=== PATIENT | male | born 1950 | race Caucasian/White ===

== ENCOUNTER → 2017-02-19 | Outpatient (CLI) | payer MEDICARE, OTHER ==
--- NOTE | 2017-02-19 14:45 | CTL ---
EXAMINATION TYPE: CT Low Dose Lung cancer screening. DATE OF EXAM ORDERED: 02/19/2017 2:02 PM HISTORY: 66-year-old male personal history of tobacco use, lung cancer screening. CT DLP: [address] CTDI: 4.0 mGy Automated exposure control for dose reduction was used. SCREENING VISIT: Baseline COMPARISON: None TECHNIQUE: Low dose computed tomography scan was performed through the chest at 1 mm thick sections and reconstructed images in the coronal plane at 1 mm thick sections. Coronal and sagittal reconstructions performed. CT DIAGNOSTIC QUALITY: Satisfactory FINDINGS: Left anterior chest wall AICD generator with right ventricular lead. Median sternotomy wires are present with post-CABG changes. There is mild to moderate bilateral gynecomastia incidentally seen. Heart is normal size without pericardial effusion. The aorta is normal caliber with conventional arch vessel branching anatomy. There is normal variant azygous fissure. No thoracic lymphadenopathy by CT size criteria. Evaluation of the lungs shows mild diffuse bronchial wall thickening and mild centrilobular emphysema. 4 mm pulmonary nodule at the anterior right midlung, axial image 110. 4 mm inferior lingular pulmonary nodule axial image 206. No consolidation or pleural effusion. Visualized upper abdomen shows tiny hiatal hernia. Bones: Mild endplate spondylosis mid to lower thoracic spine.. IMPRESSION: 1. LungRADS 3 - probably benign; a couple 4 mm pulmonary nodules on baseline. 2. COPD with mild emphysema. RECOMMENDATION: 1. Six-month follow-up low-dose CT chest for assessment of the 4 mm pulmonary nodules. 2. Smoking cessation. CT LUNG RAD: Lung-Rad 3 Probably Benign MTDD
== END | disposition home or self-care (01) ==
LOC: RADCTMAIN 13:33
PROVIDERS: ATTEND Family Medicine
DX: Z12.2 Encounter for screening for malignant neoplasm of respiratory organs (principal); J43.9 Emphysema, unspecified; F17.200 Nicotine dependence, unspecified, uncomplicated

== ENCOUNTER 2017-03-07 08:27 | Day surgery (SDC) | payer MEDICARE, OTHER ==
[2017-03-04 17:56] VITALS: BMI 43.0
[~2017-03-07 08:27] MED LIST: LACTATED RINGERS 1,000 ML IV SCH
[2017-03-07 09:02] VITALS: RESP 16; TEMP 97.3
[2017-03-07] MEDS ORDERED: PROPOFOL 10 MG/ML 20 ML VIAL IV ONE (09:48)
--- NOTE | 2017-03-07 10:20 | P.GSHP ---
History of Present Illness H&P Date: 03/07/17 Chief Complaint: Screening colonoscopy Is a 66-year-old male who presents today for screening colonoscopy. Patient denies any significant GI complaints. His last colonoscopy was over 10 years ago. - Constitutional Constitutional: Reports as per HPI Past Medical History Past Medical History: Chest Pain / Angina, COPD, Hyperlipidemia, Hypertension, Myocardial Infarction ([place]), Sleep Apnea/CPAP/BIPAP Additional Past Medical History / Comment(s): "40% of heart working", hx cluster headaches, constipation, "burning sensation in feet", neuropathy, hx kidney stones Last Myocardial Infarction Date:: 1997 History of Any Multi-Drug Resistant Organisms: None Reported Past Surgical History: AICD, Coronary Bypass/CABG, Heart Catheterization With Stent, Joint Replacement Additional Past Surgical History / Comment(s): Total R hip arthroplasty. 1997 triple vessel CABG, Cardiac cath with stents, RECTAL FISTULA REPAIR, LITHROTRIPSY, single chamber AICD 07/10/2016 Past Anesthesia/Blood Transfusion Reactions: No Reported Reaction Additional Past Anesthesia/Blood Transfusion Reaction / Comment(s): . Date of Last Stent Placement:: 11/28/2015 Type of Cardiac Device: AICD Device Placement Date:: 07/10/2016 Past Psychological History: Anxiety, Panic Disorder Additional Psychological History / Comment(s): . Smoking Status: Current every day smoker Past Alcohol Use History: Occasional Additional Past Alcohol Use History / Comment(s): STARTED SMOKING AT AGE 19 , smokes 1 PPD Past Drug Use History: None Reported - Past Family History Father Family Medical History: Cancer Additional Family Medical History / Comment(s): skin Mother Family Medical History: COPD, Pneumonia Additional Family Medical History / Comment(s): Mother at age 92 yrs. Medications and Allergies Home Medications Medication Instructions Recorded Confirmed Type Losartan Potassium [Cozaar] 100 mg PO HS 09/26/15 03/07/17 History Nitroglycerin Sl Tabs [Nitrostat] 0.4 mg SUBLINGUAL Q5M PRN 11/27/15 03/07/17 History ALPRAZolam [Xanax] 0.25 mg PO Q4-6H PRN 07/06/16 03/07/17 History Atorvastatin [Lipitor] 10 mg PO HS 07/06/16 03/07/17 History Furosemide [Lasix] 40 mg PO DAILY PRN 07/06/16 03/07/17 History Gabapentin 600 mg PO TID 07/06/16 03/07/17 History Isosorbide Mononitrate [Isosorbide 30 mg PO TID 07/06/16 03/07/17 History Mononitrate ER] Potassium Chloride ER [K-Dur 20] 20 meq PO DAILY PRN 07/06/16 03/07/17 History Aspirin 325 mg PO DAILY 03/04/17 03/07/17 History Clopidogrel [Plavix] 75 mg PO HS 03/04/17 03/07/17 History Escitalopram [Lexapro] 10 mg PO HS 03/04/17 03/07/17 History Omeprazole [PriLOSEC] 20 mg PO AC-BRKFST 03/04/17 03/07/17 History Allergies Allergy/AdvReac Type Severity Reaction Status Date / Time No Known Allergies Allergy Verified 03/04/17 17:36 Surgical - Exam Vital Signs Temp Pulse Resp BP Pulse Ox 97.3 F L 83 16 144/75 94 L 03/07/17 09:01 03/07/17 09:01 03/07/17 09:01 03/07/17 09:01 03/07/17 09:01 - General well developed, no distress - Eyes PERRL - ENT normal pinna - Neck no masses - Respiratory normal expansion - Cardiovascular Rhythm: regular - Abdomen Abdomen: soft, non tender Assessment and Plan Plan: We'll perform screening colonoscopy.
--- NOTE | 2017-03-07 10:33 | P.OP ---
Date of Procedure: 03/07/17 Preoperative Diagnosis: Screening colonoscopy Postoperative Diagnosis: Diverticulosis Procedure(s) Performed: Colonoscopy Implants: Anesthesia: MAC Surgeon: Cruz Talavera Pathology: none sent Condition: stable Disposition: PACU Indications for Procedure: Operative Findings: Description of Procedure: The patient's placed on the endoscopy table in the lateral position. He received IV sedation. Digital rectal exam was performed which revealed no abnormalities. The flexible colonoscope was then placed patient anus passed throughout the entire colon. The ileocecal valve was visualized. The cecum, ascending and transverse colon appeared normal. In the descending; there is mild diverticular changes. The scope was then brought back the rectum and this appeared normal. Scope was withdrawn for patient.
[2017-03-07 10:37] VITALS: PULSE 75
[2017-03-07 11:00] VITALS: BP 131/65
== END 2017-03-07 11:29 | disposition home or self-care (01) ==
LOC: ORWHC2ENDO 08:27
PROVIDERS: ATTEND Surgery
DX: Z12.11 Encounter for screening for malignant neoplasm of colon (principal); K57.30 Diverticulosis of large intestine without perforation or abscess without bleeding; J44.9 Chronic obstructive pulmonary disease, unspecified; E78.5 Hyperlipidemia, unspecified; I10 Essential (primary) hypertension; I25.10 Atherosclerotic heart disease of native coronary artery without angina pectoris; G47.33 Obstructive sleep apnea (adult) (pediatric); F41.9 Anxiety disorder, unspecified; K21.9 Gastro-esophageal reflux disease without esophagitis; I25.2 Old myocardial infarction; F17.200 Nicotine dependence, unspecified, uncomplicated; Z79.82 Long term (current) use of aspirin; Z79.02 Long term (current) use of antithrombotics/antiplatelets; Z79.899 Other long term (current) drug therapy; Z99.89 Dependence on other enabling machines and devices; Z80.8 Family history of malignant neoplasm of other organs or systems; Z83.6 Family history of other diseases of the respiratory system; Z95.810 Presence of automatic (implantable) cardiac defibrillator; Z95.1 Presence of aortocoronary bypass graft; Z95.5 Presence of coronary angioplasty implant and graft; Z96.641 Presence of right artificial hip joint
CPT/HCPCS: G0121; J2704

== ENCOUNTER → 2017-06-27 | Outpatient (CLI) | payer MEDICARE, OTHER ==
--- NOTE | 2017-06-27 14:49 | PN ---
PROGRESS NOTE DATE OF SERVICE: 06/27/2017 66-year-old gentleman has been followed in the sleep center for treatment of obstructive sleep apnea-hypopnea syndrome. Patient is on treatment with BiPAP and he continued to use his equipment every night. Sometimes has leak from his fullface mask, tried to adjust it to make it more tight. His mask was not changed for more than 1 year. I checked the patient's BiPAP unit. BiPAP pressure is 16/12 cm of water as recommended. The patient is a using equipment 21 out of 30 nights, 17 out of 30 for more than 4 hours. Average usage is 5.1 hour. Apnea-hypopnea index is only 1.3. The leak from the mask is up to 29 L/minute. [place] Sleepiness Scale today is 9. MEDICATIONS: Isosorbide, omeprazole, carvedilol, gabapentin, Plavix, atorvastatin, Cozaar, aspirin, Chantix, ibuprofen, Nitrostat, vitamins. PHYSICAL EXAM: During physical exam, patient in no distress. BP 140/74, HR 70, RR 16, height 5 feet 9 inches, weight 280, BMI 41.3. The patient lost about 24 pounds since visit last year. Temperature 97.3, oxygen saturation room air 97%. HEENT PERRLA, EOMI. Evaluation of oropharynx showed extremely low position of soft palate. Neck Supple, no JVD. Thyroid is not palpable. LUNGS Clear to percussion and to auscultation. Good air exchange. No wheezing or rhonchi. HEART S1, S2 regular. No murmurs, gallops, or rubs. ABDOMEN Obese. Soft and nontender. Bowel sounds are present. No organomegaly appreciated. EXTREMITIES No clubbing or cyanosis. 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 Cranial nerves 2 to 7 intact. There is no fasciculation or atrophy. noted. No focal deficits observed. IMPRESSION: 1. Obstructive sleep apnea-hypopnea syndrome. The patient is on treatment with BiPAP, benefitting from treatment. 2. Obesity. 3. Hypertension. 4. History of periodic limb movements. 5. Coronary artery disease, status post CABG. 6. History of congestive heart failure. 7. History of kidney stones. 8. Acid reflux. PLAN: 1. To replace the patient's mask as soon as possible. The mask should be replaced every 4-6 months as it was recommended by Medicare. 2. Continue losing weight. 3. Sleep hygiene with regular time in bed for at least 8 hours. 4. No driving if feeling sleepiness. 5. Follow-up visit in 1 year or earlier if the patient has any problems. Thank you very much for allowing me to participate in management of your patient. Sincerely, Claus Cartagena MD, PhD, FAASM Diplomat of [employer] Division Director of [facility] [place] MMODL / IJN: [id number] /
== END | disposition home or self-care (01) ==
LOC: SLEEP 13:33
PROVIDERS: ATTEND Internal Medicine
DX: G47.33 Obstructive sleep apnea (adult) (pediatric) (principal); E66.9 Obesity, unspecified; I10 Essential (primary) hypertension; I25.10 Atherosclerotic heart disease of native coronary artery without angina pectoris; K21.9 Gastro-esophageal reflux disease without esophagitis; Z95.1 Presence of aortocoronary bypass graft; Z86.79 Personal history of other diseases of the circulatory system; Z87.442 Personal history of urinary calculi

== ENCOUNTER → 2018-03-25 | Outpatient (CLI) | payer MEDICARE, OTHER | END | disposition home or self-care (01) | LOC: CPPFTMAIN 08:04 | PROVIDERS: ATTEND Family Medicine | DX: J44.9 Chronic obstructive pulmonary disease, unspecified (principal) | CPT/HCPCS: 94060; 94726; 94729 ==

== ENCOUNTER → 2019-05-20 | Outpatient (CLI) | payer MEDICARE, OTHER ==
--- NOTE | 2019-05-20 15:27 | US ---
EXAMINATION TYPE: US kidneys/renal and bladder DATE OF EXAM: 05/20/2019 COMPARISON: NONE CLINICAL HISTORY: R94.4 Abnormal renal function. abn function EXAM MEASUREMENTS: Right Kidney: 12.4 x 6.5 x 6.9 cm Left Kidney: 11.2 x 5.5 x 6.7 cm Right Kidney: No hydronephrosis or masses seen Left Kidney: 2.4 x 3.0 x 1.7cm lateral cyst Bladder: wnl Bilateral Jets seen: right IMPRESSION: 1. Left renal cyst
== END | disposition home or self-care (01) ==
LOC: RADUSWWP 13:23
PROVIDERS: ATTEND Family Medicine
DX: N28.1 Cyst of kidney, acquired (principal); Z88.8 Allergy status to other drugs, medicaments and biological substances
CPT/HCPCS: 76770

== ENCOUNTER → 2020-01-29 | Outpatient (CLI) | payer MEDICARE, OTHER ==
--- NOTE | 2020-01-29 13:15 | XR ---
EXAMINATION TYPE: XR chest 2V DATE OF EXAM: 01/29/2020 COMPARISON: 07/11/2016 HISTORY: Shortness of breath. Possible COPD. TECHNIQUE: Frontal and lateral views of the chest are obtained. FINDINGS: There is an enlarged cardiac mediastinal silhouette with post CABG change and single lead left-sided cardiac device. Prominent epicardial fat pad is again seen along the right atrial border u nchanged from the prior 2015. Flattening of the diaphragms on the lateral view suggests underlying CO PD. Mild degenerative disc disease of the thoracic spine. IMPRESSION: No acute cardiopulmonary process. Findings suggesting underlying COPD.
== END | disposition home or self-care (01) ==
LOC: RADXRMAIN 12:57
PROVIDERS: ATTEND Nurse Practitioner Women's Health
DX: R06.02 Shortness of breath (principal); R09.02 Hypoxemia
CPT/HCPCS: 71046

== ENCOUNTER → 2020-04-06 | Outpatient (CLI) | payer MEDICARE, OTHER ==
--- NOTE | 2020-04-06 15:23 | XR ---
Cervical spine HISTORY: Neck pain 7 views of the cervical spine There is multilevel facet arthropathy. Pacemaker lead is present, patient is post median sternotomy. Cervical vertebral bodies show preserved height and alignment, bone mineralization. Foramina show jake e encroachment at C4-5, C5-6. IMPRESSION: Degenerative disc disease.
== END | disposition home or self-care (01) ==
LOC: RADXRMAIN 12:59
PROVIDERS: ATTEND Family Medicine
DX: M50.321 Other cervical disc degeneration at C4-C5 level (principal)
CPT/HCPCS: 72050

== ENCOUNTER → 2020-04-26 | Outpatient (CLI) | payer MEDICARE, OTHER ==
--- NOTE | 2020-04-26 10:47 | CT ---
EXAMINATION TYPE: CT lumbar spine wo con DATE OF EXAM: 04/26/2020 COMPARISON: Plain film 08/27/2016 HISTORY: Low back pain CT DLP: 2525.9 mGycm Automated exposure control for dose reduction was used. An unenhanced CT of the lumbar spine was performed. Bone and soft tissue window settings are submitt ed as well as coronal and sagittal reconstructions. FINDINGS: Lumbar vertebral bodies show preserved height, alignment, and bone mineralization. Vacuum phenomenon is present at intervertebral levels, there is loss of disc height, multilevel spondylosis noted. There are low dense lesions associated with the kidneys which are indeterminate, there is calcificati on associated with the upper pole left kidney, lesions do not meet criteria for simple cysts L1-L2: Broad-based disc bulge causes mild anterior mass effect on the thecal sac. No significant fora carley encroachment or spinal stenosis. L2-L3: Posterior broad-based disc bulge causes mild anterior mass effect on the thecal sac. No signif icant foraminal encroachment or spinal stenosis. L3-L4: Posterior broad-based disc bulge causes some mild anterior mass effect on the thecal sac, mild spinal stenosis. No significant foraminal encroachment on the left, circumferential extension of end plate disc complex encroaches somewhat on the right neural foramen. L4-L5: Broad-based posterior disc bulge causes mild anterior mass effect on the thecal sac. No signif icant spinal stenosis or foraminal encroachment. There is facet arthropathy change present. L5-S1: There is posterior broad-based disc bulge causing anterior mass effect on the thecal sac. No s ignificant spinal stenosis. Facet arthropathy changes present. No significant foraminal encroachment. IMPRESSION: Degenerative disc disease and facet arthropathy. Indeterminate renal lesions. Follow-up suggested.
== END ==
LOC: RADCTMAIN 09:45
PROVIDERS: ATTEND Psychiatry & Neurology Neurology
DX: M51.36 Other intervertebral disc degeneration, lumbar region (principal); M46.96 Unspecified inflammatory spondylopathy, lumbar region
CPT/HCPCS: 72131

== ENCOUNTER → 2020-05-26 | Outpatient (CLI) | payer MEDICARE, OTHER ==
[2020-05-26 15:45] LABS: HCT 47.1 % (39.0-53.0); HGB 15.3 gm/dL (13.0-17.5); MCH 34.2 pg (25.0-35.0); MCHC 32.4 g/dL (31.0-37.0); MCV 105.5 fL (80.0-100.0); Macrocytosis Moderate; Mean Platelet Volume 7.8; Platelet Count 271 k/uL (150-450); RBC 4.46 m/uL (4.30-5.90); WBC 14.2 k/uL (3.8-10.6)
[2020-05-27 02:10] LABS: Ferritin 37.6 ng/mL (22.0-322.0)
[2020-05-27 02:54] LABS: % Iron Saturation 15.32 (15.00-50.00); African American GFR (CKD) 54.7 (60.0-200.0); Albumin 4.1 g/dL (3.80-4.90); Albumin/Globulin Ratio 1.95 (1.60-3.17); Anion Gap 8.8 mmol/L (4.00-12.00); Calcium 9.4 mg/dL (8.7-10.3); Carbon Dioxide 32.2 mmol/L (21.6-31.8); Globulin 2.1 g/dL (1.6-3.3); Magnesium 1.5 mg/dL (1.5-2.4); Non-African American GFR(CKD) 47.2 (60.0-200.0); Phosphorus 2.5 mg/dL (2.4-5.1); Potassium 3.7 mmol/L (3.5-5.5); Total Bilirubin 0.5 mg/dL (0.2-1.2); Total Protein 6.2 g/dL (6.2-8.2); Uric Acid 13.4 mg/dL (3.7-8.7)
== END | disposition home or self-care (01) ==
LOC: LABWHC1 14:52
PROVIDERS: ATTEND Nurse Practitioner Family
DX: N18.2 Chronic kidney disease, stage 2 (mild) (principal); D63.1 Anemia in chronic kidney disease; N39.0 Urinary tract infection, site not specified; N25.81 Secondary hyperparathyroidism of renal origin; E55.9 Vitamin D deficiency, unspecified; M10.9 Gout, unspecified
CPT/HCPCS: 36415; 80053; 82728; 83540; 83550; 83735; 83970; 84100; 84550; 85027

== ENCOUNTER → 2020-06-27 | Outpatient (CLI) | payer MEDICARE, OTHER ==
--- NOTE | 2020-06-27 14:43 | US ---
EXAMINATION TYPE: US kidneys/renal and bladder DATE OF EXAM: 06/27/2020 COMPARISON: NONE CLINICAL HISTORY: N28.1 Renal Cyst on the Left. EXAM MEASUREMENTS: Right Kidney: 12.2 x 6.6 x 5.3 cm Left Kidney: 13.0 x 5.0 x 4.3 cm Right Kidney: No hydronephrosis or masses seen Left Kidney: Two cystic areas seen upper pole 2.3 x 1.5 x 1.7 cm lower pole 2.0 x 1.9 x 2.0 cm. Bladder: wnl Bilateral Jets seen: Yes IMPRESSION: 1. Cysts within the left kidney
== END | disposition home or self-care (01) ==
LOC: RADUSWWP 12:54
PROVIDERS: ATTEND Internal Medicine Nephrology
DX: N28.1 Cyst of kidney, acquired (principal)
CPT/HCPCS: 76770

== ENCOUNTER → 2020-09-02 | Outpatient (CLI) | payer MEDICARE, OTHER ==
[2020-09-02 16:06] LABS: HCT 47.6 % (39.0-53.0); MCH 34.4 pg (25.0-35.0); MCHC 33.6 g/dL (31.0-37.0); MCV 102.4 fL (80.0-100.0); Macrocytosis Slight; Mean Platelet Volume 7.4; Platelet Count 246 k/uL (150-450); RBC 4.65 m/uL (4.30-5.90); RDW 14.4 % (11.5-15.5); WBC 13.8 k/uL (3.8-10.6)
[2020-09-02 16:08] LABS: Appearance,Urine Clear (Clear); Bilirubin,Urine Negative (Negative); Blood,Urine Negative (Negative); Color,Urine Yellow; Glucose,Urine (UA) Negative (Negative); Ketones,Urine Negative (Negative); Leukocyte Esterase,Urine Negative (Negative); Nitrite,Urine Negative (Negative); PH, Urine 6.5 (5.0-8.0); Protein,Urine Negative (Negative); Urobilinogen,Urine <2.0 mg/dL (<2.0)
[2020-09-02 16:32] LABS: Creatinine,Urine Random 65.4 mg/dL; Protein/Creatinine Ratio,Urine 0.321
[2020-09-03 01:35] LABS: % Iron Saturation 22.22 (15.00-50.00); African American GFR (CKD) 54.7 (60.0-200.0); Albumin 4.2 g/dL (3.80-4.90); Albumin/Globulin Ratio 2.1 (1.60-3.17); Anion Gap 7.9 mmol/L (4.00-12.00); Calcium 9.7 mg/dL (8.7-10.3); Carbon Dioxide 32.1 mmol/L (21.6-31.8); Magnesium 1.5 mg/dL (1.5-2.4); Non-African American GFR(CKD) 47.2 (60.0-200.0); Phosphorus 2.6 mg/dL (2.4-5.1); Potassium 4.3 mmol/L (3.5-5.5); Total Bilirubin 0.7 mg/dL (0.2-1.2); Total Protein 6.2 g/dL (6.2-8.2); Uric Acid 9.2 mg/dL (3.7-8.7)
[2020-09-03 01:43] LABS: Ferritin 42.6 ng/mL (22.0-322.0)
[2020-09-03 02:51] LABS: Hemoglobin A1C 6.9 % (4.0-6.0)
[2020-09-03 04:37] LABS: Urine Creatinine 59.5 mg/dL
== END | disposition home or self-care (01) ==
LOC: LABWHC1 14:55
PROVIDERS: ATTEND Nurse Practitioner Family
DX: E55.9 Vitamin D deficiency, unspecified (principal); D63.1 Anemia in chronic kidney disease; E11.22 Type 2 diabetes mellitus with diabetic chronic kidney disease; R80.9 Proteinuria, unspecified; M10.9 Gout, unspecified; N18.2 Chronic kidney disease, stage 2 (mild); N39.0 Urinary tract infection, site not specified; N25.81 Secondary hyperparathyroidism of renal origin
CPT/HCPCS: 36415; 80053; 81003; 82043; 82306; 82570; 82728; 83036; 83540; 83550; 83735; 83970; 84100; 84156; 84550; 85027

== ENCOUNTER → 2020-12-13 | Outpatient (CLI) | payer MEDICARE, OTHER ==
[2020-12-13 15:09] LABS: Appearance,Urine Clear (Clear); Bilirubin,Urine Negative (Negative); Blood,Urine Negative (Negative); Color,Urine Yellow; Glucose,Urine (UA) Negative (Negative); Hyaline Casts,Urine 8 /lpf (0-2); Ketones,Urine Negative (Negative); Leukocyte Esterase,Urine Trace (Negative); Mucus,Urine Rare /hpf; Nitrite,Urine Negative (Negative); PH, Urine 5.5 (5.0-8.0); Protein,Urine 1+ (Negative); RBC,Urine 1 /hpf (0-5); Specific Gravity,Urine 1.021 (1.001-1.035); Squamous Epithelial Cell,Urine <1 /hpf (0-4); WBC,Urine 4 /hpf (0-5)
[2020-12-13 15:19] LABS: Creatinine,Urine Random 216.1 mg/dL; Protein/Creatinine Ratio,Urine 0.074
[2020-12-14 01:43] LABS: HCT 46.3 % (39.6-50.0); HGB 15.3 g/dL (13.0-17.0); MCH 34.2 pg (27.0-32.0); MCV 103.6 fL (80.0-97.0); Mean Platelet Volume 10.5 fL (9.5-12.2); Platelet Count 248 X 10*3/uL (140-440); RBC 4.47 X 10*6/uL (4.40-5.60); RDW 14.9 % (11.5-14.5); WBC 10.08 X 10*3/uL (4.50-10.00)
[2020-12-14 04:26] LABS: Hemoglobin A1C 6.6 % (4.0-6.0)
[2020-12-14 07:01] LABS: Ferritin 68.7 ng/mL (22.0-322.0)
[2020-12-14 07:13] LABS: % Iron Saturation 21.7 (15.00-50.00); Albumin 4.1 g/dL (3.80-4.90); Albumin/Globulin Ratio 2.16 (1.60-3.17); Anion Gap 5.9 mmol/L (4.00-12.00); BUN/Creat Ratio 18.57 Ratio (12.00-20.00); Carbon Dioxide 25.1 mmol/L (21.6-31.8); Chol/HDL Ratio 4.42; Globulin 1.9 g/dL (1.6-3.3); Non-African American GFR(CKD) 50.9 (60.0-200.0); Phosphorus 2.8 mg/dL (2.4-5.1); Potassium 4.1 mmol/L (3.5-5.5); Total Bilirubin 0.4 mg/dL (0.2-1.2)
== END | disposition home or self-care (01) ==
LOC: LABWHC1 12:18
PROVIDERS: ATTEND Internal Medicine Cardiovascular Disease
DX: E55.9 Vitamin D deficiency, unspecified (principal); E78.2 Mixed hyperlipidemia; D64.9 Anemia, unspecified; E11.22 Type 2 diabetes mellitus with diabetic chronic kidney disease; N18.30 Chronic kidney disease, stage 3 unspecified; N25.81 Secondary hyperparathyroidism of renal origin; M10.9 Gout, unspecified; N39.0 Urinary tract infection, site not specified; R80.9 Proteinuria, unspecified
CPT/HCPCS: 36415; 80053; 80061; 81001; 82043; 82306; 82570; 82728; 83036; 83540; 83550; 83970; 84100; 84156; 84550; 85027

== ENCOUNTER → 2021-04-24 | Outpatient (CLI) | payer MEDICARE, OTHER ==
[2021-04-24 13:09] LABS: Appearance,Urine Clear (Clear); Bilirubin,Urine Negative (Negative); Blood,Urine Negative (Negative); Color,Urine Light Yellow; Glucose,Urine (UA) Negative (Negative); Ketones,Urine Negative (Negative); Leukocyte Esterase,Urine Negative (Negative); Nitrite,Urine Negative (Negative); Protein,Urine Negative (Negative); Specific Gravity,Urine 1.008 (1.001-1.035); Urobilinogen,Urine <2.0 mg/dL (<2.0)
[2021-04-24 18:40] LABS: HCT 44.4 % (39.6-50.0); HGB 14.7 g/dL (13.0-17.0); MCH 34.6 pg (27.0-32.0); MCHC 33.1 g/dL (32.0-37.0); MCV 104.5 fL (80.0-97.0); Mean Platelet Volume 10.7 fL (9.5-12.2); Platelet Count 221 X 10*3/uL (140-440); RBC 4.25 X 10*6/uL (4.40-5.60); RDW 15.3 % (11.5-14.5); WBC 10.41 X 10*3/uL (4.50-10.00)
[2021-04-24 19:02] LABS: % Iron Saturation 13.13 (15.00-50.00); African American GFR (CKD) 50.2 (60.0-200.0); Albumin 4.1 g/dL (3.80-4.90); Albumin/Globulin Ratio 1.78 (1.60-3.17); Anion Gap 7.4 mmol/L (4.00-12.00); BUN/Creat Ratio 23.75 Ratio (12.00-20.00); Calcium 9.6 mg/dL (8.7-10.3); Carbon Dioxide 31.6 mmol/L (21.6-31.8); Globulin 2.3 g/dL (1.6-3.3); Magnesium 1.7 mg/dL (1.5-2.4); Non-African American GFR(CKD) 43.3 (60.0-200.0); Phosphorus 3.1 mg/dL (2.4-5.1); Potassium 3.9 mmol/L (3.5-5.5); Total Bilirubin 0.4 mg/dL (0.3-1.2); Total Protein 6.4 g/dL (6.2-8.2)
[2021-04-24 19:03] LABS: Uric Acid 8.8 mg/dL (3.7-8.7)
[2021-04-24 19:12] LABS: Ferritin 31.6 ng/mL (22.0-322.0)
[2021-04-24 23:31] LABS: Urine Creatinine 32.7 mg/dL
== END | disposition home or self-care (01) ==
LOC: LABWHC1 11:41
PROVIDERS: ATTEND Internal Medicine
DX: N18.31 Chronic kidney disease, stage 3a (principal); D64.9 Anemia, unspecified; N39.0 Urinary tract infection, site not specified; N25.81 Secondary hyperparathyroidism of renal origin; M10.9 Gout, unspecified; E55.9 Vitamin D deficiency, unspecified
CPT/HCPCS: 36415; 80053; 81003; 82043; 82306; 82570; 82728; 83540; 83550; 83735; 83970; 84100; 84550; 85027

== ENCOUNTER → 2021-08-08 | Outpatient (CLI) | payer MEDICARE, OTHER ==
[2021-08-08 11:17] LABS: HCT 48.9 % (39.6-50.0); MCH 34.6 pg (27.0-32.0); MCHC 32.7 g/dL (32.0-37.0); MCV 105.8 fL (80.0-97.0); Mean Platelet Volume 10.5 fL (9.5-12.2); Platelet Count 220 X 10*3/uL (140-440); RBC 4.62 X 10*6/uL (4.40-5.60); RDW 15.7 % (11.5-14.5); WBC 10.93 X 10*3/uL (4.50-10.00)
[2021-08-08 13:55] LABS: % Iron Saturation 28.95 (15.00-50.00); Albumin 4.1 g/dL (3.8-4.9); Albumin/Globulin Ratio 1.83 (1.60-3.17); Anion Gap 16.3 mmol/L (4.00-12.00); BUN/Creat Ratio 19.44 Ratio (12.00-20.00); Blood Urea Nitrogen 27.6 mg/dL (9.0-27.0); Calcium 9.8 mg/dL (8.7-10.3); Carbon Dioxide 26.3 mmol/L (21.6-31.8); Chol/HDL Ratio 3.66 Ratio; Ferritin 64.1 ng/mL (22.0-322.0); Globulin 2.2 g/dL (1.6-3.3); HDL Cholesterol 27.6 mg/dL (40.00-60.00); LDL Cholesterol,Calculated 39.2 mg/dL (0.0-131.0); Magnesium 1.7 mg/dL (1.5-2.4); Phosphorus 3.4 mg/dL (2.4-5.1); Potassium 4.2 mmol/L (3.5-5.5); Total Bilirubin 0.5 mg/dL (0.30-1.20); Total Protein 6.3 g/dL (6.2-8.2); VLDL Calculation 34.2 mg/dL (5.00-40.00)
[2021-08-08 14:57] LABS: Appearance,Urine Clear (Clear); Bilirubin,Urine Negative (Negative); Blood,Urine Negative (Negative); Color,Urine Yellow; Glucose,Urine (UA) Negative (Negative); Ketones,Urine Negative (Negative); Leukocyte Esterase,Urine Negative (Negative); Nitrite,Urine Negative (Negative); PH, Urine 6.5 (5.0-8.0); Protein,Urine Trace (Negative)
== END | disposition home or self-care (01) ==
LOC: LABWHC1 07:46
PROVIDERS: ATTEND Internal Medicine Gastroenterology
DX: E78.2 Mixed hyperlipidemia (principal); N18.31 Chronic kidney disease, stage 3a; D64.9 Anemia, unspecified; N39.0 Urinary tract infection, site not specified; N25.81 Secondary hyperparathyroidism of renal origin; E55.9 Vitamin D deficiency, unspecified; M10.9 Gout, unspecified
CPT/HCPCS: 36415; 80053; 80061; 81003; 82043; 82306; 82570; 82728; 83036; 83540; 83550; 83735; 83970; 84100; 84550; 85027

== ENCOUNTER 2021-09-09 18:09 | Emergency (ER) | payer MEDICARE, OTHER ==
[2021-09-09 18:38] VITALS: BP 124/73; PULSE 82; RESP 18; TEMP 97.8
[2021-09-09] MEDS ORDERED: BACITRACIN OINT 1 EACH PACKET TOPICAL ONE (19:44)
--- NOTE | 2021-09-09 20:22 | ED ---
Lower Extremity Injury HPI - General Chief Complaint: Extremity Injury, Lower Stated Complaint: SOB, Big toe laceration, on thinners Time Seen by Provider: 09/09/21 19:39 Source: patient, RN notes reviewed Mode of arrival: wheelchair - History of Present Illness Initial Comments: Patient is a 70-year-old male that presents to the emergency department complaining of left great toe abrasion. She was sleeping when he knocked his laptop off a side table and on his foot. He notes he is diabetic and has diabetic neuropathy. He notes it has minimal bleeding. He came emergently get evaluated. Patient denied any issues or complaints. He was well-appearing. He denied chest pain shortness of breath headache nausea vomiting diarrhea constipation fever fatigue chills. - Related Data Home Medications Medication Instructions Recorded Confirmed Losartan Potassium [Cozaar] 100 mg PO HS 09/26/15 03/07/17 Nitroglycerin Sl Tabs [Nitrostat] 0.4 mg SUBLINGUAL Q5M PRN 11/27/15 03/07/17 ALPRAZolam [Xanax] 0.25 mg PO Q4-6H PRN 07/06/16 03/07/17 Atorvastatin [Lipitor] 10 mg PO HS 07/06/16 03/07/17 Furosemide [Lasix] 40 mg PO DAILY PRN 07/06/16 03/07/17 Gabapentin 600 mg PO TID 07/06/16 03/07/17 Isosorbide Mononitrate [Isosorbide 30 mg PO TID 07/06/16 03/07/17 Mononitrate ER] Potassium Chloride ER [K-Dur 20] 20 meq PO DAILY PRN 07/06/16 03/07/17 Aspirin 325 mg PO DAILY 03/04/17 03/07/17 Clopidogrel [Plavix] 75 mg PO HS 03/04/17 03/07/17 Escitalopram [Lexapro] 10 mg PO HS 03/04/17 03/07/17 Omeprazole [PriLOSEC] 20 mg PO AC-BRKFST 03/04/17 03/07/17 Previous Rx's Medication Instructions Recorded Carvedilol [Coreg] 18.75 mg PO BID #45 tab 12/02/15 Allergies Allergy/AdvReac Type Severity Reaction Status Date / Time No Known Allergies Allergy Verified 03/04/17 17:36 Review of Systems ROS Statement: Those systems with pertinent positive or pertinent negative responses have been documented in the HPI. ROS Other: All systems not noted in ROS Statement are negative. Past Medical History Past Medical History: COPD, GERD/Reflux, Hyperlipidemia, Hypertension, Myocardial Infarction ([place]), Osteoarthritis (OA), Sleep Apnea/CPAP/BIPAP Additional Past Medical History / Comment(s): cardiomyopathy Last Myocardial Infarction Date:: 11/28/15 History of Any Multi-Drug Resistant Organisms: None Reported Past Surgical History: Coronary Bypass/CABG, Heart Catheterization With Stent, Joint Replacement Additional Past Surgical History / Comment(s): 10/04/15 Total R hip arthroplasty. 1997 triple vessel CABG, Cardiac cath with stents, RECTAL FISTULA REPAIR, KIDNEY STONE, LITHROTRIPSY, single chamber AICD 07/10/2016 Past Anesthesia/Blood Transfusion Reactions: No Reported Reaction Additional Past Anesthesia/Blood Transfusion Reaction / Comment(s): Pt does not believe he has ever received blood. Date of Last Stent Placement:: 11/28/2015 Past Psychological History: No Psychological Hx Reported Smoking Status: Current every day smoker Past Alcohol Use History: Rare Past Drug Use History: None Reported - Past Family History Father Family Medical History: Cancer Additional Family Medical History / Comment(s): skin Mother Family Medical History: COPD, Pneumonia Additional Family Medical History / Comment(s): Mother at age 92 yrs. General Exam General appearance: alert, in no apparent distress, obese Head exam: Present: atraumatic, normocephalic, normal inspection Eye exam: Present: normal appearance, PERRL, EOMI. Absent: scleral icterus, conjunctival injection, periorbital swelling ENT exam: Present: normal exam, mucous membranes moist Neck exam: Present: normal inspection. Absent: tenderness, meningismus, lymphadenopathy Respiratory exam: Present: normal lung sounds bilaterally. Absent: respiratory distress, wheezes, rales, rhonchi, stridor Cardiovascular Exam: Present: regular rate, normal rhythm, normal heart sounds. Absent: systolic murmur, diastolic murmur, rubs, gallop, clicks GI/Abdominal exam: Present: soft, normal bowel sounds. Absent: distended, tenderness, guarding, rebound, rigid Extremities exam: Present: normal inspection, full ROM, normal capillary refill. Absent: tenderness, pedal edema, joint swelling, calf tenderness Neurological exam: Present: alert, oriented X3 Psychiatric exam: Present: normal affect, normal mood Skin exam: Present: warm, dry, intact, normal color, abrasion (Just proximal the left great toe, nonbleeding.). Absent: rash Course Vital Signs 09/09/21 18:30 Temperature 97.8 F Pulse Rate 82 Respiratory 18 Rate Blood Pressure 124/73 O2 Sat by Pulse 95 Oximetry Medical Decision Making - Medical Decision Making 70-year-old male with left toe injury. Upon exam is a small abrasion to the proximal left great toe. Area was cleaned and bacitracin was applied and bandaged. Patient is agreeable to discharge home with follow-up to primary care. Case discussed with Dr. Ren, patient discharge home. Disposition Clinical Impression: Abrasion Disposition: HOME SELF-CARE Condition: Stable Instructions (If sedation given, give patient instructions): Abrasion (ED) Additional Instructions: Please return to the Emergency Department if symptoms worsen or any other concerns. Follow-up with primary care 1-2 days. 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 Is patient prescribed a controlled substance at d/c from ED?: No Referrals: Vaibhav Mejía MD [Primary Care Provider] - 1-2 days Time of Disposition: 20:22
== END 2021-09-09 20:42 | disposition home or self-care (01) ==
LOC: EC 18:09
DX: S90.412A Abrasion, left great toe, initial encounter (principal); J44.9 Chronic obstructive pulmonary disease, unspecified; E78.5 Hyperlipidemia, unspecified; I10 Essential (primary) hypertension; I25.2 Old myocardial infarction; M19.90 Unspecified osteoarthritis, unspecified site; E11.40 Type 2 diabetes mellitus with diabetic neuropathy, unspecified; F17.200 Nicotine dependence, unspecified, uncomplicated; K21.9 Gastro-esophageal reflux disease without esophagitis; Z72.89 Other problems related to lifestyle; Z79.82 Long term (current) use of aspirin; Z79.02 Long term (current) use of antithrombotics/antiplatelets; Z79.899 Other long term (current) drug therapy
CPT/HCPCS: 99283

== ENCOUNTER → 2021-11-27 | Outpatient (CLI) | payer MEDICARE, OTHER ==
[2021-11-27 23:29] LABS: Basophils # (A) 0.03 X 10*3/uL (0.00-0.10); Basophils % (A) 0.3 %; Eosinophils # (A) 0.09 X 10*3/uL (0.04-0.35); Eosinophils % (A) 0.9 %; HCT 49.3 % (39.6-50.0); HGB 16.2 g/dL (13.0-17.0); Immature Grans, Automated 0.5 %; Lymphocytes # (A) 2.01 X 10*3/uL (0.90-5.00); MCH 34.5 pg (27.0-32.0); MCHC 32.9 g/dL (32.0-37.0); MCV 104.9 fL (80.0-97.0); Mean Platelet Volume 10.9 fL (9.5-12.2); Monocytes # (A) 0.71 X 10*3/uL (0.20-1.00); Monocytes % (A) 6.7 %; NRBC Per 100 WBC 0 /100 WBCS (0.0-0.0); Neutrophils # (A) 7.69 X 10*3/uL (1.80-7.70); Neutrophils % (A) 72.6 %; Platelet Count 223 X 10*3/uL (140-440); WBC 10.58 X 10*3/uL (4.50-10.00)
[2021-11-28 01:50] LABS: Appearance,Urine Clear (Clear); Bilirubin,Urine Negative (Negative); Blood,Urine Negative (Negative); Color,Urine Yellow (Yellow); Ketones,Urine Trace mg/dL (Negative); Leukocyte Esterase,Urine Negative (Negative); Nitrite,Urine Negative (Negative); Protein,Urine Negative (Negative); Specific Gravity,Urine 1.018 (1.001-1.030)
[2021-11-28 04:46] LABS: % Iron Saturation 30.08 (15.00-50.00); ALT 13 U/L (10-49); AST 18 U/L (14-35); African American GFR (CKD) 44.7 (60.0-200.0); Albumin 4.1 g/dL (3.8-4.9); Albumin/Globulin Ratio 1.73 (1.60-3.17); Alkaline Phosphatase 85 U/L (41-126); BUN/Creat Ratio 19.43 Ratio (12.00-20.00); Calcium 10.1 mg/dL (8.7-10.3); Carbon Dioxide 26.5 mmol/L (20.0-27.5); Chloride 96 mmol/L (96-109); Globulin 2.4 g/dL (1.6-3.3); Glucose 116 mg/dL (70-110); Iron 112 ug/dL (65-175); Magnesium 1.7 mg/dL (1.5-2.4); Non-African American GFR(CKD) 38.6 (60.0-200.0); Phosphorus 2.8 mg/dL (2.4-5.1); Potassium 4.3 mmol/L (3.5-5.5); Sodium 143 mmol/L (135-145); Total Iron Binding Capacity 372 ug/dL (228-460); Total Protein 6.5 g/dL (6.2-8.2); Uric Acid 9.6 mg/dL (3.7-8.7)
[2021-11-28 05:02] LABS: Chol/HDL Ratio 3.95 Ratio; Ferritin 97.3 ng/mL (22.0-322.0); LDL Cholesterol,Calculated 33.9 mg/dL (0.0-131.0)
[2021-11-28 10:56] LABS: Microalbumin Creatinine Ratio <30 mg/g Creat (0-30)
== END | disposition home or self-care (01) ==
LOC: LABWHC1 15:22
PROVIDERS: ATTEND Internal Medicine
DX: L97.522 Non-pressure chronic ulcer of other part of left foot with fat layer exposed (principal); R60.0 Localized edema; R53.83 Other fatigue; R06.02 Shortness of breath; E03.9 Hypothyroidism, unspecified; N18.31 Chronic kidney disease, stage 3a; D64.9 Anemia, unspecified; N39.0 Urinary tract infection, site not specified; N25.81 Secondary hyperparathyroidism of renal origin; E55.9 Vitamin D deficiency, unspecified; M10.9 Gout, unspecified
CPT/HCPCS: 36415; 80053; 80061; 81003; 82043; 82306; 82570; 82728; 83540; 83550; 83735; 83880; 83970; 84100; 84443; 84550; 85025

== ENCOUNTER → 2021-11-29 | Outpatient (CLI) | payer MEDICARE, OTHER | END | disposition home or self-care (01) | LOC: LABWHC1 09:33 | PROVIDERS: ATTEND Internal Medicine | DX: N25.81 Secondary hyperparathyroidism of renal origin (principal); N18.31 Chronic kidney disease, stage 3a; D64.9 Anemia, unspecified; N39.0 Urinary tract infection, site not specified; E55.9 Vitamin D deficiency, unspecified; M10.9 Gout, unspecified | CPT/HCPCS: 36415; 83036 ==

== ENCOUNTER → 2021-12-21 | Outpatient (CLI) | payer MEDICARE, OTHER ==
[2021-12-21 23:35] LABS: African American GFR (CKD) 47.7 (60.0-200.0); Anion Gap 16.5 mmol/L (10.00-18.00); BUN/Creat Ratio 18.13 Ratio (12.00-20.00); Blood Urea Nitrogen 30.1 mg/dL (9.0-27.0); Magnesium 1.9 mg/dL (1.5-2.4); Non-African American GFR(CKD) 41.1 (60.0-200.0)
== END | disposition home or self-care (01) ==
LOC: LABWHC1 14:45
PROVIDERS: ATTEND Internal Medicine
DX: N18.31 Chronic kidney disease, stage 3a (principal)
CPT/HCPCS: 36415; 80048; 83735

== ENCOUNTER → 2021-12-27 | Outpatient (CLI) | payer MEDICARE, OTHER ==
[2021-12-27 20:34] LABS: African American GFR (CKD) 49.1 (60.0-200.0); BUN/Creat Ratio 19.01 Ratio (12.00-20.00); Blood Urea Nitrogen 30.8 mg/dL (9.0-27.0); Non-African American GFR(CKD) 42.4 (60.0-200.0); Potassium 3.6 mmol/L (3.5-5.5)
== END | disposition home or self-care (01) ==
LOC: LABWHC1 11:08
PROVIDERS: ATTEND Internal Medicine
DX: N18.31 Chronic kidney disease, stage 3a (principal)
CPT/HCPCS: 36415; 80048

== ENCOUNTER → 2022-02-06 | Outpatient (CLI) | payer MEDICARE, OTHER ==
[2022-02-06 18:47] LABS: Albumin 3.9 g/dL (3.8-4.9); Albumin/Globulin Ratio 1.37 (1.60-3.17); Anion Gap 10.7 mmol/L (10.00-18.00); BUN/Creat Ratio 17.66 Ratio (12.00-20.00); Blood Urea Nitrogen 30.2 mg/dL (9.0-27.0); Calcium 9.9 mg/dL (8.7-10.3); Carbon Dioxide 34.8 mmol/L (20.0-27.5); Globulin 2.9 g/dL (1.6-3.3); Non-African American GFR(CKD) 39.7 (60.0-200.0); Potassium 3.7 mmol/L (3.5-5.5); Total Bilirubin 0.5 mg/dL (0.30-1.20); Total Protein 6.8 g/dL (6.2-8.2)
== END | disposition home or self-care (01) ==
LOC: LABWHC1 13:52
PROVIDERS: ATTEND Nurse Practitioner Family
DX: N18.31 Chronic kidney disease, stage 3a (principal)
CPT/HCPCS: 36415; 80053

== ENCOUNTER → 2022-03-08 | Outpatient (CLI) | payer MEDICARE, OTHER ==
--- NOTE | 2022-03-16 08:31 | US ---
EXAMINATION TYPE: US arterial LE multi level DATE OF EXAM: 03/08/2022 1:18 PM CLINICAL HISTORY: L03.119 Cellulitis of unspecified part of limb. History of hyperlipidemia, hyperten saba, and diabetes along with coronary artery disease Doppler Waveforms: Right: Monophasic Left: Monophasic Ankle-Brachial Indices: Right: 0.94 Left: 0.94 Toe Brachial Indices: Right: 0.83 Left: 0.83 IMPRESSION: Normal SAM and TBI values bilaterally. Loss of phasicity bilaterally. This may be technic al. Cannot exclude underlying significant arterial disease. Follow-up advised.
== END | disposition home or self-care (01) ==
LOC: RADUSWWP 12:24
PROVIDERS: ATTEND Internal Medicine Nephrology
DX: L03.119 Cellulitis of unspecified part of limb (principal); R20.2 Paresthesia of skin; I10 Essential (primary) hypertension; E78.5 Hyperlipidemia, unspecified
CPT/HCPCS: 93923

== ENCOUNTER → 2022-04-19 | Outpatient (CLI) | payer MEDICARE, OTHER ==
[2022-04-19 23:23] LABS: % Iron Saturation 24.67 (15.00-50.00); African American GFR (CKD) 39.7 (60.0-200.0); Albumin 3.9 g/dL (3.8-4.9); Albumin/Globulin Ratio 1.68 (1.60-3.17); Anion Gap 14.2 mmol/L (10.00-18.00); BUN/Creat Ratio 20.41 Ratio (12.00-20.00); Blood Urea Nitrogen 39.4 mg/dL (9.0-27.0); Calcium 9.8 mg/dL (8.7-10.3); Carbon Dioxide 33.1 mmol/L (20.0-27.5); Globulin 2.3 g/dL (1.6-3.3); Magnesium 1.9 mg/dL (1.5-2.4); Non-African American GFR(CKD) 34.3 (60.0-200.0); Phosphorus 2.5 mg/dL (2.4-5.1); Potassium 3.5 mmol/L (3.5-5.5); Total Bilirubin 0.5 mg/dL (0.30-1.20); Total Protein 6.3 g/dL (6.2-8.2); Uric Acid 9.6 mg/dL (3.7-8.7)
[2022-04-19 23:45] LABS: Basophils # (A) 0.02 X 10*3/uL (0.00-0.10); Basophils % (A) 0.2 %; Eosinophils % (A) 0.8 %; HGB 16.4 g/dL (13.0-17.0); Immature Grans, Automated 0.7 %; Lymphocytes # (A) 1.67 X 10*3/uL (0.90-5.00); MCH 35.2 pg (27.0-32.0); MCHC 33.5 g/dL (32.0-37.0); MCV 105.2 fL (80.0-97.0); Mean Platelet Volume 10.7 fL (9.5-12.2); Monocytes # (A) 0.86 X 10*3/uL (0.20-1.00); Monocytes % (A) 7.2 %; NRBC Per 100 WBC 0 /100 WBCS (0.0-0.0); Neutrophils # (A) 9.24 X 10*3/uL (1.80-7.70); Neutrophils % (A) 77.1 %; Platelet Count 215 X 10*3/uL (140-440); RBC 4.66 X 10*6/uL (4.40-5.60); RDW 15.2 % (11.5-14.5); WBC 11.97 X 10*3/uL (4.50-10.00)
[2022-04-20 00:59] LABS: Urine Creatinine 91.1 mg/dL (39.0-259.0)
== END | disposition home or self-care (01) ==
LOC: LABWHC1 16:15
PROVIDERS: ATTEND Internal Medicine
DX: N18.31 Chronic kidney disease, stage 3a (principal); D64.9 Anemia, unspecified; E21.3 Hyperparathyroidism, unspecified; E55.9 Vitamin D deficiency, unspecified; M10.9 Gout, unspecified
CPT/HCPCS: 36415; 80053; 82043; 82306; 82533; 82570; 82728; 83540; 83550; 83735; 83970; 84100; 84550; 85025

== ENCOUNTER → 2022-05-03 | Outpatient (CLI) | payer MEDICARE, OTHER ==
[2022-05-03 23:29] LABS: Basophils # (A) 0.02 X 10*3/uL (0.00-0.10); Basophils % (A) 0.2 %; Eosinophils # (A) 0.06 X 10*3/uL (0.04-0.35); Eosinophils % (A) 0.6 %; HCT 48.6 % (39.6-50.0); HGB 16.1 g/dL (13.0-17.0); Immature Grans, Automated 0.5 %; Lymphocytes # (A) 1.15 X 10*3/uL (0.90-5.00); Lymphocytes % (A) 11.2 %; MCH 35.2 pg (27.0-32.0); MCHC 33.1 g/dL (32.0-37.0); MCV 106.3 fL (80.0-97.0); Mean Platelet Volume 10.6 fL (9.5-12.2); Monocytes # (A) 0.52 X 10*3/uL (0.20-1.00); Monocytes % (A) 5.1 %; NRBC Per 100 WBC 0 /100 WBCS (0.0-0.0); Neutrophils # (A) 8.47 X 10*3/uL (1.80-7.70); Neutrophils % (A) 82.4 %; Platelet Count 217 X 10*3/uL (140-440); RBC 4.57 X 10*6/uL (4.40-5.60); RDW 14.8 % (11.5-14.5); WBC 10.27 X 10*3/uL (4.50-10.00)
[2022-05-03 23:51] LABS: African American GFR (CKD) 52.6 (60.0-200.0); Albumin 3.7 g/dL (3.8-4.9); Albumin/Globulin Ratio 1.26 (1.60-3.17); BUN/Creat Ratio 16.93 Ratio (12.00-20.00); Blood Urea Nitrogen 25.9 mg/dL (9.0-27.0); Calcium 9.7 mg/dL (8.7-10.3); Carbon Dioxide 32.5 mmol/L (20.0-27.5); Globulin 2.9 g/dL (1.6-3.3); Non-African American GFR(CKD) 45.4 (60.0-200.0); Potassium 3.7 mmol/L (3.5-5.5); Total Bilirubin 0.6 mg/dL (0.30-1.20); Total Protein 6.6 g/dL (6.2-8.2)
[2022-05-04 00:09] LABS: INR 0.95 (0.90-1.11); Prothrombin Time 10.8 sec (9.9-11.9)
== END | disposition home or self-care (01) ==
LOC: LABWHC1 14:36
PROVIDERS: ATTEND Family Medicine
DX: R18.8 Other ascites (principal)
CPT/HCPCS: 36415; 80053; 85025; 85610

== ENCOUNTER → 2022-05-28 | Outpatient (CLI) | payer MEDICARE, OTHER ==
--- NOTE | 2022-05-28 08:39 | US ---
EXAMINATION TYPE: US abdomen complete DATE OF EXAM: 05/28/2022 COMPARISON: CT low dose chest 02/19/2017 CLINICAL HISTORY: R14.0, R18.8. abd distended, large habitus TECHNIQUE: Multiple sonographic images of the abdomen are obtained. 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
== END | disposition home or self-care (01) ==
LOC: RADUSWWP 06:37
PROVIDERS: ATTEND Family Medicine
DX: K76.9 Liver disease, unspecified (principal)
CPT/HCPCS: 76700

== ENCOUNTER → 2022-07-13 | Outpatient (CLI) | payer MEDICARE, OTHER ==
[2022-07-13 14:15] LABS: Basophils % (A) 0 %; Eosinophils # (A) 0.1 k/uL (0-0.7); Eosinophils % (A) 1 %; HCT 48.7 % (39.0-53.0); HGB 16.6 gm/dL (13.0-17.5); Lymphocytes # (A) 1.8 k/uL (1.0-4.8); Lymphocytes % (A) 17 %; MCH 35.8 pg (25.0-35.0); MCV 105.3 fL (80.0-100.0); Macrocytosis Moderate; Monocytes # (A) 0.6 k/uL (0-1.0); Monocytes % (A) 6 %; Neutrophils # (A) 7.7 k/uL (1.3-7.7); Neutrophils % (A) 74 %; Platelet Count 240 k/uL (150-450); RBC 4.63 m/uL (4.30-5.90); RDW 13.7 % (11.5-15.5); WBC 10.5 k/uL (3.8-10.6)
[2022-07-13 18:58] LABS: Chol/HDL Ratio 3.11 Ratio; LDL Cholesterol,Calculated 24.3 mg/dL (0.0-131.0)
[2022-07-13 19:17] LABS: Hepatitis C IgG Antibody Nonreactive (Nonreactive)
[2022-07-13 20:03] LABS: % Iron Saturation 27.63 (15.00-50.00); ALT 12 U/L (10-49); AST 16 U/L (14-35); African American GFR (CKD) 47.3 (60.0-200.0); Albumin 3.9 g/dL (3.8-4.9); Albumin/Globulin Ratio 1.67 (1.60-3.17); Alkaline Phosphatase 96 U/L (41-126); BUN/Creat Ratio 15.63 Ratio (12.00-20.00); Blood Urea Nitrogen 26.1 mg/dL (9.0-27.0); Calcium 9.5 mg/dL (8.7-10.3); Carbon Dioxide 31.7 mmol/L (20.0-27.5); Chloride 97 mmol/L (96-109); Globulin 2.3 g/dL (1.6-3.3); Glucose 118 mg/dL (70-110); Iron 97 ug/dL (65-175); Magnesium 1.8 mg/dL (1.5-2.4); Non-African American GFR(CKD) 40.8 (60.0-200.0); Phosphorus 3.1 mg/dL (2.4-5.1); Potassium 3.8 mmol/L (3.5-5.5); Sodium 141 mmol/L (135-145); Total Iron Binding Capacity 351 ug/dL (228-460); Total Protein 6.2 g/dL (6.2-8.2)
[2022-07-13 23:49] LABS: Microalbumin Creatinine Ratio <30 mg/g Creat (0-30)
== END | disposition home or self-care (01) ==
LOC: LABWHC1 12:24
PROVIDERS: ATTEND Nurse Practitioner Family
DX: Z00.01 Encounter for general adult medical examination with abnormal findings (principal); R80.9 Proteinuria, unspecified; E21.3 Hyperparathyroidism, unspecified; E55.9 Vitamin D deficiency, unspecified; M10.9 Gout, unspecified; N18.31 Chronic kidney disease, stage 3a; D63.1 Anemia in chronic kidney disease; F17.210 Nicotine dependence, cigarettes, uncomplicated; D72.829 Elevated white blood cell count, unspecified; R53.83 Other fatigue; E66.01 Morbid (severe) obesity due to excess calories; Z23 Encounter for immunization; D75.89 Other specified diseases of blood and blood-forming organs
CPT/HCPCS: 36415; 80053; 80061; 82043; 82306; 82570; 82607; 82728; 82746; 83036; 83540; 83550; 83721; 83735; 83970; 84100; 84153; 84443; 84550; 85025; 86803

== ENCOUNTER → 2022-10-11 | Outpatient (CLI) | payer MEDICARE, OTHER ==
[2022-10-11 15:31] LABS: HCT 48.3 % (39.6-50.0); HGB 15.7 g/dL (13.0-17.0); MCH 33.8 pg (27.0-32.0); MCHC 32.5 g/dL (32.0-37.0); MCV 104.1 fL (80.0-97.0); Mean Platelet Volume 10.1 fL (9.5-12.2); NRBC Per 100 WBC 0 /100 WBCS (0.0-0.0); Platelet Count 257 X 10*3/uL (140-440); RBC 4.64 X 10*6/uL (4.40-5.60); RDW 14.8 % (11.5-14.5); WBC 15.29 X 10*3/uL (4.50-10.00)
[2022-10-11 16:38] LABS: % Iron Saturation 17.75 (15.00-50.00); African American GFR (CKD) 51.4 (60.0-200.0); Albumin 3.6 g/dL (3.8-4.9); Albumin/Globulin Ratio 1.22 (1.60-3.17); Anion Gap 14.5 mmol/L (10.00-18.00); BUN/Creat Ratio 15.74 Ratio (12.00-20.00); Blood Urea Nitrogen 24.4 mg/dL (9.0-27.0); Calcium 9.9 mg/dL (8.7-10.3); Carbon Dioxide 30.3 mmol/L (20.0-27.5); Globulin 2.9 g/dL (1.6-3.3); Magnesium 1.8 mg/dL (1.5-2.4); Non-African American GFR(CKD) 44.4 (60.0-200.0); Phosphorus 3.2 mg/dL (2.4-5.1); Total Bilirubin 0.5 mg/dL (0.30-1.20); Total Protein 6.5 g/dL (6.2-8.2); Uric Acid 6.2 mg/dL (3.7-8.7)
== END | disposition home or self-care (01) ==
LOC: LABWHC1 10:56
PROVIDERS: ATTEND Nurse Practitioner Family
DX: N25.81 Secondary hyperparathyroidism of renal origin (principal); N18.31 Chronic kidney disease, stage 3a; D63.1 Anemia in chronic kidney disease; E55.9 Vitamin D deficiency, unspecified; M10.9 Gout, unspecified; R80.9 Proteinuria, unspecified
CPT/HCPCS: 36415; 80053; 82043; 82306; 82570; 82728; 83540; 83550; 83735; 83970; 84100; 84550; 85027

== ENCOUNTER → 2022-10-12 | Outpatient (CLI) | payer MEDICARE, OTHER ==
--- NOTE | 2022-10-12 14:14 | CTL ---
EXAMINATION TYPE: CT Low Dose Lung DATE OF EXAM ORDERED: 10/12/2022 HISTORY: . Lung cancer screening CT DLP: 91.[address] CTDI: 2.60 mGy Automated exposure control for dose reduction was used. COMPARISON: I 17/12/2016. TECHNIQUE: Low dose computed tomography scan was performed through the chest at 1 mm thick sections a nd reconstructed images in multiple planes at 1 mm and [address] DIAGNOSTIC QUALITY: Satisfactory FINDINGS: LUNG NODULES: None. LUNGS: COPD: Severity: There is no significant emphysema. Fibrosis: Severity: None Lymph nodes: Other findings: RIGHT PLEURAL SPACE: Effusion: None Calcification: None Thickening: None Pneumothorax: None LEFT PLEURAL SPACE: Effusion: None Calcification: None Thickening: None Pneumothorax: None HEART: Heart Size: The heart is mildly enlarged. There is a left-sided AICD generator with a lead in the rig ht ventricle. There are midline sternotomy wires and prior CABG. Coronary Calcification: There is severe diffuse coronary artery calcifications. Pericardial Effusion: None OTHER FINDINGS: Upper abdomen: None Bony thorax: None Supraclavicular region: None Other: None IMPRESSION: 1. Negative lung cancer screening examination for new or significant pulmonary nodules. 2. Severe coronary artery calcifications with history of prior CABG. 3. No acute findings otherwise identified. CT LUNG RAD AND CT CHEST RECOMMENDATION: Lung RADS category 2. Continue annual screening.
== END | disposition home or self-care (01) ==
LOC: RADCTMAIN 12:08
PROVIDERS: ATTEND Family Medicine
DX: Z12.2 Encounter for screening for malignant neoplasm of respiratory organs (principal); I25.10 Atherosclerotic heart disease of native coronary artery without angina pectoris; Z95.1 Presence of aortocoronary bypass graft; Z87.891 Personal history of nicotine dependence
CPT/HCPCS: 71271

== ENCOUNTER → 2022-10-23 | Outpatient (CLI) | payer MEDICARE, OTHER ==
--- NOTE | 2022-10-23 17:37 | US ---
EXAMINATION TYPE: US kidneys/renal and bladder DATE OF EXAM: 10/23/2022 COMPARISON: Abdominal ultrasound 05/28/2022, renal ultrasound 06/27/2020 CLINICAL HISTORY: N18.31 CHRONIC KIDNEY DISEASE, STAGE 3A. EXAM MEASUREMENTS: Right Kidney: 12.5 x 6.7 x 5.7 cm Left Kidney: 11.5 x 5.6 x 4.7 cm Patient of large body habitus, technically difficult study. Right Kidney: cyst measuring 1.1 x 0.6 x 1.0cm Left Kidney: cortical thinning, multiple cysts largest measuring 1.8 x 1.2 x 1.6cm and 1.5 x 1.1 x 1. 2cm Bladder: wnl There is no evidence for hydronephrosis at this point in time. No nephrolithiasis is seen. No solid masses are identified. Mild cortical thinning of the left kidney. Bilateral cortical cysts demonstra tarik. The urinary bladder is anechoic. IMPRESSION: 1. No hydronephrosis or nephrolithiasis. 2. Bilateral renal cysts. 3. Findings suggestive of left kidney medical renal disease.
== END | disposition home or self-care (01) ==
LOC: RADUSWWP 15:52
PROVIDERS: ATTEND Internal Medicine
DX: N28.1 Cyst of kidney, acquired (principal); N18.31 Chronic kidney disease, stage 3a
CPT/HCPCS: 76770

== ENCOUNTER → 2023-03-27 | Outpatient (CLI) | payer MEDICARE, OTHER ==
--- NOTE | 2023-03-27 14:09 | CT ---
EXAMINATION TYPE: CT brain wo con CT DLP: 1159.6 mGycm, Automated exposure control for dose reduction was used. DATE OF EXAM: 03/27/2023 2:02 PM COMPARISON: None CLINICAL INDICATION:Male, 72 years old with history of H53.2, G47.9, Vision changes and difficulty sl eeping. TECHNIQUE: Brain: Axial CT images of the brain were obtained with coronal and sagittal reformats created and rev iewed. Contrast used: None. Oral contrast used: None. FINDINGS: Brain: Extra-axial spaces: No abnormal extra-axial fluid collections. Ventricular system: Dilatation in proportion to cerebral atrophy. Cerebral parenchyma: Cerebral atrophy. No acute intraparenchymal hemorrhage or mass effect. The rowley -white junction is well differentiated. Scattered hypoattenuating areas are seen within the white mat ter. Cerebellum: Unremarkable. Mass effect: No evidence of midline shift. Intracranial vasculature: Atherosclerotic calcifications of the intracranial vessels. Soft tissues: Normal. Calvarium/osseous structures: No depressed skull fracture. Paranasal sinuses and mastoid air cells: Mild scattered paranasal sinus disease. Mucosal thickening o f the left maxillary sinus. Visualized orbits: Orbital contents are intact. IMPRESSION: 1. No acute intracranial process. 2. Nonspecific white matter changes, likely secondary to chronic small vessel ischemic disease.
== END | disposition home or self-care (01) ==
LOC: RADCTMAIN 13:14
PROVIDERS: ATTEND Family Medicine
DX: H53.2 Diplopia (principal); G47.9 Sleep disorder, unspecified; R90.82 White matter disease, unspecified
CPT/HCPCS: 70450

== ENCOUNTER → 2023-04-16 | Outpatient (CLI) | payer MEDICARE, OTHER ==
[2023-04-16 20:30] LABS: HCT 52.1 % (39.6-50.0); HGB 17.1 d/dL (12.0-15.0); MCHC 32.8 d/dL (32.0-37.0); MCV 106.8 FL (80.0-97.0); Mean Platelet Volume 10.5 FL (9.5-12.2); NRBC Per 100 WBC 0 X 10*3/uL (0.00-0.01); Platelet Count 215 X 10*3/uL (140-440); RBC 4.88 X 10*6/uL (4.40-5.60); RDW 14.4 % (11.5-14.5); WBC 8.89 X 10*3/uL (4.50-10.00)
[2023-04-16 20:53] LABS: % Iron Saturation 23.05 (15.00-50.00); ALT 15 U/L (10-49); AST 20 U/L (14-35); Albumin 3.8 d/dL (3.8-4.9); Albumin/Globulin Ratio 1.58 Ratio (1.60-3.17); Alkaline Phosphatase 103 U/L (41-126); BUN/Creat Ratio 10.67 Ratio (12.00-20.00); Calcium 9.3 mg/dL (8.7-10.3); Carbon Dioxide 28.4 mmol/L (21.6-31.8); Chloride 102 mmol/L (96-109); Chol/HDL Ratio 3.18 Ratio; Ferritin 92.4 ng/mL (22.0-322.0); Globulin 2.4 d/dL (1.6-3.3); Glucose 106 mg/dL (70-110); Iron 74 UG/DL (65-175); LDL Cholesterol,Calculated 47.1 mg/dL (0.0-131.0); Magnesium 1.9 mg/dL (1.5-2.4); Phosphorus 2.4 mg/dL (2.4-5.1); Potassium 3.8 mmol/L (3.5-5.5); Sodium 143 mmol/L (135-145); Total Bilirubin 0.7 mg/dL (0.3-1.2); Total Iron Binding Capacity 321 UG/DL (228-460); Total Protein 6.2 d/dL (6.2-8.2); Uric Acid 6.3 mg/dL (3.7-8.7)
[2023-04-16 21:15] LABS: Appearance,Urine Clear (Clear); Bilirubin,Urine Negative (Negative); Blood,Urine Negative (Negative); Color,Urine Yellow (Yellow); Ketones,Urine Negative (Negative); Nitrite,Urine Negative (Negative); PH, Urine 6.5; Specific Gravity,Urine 1.017 (1.001-1.030)
[2023-04-16 21:20] LABS: Bacteria,Urine None Seen (None Seen)
[2023-04-16 21:49] LABS: Basophils # (A) 0.03 X 10*3/uL (0.00-0.10); Basophils % (A) 0.3 %; Elliptocytes 2+; Eosinophils # (A) 0.13 X 10*3/uL (0.04-0.35); Eosinophils % (A) 1.5 %; Lymphocytes # (A) 1.43 X 10*3/uL (0.90-5.00); Lymphocytes % (A) 16.1 %; Macrocytosis (M) 2+; Monocytes # (A) 0.62 X 10*3/uL (0.20-1.00); Neutrophils # (A) 6.64 X 10*3/uL (1.80-7.70); Neutrophils % (A) 74.7 %
== END | disposition home or self-care (01) ==
LOC: LABWHC1 14:28
PROVIDERS: ATTEND Internal Medicine
DX: E55.9 Vitamin D deficiency, unspecified (principal); N18.31 Chronic kidney disease, stage 3a; E78.2 Mixed hyperlipidemia; N39.0 Urinary tract infection, site not specified; N25.81 Secondary hyperparathyroidism of renal origin; D63.1 Anemia in chronic kidney disease; M10.9 Gout, unspecified
CPT/HCPCS: 36415; 80053; 80061; 81001; 82043; 82306; 82570; 82728; 83540; 83550; 83735; 83970; 84100; 84550; 85025

== ENCOUNTER 2023-04-17 19:54 | Inpatient (IN) | payer MEDICARE, OTHER ==
[2023-04-17] MEDS ORDERED: DEXTROSE 5% IN WATER 250 ML with AMIODARONE 300 MG IV ONE (20:24)
[2023-04-17] MEDS ORDERED: SODIUM CHLORIDE 0.9% 500 ML 500 ML IV STA (20:24)
[2023-04-17] MEDS ORDERED: SODIUM CHLORIDE 0.9% 1,000 ML IV STA (20:24)
--- NOTE | 2023-04-17 20:24 | ED ---
Arrhythmia/Palpitations HPI - General Chief Complaint: Arrhythmia/Palpitations Stated Complaint: Cardiac Issue, Pace Maker Went Off Time Seen by Provider: 04/17/23 20:23 Source: patient, EMS, RN notes reviewed, old records reviewed Mode of arrival: EMS Limitations: no limitations - History of Present Illness Initial Comments: This is a 72-year-old male presents today for evaluation. Patient resents by EMS and presenting for evaluation of the defibrillator firing. Patient states his defibrillator went off a between 1 and 4 times. In this has never happened before. Patient has no current chest pain and had no significant symptoms prior to initial event but does have persistent anxiety here in the ER feeling shocks as it causes some severe chest pain EMS does have rhythm strip showing ventricular tachycardia MD Complaint: irregular heart beat -: hour(s) Context: AICD discharge Arrhythmia History: AICD, other (Ventricular tachycardia) Associated Symptoms: denies other symptoms Treatments Prior to Arrival: cardioversion - Related Data Home Medications Medication Instructions Recorded Confirmed Nitroglycerin Sl Tabs [Nitrostat] 0.4 mg SUBLINGUAL Q5M PRN 11/27/15 04/17/23 Atorvastatin [Lipitor] 10 mg PO HS 07/06/16 04/17/23 Furosemide [Lasix] 40 mg PO BID 07/06/16 04/17/23 Isosorbide Mononitrate [Isosorbide 30 mg PO DAILY 07/06/16 04/17/23 Mononitrate ER] Potassium Chloride ER [K-Dur 20] 20 meq PO BID 07/06/16 04/17/23 Clopidogrel [Plavix] 75 mg PO DAILY 03/04/17 04/17/23 Albuterol Nebulized [Ventolin 2.5 mg INHALATION RT-Q6H PRN 04/17/23 04/17/23 Nebulized] Aspirin EC [Ecotrin Low Dose] 81 mg PO DAILY 04/17/23 04/17/23 Carvedilol [Coreg] 12.5 mg PO BID 04/17/23 04/17/23 Cholecalciferol [Vitamin D3 (25 50 mcg PO DAILY 04/17/23 04/17/23 Mcg = 1000 Iu)] Ferrous Sulfate [Feosol] 325 mg PO DAILY 04/17/23 04/17/23 Nystatin 100,000Unit/gm Cream 1 applic TOPICAL BID PRN 04/17/23 04/17/23 [Mycostatin Cream] Pramipexole [Mirapex] 0.5 mg PO HS 04/17/23 04/17/23 Pregabalin [Lyrica] 200 mg PO BID 04/17/23 04/17/23 allopurinoL [Zyloprim] 300 mg PO HS 04/17/23 04/17/23 metFORMIN HCL [Glucophage] 1,000 mg PO BID 04/17/23 04/17/23 predniSONE 5 mg PO DAILY 04/17/23 04/17/23 Previous Rx's Medication Instructions Recorded Amiodarone [Cordarone] 400 mg PO BID #60 tablet 04/20/23 Allergies Allergy/AdvReac Type Severity Reaction Status Date / Time No Known Allergies Allergy Verified 04/17/23 22:28 Review of Systems ROS Statement: Those systems with pertinent positive or pertinent negative responses have been documented in the HPI. ROS Other: All systems not noted in ROS Statement are negative. Past Medical History Past Medical History: COPD, GERD/Reflux, Hyperlipidemia, Hypertension, Myocardial Infarction (OR), Osteoarthritis (OA), Sleep Apnea/CPAP/BIPAP Additional Past Medical History / Comment(s): cardiomyopathy Last Myocardial Infarction Date:: 11/28/15 History of Any Multi-Drug Resistant Organisms: MRSA Date of last positivie culture/infection: 03/21/23 MDRO Source:: Chest Past Surgical History: Coronary Bypass/CABG, Heart Catheterization With Stent, Joint Replacement Additional Past Surgical History / Comment(s): 10/04/15 Total R hip arthroplasty. 1998 triple vessel CABG, Cardiac cath with stents, RECTAL FISTULA REPAIR, KIDNEY STONE, LITHROTRIPSY, single chamber AICD 07/10/2016 Past Anesthesia/Blood Transfusion Reactions: No Reported Reaction Additional Past Anesthesia/Blood Transfusion Reaction / Comment(s): Pt does not believe he has ever received blood. Date of Last Stent Placement:: 11/28/2015 Past Psychological History: No Psychological Hx Reported Smoking Status: Current every day smoker Past Alcohol Use History: Rare Past Drug Use History: None Reported - Past Family History Father Family Medical History: Cancer Additional Family Medical History / Comment(s): skin Mother Family Medical History: COPD, Pneumonia Additional Family Medical History / Comment(s): Mother at age 92 yrs. General Exam Limitations: no limitations General appearance: alert, in no apparent distress Head exam: Present: atraumatic, normocephalic, normal inspection Eye exam: Present: normal appearance, PERRL, EOMI. Absent: scleral icterus, conjunctival injection, periorbital swelling ENT exam: Present: normal exam, mucous membranes moist Neck exam: Present: normal inspection. Absent: tenderness, meningismus, lymphadenopathy Respiratory exam: Present: normal lung sounds bilaterally. Absent: respiratory distress, wheezes, rales, rhonchi, stridor Cardiovascular Exam: Present: regular rate, normal rhythm, normal heart sounds. Absent: systolic murmur, diastolic murmur, rubs, gallop, clicks GI/Abdominal exam: Present: soft, normal bowel sounds. Absent: distended, tende rness, guarding, rebound, rigid Extremities exam: Present: normal inspection, full ROM, normal capillary refill. Absent: tenderness, pedal edema, joint swelling, calf tenderness Back exam: Present: normal inspection Neurological exam: Present: alert, oriented X3, CN II-XII intact Psychiatric exam: Present: normal affect, normal mood Skin exam: Present: warm, dry, intact, normal color. Absent: rash Course Vital Signs 04/17/23 04/17/23 04/17/23 20:10 20:11 20:30 Temperature 97.9 F Pulse Rate 90 97 Respiratory 20 44 H 20 Rate Blood Pressure 106/67 116/59 O2 Sat by Pulse 90 L 93 L Oximetry 04/17/23 04/17/23 04/17/23 21:00 21:30 22:00 Temperature Pulse Rate 88 92 84 Respiratory 20 20 20 Rate Blood Pressure 110/68 120/61 106/52 O2 Sat by Pulse 93 L 92 L 93 L Oximetry 04/17/23 04/18/23 04/18/23 23:00 01:00 03:00 Temperature Pulse Rate 85 74 71 Respiratory 20 20 20 Rate Blood Pressure 115/62 118/73 125/70 O2 Sat by Pulse 96 96 94 L Oximetry 04/18/23 04/18/23 04/18/23 06:00 07:21 10:39 Temperature 97.2 F L 97.8 F Pulse Rate 58 L 69 63 Respiratory 20 18 18 Rate Blood Pressure 121/73 104/70 103/72 O2 Sat by Pulse 94 L 96 96 Oximetry 04/18/23 04/18/23 04/18/23 11:14 11:29 11:32 Temperature Pulse Rate 56 L 54 L Respiratory 18 18 Rate Blood Pressure 101/63 O2 Sat by Pulse 95 98 Oximetry 04/18/23 11:38 Temperature Pulse Rate 47 L Respiratory 18 Rate Blood Pressure O2 Sat by Pulse Oximetry - Reevaluation(s) Reevaluation #1: 04/17/23 22:47 Medical record is reviewed Reevaluation #2: 04/17/23 22:47 Patient symptoms are unchanged here in the ER Reevaluation #3: 04/17/23 22:47 Patient informed results and questions answered Reevaluation #4: 04/17/23 22:47 Was pt. sent in by a medical professional or institution? @ -no Did you speak to anyone other than the patient for history? @ -no Did you review nursing and triage notes? @ -agree Were old charts reviewed? @ -yes Differential Diagnosis? @ -prior EKG interpreted by me (3pts min.)? @ -yes X-rays interpreted by me (1pt min.)? @ -yes CT interpreted by me (1pt min.)? @ -no U/S interpreted by me (1pt. min.)? @ -no What testing was considered but not performed? (CT, X-rays, U/S, labs)? Why? @ -no What meds were considered but not given? Why? @ -no Did you discuss the management of the patient with other professionals? @ -no Did you reconcile home meds? @ -no Was smoking cessation discussed for >3mins.? @ -no Was critical care preformed (if so, how long)? @ -no Were there social determinants of health that impacted care today? How? (Homele ssness, low income, unemployed, alcoholism, drug addiction, transportation, low edu. Level, literacy, decrease access to med. care, long-term, rehab)? @ -no Was there de-escalation of care discussed even if they declined? (Discuss DNR or withdrawal of care, Hospice)? @ -no What co-morbidities impacted this encounter? (DM, HTN, Smoking, COPD, CAD, Cancer, CVA, Hep., AIDS, mental health diagnosis, sleep apnea, morbid obesity)? @ -none Was patient admitted / discharged? @ -72 male to the emergency department for evaluation with multiple recurrent episodes of ventricular tachycardia or ventricular fibrillation, patient had AICD discharge 4 times prior to arrival. Patient does have elevated troponin here in the ER was without chest pain or shortness of breath. Patient is placed on amiodarone admitting for cardiology to the, patient does have electrolytes improved. Admitted Undiagnosed new problem with uncertain prognosis? @ -no Drug Therapy requiring intensive monitoring for toxicity (Heparin, Nitro, Insulin, Cardizem)? @ -no Were any procedures done? @ -no Diagnosis/symptom? @ -Arrhythmia, ventricular tachycardia, fibrillation Acute, or Chronic, or Acute on Chronic? @ -acute Uncomplicated (without systemic symptoms) or Complicated (systemic symptoms)? @ -complicated Side effects of treatment? @ -no Exacerbation, Progression, or Severe Exacerbation] @ -no Poses a threat to life or bodily function? @ -yes with significant arrhythmia - Consultations Consultation #1: Spoke with Dr. Mejía who agrees to admit this patient EKG Findings - EKG Comments: EKG Findings:: EKG is sinus tachycardia 100 KS 136 QRS 104 QTc 474 - EKG Results: EKG: interpreted by FRANCISCO J Medical Decision Making - Medical Decision Making 72 male to the emergency department for evaluation with multiple recurrent episodes of ventricular tachycardia or ventricular fibrillation, patient had AICD discharge 4 times prior to arrival. Patient does have elevated troponin here in the ER was without chest pain or shortness of breath. Patient is placed on amiodarone admitting for cardiology to the, patient does have electrolytes improved. - Lab Data Result diagrams: 04/19/23 06:29 04/19/23 06:29 Lab Results 04/17/23 04/17/23 04/17/23 Range/Units 20:11 20:11 20:11 WBC 9.3 (3.8-10.6) k/uL RBC 4.54 (4.30-5.90) m/uL Hgb 15.8 (13.0-17.5) gm/dL Hct 47.7 (39.0-53.0) % MCV 105.2 H (80.0-100.0) fL MCH 34.8 (25.0-35.0) pg MCHC 33.1 (31.0-37.0) g/dL RDW 14.0 (11.5-15.5) % Plt Count 201 (150-450) k/uL MPV 8.4 Neutrophils % (Manual) 74 % Lymphocytes % (Manual) 17 % Monocytes % (Manual) 8 % Eosinophils % (Manual) 1 % Neutrophils # (Manual) 6.88 (1.3-7.7) k/uL Lymphocytes # (Manual) 1.58 (1.0-4.8) k/uL Monocytes # (Manual) 0.74 (0-1.0) k/uL Eosinophils # (Manual) 0.09 (0-0.7) k/uL Nucleated RBCs 0 (0-0) /100 WBC Manual Slide Review Performed Macrocytosis Moderate PT 10.1 (9.0-12.0) sec INR 0.9 (<1.2) APTT 22.0 (22.0-30.0) sec Sodium 136 L (137-145) mmol/L Potassium 3.6 (3.5-5.1) mmol/L Chloride 102 (98-107) mmol/L Carbon Dioxide 27 (22-30) mmol/L Anion Gap 7 mmol/L BUN 19 (9-20) mg/dL Creatinine 1.51 H (0.66-1.25) mg/dL Est GFR (CKD-EPI)AfAm 53 (>60 ml/min/1.73 sqM) Est GFR (CKD-EPI)NonAf 46 (>60 ml/min/1.73 sqM) Glucose 198 H (74-99) mg/dL Calcium 8.8 (8.4-10.2) mg/dL Phosphorus 3.2 (2.5-4.5) mg/dL Magnesium 1.8 (1.6-2.3) mg/dL Total Bilirubin 0.6 (0.2-1.3) mg/dL AST 29 (17-59) U/L ALT 18 (4-49) U/L Alkaline Phosphatase 80 (38-126) U/L Troponin I (0.000-0.034) ng/mL NT-Pro-B Natriuret Pep pg/mL Total Protein 5.7 L (6.3-8.2) g/dL Albumin 3.1 L (3.5-5.0) g/dL 04/17/23 04/17/23 Range/Units 20:11 20:11 WBC (3.8-10.6) k/uL RBC (4.30-5.90) m/uL Hgb (13.0-17.5) gm/dL Hct (39.0-53.0) % MCV (80.0-100.0) fL MCH (25.0-35.0) pg MCHC (31.0-37.0) g/dL RDW (11.5-15.5) % Plt Count (150-450) k/uL MPV Neutrophils % (Manual) % Lymphocytes % (Manual) % Monocytes % (Manual) % Eosinophils % (Manual) % Neutrophils # (Manual) (1.3-7.7) k/uL Lymphocytes # (Manual) (1.0-4.8) k/uL Monocytes # (Manual) (0-1.0) k/uL Eosinophils # (Manual) (0-0.7) k/uL Nucleated RBCs (0-0) /100 WBC Manual Slide Review Macrocytosis PT (9.0-12.0) sec INR (<1.2) APTT (22.0-30.0) sec Sodium (137-145) mmol/L Potassium (3.5-5.1) mmol/L Chloride (98-107) mmol/L Carbon Dioxide (22-30) mmol/L Anion Gap mmol/L BUN (9-20) mg/dL Creatinine (0.66-1.25) mg/dL Est GFR (CKD-EPI)AfAm (>60 ml/min/1.73 sqM) Est GFR (CKD-EPI)NonAf (>60 ml/min/1.73 sqM) Glucose (74-99) mg/dL Calcium (8.4-10.2) mg/dL Phosphorus (2.5-4.5) mg/dL Magnesium (1.6-2.3) mg/dL Total Bilirubin (0.2-1.3) mg/dL AST (17-59) U/L ALT (4-49) U/L Alkaline Phosphatase (38-126) U/L Troponin I 0.097 H* (0.000-0.034) ng/mL NT-Pro-B Natriuret Pep 1330 pg/mL Total Protein (6.3-8.2) g/dL Albumin (3.5-5.0) g/dL - EKG Data -: EKG Interpreted by Me - Radiology Data Radiology results: report reviewed (Chest x-rays negative for acute disease), image reviewed Critical Care Time Critical Care Time: Yes Total Critical Care Time: 31 Disposition Clinical Impression: Tachycardia, Ventricular tachycardia, Palpitations, Defibrillator discharge Disposition: ADMITTED IP TO THIS [facility] Condition: Serious Is patient prescribed a controlled substance at d/c from ED?: No Time of Disposition: 22:50
[2023-04-17] MEDS ORDERED: DEXTROSE 5% IN WATER 100 ML with AMIODARONE 150 MG IV ONE (20:45)
[2023-04-17 21:00] LABS: INR 0.9 (<1.2); Prothrombin Time 10.1 sec (9.0-12.0)
[2023-04-17] MEDS ORDERED: AMIODARONE 360 MG in DEXTROSE 5% IN WATER 200 ML IV ONE ×2 (21:00)
[2023-04-17 21:07] LABS: HCT 47.7 % (39.0-53.0); HGB 15.8 gm/dL (13.0-17.5); MCH 34.8 pg (25.0-35.0); MCHC 33.1 g/dL (31.0-37.0); MCV 105.2 fL (80.0-100.0); Macrocytosis Moderate; Mean Platelet Volume 8.4; Platelet Count 201 k/uL (150-450); RBC 4.54 m/uL (4.30-5.90); WBC 9.3 k/uL (3.8-10.6)
[2023-04-17 21:18] LABS: ALT 18 U/L (4-49); AST 29 U/L (17-59); African American GFR (CKD) 53 (>60 ml/min/1.73 sqM); Albumin 3.1 g/dL (3.5-5.0); Alkaline Phosphatase 80 U/L (38-126); Anion Gap 7 mmol/L; Blood Urea Nitrogen 19 mg/dL (9-20); Calcium 8.8 mg/dL (8.4-10.2); Carbon Dioxide 27 mmol/L (22-30); Chloride 102 mmol/L (98-107); Glucose 198 mg/dL (74-99); Magnesium 1.8 mg/dL (1.6-2.3); Non-African American GFR(CKD) 46 (>60 ml/min/1.73 sqM); Phosphorus 3.2 mg/dL (2.5-4.5); Potassium 3.6 mmol/L (3.5-5.1); Sodium 136 mmol/L (137-145); Total Bilirubin 0.6 mg/dL (0.2-1.3); Total Protein 5.7 g/dL (6.3-8.2)
--- NOTE | 2023-04-17 21:39 | XR ---
EXAMINATION TYPE: XR chest 1V portable DATE OF EXAM: 04/17/2023 COMPARISON: None INDICATION: Chest pain TECHNIQUE: Single frontal view of the chest is obtained. FINDINGS: The heart size is normal. The pulmonary vasculature is normal. Subtle infiltrate may be at the right base. Correlate for atelectasis and pneumonia. Pacemaker overli es left chest. Sternotomy wires are in the midline IMPRESSION: 1. Clinical correlation recommended for right lower lobe atelectasis or pneumonia
[2023-04-17 22:08] LABS: Eosinophils # (M) 0.09 k/uL (0-0.7); Lymphocytes # (M) 1.58 k/uL (1.0-4.8); Monocytes # (M) 0.74 k/uL (0-1.0); Neutrophils # (M) 6.88 k/uL (1.3-7.7); Neutrophils % (M) 74 %; Nucleated Red Blood Cells 0 /100 WBC (0-0); Total Cells Counted 100
[2023-04-17] MEDS ORDERED: POTASSIUM BICARBONATE/CIT AC 20 MEQ TABLET.EFF PO ONE (22:40)
[2023-04-17] MEDS ORDERED: MAGNESIUM SULFATE-D5W PMX 1 GM in DEXTROSE/WATER 1 100ML.BAG IVPB ONE (22:40)
[2023-04-17] MEDS ORDERED: MAGNESIUM OXIDE 400 MG TAB PO STA (22:40)
[2023-04-17] MEDS ORDERED: MORPHINE SULFATE 4 MG/ML SYRINGE IV PRN (22:41)
[2023-04-17] MEDS ORDERED: NALOXONE 0.4 MG/ML 1 ML VIAL IV PRN (22:41)
[2023-04-17] MEDS ORDERED: ONDANSETRON 4 MG/2 ML VIAL IVP PRN (22:41)
[2023-04-17] MEDS: SODIUM CHLORIDE 0.9% 1,000 ML IV SCH (23:06)
[2023-04-18 02:34] LABS: HCT 49.1 % (39.0-53.0); HGB 15.9 gm/dL (13.0-17.5); MCH 34.8 pg (25.0-35.0); MCHC 32.4 g/dL (31.0-37.0); MCV 107.5 fL (80.0-100.0); Macrocytosis Moderate; Mean Platelet Volume 8.4; Platelet Count 191 k/uL (150-450); RBC 4.57 m/uL (4.30-5.90); RDW 13.9 % (11.5-15.5); WBC 10.3 k/uL (3.8-10.6)
[2023-04-18 02:53] LABS: Band Neutrophils % 1 %; Lymphocytes # (M) 1.24 k/uL (1.0-4.8); Monocytes # (M) 0.52 k/uL (0-1.0); Neutrophils % (M) 82 %; Nucleated Red Blood Cells 0 /100 WBC (0-0); Total Cells Counted 100
[2023-04-18] MEDS: AMIODARONE 450 MG in DEXTROSE 5% IN WATER 250 ML IV SCH ×4 (02:58→17:06)
[2023-04-18 03:11] LABS: ALT 20 U/L (4-49); AST 31 U/L (17-59); African American GFR (CKD) 54 (>60 ml/min/1.73 sqM); Albumin 3.1 g/dL (3.5-5.0); Alkaline Phosphatase 82 U/L (38-126); Anion Gap 7 mmol/L; Blood Urea Nitrogen 18 mg/dL (9-20); Calcium 8.5 mg/dL (8.4-10.2); Carbon Dioxide 28 mmol/L (22-30); Chloride 101 mmol/L (98-107); Glucose 189 mg/dL (74-99); Magnesium 2.1 mg/dL (1.6-2.3); Non-African American GFR(CKD) 47 (>60 ml/min/1.73 sqM); Phosphorus 3.5 mg/dL (2.5-4.5); Potassium 3.6 mmol/L (3.5-5.1); Sodium 136 mmol/L (137-145); Total Bilirubin 0.7 mg/dL (0.2-1.3); Total Protein 5.6 g/dL (6.3-8.2)
[2023-04-18] MEDS ORDERED: ASPIRIN 81 MG PO SCH (09:00)
[2023-04-18] MEDS ORDERED: IPRATROPIUM-ALBUTEROL 3 ML NEB INHALATION PRN (09:06)
[2023-04-18] MEDS: carvediloL 12.5 MG TAB PO SCH ×2 (09:46→17:06)
[2023-04-18] MEDS: ISOSORBIDE MONONITRATE ER 30 MG TAB.ER.24H PO SCH (09:47)
[2023-04-18] MEDS: POTASSIUM CHLORIDE ER 20 MEQ TAB.ER PO SCH ×2 (09:47→20:38)
[2023-04-18] MEDS: FUROSEMIDE 40 MG TAB PO SCH ×2 (09:47→20:38)
[2023-04-18] MEDS: CLOPIDOGREL 75 MG TAB PO SCH (09:47)
[2023-04-18] MEDS: predniSONE 10 MG TAB PO SCH (09:47)
[2023-04-18] MEDS: SODIUM CHLORIDE 0.9% 1,000 ML IV SCH (11:27)
[2023-04-18] MEDS: IPRATROPIUM-ALBUTEROL 3 ML NEB INHALATION SCH ×3 (11:29→21:21)
--- NOTE | 2023-04-18 13:40 | P.HPIM ---
History of Present Illness H&P Date: 04/18/23 Chief Complaint: AICD firing This is a 72-year-old gentleman with past medical history significant for CAD/PA/CABG, AICD placement hypertension, COPD, gastroesophageal reflux disease, OA and multiple other medical issues presented to the ER with complaints of his pacemaker firing multiple times, which is a new occurrence. Reported V. tach on EMS strip. Elevated troponins 0.097, 0.916, 1.600. Sodium 136, potassium 3.6(supplemented), bicarbonate 28, BUN 18, creatinine 1.48, magnesium 2.1 (post supplementation), albumin 3.1. Afebrile, normal WBC, hemoglobin 15.9, plat elets 191. Denies chest pain, palpitations or shortness of breath. Maintaining O2 sats in the high 90s on room air. Amiodarone drip initiated. Evaluated by cardiology, pacemaker interrogation ordered. Chest x-ray reporting subtle infiltrate may be at the right base, pro-calcitonin pending. Denies cough, congestion, fever or chills. Review of Systems ROS Statement: Those systems with pertinent positive or pertinent negative responses have been documented in the HPI. ROS Other: All systems not noted in ROS Statement are negative. Past Medical History Past Medical History: COPD, GERD/Reflux, Hyperlipidemia, Hypertension, Myocardial Infarction (PA), Osteoarthritis (OA), Sleep Apnea/CPAP/BIPAP Additional Past Medical History / Comment(s): cardiomyopathy Last Myocardial Infarction Date:: 11/28/15 History of Any Multi-Drug Resistant Organisms: MRSA Date of last positivie culture/infection: 03/21/23 MDRO Source:: Chest Past Surgical History: Coronary Bypass/CABG, Heart Catheterization With Stent, Joint Replacement Additional Past Surgical History / Comment(s): 10/04/15 Total R hip arthroplasty. 1998 triple vessel CABG, Cardiac cath with stents, RECTAL FISTULA REPAIR, KIDNEY STONE, LITHROTRIPSY, single chamber AICD 07/10/2016 Past Anesthesia/Blood Transfusion Reactions: No Reported Reaction Additional Past Anesthesia/Blood Transfusion Reaction / Comment(s): Pt does not believe he has ever received blood. Date of Last Stent Placement:: 11/28/2015 Past Psychological History: No Psychological Hx Reported Smoking Status: Current every day smoker Past Alcohol Use History: Rare Past Drug Use History: None Reported - Past Family History Father Family Medical History: Cancer Additional Family Medical History / Comment(s): skin Mother Family Medical History: COPD, Pneumonia Additional Family Medical History / Comment(s): Mother at age 92 yrs. Medications and Allergies Home Medications Medication Instructions Recorded Confirmed Type Nitroglycerin Sl Tabs [Nitrostat] 0.4 mg SUBLINGUAL Q5M PRN 11/27/15 04/17/23 History Atorvastatin [Lipitor] 10 mg PO HS 07/06/16 04/17/23 History Furosemide [Lasix] 40 mg PO BID 07/06/16 04/17/23 History Isosorbide Mononitrate [Isosorbide 30 mg PO DAILY 07/06/16 04/17/23 History Mononitrate ER] Potassium Chloride ER [K-Dur 20] 20 meq PO BID 07/06/16 04/17/23 History Clopidogrel [Plavix] 75 mg PO DAILY 03/04/17 04/17/23 History Albuterol Nebulized [Ventolin 2.5 mg INHALATION RT-Q6H PRN 04/17/23 04/17/23 History Nebulized] Aspirin EC [Ecotrin Low Dose] 81 mg PO DAILY 04/17/23 04/17/23 History Carvedilol [Coreg] 12.5 mg PO BID 04/17/23 04/17/23 History Cholecalciferol [Vitamin D3 (25 50 mcg PO DAILY 04/17/23 04/17/23 History Mcg = 1000 Iu)] Ferrous Sulfate [Feosol] 325 mg PO DAILY 04/17/23 04/17/23 History Nystatin 100,000Unit/gm Cream 1 applic TOPICAL BID PRN 04/17/23 04/17/23 History [Mycostatin Cream] Pramipexole [Mirapex] 0.5 mg PO HS 04/17/23 04/17/23 History Pregabalin [Lyrica] 200 mg PO BID 04/17/23 04/17/23 History allopurinoL [Zyloprim] 300 mg PO HS 04/17/23 04/17/23 History metFORMIN HCL [Glucophage] 1,000 mg PO BID 04/17/23 04/17/23 History predniSONE 5 mg PO DAILY 04/17/23 04/17/23 History Allergies Allergy/AdvReac Type Severity Reaction Status Date / Time No Known Allergies Allergy Verified 04/17/23 22:28 Physical Exam Vitals: Vital Signs Temp Pulse Resp BP Pulse Ox 04/18/23 11:38 47 L 18 04/18/23 11:32 98 04/18/23 11:29 54 L 18 04/18/23 11:14 56 L 18 101/63 95 04/18/23 10:39 97.8 F 63 18 103/72 96 04/18/23 07:21 97.2 F L 69 18 104/70 96 04/18/23 06:00 58 L 20 121/73 94 L 04/18/23 03:00 71 20 125/70 94 L 04/18/23 01:00 74 20 118/73 96 04/17/23 23:00 85 20 115/62 96 04/17/23 22:00 84 20 106/52 93 L 04/17/23 21:30 92 20 120/61 92 L 04/17/23 21:00 88 20 110/68 93 L 04/17/23 20:30 97 20 116/59 93 L 04/17/23 20:11 44 H 04/17/23 20:10 97.9 F 90 20 106/67 90 L Intake and Output 04/17/23 04/18/23 04/18/23 22:59 06:59 14:59 Other: Weight 107.955 kg GENERAL: Obese, sitting up in chair,NAD HEAD: Atraumatic, normocephalic. EYES: Pupils equal, round, and reactive to light, extraocular movements intact, sclera anicteric, conjunctiva are normal. ENT: MMM. NECK:Supple, no JVD. No lymphadenopathy. LUNGS: Unlabored, equal air entry, bilateral bases diminished. HEART: S1, S2. Regular rate and rhythm. No murmurs, rubs or gallops. ABDOMEN: Soft, obese, nontender, nondistended,+BS, No guarding. No masses or organomegaly appreciated. EXTREMITIES: 2+ peripheral pulses. No edema, clubbing or cyanosis. No calf tenderness. NEUROLOGICAL: Cranial nerves II through XII grossly intact. Strength and sensation grossly intact. PSYCH: Alert and oriented 3, mood and affect norm.al. SKIN: Warm, dry, no rashes noted. Results CBC & Chem 7: 04/18/23 02:02 04/18/23 02:02 Labs: Abnormal Lab Results - Last 24 Hours (Table) 04/17/23 04/17/23 04/17/23 Range/Units 20:11 20:11 20:11 MCV 105.2 H (80.0-100.0) fL Neutrophils # (Manual) (1.3-7.7) k/uL Sodium 136 L (137-145) mmol/L Creatinine 1.51 H (0.66-1.25) mg/dL Glucose 198 H (74-99) mg/dL Troponin I 0.097 H* (0.000-0.034) ng/mL Total Protein 5.7 L (6.3-8.2) g/dL Albumin 3.1 L (3.5-5.0) g/dL 04/17/23 04/18/23 04/18/23 Range/Units 22:53 02:02 02:02 MCV 107.5 H (80.0-100.0) fL Neutrophils # (Manual) 8.50 H (1.3-7.7) k/uL Sodium (137-145) mmol/L Creatinine (0.66-1.25) mg/dL Glucose (74-99) mg/dL Troponin I 0.916 H* 1.600 H* (0.000-0.034) ng/mL Total Protein (6.3-8.2) g/dL Albumin (3.5-5.0) g/dL 04/18/23 Range/Units 02:02 MCV (80.0-100.0) fL Neutrophils # (Manual) (1.3-7.7) k/uL Sodium 136 L (137-145) mmol/L Creatinine 1.48 H (0.66-1.25) mg/dL Glucose 189 H (74-99) mg/dL Troponin I (0.000-0.034) ng/mL Total Protein 5.6 L (6.3-8.2) g/dL Albumin 3.1 L (3.5-5.0) g/dL Assessment and Plan Assessment: Ventricular tachycardia reported per EMS strip, AICD discharge CAD, history of PA, CABG, PPM COPD Gastroesophageal reflux disease Hypertension Severe arthritis Obstructive sleep apnea unable to tolerate BiPAP machine Morbid obesity, BMI 36 Nicotine dependence History of irritable bowel syndrome Gait dysfunction, uses a cane Plan: Continue on current medication regime ,monitoring and symptomatic treatment. Amiodarone discontinued, antiarrhythmics as per cardiology. Interrogation of pacemaker completed, results pending. Pro-calcitonin pending. The impression and plan of care has been dictated as directed. : I performed a history and examination of this patient, discussed the same with the dictator. I agree with the dictator's note ,documented as a scribe. Any additional findings or plans will be noted.
--- NOTE | 2023-04-18 13:43 | P.CNPUL ---
History of Present Illness Consult date: 04/18/23 Requesting physician: Vaibhav Mejía Reason for consult: dyspnea, COPD Chief complaint: AICD firing History of present illness: This is a pleasant 72-year-old male patient who has a history of diabetes mellitus, hypertension, hyperlipidemia, obstructive sleep apnea, coronary disease with previous coronary artery bypass grafting and previous stent placements, ischemic cardiomyopathy status post AICD placement. He also has a history of chronic obstructive pulmonary disease and follows with Dr. Burns in our office for the same. FEV1 value 1.7 L or 52% of predicted. He presented here to the emergency room last evening after receiving several shocks from his defibrillator. He was noted to be having episodes of ventricular tachycardia per EMS. EKG reveals a right bundle dulce maria block with occasional PVCs currently. X-ray shows right lower lobe atelectasis versus pneumonia. White count 10.3. Hemoglobin 15.9. Platelets 191. Sodium 136. Potassium 3.6. Bicarb 28. BUN 18. Creatinine 1.48. Glucose 189. ProBNP 1330. Troponins 0.097, 0.916, 1.60. He's been initiated on amiodarone drip. He is seen today in consultation in the emergency department. He's currently sitting up in a chair. Awake and alert in no acute distress. He does have some dyspnea on exertion. Some end expiratory wheeze. No significant cough or congestion. No fever or chills. He is maintaining O2 saturations in the 90s on room air. Afebrile. Currently hemodynamically stable. Review of Systems REVIEW OF SYSTEMS: CONSTITUTIONAL: Denies any recent significant weight loss or weight gain. EYES: Denies change in vision. EARS, NOSE, MOUTH, THROAT: Denies headaches, denies sore throat. CARDIOVASCULAR: Positive for AICD firings. Denies chest pain, palpitations or syncopal episodes. RESPIRATORY: Positive for shortness of breath, no cough, congestion or hemoptysis. GASTROINTESTINAL: Denies change in appetite, denies abdominal pain GENITOURINARY: Denies hematuria, denies infections. MUSKULOSKELETAL: Denies pain, denies swelling. INTEGUMENTARY: Denies rash, denies eczema. NEUROLOGICAL: Denies recent memory loss, no recent seizure activity. PSYCHIATRIC: Denies anxiety, denies depression. HEMATOLOGIC/LYMPHATIC: Denies anemia, denies enlarged lymph nodes. Past Medical History Past Medical History: COPD, GERD/Reflux, Hyperlipidemia, Hypertension, Myocardial Infarction (MD), Osteoarthritis (OA), Sleep Apnea/CPAP/BIPAP Additional Past Medical History / Comment(s): cardiomyopathy Last Myocardial Infarction Date:: 11/28/15 History of Any Multi-Drug Resistant Organisms: MRSA Date of last positivie culture/infection: 03/21/23 MDRO Source:: Chest Past Surgical History: Coronary Bypass/CABG, Heart Catheterization With Stent, Joint Replacement Additional Past Surgical History / Comment(s): 10/04/15 Total R hip arthroplasty. 1997 triple vessel CABG, Cardiac cath with stents, RECTAL FISTULA REPAIR, KIDNEY STONE, LITHROTRIPSY, single chamber AICD 07/10/2016 Past Anesthesia/Blood Transfusion Reactions: No Reported Reaction Additional Past Anesthesia/Blood Transfusion Reaction / Comment(s): Pt does not believe he has ever received blood. Date of Last Stent Placement:: 11/28/2015 Past Psychological History: No Psychological Hx Reported Smoking Status: Current every day smoker Past Alcohol Use History: Rare Past Drug Use History: None Reported - Past Family History Father Family Medical History: Cancer Additional Family Medical History / Comment(s): skin Mother Family Medical History: COPD, Pneumonia Additional Family Medical History / Comment(s): Mother at age 92 yrs. Medications and Allergies Home Medications Medication Instructions Recorded Confirmed Type Nitroglycerin Sl Tabs [Nitrostat] 0.4 mg SUBLINGUAL Q5M PRN 11/27/15 04/17/23 History Atorvastatin [Lipitor] 10 mg PO HS 07/06/16 04/17/23 History Furosemide [Lasix] 40 mg PO BID 07/06/16 04/17/23 History Isosorbide Mononitrate [Isosorbide 30 mg PO DAILY 07/06/16 04/17/23 History Mononitrate ER] Potassium Chloride ER [K-Dur 20] 20 meq PO BID 07/06/16 04/17/23 History Clopidogrel [Plavix] 75 mg PO DAILY 03/04/17 04/17/23 History Albuterol Nebulized [Ventolin 2.5 mg INHALATION RT-Q6H PRN 04/17/23 04/17/23 History Nebulized] Aspirin EC [Ecotrin Low Dose] 81 mg PO DAILY 04/17/23 04/17/23 History Carvedilol [Coreg] 12.5 mg PO BID 04/17/23 04/17/23 History Cholecalciferol [Vitamin D3 (25 50 mcg PO DAILY 04/17/23 04/17/23 History Mcg = 1000 Iu)] Ferrous Sulfate [Feosol] 325 mg PO DAILY 04/17/23 04/17/23 History Nystatin 100,000Unit/gm Cream 1 applic TOPICAL BID PRN 04/17/23 04/17/23 History [Mycostatin Cream] Pramipexole [Mirapex] 0.5 mg PO HS 04/17/23 04/17/23 History Pregabalin [Lyrica] 200 mg PO BID 04/17/23 04/17/23 History allopurinoL [Zyloprim] 300 mg PO HS 04/17/23 04/17/23 History metFORMIN HCL [Glucophage] 1,000 mg PO BID 04/17/23 04/17/23 History predniSONE 5 mg PO DAILY 04/17/23 04/17/23 History Allergies Allergy/AdvReac Type Severity Reaction Status Date / Time No Known Allergies Allergy Verified 04/17/23 22:28 Physical Exam Vitals: Vital Signs Temp Pulse Resp BP Pulse Ox 04/18/23 11:38 47 L 18 04/18/23 11:32 98 04/18/23 11:29 54 L 18 04/18/23 11:14 56 L 18 101/63 95 04/18/23 10:39 97.8 F 63 18 103/72 96 04/18/23 07:21 97.2 F L 69 18 104/70 96 04/18/23 06:00 58 L 20 121/73 94 L 04/18/23 03:00 71 20 125/70 94 L 04/18/23 01:00 74 20 118/73 96 04/17/23 23:00 85 20 115/62 96 04/17/23 22:00 84 20 106/52 93 L 04/17/23 21:30 92 20 120/61 92 L 04/17/23 21:00 88 20 110/68 93 L 04/17/23 20:30 97 20 116/59 93 L 04/17/23 20:11 44 H 04/17/23 20:10 97.9 F 90 20 106/67 90 L Intake and Output 04/17/23 04/18/23 04/18/23 22:59 06:59 14:59 Other: Weight 107.955 kg GENERAL EXAM: Alert, pleasant 72-year-old male, on room air, fairly comfortable in no apparent distress. HEAD: Normocephalic. EYES: Normal reaction of pupils, equal size. NOSE: Clear with pink turbinates. THROAT: No erythema or exudates. NECK: No masses, no JVD. CHEST: No chest wall deformity. LUNGS: Equal air entry with coarse crackles in the right lung base. CVS: S1 and S2 normal with no audible murmur, regular rhythm. ABDOMEN: No hepatosplenomegaly, normal bowel sounds, no guarding or rigidity. SPINE: No scoliosis or deformity SKIN: No rashes CENTRAL NERVOUS SYSTEM: No focal deficits, tone is normal in all 4 extremities. EXTREMITIES: There is no peripheral edema. No clubbing, no cyanosis. Peripheral pulses are intact. Results - Laboratory Findings CBC and BMP: 04/18/23 02:02 04/18/23 02:02 PT/INR, D-dimer PT 10.1 sec (9.0-12.0) 04/17/23 20:11 INR 0.9 (<1.2) 04/17/23 20:11 Abnormal lab findings: Abnormal Labs 04/17/23 04/17/23 04/17/23 20:11 20:11 20:11 MCV 105.2 H Neutrophils # (Manual) Sodium 136 L Creatinine 1.51 H Glucose 198 H Troponin I 0.097 H* Total Protein 5.7 L Albumin 3.1 L 04/17/23 04/18/23 04/18/23 22:53 02:02 02:02 MCV 107.5 H Neutrophils # (Manual) 8.50 H Sodium Creatinine Glucose Troponin I 0.916 H* 1.600 H* Total Protein Albumin 04/18/23 02:02 MCV Neutrophils # (Manual) Sodium 136 L Creatinine 1.48 H Glucose 189 H Troponin I Total Protein 5.6 L Albumin 3.1 L - Diagnostic Findings Chest x-ray: image reviewed Assessment and Plan Assessment: Ventricular tachycardia requiring defibrillation from his AICD Troponin leak suspect secondary to above Ischemic cardiomyopathy status post AICD placement in 2016 Acute exacerbation of chronic obstructive pulmonary disease with some right lower lung atelectasis versus infiltrate Acute kidney injury Coronary artery disease with previous coronary artery bypass grafting, stent placement Obstructive sleep apnea Obesity Hypertension Hyperlipidemia Diabetes mellitus Chronic tobacco dependence History of nephrolithiasis status post lithotripsy Plan: The patient was seen and evaluated Chest x-ray, labs and medications reviewed Add Symbicort inhalations, DuoNeb inhalations, prednisone taper Educated regarding the importance of complete smoking cessation We will continue to follow and make further recommendations based on his clinical status I have personally seen and examined the patient, performed the documentation and the assessment and plan as written. Number of minutes spent on the visit: 20.
[2023-04-18] MEDS ORDERED: DEXTROSE 50% SYRINGE 50 ML IVP PRN ×2 (13:44)
[2023-04-18] MEDS ORDERED: ALBUTEROL NEBULIZED 2.5 MG/3 ML INHALATION PRN (13:45)
[2023-04-18] MEDS ORDERED: INSULIN DETEMIR (LEVEMIR) 100 UNIT/ML SYR SQ SCH (13:46)
[2023-04-18] MEDS ORDERED: HEPARIN SODIUM 1,000 UN/ML (10ML VL) IV ONE (14:26)
[2023-04-18] MEDS ORDERED: HEPARIN SODIUM 1,000 UN/ML (10ML VL) IV PRN (14:26)
--- NOTE | 2023-04-18 14:26 | P.CRDCN ---
History of Present Illness Consult date: 04/18/23 Reason for Consult (text): [place] History of present illness: History of present illness: This is a 72 year old female patient of Dr. Hamilton with past medical history of coronary artery disease status post CABG, ischemic cardiomyopathy status post AICD, chronic systolic heart failure, hypertension, hyperlipidemia. Patient gives history that yesterday he was sitting in a recliner is getting ready to have dinner and all of a sudden his device fired 3 times in about 1-1/2-2 minutes. He called 911 and before ambulance arrived, his defibrillator fired 12-15 times. He once he was in the ambulance chief security and safety officer showed him his rhythm which was abnormal and fast and he has not had any further episodes of the device going off. He is seen today in the emergency center waiting for a bed on the cardiac stepdown unit. He has been started on amiodarone drip. EKG sinus rhythm with PVCs Chest x-ray: correlate for right lower lobe atelectasis or pneumonia WBC 10.3, hemoglobin 15.9, platelet count 191. Sodium 136, potassium 3.6, BUN 18 creatinine 1.48 which is patient's baseline. Troponin 0.097, 0.916, 1.6. Liver function tests are normal. Home cardiac medications: Aspirin 81 mg daily, Lipitor 10 mg daily, Coreg 12.5 mg twice daily, Plavix 75 mg daily, Lasix 40 mg twice daily, Imdur 30 mg daily, Nitrostat as needed, K-Dur 20 milliequivalents twice daily Echocardiogram 02/2022 obtained in the office revealed EF 40%, mild left ventricular hypertrophy. Mild mitral regurgitation, mild tricuspid regurgitation. Lexiscan Cardiolite 2019 revealed inconclusive due to baseline EKG abnormalities. Abnormal nuclear scan showing evidence of prior inferior wall MA with ischemic cardiomyopathy and severe LV dysfunction without any ischemia. Review Of Systems: At the time of my evaluation: Constitutional: No fever, no chills. No weakness, fatigue or lethargy. EENT: No headache. No dizziness. Lungs: No shortness of breath, cough, no sputum production. No wheezing. Cardiovascular: No chest pain, no lower extremity edema. No palpitations. No paroxysmal nocturnal dyspnea. No orthopnea. No lightheadedness or dizziness. No syncopal episodes. Abdominal: No abdominal pain. No nausea, vomiting. No diarrhea. No constipation. No bloody or tarry stools. Musculoskeletal: No myalgias. No muscle weakness, no frequent falls. No back pain. No neck pain. Integumentary: No wounds. No rash. No unusual bruising. Neurologic: No aphasia. No facial droop. No change in mentation. No head injury. No headache. Physical examination: Gen: This is a 72-year-old male sitting in chair in the emergency center appears to be comfortable. No acute distress. VS: reviewed HEENT: Head is atraumatic, normocephalic. Pupils equal, round. Sclerae is anicteric. NECK: Supple. No JVD. . LUNGS: Clear to auscultation. No wheezes or rhonchi. No intercostal retractions. HEART: Regular rate and rhythm. No murmur. ABDOMEN: Soft No tenderness. EXTREMITIES: No pedal edema. NEUROLOGICAL: Patient is awake, alert and oriented x3. Assessment: Ventricular tachycardia causing AICD firing Elevated troponin, possibly due to shock or maybe NSTEMI History of coronary artery disease status post CABG Ischemic cardiomyopathy and chronic systolic heart failure status post AICD Hypertension Hyperlipidemia Plan: Device interrogation report reviewed revealed VT and appropriate shocks Resume patient's home cardiac medications Patient is on Amio gtt Obtain 2-D echocardiogram and Doppler study to assess cardiac structure and function Recommend cardiac catheterization to evalate coronary arteries, schedule for tomorrow and start patient on heparin gtt Further recommendations to follow based upon clinical course Thank you kindly for this consultation. Nurse practitioner note has been reviewed, I agree with documented findings and plan of care. Patient was seen and examined. Past Medical History Past Medical History: COPD, GERD/Reflux, Hyperlipidemia, Hypertension, Myocardial Infarction (MA), Osteoarthritis (OA), Sleep Apnea/CPAP/BIPAP Additional Past Medical History / Comment(s): cardiomyopathy Last Myocardial Infarction Date:: 11/28/15 History of Any Multi-Drug Resistant Organisms: MRSA Date of last positivie culture/infection: 03/21/23 MDRO Source:: Chest Past Surgical History: Coronary Bypass/CABG, Heart Catheterization With Stent, Joint Replacement Additional Past Surgical History / Comment(s): 10/04/15 Total R hip arthroplasty. 1997 triple vessel CABG, Cardiac cath with stents, RECTAL FISTULA REPAIR, KIDNEY STONE, LITHROTRIPSY, single chamber AICD 07/10/2016 Past Anesthesia/Blood Transfusion Reactions: No Reported Reaction Additional Past Anesthesia/Blood Transfusion Reaction / Comment(s): Pt does not believe he has ever received blood. Date of Last Stent Placement:: 11/28/2015 Past Psychological History: No Psychological Hx Reported Smoking Status: Current every day smoker Past Alcohol Use History: Rare Past Drug Use History: None Reported - Past Family History Father Family Medical History: Cancer Additional Family Medical History / Comment(s): skin Mother Family Medical History: COPD, Pneumonia Additional Family Medical History / Comment(s): Mother at age 92 yrs. Medications and Allergies Home Medications Medication Instructions Recorded Confirmed Type Nitroglycerin Sl Tabs [Nitrostat] 0.4 mg SUBLINGUAL Q5M PRN 11/27/15 04/17/23 History Atorvastatin [Lipitor] 10 mg PO HS 07/06/16 04/17/23 History Furosemide [Lasix] 40 mg PO BID 07/06/16 04/17/23 History Isosorbide Mononitrate [Isosorbide 30 mg PO DAILY 07/06/16 04/17/23 History Mononitrate ER] Potassium Chloride ER [K-Dur 20] 20 meq PO BID 07/06/16 04/17/23 History Clopidogrel [Plavix] 75 mg PO DAILY 03/04/17 04/17/23 History Albuterol Nebulized [Ventolin 2.5 mg INHALATION RT-Q6H PRN 04/17/23 04/17/23 History Nebulized] Aspirin EC [Ecotrin Low Dose] 81 mg PO DAILY 04/17/23 04/17/23 History Carvedilol [Coreg] 12.5 mg PO BID 04/17/23 04/17/23 History Cholecalciferol [Vitamin D3 (25 50 mcg PO DAILY 04/17/23 04/17/23 History Mcg = 1000 Iu)] Ferrous Sulfate [Feosol] 325 mg PO DAILY 04/17/23 04/17/23 History Nystatin 100,000Unit/gm Cream 1 applic TOPICAL BID PRN 04/17/23 04/17/23 History [Mycostatin Cream] Pramipexole [Mirapex] 0.5 mg PO HS 04/17/23 04/17/23 History Pregabalin [Lyrica] 200 mg PO BID 04/17/23 04/17/23 History allopurinoL [Zyloprim] 300 mg PO HS 04/17/23 04/17/23 History metFORMIN HCL [Glucophage] 1,000 mg PO BID 04/17/23 04/17/23 History predniSONE 5 mg PO DAILY 04/17/23 04/17/23 History Allergies Allergy/AdvReac Type Severity Reaction Status Date / Time No Known Allergies Allergy Verified 04/17/23 22:28 Physical Exam Vitals: Vital Signs Temp Pulse Resp BP Pulse Ox 04/18/23 11:32 98 04/18/23 11:29 54 L 18 04/18/23 11:14 56 L 18 101/63 95 04/18/23 10:39 97.8 F 63 18 103/72 96 04/18/23 07:21 97.2 F L 69 18 104/70 96 04/18/23 06:00 58 L 20 121/73 94 L 04/18/23 03:00 71 20 125/70 94 L 04/18/23 01:00 74 20 118/73 96 04/17/23 23:00 85 20 115/62 96 04/17/23 22:00 84 20 106/52 93 L 04/17/23 21:30 92 20 120/61 92 L 04/17/23 21:00 88 20 110/68 93 L 04/17/23 20:30 97 20 116/59 93 L 04/17/23 20:11 44 H 04/17/23 20:10 97.9 F 90 20 106/67 90 L Intake and Output 04/17/23 04/18/23 04/18/23 22:59 06:59 14:59 Other: Weight 107.955 kg Results 04/18/23 02:02 04/18/23 02:02 Cardiac Enzymes 04/17/23 04/17/23 04/17/23 Range/Units 20:11 20:11 22:53 AST 29 (17-59) U/L Troponin I 0.097 H* 0.916 H* (0.000-0.034) ng/mL 04/18/23 04/18/23 Range/Units 02:02 02:02 AST 31 (17-59) U/L Troponin I 1.600 H* (0.000-0.034) ng/mL Coagulation 04/17/23 Range/Units 20:11 PT 10.1 (9.0-12.0) sec APTT 22.0 (22.0-30.0) sec CBC 04/17/23 04/18/23 Range/Units 20:11 02:02 WBC 9.3 10.3 (3.8-10.6) k/uL RBC 4.54 4.57 (4.30-5.90) m/uL Hgb 15.8 15.9 (13.0-17.5) gm/dL Hct 47.7 49.1 (39.0-53.0) % Plt Count 201 191 (150-450) k/uL Comprehensive Metabolic Panel 04/17/23 04/18/23 Range/Units 20:11 02:02 Sodium 136 L 136 L (137-145) mmol/L Potassium 3.6 3.6 (3.5-5.1) mmol/L Chloride 102 101 (98-107) mmol/L Carbon Dioxide 27 28 (22-30) mmol/L BUN 19 18 (9-20) mg/dL Creatinine 1.51 H 1.48 H (0.66-1.25) mg/dL Glucose 198 H 189 H (74-99) mg/dL Calcium 8.8 8.5 (8.4-10.2) mg/dL AST 29 31 (17-59) U/L ALT 18 20 (4-49) U/L Alkaline Phosphatase 80 82 (38-126) U/L Total Protein 5.7 L 5.6 L (6.3-8.2) g/dL Albumin 3.1 L 3.1 L (3.5-5.0) g/dL Current Medications Generic Name Dose Route Start Last Admin Trade Name Freq PRN Reason Stop Dose Admin Albuterol/Ipratropium 3 ml 04/18/23 12:00 04/18/23 11:29 Ipratropium-Albuterol 3 Ml Neb INHALATION 3 ml RT-QID MILLICENT Administration Albuterol/Ipratropium 3 ml 04/18/23 09:06 Ipratropium-Albuterol 3 Ml Neb INHALATION RT-Q2H PRN Shortness Of Breath Or Wheezing Aspirin 81 mg 04/18/23 09:00 04/18/23 09:46 Aspirin 81 Mg PO 81 mg DAILY MILLICENT Administration Atorvastatin Calcium 10 mg 04/18/23 21:00 Atorvastatin 10 Mg Tab PO HS MILLICENT Budesonide/Formoterol Fumarate 2 puff 04/18/23 20:00 Symbicort 160-4.5 Mcg Inhaler INHALATION RT-BID MILLICENT Carvedilol 12.5 mg 04/18/23 09:00 04/18/23 09:46 Carvedilol 12.5 Mg Tab PO 12.5 mg BID-W/MEALS MILLICENT Administration Clopidogrel Bisulfate 75 mg 04/18/23 09:00 04/18/23 09:47 Clopidogrel 75 Mg Tab PO 75 mg DAILY MILLICENT Administration Furosemide 40 mg 04/18/23 09:00 04/18/23 09:47 Furosemide 40 Mg Tab PO 40 mg BID MILLICENT Administration Amiodarone HCl 450 mg/ 250 mls @ 16.667 mls/hr 04/18/23 03:00 04/18/23 02:58 Dextrose/Water IV 04/18/23 20:59 0.5 mg/min .Q15H MILLICENT 16.667 mls/hr Administration Protocol 0.5 MG/MIN Sodium Chloride 1,000 mls @ 75 mls/hr 04/17/23 22:45 04/18/23 11:27 Saline 0.9% IV 75 mls/hr .[id number] MILLICENT Administration Isosorbide Mononitrate 30 mg 04/18/23 09:00 04/18/23 09:47 Isosorbide Mononitrate Er 30 Mg Tab.Er.24h PO 30 mg DAILY MILLICENT Administration Morphine Sulfate 4 mg 04/17/23 22:41 Morphine Sulfate 4 Mg/Ml Syringe IV Q4HR PRN Severe Pain (Scale 7 to 10) Naloxone HCl 0.2 mg 04/17/23 22:41 Naloxone 0.4 Mg/Ml 1 Ml Vial IV Q2M PRN Opioid Reversal Ondansetron HCl 4 mg 04/17/23 22:41 Ondansetron 4 Mg/2 Ml Vial IVP Q8HR PRN Nausea And Vomiting Potassium Chloride 20 meq 04/18/23 09:00 04/18/23 09:47 Potassium Chloride Er 20 Meq Tab.Er PO 20 meq BID MILLICENT Administration Prednisone 30 mg 04/18/23 09:15 04/18/23 09:47 Prednisone 10 Mg Tab PO 30 mg DAILY MILLICENT Administration Intake and Output 04/17/23 04/18/23 04/18/23 22:59 06:59 14:59 Other: Weight 107.955 kg 04/18/23 02:02 04/18/23 02:02
[2023-04-18] MEDS ORDERED: NITROGLYCERIN SL TABS 0.4 MG TAB SUBLINGUAL PRN (14:27)
[2023-04-18] MEDS ORDERED: ALPRAZolam 0.5 MG TAB PO PRN (14:27)
[2023-04-18] MEDS ORDERED: ASPIRIN 325 MG TAB PO STA (14:27)
[2023-04-18] MEDS ORDERED: ATORVASTATIN 80 MG TAB PO STA (14:27)
[2023-04-18] MEDS ORDERED: ALPRAZolam 0.25 MG TAB PO PRN (14:27)
[2023-04-18] MEDS: HEPARIN SOD,PORK IN 0.45% NACL 25,000 UNIT in 0.45% NACL 1 250ML.BAG IV SCH (14:39)
[2023-04-18] MEDS: INSULIN DETEMIR (LEVEMIR) 100 UNIT/ML SYR SQ SCH (14:48)
[2023-04-18 16:13] LABS: Basophils % (A) 0 %; Eosinophils # (A) 0.1 k/uL (0-0.7); Eosinophils % (A) 1 %; HCT 49.2 % (39.0-53.0); Lymphocytes # (A) 0.6 k/uL (1.0-4.8); Lymphocytes % (A) 6 %; MCH 35.7 pg (25.0-35.0); MCHC 32.6 g/dL (31.0-37.0); MCV 109.5 fL (80.0-100.0); Macrocytosis Marked; Mean Platelet Volume 8.4; Monocytes # (A) 0.3 k/uL (0-1.0); Monocytes % (A) 4 %; Neutrophils # (A) 8.4 k/uL (1.3-7.7); Neutrophils % (A) 89 %; Platelet Count 161 k/uL (150-450); RBC 4.49 m/uL (4.30-5.90); RDW 13.6 % (11.5-15.5); WBC 9.4 k/uL (3.8-10.6)
[2023-04-18 16:29] LABS: Partial Thromboplastin Time 24.4 sec (22.0-30.0); Prothrombin Time 10.4 sec (9.0-12.0)
[2023-04-18 16:48] LABS: Glucose,Whole Blood 194 mg/dL (70-110)
[2023-04-18] MEDS: INSULIN ASPART (NovoLOG) 100 UNIT/ML VIAL SQ SCH ×2 (17:06→20:57)
[2023-04-18] MEDS: ATORVASTATIN 10 MG TAB PO SCH (20:38)
[2023-04-18] MEDS: PREGABALIN 100 MG CAP PO SCH (20:38)
[2023-04-18] MEDS: PRAMIPEXOLE 0.5 MG TAB PO SCH (20:38)
[2023-04-18 20:57] LABS: Glucose,Whole Blood 205 mg/dL (70-110)
[2023-04-18] MEDS: SYMBICORT 160-4.5 MCG INHALER INHALATION SCH (21:20)
[2023-04-19] MEDS: SODIUM CHLORIDE 0.9% 1,000 ML IV SCH ×2 (04:42→16:27)
[2023-04-19 06:03] LABS: Glucose,Whole Blood 125 mg/dL (70-110)
[2023-04-19] MEDS: INSULIN DETEMIR (LEVEMIR) 100 UNIT/ML SYR SQ SCH (06:05)
[2023-04-19] MEDS: INSULIN ASPART (NovoLOG) 100 UNIT/ML VIAL SQ SCH ×4 (06:06→21:00)
[2023-04-19] MEDS: carvediloL 12.5 MG TAB PO SCH ×2 (06:42→16:27)
[2023-04-19 06:59] LABS: Prothrombin Time 10.7 sec (9.0-12.0)
[2023-04-19] MEDS ORDERED: HEPARIN SODIUM,PORCINE 10,000 UNIT in SODIUM CHLORIDE 0.9% 1,000 ML IRRIGATION PRN (07:00)
[2023-04-19] MEDS ORDERED: HEPARIN SODIUM,PORCINE 2,500 UNIT in SODIUM CHLORIDE 0.9% 250 ML IRRIGATION PRN (07:00)
[2023-04-19 07:14] LABS: Basophils % (A) 0 %; Eosinophils # (A) 0.2 k/uL (0-0.7); Eosinophils % (A) 1 %; HGB 16.1 gm/dL (13.0-17.5); Lymphocytes # (A) 1.6 k/uL (1.0-4.8); Lymphocytes % (A) 14 %; MCH 36.8 pg (25.0-35.0); MCHC 34.2 g/dL (31.0-37.0); MCV 107.6 fL (80.0-100.0); Macrocytosis Moderate; Mean Platelet Volume 8.9; Monocytes # (A) 0.9 k/uL (0-1.0); Monocytes % (A) 8 %; Neutrophils # (A) 8.8 k/uL (1.3-7.7); Neutrophils % (A) 76 %; Platelet Count 148 k/uL (150-450); RBC 4.37 m/uL (4.30-5.90); RDW 13.8 % (11.5-15.5); WBC 11.5 k/uL (3.8-10.6)
[2023-04-19] MEDS ORDERED: ASPIRIN 325 MG TAB PO STA (07:24)
[2023-04-19] MEDS ORDERED: ATORVASTATIN 80 MG TAB PO STA (07:25)
[2023-04-19] MEDS: ISOSORBIDE MONONITRATE ER 30 MG TAB.ER.24H PO SCH (07:54)
[2023-04-19] MEDS: predniSONE 10 MG TAB PO SCH (07:54)
[2023-04-19] MEDS: PREGABALIN 100 MG CAP PO SCH ×2 (07:54→21:00)
[2023-04-19] MEDS: CLOPIDOGREL 75 MG TAB PO SCH (07:54)
[2023-04-19] MEDS: IPRATROPIUM-ALBUTEROL 3 ML NEB INHALATION SCH ×4 (08:56→21:24)
[2023-04-19] MEDS: SYMBICORT 160-4.5 MCG INHALER INHALATION SCH ×2 (08:56→21:24)
[2023-04-19] MEDS ORDERED: predniSONE 5 MG TAB PO SCH (09:00)
[2023-04-19 11:45] LABS: Glucose,Whole Blood 148 mg/dL (70-110)
--- NOTE | 2023-04-19 11:49 | P.PN ---
Subjective Progress Note Date: 04/19/23 This is a pleasant 72-year-old male patient who has a history of diabetes mellitus, hypertension, hyperlipidemia, obstructive sleep apnea, coronary disease with previous coronary artery bypass grafting and previous stent placements, ischemic cardiomyopathy status post AICD placement. He also has a history of chronic obstructive pulmonary disease and follows with Dr. Burns in our office for the same. FEV1 value 1.7 L or 52% of predicted. He presented here to the emergency room last evening after receiving several shocks from his defibrillator. He was noted to be having episodes of ventricular tachycardia per EMS. EKG reveals a right bundle dulce maria block with occasional PVCs currently. X-ray shows right lower lobe atelectasis versus pneumonia. White count 10.3. Hemoglobin 15.9. Platelets 191. Sodium 136. Potassium 3.6. Bicarb 28. BUN 18. Creatinine 1.48. Glucose 189. ProBNP 1330. Troponins 0.097, 0.916, 1.60. He's been initiated on amiodarone drip. He is seen today in consultation in the emergency department. He's currently sitting up in a chair. Awake and alert in no acute distress. He does have some dyspnea on exertion. Some end expiratory wheeze. No significant cough or congestion. No fever or chills. He is maintaining O2 saturations in the 90s on room air. A febrile. Currently hemodynamically stable. The patient is seen today 04/19/2023 in follow-up on the selective care unit. He is currently sitting up at the bedside. Awake and alert in no acute dist ress. He is breathing easier today compared to yesterday. Continues to maintain good O2 saturations in the 90s on room air. His AICD had been interrogated in the shocks were appropriate. Plan is for cardiac catheterization today. White count 11.5. Hemoglobin 16.1. Platelets 148. Glucose 125. He is continued on DuoNeb inhalations, Symbicort, prednisone taper. Remains on oral diuretics. Off Amiodarone. Remains on a heparin drip. Objective - Vital Signs Vital signs: Vital Signs Temp 97.5 F L 04/19/23 08:00 Pulse 60 04/19/23 09:11 Resp 18 04/19/23 08:00 BP 107/65 04/19/23 08:00 Pulse Ox 96 04/19/23 08:56 FiO2 Intake & Output 04/18/23 04/19/23 04/19/23 18:59 06:59 18:59 Intake Total 1322.56 201.135 Balance 1322.56 201.135 Weight 112.9 kg Intake: Intake, IV Titration 502.56 201.135 Amount Amiodarone 450 mg In 267.56 Dextrose 5% in Water 250 ml @ 0.5 MG/MIN 16.667 mls/hr IV .Q15H [facility] Rx#: [id number] Heparin Sod,Pork in 0.45% 10 201.135 NaCl 25,000 unit In 0.45 % NaCl 1 250ml.bag @ 9.3 UNITS/KG/HR 10.04 mls/hr IV .Q24H [facility] Rx#: [id number] Sodium Chloride 0.9% 1, 225 000 ml @ 75 mls/hr IV . [id number] [facility] Rx#:[id number] Oral 820 - Exam GENERAL EXAM: Alert, very pleasant 72-year-old male, on room air, comfortable in no apparent distress. HEAD: Normocephalic. EYES: Normal reaction of pupils, equal size. NOSE: Clear with pink turbinates. THROAT: No erythema or exudates. NECK: No masses, no JVD. CHEST: No chest wall deformity. LUNGS: Equal air entry with coarse crackles in the right lung base. CVS: S1 and S2 normal with no audible murmur, regular rhythm. ABDOMEN: No hepatosplenomegaly, normal bowel sounds, no guarding or rigidity. SPINE: No scoliosis or deformity SKIN: No rashes CENTRAL NERVOUS SYSTEM: No focal deficits, tone is normal in all 4 extremities. EXTREMITIES: There is no peripheral edema. No clubbing, no cyanosis. Peripheral pulses are intact. - Labs CBC & Chem 7: 04/19/23 06:29 04/18/23 02:02 Labs: Abnormal Lab Results - Last 24 Hours (Table) 04/18/23 04/18/23 04/18/23 Range/Units 14:51 14:51 16:43 WBC (3.8-10.6) k/uL MCV 109.5 H (80.0-100.0) fL MCH 35.7 H (25.0-35.0) pg Plt Count (150-450) k/uL Neutrophils # 8.4 H (1.3-7.7) k/uL Lymphocytes # 0.6 L (1.0-4.8) k/uL Macrocytosis Marked A APTT (22.0-30.0) sec POC Glucose (mg/dL) 194 H (70-110) mg/dL Hemoglobin A1c (<=6.0) % Troponin I 0.539 H* (0.000-0.034) ng/mL 04/18/23 04/18/23 04/19/23 Range/Units 20:54 21:09 06:01 WBC (3.8-10.6) k/uL MCV (80.0-100.0) fL MCH (25.0-35.0) pg Plt Count (150-450) k/uL Neutrophils # (1.3-7.7) k/uL Lymphocytes # (1.0-4.8) k/uL Macrocytosis APTT 47.5 H (22.0-30.0) sec POC Glucose (mg/dL) 205 H 125 H (70-110) mg/dL Hemoglobin A1c (<=6.0) % Troponin I (0.000-0.034) ng/mL 04/19/23 04/19/23 Range/Units 06:29 06:29 WBC 11.5 H (3.8-10.6) k/uL MCV 107.6 H (80.0-100.0) fL MCH 36.8 H (25.0-35.0) pg Plt Count 148 L (150-450) k/uL Neutrophils # 8.8 H (1.3-7.7) k/uL Lymphocytes # (1.0-4.8) k/uL Macrocytosis APTT (22.0-30.0) sec POC Glucose (mg/dL) (70-110) mg/dL Hemoglobin A1c 6.2 H (<=6.0) % Troponin I (0.000-0.034) ng/mL Assessment and Plan Assessment: Ventricular tachycardia requiring defibrillation from his AICD Troponin leak suspect secondary to above, remains on heparin drip, plan is for cardiac catheterization today Ischemic cardiomyopathy status post AICD placement in 2016 Acute exacerbation of chronic obstructive pulmonary disease with some right lower lung atelectasis versus infiltrate Acute kidney injury Coronary artery disease with previous coronary artery bypass grafting, stent placement Obstructive sleep apnea Obesity Hypertension Hyperlipidemia Diabetes mellitus Chronic tobacco dependence History of nephrolithiasis status post lithotripsy Plan: The patient was seen and evaluated Labs and medications reviewed Remains on a heparin drip Plan is for cardiac catheterization today Continue Symbicort inhalations, DuoNeb inhalations, prednisone taper We will continue to follow I have personally seen and examined the patient, performed the documentation and the assessment and plan as written. Number of minutes spent on the visit: 10.
--- NOTE | 2023-04-19 12:14 | P.PN ---
Subjective Progress Note Date: 04/19/23 H&P Date: 04/18/23 Chief Complaint: AICD firing This is a 72-year-old gentleman with past medical history significant for CAD/[place]/CABG, AICD placement hypertension, COPD, gastroesophageal reflux disease, OA and multiple other medical issues presented to the ER with complaints of his pacemaker firing multiple times, which is a new occurrence. Reported V. tach on EMS strip. Elevated troponins 0.097, 0.916, 1.600. Sodium 136, potassium 3.6(supplemented), bicarbonate 28, BUN 18, creatinine 1.48, magnesium 2.1 (post supplementation), albumin 3.1. Afebrile, normal WBC, hemoglobin 15.9, platelets 191. Denies chest pain, palpitations or shortness of breath. Maintaining O2 sats in the high 90s on room air. Amiodarone drip initiated. Evaluated by cardiology, pacemaker interrogation ordered. Chest x-ray reporting subtle infiltrate may be at the right base, pro-calcitonin pending. Denies cough, congestion, fever or chills. 04/19/2023 Device interrogated, reviewed by cardiology, reporting ventricular tachycardia with appropriate shocks. Troponin is elevated, possibly due to NSTEMI versus shock and patient is scheduled for cardiac catheterization today. Telemetry sinus rhythm. NPO, amiodarone off, anticoagulated on heparin drip. Denies any further shocks. Denies chest pain, palpitations or shortness of breath.Maintaining O2 sats in the mid 90s on room air. Afebrile, WBC 11.5, hemoglobin 16.1 platelets 148. BMP pending. Objective - Vital Signs Vital signs: Vital Signs Temp 97.5 F L 04/19/23 08:00 Pulse 60 04/19/23 09:11 Resp 18 04/19/23 08:00 BP 107/65 04/19/23 08:00 Pulse Ox 96 04/19/23 08:56 FiO2 Intake & Output 04/18/23 04/19/23 04/19/23 18:59 06:59 18:59 Intake Total 1322.56 Balance 1322.56 Weight 112.9 kg Intake: Intake, IV Titration 502.56 Amount Amiodarone 450 mg In 267.56 Dextrose 5% in Water 250 ml @ 0.5 MG/MIN 16.667 mls/hr IV .Q15H [facility] Rx#: [id number] Heparin Sod,Pork in 0.45% 10 NaCl 25,000 unit In 0.45 % NaCl 1 250ml.bag @ 9.3 UNITS/KG/HR 10.04 mls/hr IV .Q24H [facility] Rx#: [id number] Sodium Chloride 0.9% 1, 225 000 ml @ 75 mls/hr IV . [id number] [facility] Rx#:[id number] Oral 820 - Exam GENERAL: Alert and oriented 3, sitting up in bed,NAD HEAD: Atraumatic, normocephalic. EYES: Pupils equal, round, and reactive to light, extraocular movements intact, sclera anicteric, conjunctiva are normal. ENT: MMM. NECK:Supple, no JVD. LUNGS: Unlabored, equal air entry, faint expiratory wheeze on the right, bilateral bases diminished. HEART: S1, S2. Regular rate and rhythm. No murmurs, rubs or gallops. ABDOMEN: Soft, obese, nontender, nondistended,+BS, No guarding. EXTREMITIES: 2+ peripheral pulses. No edema, clubbing or cyanosis. No calf tenderness. NEUROLOGICAL: Cranial nerves II through XII grossly intact. Strength and sensation grossly intact. SKIN: Warm, dry, no rashes noted. - Labs CBC & Chem 7: 04/19/23 06:29 04/18/23 02:02 Labs: Abnormal Lab Results - Last 24 Hours (Table) 04/18/23 04/18/23 04/18/23 Range/Units 14:51 14:51 16:43 WBC (3.8-10.6) k/uL MCV 109.5 H (80.0-100.0) fL MCH 35.7 H (25.0-35.0) pg Plt Count (150-450) k/uL Neutrophils # 8.4 H (1.3-7.7) k/uL Lymphocytes # 0.6 L (1.0-4.8) k/uL Macrocytosis Marked A APTT (22.0-30.0) sec POC Glucose (mg/dL) 194 H (70-110) mg/dL Troponin I 0.539 H* (0.000-0.034) ng/mL 04/18/23 04/18/23 04/19/23 Range/Units 20:54 21:09 06:01 WBC (3.8-10.6) k/uL MCV (80.0-100.0) fL MCH (25.0-35.0) pg Plt Count (150-450) k/uL Neutrophils # (1.3-7.7) k/uL Lymphocytes # (1.0-4.8) k/uL Macrocytosis APTT 47.5 H (22.0-30.0) sec POC Glucose (mg/dL) 205 H 125 H (70-110) mg/dL Troponin I (0.000-0.034) ng/mL 04/19/23 Range/Units 06:29 WBC 11.5 H (3.8-10.6) k/uL MCV 107.6 H (80.0-100.0) fL MCH 36.8 H (25.0-35.0) pg Plt Count 148 L (150-450) k/uL Neutrophils # 8.8 H (1.3-7.7) k/uL Lymphocytes # (1.0-4.8) k/uL Macrocytosis APTT (22.0-30.0) sec POC Glucose (mg/dL) (70-110) mg/dL Troponin I (0.000-0.034) ng/mL Assessment and Plan Assessment: Ventricular tachycardia causing AICD discharge with elevated troponins,possible NSTEMI, cardiac catheterization pending. CAD, history of [place], CABG, AICD History of Cardiomyopathy, ischemic status post AICD Chronic systolic CHF COPD, acute exacerbation Atelectasis Gastroesophageal reflux disease Hypertension Severe arthritis Obstructive sleep apnea unable to tolerate BiPAP machine Morbid obesity, BMI 36 Nicotine dependence History of irritable bowel syndrome Gait dysfunction, uses a cane Plan: Continue on current medication regime ,monitoring and symptomatic treatment. Echo pending .Anticoagulated on heparin drip. NPO. BMP pending. IV fluid hydration with Close monitoring of renal function. Scheduled for cardiac catheterization today. The impression and plan of care has been dictated as directed. : I performed a history and examination of this patient, discussed the same with the dictator. I agree with the dictator's note ,documented as a scribe. Any additional findings or plans will be noted.
[2023-04-19 12:20] LABS: African American GFR (CKD) 48 (>60 ml/min/1.73 sqM); Anion Gap 3 mmol/L; Blood Urea Nitrogen 25 mg/dL (9-20); Calcium 8.5 mg/dL (8.4-10.2); Carbon Dioxide 31 mmol/L (22-30); Chloride 101 mmol/L (98-107); Glucose 115 mg/dL (74-99); Non-African American GFR(CKD) 41 (>60 ml/min/1.73 sqM); Sodium 135 mmol/L (137-145)
[2023-04-19 12:31] VITALS: BMI 37.8
[2023-04-19] MEDS: HEPARIN SOD,PORK IN 0.45% NACL 25,000 UNIT in 0.45% NACL 1 250ML.BAG IV SCH (12:41)
[2023-04-19] MEDS: POTASSIUM CHLORIDE ER 20 MEQ TAB.ER PO SCH ×2 (12:42→21:00)
[2023-04-19] MEDS: FUROSEMIDE 40 MG TAB PO SCH ×2 (12:42→21:00)
[2023-04-19] MEDS ORDERED: fentaNYL (PF) 50 MCG/ML 2 ML AMP ONE (12:44)
[2023-04-19] MEDS ORDERED: HEPARIN SODIUM 1,000 UN/ML (10ML VL) ONE (12:44)
[2023-04-19] MEDS ORDERED: VERAPAMIL 2.5 MG/ML 2 ML AMP ONE (12:44)
--- NOTE | 2023-04-19 12:53 | CA ---
Transthoracic Echo Report Name: Gagan Ba Age: 72 Gender: M : 1950 Exam Date: 04/19/2023 07:24 Exam Location: [facility] Ht (in): 68 Wt (lb): 238 Ordering Physician: Blanca Castellanos Attending/Referring Phys: Samuel Burns DO [employer] Drug Research Scientist Sheba Yan [facility] Procedure CPT: Indications: LVF Cardiac Hx: Technical Quality: Technically difficult study Contrast 1: Lumason Total Dose (mL): 5 Contrast 2: Total Dose (mL): MEASUREMENTS (Male / Female) Normal Values 2D ECHO LV Diastolic Diameter PLAX 7.0 cm 4.2 - 5.9 / 3.9 - 5.3 cm LV Systolic Diameter PLAX 6.4 cm IVS Diastolic Thickness 0.9 cm 0.6 - 1.0 / 0.6 - 0.9 cm LVPW Diastolic Thickness 1.2 cm 0.6 - 1.0 / 0.6 - 0.9 cm LV Relative Wall Thickness 0.3 LVOT Diameter 2.0 cm Ascending Aorta Diameter 3.3 cm M-MODE Aortic Root Diameter MM 3.4 cm LA Systolic Diameter MM 5.0 cm LA Ao Ratio MM 1.5 AV Cusp Separation MM 2.3 cm DOPPLER AV Peak Velocity 104.3 cm/s AV Peak Gradient 4.3 mmHg AV Mean Velocity 79.4 cm/s AV Mean Gradient 2.7 mmHg AV Velocity Time Integral 26.7 cm LVOT Peak Velocity 95.2 cm/s LVOT Peak Gradient 3.6 mmHg LVOT Velocity Time Integral 21.0 cm LVOT Stroke Volume 63.8 cm??? LVOT Stroke Volume Index 29.0 ml/m??? LVOT Cardiac Index 1541.7 cm???/min???m??? AV Area Cont Eq vti 2.4 cm??? AV Area Cont Eq pk 2.8 cm??? MV Peak Velocity 95.9 cm/s MV Peak Gradient 3.7 mmHg MV Mean Velocity 56.2 cm/s MV Mean Gradient 1.5 mmHg MV Velocity Time Integral 30.8 cm MR Peak Velocity 457.2 cm/s MR Peak Gradient 83.6 mmHg Mitral E Point Velocity 72.0 cm/s Mitral A Point Velocity 57.9 cm/s Mitral E to A Ratio 1.2 MV Deceleration Time 161.1 ms LV E' Lateral Velocity 6.2 cm/s Mitral E to LV E' Lateral Ratio 11.6 LV E' Septal Velocity 5.9 cm/s Mitral E to LV E' Septal Ratio 12.2 TR Peak Velocity 200.4 cm/s TR Peak Gradient 16.1 mmHg Right Atrial Pressure 15.0 mmHg Pulmonary Artery Systolic Pressu 31.1 mmHg Right Ventricular Systolic Press 31.1 mmHg FINDINGS Left Ventricle Severely increased left ventricular diastolic diameter. Severely reduced global left ventricular systolic function. Left ventricular ejection fraction is estimated at 20-25%. Grade II diastolic dysfunction Right Ventricle Right ventricle not well visualized. Catheter/pacemaker wire in the right ventricular cavity. Right Atrium Moderate right atrial dilatation. Elevated right ventricular pressures Left Atrium Severe left atrial dilatation. Elevated left atrial pressures Mitral Valve Structurally normal mitral valve. Mitral valve mildly thickened. Moderate mitral regurgitation. Aortic Valve Trileaflet aortic valve. Diffuse thickening (sclerosis) of the aortic valve cusps without reduced excursion. No aortic regurgitation. Tricuspid Valve Structurally normal tricuspid valve. Mild tricuspid regurgitation. Pulmonic Valve Structurally normal pulmonic valve. Trace to mild pulmonic regurgitation. Pericardium No pericardial effusion. Aorta Normal size aortic root and proximal ascending aorta. CONCLUSIONS Similar LV cavity dilatation. Severely reduced global LV systolic function. LVEF estimated at 20-25% Grade II diastolic dysfunction Moderate functional mitral regurgitation Severe left atrial dilatation. Moderate right ventricular dilatation PPM wire noted and right ventricular No prior echo to compare with in [employer] database Previewed by: Dr Salinas Rendon (Electronically Signed) Final Date: 19 April 2023 12:52
[2023-04-19] MEDS ORDERED: SODIUM CHLORIDE 0.9% 1,000 ML IV ONE (13:11)
[2023-04-19] MEDS ORDERED: fentaNYL (PF) 50 MCG/ML 2 ML AMP IVP ONE (13:35)
[2023-04-19] MEDS ORDERED: MIDAZOLAM 2 MG/2 ML VIAL IVP ONE (13:35)
[2023-04-19] MEDS ORDERED: LIDOCAINE 1% INJ 10MG/ML (5 ML VIAL-PF) SQ ONE (13:36)
[2023-04-19] MEDS ORDERED: VERAPAMIL SYRINGE (5 MG/10 ML) INTRAARTER ONE (13:37)
[2023-04-19] MEDS ORDERED: IOPAMIDOL-370 100ML BTL INJ ONE (13:49)
[2023-04-19 16:23] LABS: Glucose,Whole Blood 251 mg/dL (70-110)
--- NOTE | 2023-04-19 17:12 | P.CARDCATH ---
Description of Procedure: PROCEDURES PERFORMED: Left coronary angiography, DYER to LAD angiography SVG to circumflex angiography, ultrasound guided arterial access INDICATION: NSTEMI, VT CONSENT:I have discussed the risks, benefits and alternative therapies for the above-mentioned procedure and for both sedation/analgesia as well as necessary blood product administration, if indicated, as they pertain to this patient. The patient has indicated understanding and acceptance of the risks and procedures discussed. PROCEDURE: After the risks, benefits and alternatives of the above mentioned procedure explained in detail with the patient, informed consent was obtained. Patient was taken to the catheterization lab and prepped and draped in usual fashion. Ultrasound guidance was used to assess for arterial access. 1% lidocaine was used to anesthetize the left radial artery. A 6-Prydeinig sheath was placed in the left radial artery using modified Seldinger technique and ultrasound guidance. Left coronary angiography was performed with a 5-Prydeinig JL 4.0 catheter. RCA was not imaged secondary to known to be occluded. SVG to cicrumflex subselective image showed it to be occluded. DYER to LAD angiography was performed with a 5Fr FR5. The left radial sheath was removed and a TR band was placed with hemostasis achieved. The patient tolerated the procedure well. Patient was transported back to the post catheterization holding area in stable condition. Conscious Sedation: Patient was monitored under the direct supervision of myself for conscious sedation using Versed and fentanyl for a total duration of 10 minutes HEMODYNAMICS: Ao: 131/71 SELECTIVE CORONARY ARTERIOGRAPHY: LEFT MAIN: The left main is a large caliber vessel which trifurcates into the LAD, ramus and circumflex. There is distal left main 40-50% stenosis. LEFT ANTERIOR DESCENDING CORONARY ARTERY: LAD is a large caliber vessel which wraps around to the apex. There is 100% proximal LAD stenosis. RAMUS INTERMEDIUS: The ramus is moderate caliber and has an ostial 60-70% stenosis and otherwise mild luminal irregularities. LEFT CIRCUMFLEX CORONARY ARTERY: Left circumflex is a moderate caliber vessel with proximal 50% stenosis and otherwise mild luminal irregularities. There are left to right collaterals. RIGHT CORONARY ARTERY: Not imaged however known to be occluded. DYER to LAD: patent SVG to circumflex: occluded FINAL IMPRESSION: 1. CAD as described above including 100% proximal LAD, 40-50% distal left main, ostial ramus 60-70%, proximal circumflex 50% and known 100% RCA stenosis 2. DYER to LAD patent with all other grafts occluded PLAN: 1. Aggressive risk factor modification per most recent ACC/AHA guidelines. 2. [place] anatomy appears unchanged and not indiciative of acute [place]. SVG to circumflex only change from prior angiograms and likely was more remote with no thrombus noted. Main presentation of VT and therefore treat medically. If has significant angina may further assess functional status of ramus branch however stenting would be complex, calcified extending back into left main.
[2023-04-19 20:30] LABS: Glucose,Whole Blood 160 mg/dL (70-110)
[2023-04-19] MEDS: ATORVASTATIN 10 MG TAB PO SCH (21:00)
[2023-04-19] MEDS: AMIODARONE 200 MG TAB PO SCH (21:00)
[2023-04-19] MEDS: PRAMIPEXOLE 0.5 MG TAB PO SCH (21:00)
[2023-04-20] MEDS: SODIUM CHLORIDE 0.9% 1,000 ML IV SCH (05:33)
[2023-04-20 06:08] LABS: Glucose,Whole Blood 180 mg/dL (70-110)
[2023-04-20] MEDS: carvediloL 12.5 MG TAB PO SCH (06:33)
[2023-04-20] MEDS: INSULIN ASPART (NovoLOG) 100 UNIT/ML VIAL SQ SCH ×2 (06:33→13:08)
[2023-04-20] MEDS: INSULIN DETEMIR (LEVEMIR) 100 UNIT/ML SYR SQ SCH (06:34)
[2023-04-20] MEDS: IPRATROPIUM-ALBUTEROL 3 ML NEB INHALATION SCH ×2 (08:00→11:40)
[2023-04-20] MEDS: SYMBICORT 160-4.5 MCG INHALER INHALATION SCH (08:00)
[2023-04-20] MEDS: ISOSORBIDE MONONITRATE ER 30 MG TAB.ER.24H PO SCH (08:02)
[2023-04-20] MEDS: predniSONE 10 MG TAB PO SCH (08:02)
[2023-04-20] MEDS: CLOPIDOGREL 75 MG TAB PO SCH (08:02)
[2023-04-20] MEDS: AMIODARONE 200 MG TAB PO SCH (08:02)
[2023-04-20] MEDS: FUROSEMIDE 40 MG TAB PO SCH (08:02)
[2023-04-20] MEDS: POTASSIUM CHLORIDE ER 20 MEQ TAB.ER PO SCH (08:02)
[2023-04-20] MEDS: PREGABALIN 100 MG CAP PO SCH (08:02)
[2023-04-20] MEDS ORDERED: ASPIRIN 81 MG PO SCH (09:00)
[2023-04-20 11:29] LABS: Glucose,Whole Blood 159 mg/dL (70-110)
--- NOTE | 2023-04-20 11:38 | P.PN ---
Subjective Progress Note Date: 04/20/23 Principal diagnosis: episode of ventricular tachycardia, Patient presented to the hospital because his internal defibrillator fired 3 times in about 1-2 minutes. He called 911 before the ambulance arrived his defibrillator fired 12-15 times. Once he was in the ambulance the medic showed his rhythm which was abnormally fast and not had any further episodes of his device firing patient was admitted in ventricular tachycardia and started on an amiodarone drip, subsequently yesterday Dr. Robertson cardiology took patient to the cathode ray tube salvage processor performed a cardiac catheterization, demonstrating urinary artery disease 100% LAD, 40-50% distal left main, 60-70% ostial ramus, proximal circumflex 50% and known 100% RCA stenosis, has DYER to LAD graft was patent. Dr. Robertson recommended aggressive risk factor modification, recommending optimizing medical treatment Objective - Vital Signs Vital signs: Vital Signs Temp 97.8 F 04/20/23 08:06 Pulse 75 04/20/23 08:16 Resp 17 04/20/23 08:06 BP 110/69 04/20/23 08:06 Pulse Ox 99 04/20/23 08:06 FiO2 Intake & Output 04/19/23 04/20/23 04/20/23 18:59 06:59 18:59 Intake Total 445.691 40 358 Balance 445.691 40 358 Weight 112.9 kg Intake: IV 100 40 Invasive Line 1 20 Invasive Line 2 20 Intake, IV Titration 227.691 Amount Heparin Sod,Pork in 0.45% 227.691 NaCl 25,000 unit In 0.45 % NaCl 1 250ml.bag @ 9.3 UNITS/KG/HR 10.04 mls/hr IV .Q24H [facility] Rx#: [id number] Oral 118 358 Other: # Voids 2 1 - Exam General: [Patient awake, alert and oriented times 3. Patient in no acute distress. Morbidly obese HEENT: [PERRL. EOMI. No pharyngeal erythema or exudate.] Neck: [No adenopathy.] Cardiac: [Heart regular in rate and rhythm. No S3. No S4. No clicks, rubs. No murmur.] Lungs: [Clear to auscultation bilaterally.] Abdomen: [No mass. No organomegaly. Bowel sounds presnt and normoactive in all 4 quadrants.] Extremes: [No edema no cyanosis no claudication normal pulses] : Normal male genitalia Musculoskeletal: [No joint erythema, edema or tenderness.] Skin: [No rash.] Neurologic: [No lateralizing deficits. CN II - XII grossly intact.] Lymphatic: [No adenopathy.] - Labs CBC & Chem 7: 04/19/23 06:29 04/19/23 06:29 Labs: Abnormal Lab Results - Last 24 Hours (Table) 04/19/23 04/19/23 04/19/23 Range/Units 06:29 11:43 16:21 Sodium 135 L (137-145) mmol/L Carbon Dioxide 31 H (22-30) mmol/L BUN 25 H (9-20) mg/dL Creatinine 1.65 H (0.66-1.25) mg/dL Glucose 115 H (74-99) mg/dL POC Glucose (mg/dL) 148 H 251 H (70-110) mg/dL 04/19/23 04/20/23 Range/Units 20:28 06:06 Sodium (137-145) mmol/L Carbon Dioxide (22-30) mmol/L BUN (9-20) mg/dL Creatinine (0.66-1.25) mg/dL Glucose (74-99) mg/dL POC Glucose (mg/dL) 160 H 180 H (70-110) mg/dL Assessment and Plan (1) Defibrillator discharge Current Visit: Yes Status: Acute Code(s): Z45.02 - ENCNTR FOR ADJUST AND MGMT OF AUTOMATIC IMPLNTBL CARD DEFIB SNOMED Code(s): 664566029 (2) Palpitations Current Visit: Yes Status: Acute Code(s): R00.2 - PALPITATIONS SNOMED Code(s): 66868651 (3) Tachycardia Current Visit: Yes Status: Acute Code(s): R00.0 - TACHYCARDIA, UNSPECIFIED SNOMED Code(s): 2538083 (4) Ventricular tachycardia Current Visit: Yes Status: Acute Code(s): I47.20 - VENTRICULAR TACHYCARDIA, UNSPECIFIED SNOMED Code(s): 43431518 (5) Acute HI Current Visit: No Status: Acute Code(s): I21.3 - ST ELEVATION (STEMI) MYOCARDIAL INFARCTION OF [facility] [[email or web address] SITE SNOMED Code(s): 08038486 Plan: Postcardiac cath noted Aggressive risk factor modification Medical management Anticipate patient going home later today Time with Patient: Greater than 30
--- NOTE | 2023-04-20 11:41 | P.DS ---
Providers Date of admission: 04/17/23 22:41 Expected date of discharge: 04/20/23 Attending physician: Vaibhav Mejía Consults: 04/17/23 22:41 Consult Physician Routine Consulting Provider: Anuradha De La Rosa Consult Reason/Comments: VT Do you want consulting provider notified?: Yes Primary care physician: Vaibhav Mejía - Discharge Diagnosis(es) (1) Defibrillator discharge Current Visit: Yes Status: Acute (2) Palpitations Current Visit: Yes Status: Acute (3) Tachycardia Current Visit: Yes Status: Acute (4) Ventricular tachycardia Current Visit: Yes Status: Acute (5) Acute IN Current Visit: No Status: Acute Hospital Course: Patient was admitted with ventricular tachycardia and defibrillator discharge Procedures during this admission cardiac catheterization Plan: Optimizing medical management Discharge patient home later today Patient Condition at Discharge: Serious Plan - Discharge Summary Discharge Rx Participant: Yes New Discharge Prescriptions: No Action Nitroglycerin Sl Tabs [Nitrostat] 0.4 mg SUBLINGUAL Q5M PRN PRN Reason: Chest Pain Atorvastatin [Lipitor] 10 mg PO HS Potassium Chloride ER [K-Dur 20] 20 meq PO BID Isosorbide Mononitrate [Isosorbide Mononitrate ER] 30 mg PO DAILY Furosemide [Lasix] 40 mg PO BID Clopidogrel [Plavix] 75 mg PO DAILY Albuterol Nebulized [Ventolin Nebulized] 2.5 mg INHALATION RT-Q6H PRN PRN Reason: Shortness Of Breath Nystatin 100,000Unit/gm Cream [Mycostatin Cream] 1 applic TOPICAL BID PRN PRN Reason: Skin Irritation Ferrous Sulfate [Feosol] 325 mg PO DAILY predniSONE 5 mg PO DAILY Pregabalin [Lyrica] 200 mg PO BID Cholecalciferol [Vitamin D3 (25 Mcg = 1000 Iu)] 50 mcg PO DAILY Aspirin EC [Ecotrin Low Dose] 81 mg PO DAILY Pramipexole [Mirapex] 0.5 mg PO HS Carvedilol [Coreg] 12.5 mg PO BID metFORMIN HCL [Glucophage] 1,000 mg PO BID allopurinoL [Zyloprim] 300 mg PO HS Discharge Medication List Nitroglycerin Sl Tabs [Nitrostat] 0.4 mg SUBLINGUAL Q5M PRN 11/27/15 [History] Atorvastatin [Lipitor] 10 mg PO HS 07/06/16 [History] Furosemide [Lasix] 40 mg PO BID 07/06/16 [History] Isosorbide Mononitrate [Isosorbide Mononitrate ER] 30 mg PO DAILY 07/06/16 [History] Potassium Chloride ER [K-Dur 20] 20 meq PO BID 07/06/16 [History] Clopidogrel [Plavix] 75 mg PO DAILY 03/04/17 [History] Albuterol Nebulized [Ventolin Nebulized] 2.5 mg INHALATION RT-Q6H PRN 04/17/23 [History] Aspirin EC [Ecotrin Low Dose] 81 mg PO DAILY 04/17/23 [History] Carvedilol [Coreg] 12.5 mg PO BID 04/17/23 [History] Cholecalciferol [Vitamin D3 (25 Mcg = 1000 Iu)] 50 mcg PO DAILY 04/17/23 [History] Ferrous Sulfate [Feosol] 325 mg PO DAILY 04/17/23 [History] Nystatin 100,000Unit/gm Cream [Mycostatin Cream] 1 applic TOPICAL BID PRN 04/17/23 [History] Pramipexole [Mirapex] 0.5 mg PO HS 04/17/23 [History] Pregabalin [Lyrica] 200 mg PO BID 04/17/23 [History] allopurinoL [Zyloprim] 300 mg PO HS 04/17/23 [History] metFORMIN HCL [Glucophage] 1,000 mg PO BID 04/17/23 [History] predniSONE 5 mg PO DAILY 04/17/23 [History] Follow up Appointment(s)/Referral(s): Vaibhav Mejía MD [Primary Care Provider] - 1-2 days Plan of Treatment: Optimize medical management Discharge home later today if approved by cardiology
--- NOTE | 2023-04-20 11:44 | P.PN ---
Subjective Progress Note Date: 04/20/23 This is a pleasant 72-year-old male patient who has a history of diabetes mellitus, hypertension, hyperlipidemia, obstructive sleep apnea, coronary disease with previous coronary artery bypass grafting and previous stent placements, ischemic cardiomyopathy status post AICD placement. He also has a history of chronic obstructive pulmonary disease and follows with Dr. Burns in our office for the same. FEV1 value 1.7 L or 52% of predicted. He presented here to the emergency room last evening after receiving several shocks from his defibrillator. He was noted to be having episodes of ventricular tachycardia per EMS. EKG reveals a right bundle dulce maria block with occasional PVCs currently. X-ray shows right lower lobe atelectasis versus pneumonia. White count 10.3. Hemoglobin 15.9. Platelets 191. Sodium 136. Potassium 3.6. Bicarb 28. BUN 18. Creatinine 1.48. Glucose 189. ProBNP 1330. Troponins 0.097, 0.916, 1.60. He's been initiated on amiodarone drip. He is seen today in consultation in the emergency department. He's currently sitting up in a chair. Awake and alert in no acute distress. He does have some dyspnea on exertion. Some end expiratory wheeze. No significant cough or congestion. No fever or chills. He is maintaining O2 saturations in the 90s on room air. A febrile. Currently hemodynamically stable. The patient is seen today 04/19/2023 in follow-up on the selective care unit. He is currently sitting up at the bedside. Awake and alert in no acute dist ress. He is breathing easier today compared to yesterday. Continues to maintain good O2 saturations in the 90s on room air. His AICD had been interrogated in the shocks were appropriate. Plan is for cardiac catheterization today. White count 11.5. Hemoglobin 16.1. Platelets 148. Glucose 125. He is continued on DuoNeb inhalations, Symbicort, prednisone taper. Remains on oral diuretics. Off Amiodarone. Remains on a heparin drip. The patient is seen today 04/20/2023 in follow-up on the selective care unit. He is currently sitting up in the bedside. Awake and alert in no acute distre ss. He denies any shortness of breath, cough or congestion. Denies any chest pain or palpitations. Continued on DuoNeb inhalations, Symbicort, prednisone taper. Remains on oral diuretics. Cardiac catheterization revealed that his [place] anatomy appeared unchanged and not indicative of acute myocardial infarction. SVG to circumflex only change from prior angiograms likely remote with no thrombus noted. Recommended main presentation of ventricular tachycardia to be treated medically. He's been initiated on Cordarone. Objective - Vital Signs Vital signs: Vital Signs Temp 97.8 F 04/20/23 08:06 Pulse 75 04/20/23 08:16 Resp 17 04/20/23 08:06 BP 110/69 04/20/23 08:06 Pulse Ox 99 04/20/23 08:06 FiO2 Intake & Output 04/19/23 04/20/23 04/20/23 18:59 06:59 18:59 Intake Total 445.691 40 358 Balance 445.691 40 358 Weight 112.9 kg Intake: IV 100 40 Invasive Line 1 20 Invasive Line 2 20 Intake, IV Titration 227.691 Amount Heparin Sod,Pork in 0.45% 227.691 NaCl 25,000 unit In 0.45 % NaCl 1 250ml.bag @ 9.3 UNITS/KG/HR 10.04 mls/hr IV .Q24H [facility] Rx#: [id number] Oral 118 358 Other: # Voids 2 1 - Exam GENERAL EXAM: Alert, pleasant 72-year-old male, sitting up at the bedside, on room air, comfortable in no apparent distress. HEAD: Normocephalic. EYES: Normal reaction of pupils, equal size. NOSE: Clear with pink turbinates. THROAT: No erythema or exudates. NECK: No masses, no JVD. CHEST: No chest wall deformity. LUNGS: Equal air entry with coarse crackles in the right lung base. CVS: S1 and S2 normal with no audible murmur, regular rhythm. ABDOMEN: No hepatosplenomegaly, normal bowel sounds, no guarding or rigidity. SPINE: No scoliosis or deformity SKIN: No rashes CENTRAL NERVOUS SYSTEM: No focal deficits, tone is normal in all 4 extremities. EXTREMITIES: There is no peripheral edema. No clubbing, no cyanosis. Peripheral pulses are intact. - Labs CBC & Chem 7: 04/19/23 06:29 04/19/23 06:29 Labs: Abnormal Lab Results - Last 24 Hours (Table) 07/04/19/23 04/19/23 Range/Units 06:29 11:43 16:21 Sodium 135 L (137-145) mmol/L Carbon Dioxide 31 H (22-30) mmol/L BUN 25 H (9-20) mg/dL Creatinine 1.65 H (0.66-1.25) mg/dL Glucose 115 H (74-99) mg/dL POC Glucose (mg/dL) 148 H 251 H (70-110) mg/dL 04/19/23 04/20/23 04/20/23 Range/Units 20:28 06:06 11:25 Sodium (137-145) mmol/L Carbon Dioxide (22-30) mmol/L BUN (9-20) mg/dL Creatinine (0.66-1.25) mg/dL Glucose (74-99) mg/dL POC Glucose (mg/dL) 160 H 180 H 159 H (70-110) mg/dL Assessment and Plan Assessment: Ventricular tachycardia requiring defibrillation from his AICD and initiated on amiodarone Troponin leak suspect secondary to above, remains on heparin drip, cardiac catheterization performed 04/19/2023 noted Ischemic cardiomyopathy status post AICD placement in 2016 Acute exacerbation of chronic obstructive pulmonary disease with some right lowe r lung atelectasis versus infiltrate Acute kidney injury Coronary artery disease with previous coronary artery bypass grafting, stent placement Obstructive sleep apnea Obesity Hypertension Hyperlipidemia Diabetes mellitus Chronic tobacco dependence History of nephrolithiasis status post lithotripsy Plan: The patient was seen and evaluated Labs and medications reviewed Cardiac catheterization report noted Continue Symbicort inhalations, DuoNeb inhalations, prednisone taper Cleared for discharge once cleared by cardiology Keep his appointment with Dr. Burns next month as scheduled I have personally seen and examined the patient, performed the documentation and the assessment and plan as written. Number of minutes spent on the visit: 10.
[2023-04-20 13:59] VITALS: BP 115/65; PULSE 65; RESP 16; TEMP 97.6
--- NOTE | 2023-04-20 15:02 | P.PN ---
Subjective Progress Note Date: 04/20/23 History of present illness: This is a 72 year old female patient of Dr. Hamilton with past medical history of coronary artery disease status post CABG, ischemic cardiomyopathy status post AICD, chronic systolic heart failure, hypertension, hyperlipidemia. Patient gives history that yesterday he was sitting in a recliner is getting ready to have dinner and all of a sudden his device fired 3 times in about 1-1/2-2 minutes. He called 911 and before ambulance arrived, his defibrillator fired 12-15 times. He once he was in the ambulance supervisor sewing room showed him his rhythm which was abnormal and fast and he has not had any further episodes of the device going off. He is seen today in the emergency center waiting for a bed on the cardiac stepdown unit. He has been started on amiodarone drip. EKG sinus rhythm with PVCs Chest x-ray: correlate for right lower lobe atelectasis or pneumonia WBC 10.3, hemoglobin 15.9, platelet count 191. Sodium 136, potassium 3.6, BUN 18 creatinine 1.48 which is patient's baseline. Troponin 0.097, 0.916, 1.6. Liver function tests are normal. Home cardiac medications: Aspirin 81 mg daily, Lipitor 10 mg daily, Coreg 12.5 mg twice daily, Plavix 75 mg daily, Lasix 40 mg twice daily, Imdur 30 mg daily, Nitrostat as needed, K-Dur 20 milliequivalents twice daily Echocardiogram 02/2022 obtained in the office revealed EF 40%, mild left ventricular hypertrophy. Mild mitral regurgitation, mild tricuspid regurgitation. Lexiscan Cardiolite 2018 revealed inconclusive due to baseline EKG abnormalities. Abnormal nuclear scan showing evidence of prior inferior wall WA with ischemic cardiomyopathy and severe LV dysfunction without any ischemia. 04/20 Yesterday, patient underwent cardiac cath with Dr. Robertson which revealed CAD 100% proximal LAD, 40-50% distal left main, ostial ramus 60-70%, proximal circumflex 50% and known 100% RCA stenosis. DYER to LAD patent with all other grafts occluded. Plan is for aggressive risk factor modification. Acute WA has been ruled out. Patient is seen today in follow up. He is prepared to go home and has been seen by Dr. Palma this morning. Physical examination: Gen: This is a 72-year-old male sitting in chair in the emergency center appears to be comfortable. No acute distress. VS: reviewed HEENT: Head is atraumatic, normocephalic. Pupils equal, round. Sclerae is anicteric. NECK: Supple. No JVD. . LUNGS: Clear to auscultation. No wheezes or rhonchi. No intercostal retractions. HEART: Regular rate and rhythm. No murmur. ABDOMEN: Soft No tenderness. EXTREMITIES: No pedal edema. NEUROLOGICAL: Patient is awake, alert and oriented x3. Assessment: Ventricular tachycardia causing AICD firing Elevated troponin, possibly due to shocks, NSTEMI has been ruled out History of coronary artery disease status post CABG Ischemic cardiomyopathy and chronic systolic heart failure status post AICD Hypertension Hyperlipidemia Plan: Device interrogation report reviewed revealed VT and appropriate shocks Continue patient's home cardiac medications Patient is cleared for discharge from cardiology may follow-up in the office and one week. Nurse practitioner note has been reviewed, I agree with documented findings and plan of care. Patient was seen and examined. Objective - Vital Signs Vital signs: Vital Signs Temp 97.6 F 04/20/23 12:00 Pulse 65 04/20/23 12:00 Resp 16 04/20/23 12:00 BP 115/65 04/20/23 12:00 Pulse Ox 97 04/20/23 12:00 FiO2 Intake & Output 04/19/23 04/20/23 04/20/23 18:59 06:59 18:59 Intake Total 445.691 40 476 Balance 445.691 40 476 Weight 112.9 kg Intake: IV 100 40 Invasive Line 1 20 Invasive Line 2 20 Intake, IV Titration 227.691 Amount Heparin Sod,Pork in 0.45% 227.691 NaCl 25,000 unit In 0.45 % NaCl 1 250ml.bag @ 9.3 UNITS/KG/HR 10.04 mls/hr IV .Q24H [facility] Rx#: [id number] Oral 118 476 Other: # Voids 2 1 - Labs CBC & Chem 7: 04/19/23 06:29 04/19/23 06:29 Labs: Abnormal Lab Results - Last 24 Hours (Table) 04/19/23 04/19/23 04/20/23 Range/Units 16:21 20:28 06:06 POC Glucose (mg/dL) 251 H 160 H 180 H (70-110) mg/dL 04/20/23 Range/Units 11:25 POC Glucose (mg/dL) 159 H (70-110) mg/dL
== END 2023-04-20 14:40 | disposition home or self-care (01) | DRG 287 ==
LOC: EC 19:54 → 3SCARD 22:41
PROVIDERS: ADMIT Family Medicine; ATTEND Family Medicine
PROC: 4B02XTZ Measurement of Cardiac Defibrillator, External Approach (ICD-10-PCS; 2023-04-18)
PROC: B2101ZZ Fluoroscopy of Single Coronary Artery using Low Osmolar Contrast (ICD-10-PCS; principal; 2023-04-19 07:30)
DX: I47.20 Ventricular tachycardia, unspecified (principal); I13.0 Hypertensive heart and chronic kidney disease with heart failure and stage 1 through stage 4 chronic kidney disease, or unspecified chronic kidney disease; I50.22 Chronic systolic (congestive) heart failure; J44.1 Chronic obstructive pulmonary disease with (acute) exacerbation; N17.9 Acute kidney failure, unspecified; I25.709 Atherosclerosis of coronary artery bypass graft(s), unspecified, with unspecified angina pectoris; E11.22 Type 2 diabetes mellitus with diabetic chronic kidney disease; N18.30 Chronic kidney disease, stage 3 unspecified; E66.01 Morbid (severe) obesity due to excess calories; I25.119 Atherosclerotic heart disease of native coronary artery with unspecified angina pectoris; I48.91 Unspecified atrial fibrillation; Z68.36 Body mass index [BMI] 36.0-36.9, adult; I08.1 Rheumatic disorders of both mitral and tricuspid valves; E78.5 Hyperlipidemia, unspecified; F17.210 Nicotine dependence, cigarettes, uncomplicated; K21.9 Gastro-esophageal reflux disease without esophagitis; M19.90 Unspecified osteoarthritis, unspecified site; G47.33 Obstructive sleep apnea (adult) (pediatric); K58.9 Irritable bowel syndrome, unspecified; R26.9 Unspecified abnormalities of gait and mobility; I25.5 Ischemic cardiomyopathy; I49.3 Ventricular premature depolarization; Z96.641 Presence of right artificial hip joint; Z95.810 Presence of automatic (implantable) cardiac defibrillator; Z95.1 Presence of aortocoronary bypass graft; Z79.899 Other long term (current) drug therapy; Z79.02 Long term (current) use of antithrombotics/antiplatelets; Z79.82 Long term (current) use of aspirin; Z79.84 Long term (current) use of oral hypoglycemic drugs; I25.2 Old myocardial infarction; Z86.14 Personal history of Methicillin resistant Staphylococcus aureus infection; Z95.5 Presence of coronary angioplasty implant and graft
CPT/HCPCS: 36415; 71045; 76937; 80048; 80053; 83036; 83735; 83880; 84100; 84145; 84484; 85025; 85610; 85730; 93005; 93306; 93455; 94640; 94760; 96361; 96365; 96366; 96367; 96368; 99291

== ENCOUNTER → 2023-05-23 | Outpatient (CLI) | payer MEDICARE, OTHER | END | disposition home or self-care (01) | LOC: LABWHC1 13:47 | PROVIDERS: ATTEND Internal Medicine Cardiovascular Disease | DX: Z00.00 Encounter for general adult medical examination without abnormal findings (principal); I47.20 Ventricular tachycardia, unspecified | CPT/HCPCS: 36415; 84443; 84450; 84460 ==

== ENCOUNTER → 2023-07-24 | Outpatient (CLI) | payer MEDICARE, OTHER | END | disposition home or self-care (01) | LOC: LABWHC1 16:11 | PROVIDERS: ATTEND Family Medicine | DX: Z00.00 Encounter for general adult medical examination without abnormal findings (principal); Z13.29 Encounter for screening for other suspected endocrine disorder; I12.9 Hypertensive chronic kidney disease with stage 1 through stage 4 chronic kidney disease, or unspecified chronic kidney disease; I25.10 Atherosclerotic heart disease of native coronary artery without angina pectoris; E11.59 Type 2 diabetes mellitus with other circulatory complications; E11.69 Type 2 diabetes mellitus with other specified complication; E78.2 Mixed hyperlipidemia; E11.22 Type 2 diabetes mellitus with diabetic chronic kidney disease; E11.21 Type 2 diabetes mellitus with diabetic nephropathy; J44.9 Chronic obstructive pulmonary disease, unspecified; N18.31 Chronic kidney disease, stage 3a ==

== ENCOUNTER → 2023-08-20 | Outpatient (CLI) | payer MEDICARE, OTHER ==
[2023-08-20 18:16] LABS: Basophils # (A) 0.01 X 10*3/uL (0.00-0.10); Basophils % (A) 0.1 %; Eosinophils # (A) 0.09 X 10*3/uL (0.04-0.35); Eosinophils % (A) 1.2 %; HCT 46.5 % (39.6-50.0); HGB 14.7 g/dL (13.0-17.0); Lymphocytes # (A) 1.17 X 10*3/uL (0.90-5.00); Lymphocytes % (A) 15.4 %; MCH 33.4 pg (27.0-32.0); MCHC 31.6 g/dL (32.0-37.0); MCV 105.7 FL (80.0-97.0); Mean Platelet Volume 10.1 FL (9.5-12.2); Monocytes # (A) 0.58 X 10*3/uL (0.20-1.00); Monocytes % (A) 7.7 %; NRBC Per 100 WBC 0 X 10*3/uL (0.00-0.01); Neutrophils % (A) 75.2 %; Platelet Count 216 X 10*3/uL (140-440); RDW 15.6 % (11.5-14.5); WBC 7.58 X 10*3/uL (4.50-10.00)
[2023-08-20 20:37] LABS: ALT 11 U/L (10-49); AST 14 U/L (14-35); Albumin 3.5 g/dL (3.8-4.9); Albumin/Globulin Ratio 1.52 Ratio (1.60-3.17); Alkaline Phosphatase 95 U/L (41-126); BUN/Creat Ratio 12.75 Ratio (12.00-20.00); Blood Urea Nitrogen 20.4 mg/dL (9.0-27.0); Calcium 9.5 mg/dL (8.7-10.3); Carbon Dioxide 29.3 mmol/L (21.6-31.8); Chloride 103 mmol/L (96-109); Chol/HDL Ratio 2.66 Ratio; Globulin 2.3 g/dL (1.6-3.3); Glucose 117 mg/dL (70-110); LDL Cholesterol,Calculated 39.3 mg/dL (0.0-131.0); Potassium 4.7 mmol/L (3.5-5.5); Prostate Specific Antigen 1.23 ng/mL (0.000-6.500); Sodium 140 mmol/L (135-145); Total Bilirubin 0.6 mg/dL (0.3-1.2); Total Protein 5.8 g/dL (6.2-8.2); VLDL Calculation 18.76 mg/dL (5.00-40.00)
== END | disposition home or self-care (01) ==
LOC: LABWHC1 13:14
PROVIDERS: ATTEND Family Medicine
DX: Z00.00 Encounter for general adult medical examination without abnormal findings (principal); Z13.29 Encounter for screening for other suspected endocrine disorder; Z12.5 Encounter for screening for malignant neoplasm of prostate; I12.9 Hypertensive chronic kidney disease with stage 1 through stage 4 chronic kidney disease, or unspecified chronic kidney disease; I25.10 Atherosclerotic heart disease of native coronary artery without angina pectoris; J44.9 Chronic obstructive pulmonary disease, unspecified; E11.59 Type 2 diabetes mellitus with other circulatory complications; E11.69 Type 2 diabetes mellitus with other specified complication; E78.2 Mixed hyperlipidemia; E11.21 Type 2 diabetes mellitus with diabetic nephropathy; E11.22 Type 2 diabetes mellitus with diabetic chronic kidney disease; N18.31 Chronic kidney disease, stage 3a
CPT/HCPCS: 36415; 80053; 80061; 84153; 84443; 85025

== ENCOUNTER 2023-11-29 11:09 | Inpatient (IN) | payer MEDICARE, OTHER ==
--- NOTE | 2023-11-29 11:37 | ED ---
General Adult HPI - General Chief complaint: Shortness of Breath Stated complaint: SOB Time Seen by Provider: 11/29/23 11:16 Source: patient, RN notes reviewed Mode of arrival: EMS Limitations: no limitations - History of Present Illness Initial comments: Patient is a pleasant 73-year-old male present to the emergency department with difficulty breathing. Patient does have history of COPD with similar symptoms previously. Patient does have mild cough. No fever. Patient has some chronic leg swelling, unchanged. EMS reports oxygen 85. Patient feels much better with oxygen and nebulizer treatment. - Related Data Home Medications Medication Instructions Recorded Confirmed Nitroglycerin Sl Tabs [Nitrostat] 0.4 mg SUBLINGUAL Q5M PRN 11/27/15 04/17/23 Atorvastatin [Lipitor] 10 mg PO HS 07/06/16 04/17/23 Furosemide [Lasix] 40 mg PO BID 07/06/16 04/17/23 Isosorbide Mononitrate [Isosorbide 30 mg PO DAILY 07/06/16 04/17/23 Mononitrate ER] Potassium Chloride ER [K-Dur 20] 20 meq PO BID 07/06/16 04/17/23 Clopidogrel [Plavix] 75 mg PO DAILY 03/04/17 04/17/23 Albuterol Nebulized [Ventolin 2.5 mg INHALATION RT-Q6H PRN 04/17/23 04/17/23 Nebulized] Aspirin EC [Ecotrin Low Dose] 81 mg PO DAILY 04/17/23 04/17/23 Carvedilol [Coreg] 12.5 mg PO BID 04/17/23 04/17/23 Cholecalciferol [Vitamin D3 (25 50 mcg PO DAILY 04/17/23 04/17/23 Mcg = 1000 Iu)] Ferrous Sulfate [Feosol] 325 mg PO DAILY 04/17/23 04/17/23 Nystatin 100,000Unit/gm Cream 1 applic TOPICAL BID PRN 04/17/23 04/17/23 [Mycostatin Cream] Pramipexole [Mirapex] 0.5 mg PO HS 04/17/23 04/17/23 Pregabalin [Lyrica] 200 mg PO BID 04/17/23 04/17/23 allopurinoL [Zyloprim] 300 mg PO HS 04/17/23 04/17/23 metFORMIN HCL [Glucophage] 1,000 mg PO BID 04/17/23 04/17/23 predniSONE 5 mg PO DAILY 04/17/23 04/17/23 Previous Rx's Medication Instructions Recorded Amiodarone [Cordarone] 400 mg PO BID #60 tablet 04/20/23 Allergies Allergy/AdvReac Type Severity Reaction Status Date / Time No Known Allergies Allergy Verified 04/17/23 22:28 Review of Systems ROS Statement: Those systems with pertinent positive or pertinent negative responses have been documented in the HPI. ROS Other: All systems not noted in ROS Statement are negative. Constitutional: Denies: fever Eyes: Denies: eye pain ENT: Denies: ear pain Respiratory: Reports: as per HPI, cough, dyspnea Cardiovascular: Reports: edema. Denies: chest pain Endocrine: Reports: fatigue Past Medical History Past Medical History: COPD, GERD/Reflux, Hyperlipidemia, Hypertension, Myocardial Infarction ([place]), Osteoarthritis (OA), Sleep Apnea/CPAP/BIPAP Additional Past Medical History / Comment(s): cardiomyopathy Last Myocardial Infarction Date:: 11/28/15 History of Any Multi-Drug Resistant Organisms: MRSA Date of last positivie culture/infection: 03/21/23 MDRO Source:: Chest Past Surgical History: Coronary Bypass/CABG, Heart Catheterization With Stent, Joint Replacement Additional Past Surgical History / Comment(s): 10/04/15 Total R hip arthroplasty. 1997 triple vessel CABG, Cardiac cath with stents, RECTAL FISTULA REPAIR, KIDNEY STONE, LITHROTRIPSY, single chamber AICD 07/10/2016 Past Anesthesia/Blood Transfusion Reactions: No Reported Reaction Additional Past Anesthesia/Blood Transfusion Reaction / Comment(s): Pt does not believe he has ever received blood. Date of Last Stent Placement:: 11/28/2015 Past Psychological History: No Psychological Hx Reported Smoking Status: Current every day smoker Past Alcohol Use History: Rare Past Drug Use History: None Reported - Past Family History Father Family Medical History: Cancer Additional Family Medical History / Comment(s): skin Mother Family Medical History: COPD, Pneumonia Additional Family Medical History / Comment(s): Mother at age 92 yrs. General Exam Limitations: no limitations General appearance: alert, in no apparent distress Head exam: Present: normocephalic Eye exam: Present: normal appearance Neck exam: Present: normal inspection Respiratory exam: Present: wheezes, decreased breath sounds Cardiovascular Exam: Present: normal rhythm, bradycardia GI/Abdominal exam: Present: soft. Absent: tenderness Extremities exam: Present: pedal edema. Absent: calf tenderness Neurological exam: Present: alert Psychiatric exam: Present: normal affect, normal mood Skin exam: Present: normal color Course Vital Signs 11/29/23 11/29/23 11/29/23 11:16 11:22 12:00 Temperature 98.4 F Pulse Rate 97 53 L 60 Respiratory 20 20 Rate Blood Pressure 132/68 132/68 O2 Sat by Pulse 95 96 Oximetry 11/29/23 11/29/23 12:10 13:20 Temperature Pulse Rate 64 63 Respiratory 20 Rate Blood Pressure 127/80 O2 Sat by Pulse 93 L Oximetry EKG Findings - EKG Results: EKG: interpreted by ERMD (Right axis. Right bundle branch block. T wave flattening.), sinus rhythm EKG shows: bradycardia Medical Decision Making - Medical Decision Making Patient reevaluated and resting comfortably in bed. Pulse ox stable on oxygen. Patient is slightly drowsy in the room still. Patient and family are updated on results and plan. Case was discussed in detail with Dr. Mejía who is familiar with this patient I did see him in the office. He will admit. Was pt. sent in by a medical professional or institution (, PA, CLINICAL DIETICIAN, urgent care, hospital, or penitentiary...) When possible be specific @ -Patient was sent in by Dr. Mejía's office Did you speak to anyone other than the patient for history (EMS, parent, family, police, friend...)? What history was obtained from this source @ -No Did you review nursing and triage notes (agree or disagree)? Why? @ -I reviewed and agree with nursing and triage notes Were old charts reviewed (outside hosp., previous admission, EMS record, old EKG, old radiological studies, urgent care reports/EKG's, penitentiary records)? Report findings @ -No old charts were reviewed Differential Diagnosis (chest pain, altered mental status, abdominal pain women, abdominal pain men, vaginal bleeding, weakness, fever, dyspnea, syncope, headache, dizziness, GI bleed, back pain, seizure, CVA, palpatations, mental health, musculoskeletal)? @ -Differential Dyspnea: Coronary syndrome, arrhythmia, tamponade, asthma, COPD, pulmonary embolism, pneumonia, pneumothorax, pulmonary effusion, anaphylaxis, diabetic ketoacidosis, flailed chest, pulmonary contusion, diaphragmatic rupture, anemia, n euromuscular, this is not meant to be an all-inclusive list. EKG interpreted by me (3pts min.). @ -As above X-rays interpreted by me (1pt min.). @ -Chest x-ray shows CHF CT interpreted by me (1pt min.). @ -None done U/S interpreted by me (1pt. min.). @ -None done What testing was considered but not performed or refused? (CT, X-rays, U/S, labs)? Why? @ -None What meds were considered but not given or refused? Why? @ -None Did you discuss the management of the patient with other professionals (professionals i.e. , PA, CLINICAL DIETICIAN, lab, RT, psych nurse, director of social work, crane assembler, teacher, operations officer, comp field case manager)? Give summary @ -Case was discussed with Dr. Mejía who will admit his patient Was smoking cessation discussed for >3mins.? @ -No Was critical care preformed (if so, how long)? @ -No Were there social determinants of health that impacted care today? How? (Homelessness, low income, unemployed, alcoholism, drug addiction, transportation, low edu. Level, literacy, decrease access to med. care, alf, rehab)? @ -No Was there de-escalation of care discussed even if they declined (Discuss DNR or withdrawal of care, Hospice)? DNR status @ -No What co-morbidities impacted this encounter? (DM, HTN, Smoking, COPD, CAD, Cancer, CVA, ARF, Chemo, Hep., AIDS, mental health diagnosis, sleep apnea, morbid obesity)? @ -None Was patient admitted / discharged? Hospital course, mention meds given and route, prescriptions, significant lab abnormalities, going to OR and other pert inent info. @ -Patient reevaluated and resting comfortably in bed, slightly drowsy. Patient will be admitted with cardiac and pulmonary consults. Admission orders written. Undiagnosed new problem with uncertain prognosis? @ -No Drug Therapy requiring intensive monitoring for toxicity (Heparin, Nitro, Insulin, Cardizem)? @ -No Were any procedures done? @ -No Diagnosis/symptom? @ -CHF, COPD Acute, or Chronic, or Acute on Chronic? @ -Acute, acute Uncomplicated (without systemic symptoms) or Complicated (systemic symptoms)? @ -Default Side effects of treatment? @ -No Exacerbation, Progression, or Severe Exacerbation? @ -Exacerbation Poses a threat to life or bodily function? How? (Chest pain, [place], [place], pneumonia, PE, COPD, DKA, ARF, appy, cholecystitis, CVA, Diverticulitis, Homicidal, Suicidal, threat to staff... and all critical care pts) @ -No - Lab Data Result diagrams: 11/29/23 11:40 11/29/23 11:40 Lab Results 11/29/23 11/29/23 11/29/23 Range/Units 11:40 11:40 11:40 WBC 7.3 (3.8-10.6) k/uL RBC 4.09 L (4.30-5.90) m/uL Hgb 13.7 (13.0-17.5) gm/dL Hct 44.1 (39.0-53.0) % MCV 108.0 H (80.0-100.0) fL MCH 33.6 (25.0-35.0) pg MCHC 31.1 (31.0-37.0) g/dL RDW 14.7 (11.5-15.5) % Plt Count 171 (150-450) k/uL MPV 8.0 Neutrophils % 83 % Lymphocytes % 8 % Monocytes % 6 % Eosinophils % 2 % Basophils % 0 % Neutrophils # 6.1 (1.3-7.7) k/uL Lymphocytes # 0.6 L (1.0-4.8) k/uL Monocytes # 0.4 (0-1.0) k/uL Eosinophils # 0.1 (0-0.7) k/uL Basophils # 0.0 (0-0.2) k/uL Manual Slide Review Performed Hypochromasia Slight Macrocytosis Marked A Stomatocytes Present PT 11.3 (10.0-12.5) sec INR 1.0 (<1.2) APTT 24.4 (22.0-30.0) sec Sodium 140 (137-145) mmol/L Potassium 4.8 (3.5-5.1) mmol/L Chloride 104 (98-107) mmol/L Carbon Dioxide 32 H (22-30) mmol/L Anion Gap 4 mmol/L BUN 36 H (9-20) mg/dL Creatinine 1.72 H (0.66-1.25) mg/dL Est GFR (CKD-EPI)AfAm 45 (>60 ml/min/1.73 sqM) Est GFR (CKD-EPI)NonAf 39 (>60 ml/min/1.73 sqM) Glucose 119 H (74-99) mg/dL Plasma Lactic Acid Carl (0.7-2.0) mmol/L Calcium 8.7 (8.4-10.2) mg/dL Total Bilirubin 1.0 (0.2-1.3) mg/dL AST 31 (17-59) U/L ALT 28 (4-49) U/L Alkaline Phosphatase 81 (38-126) U/L Troponin I (0.000-0.034) ng/mL NT-Pro-B Natriuret Pep 2430 pg/mL Total Protein 5.7 L (6.3-8.2) g/dL Albumin 3.4 L (3.5-5.0) g/dL 11/29/23 11/29/23 Range/Units 11:40 11:40 WBC (3.8-10.6) k/uL RBC (4.30-5.90) m/uL Hgb (13.0-17.5) gm/dL Hct (39.0-53.0) % MCV (80.0-100.0) fL MCH (25.0-35.0) pg MCHC (31.0-37.0) g/dL RDW (11.5-15.5) % Plt Count (150-450) k/uL MPV Neutrophils % % Lymphocytes % % Monocytes % % Eosinophils % % Basophils % % Neutrophils # (1.3-7.7) k/uL Lymphocytes # (1.0-4.8) k/uL Monocytes # (0-1.0) k/uL Eosinophils # (0-0.7) k/uL Basophils # (0-0.2) k/uL Manual Slide Review Hypochromasia Macrocytosis Stomatocytes PT (10.0-12.5) sec INR (<1.2) APTT (22.0-30.0) sec Sodium (137-145) mmol/L Potassium (3.5-5.1) mmol/L Chloride (98-107) mmol/L Carbon Dioxide (22-30) mmol/L Anion Gap mmol/L BUN (9-20) mg/dL Creatinine (0.66-1.25) mg/dL Est GFR (CKD-EPI)AfAm (>60 ml/min/1.73 sqM) Est GFR (CKD-EPI)NonAf (>60 ml/min/1.73 sqM) Glucose (74-99) mg/dL Plasma Lactic Acid Carl 1.3 (0.7-2.0) mmol/L Calcium (8.4-10.2) mg/dL Total Bilirubin (0.2-1.3) mg/dL AST (17-59) U/L ALT (4-49) U/L Alkaline Phosphatase (38-126) U/L Troponin I 0.018 (0.000-0.034) ng/mL NT-Pro-B Natriuret Pep pg/mL Total Protein (6.3-8.2) g/dL Albumin (3.5-5.0) g/dL Disposition Clinical Impression: Acute exacerbation of chronic obstructive pulmonary disease, Congestive heart failure Disposition: ADMITTED IP TO THIS HOSP Is patient prescribed a controlled substance at d/c from ED?: No Referrals: Vaibhav Mejía MD [Primary Care Provider] - 1-2 days Time of Disposition: 15:08
[2023-11-29] MEDS: methylPREDNISolone SOD SUCCI 125 MG/2 ML VIAL IV STA (11:48)
[2023-11-29] MEDS: IPRATROPIUM-ALBUTEROL 3 ML NEB INHALATION STA (11:58)
[2023-11-29 12:05] LABS: Basophils % (A) 0 %; Eosinophils # (A) 0.1 k/uL (0-0.7); Eosinophils % (A) 2 %; HCT 44.1 % (39.0-53.0); HGB 13.7 gm/dL (13.0-17.5); Hypochromasia Slight; Lymphocytes # (A) 0.6 k/uL (1.0-4.8); Lymphocytes % (A) 8 %; MCH 33.6 pg (25.0-35.0); MCHC 31.1 g/dL (31.0-37.0); Macrocytosis Marked; Monocytes # (A) 0.4 k/uL (0-1.0); Monocytes % (A) 6 %; Neutrophils # (A) 6.1 k/uL (1.3-7.7); Neutrophils % (A) 83 %; Platelet Count 171 k/uL (150-450); RBC 4.09 m/uL (4.30-5.90); RDW 14.7 % (11.5-15.5); WBC 7.3 k/uL (3.8-10.6)
[2023-11-29 12:13] LABS: ALT 28 U/L (4-49); African American GFR (CKD) 45 (>60 ml/min/1.73 sqM); Albumin 3.4 g/dL (3.5-5.0); Anion Gap 4 mmol/L; Blood Urea Nitrogen 36 mg/dL (9-20); Calcium 8.7 mg/dL (8.4-10.2); Carbon Dioxide 32 mmol/L (22-30); Chloride 104 mmol/L (98-107); Glucose 119 mg/dL (74-99); Non-African American GFR(CKD) 39 (>60 ml/min/1.73 sqM); Sodium 140 mmol/L (137-145); Total Protein 5.7 g/dL (6.3-8.2)
[2023-11-29 12:16] LABS: Partial Thromboplastin Time 24.4 sec (22.0-30.0); Prothrombin Time 11.3 sec (10.0-12.5)
[2023-11-29 12:22] LABS: AST 31 U/L (17-59); Alkaline Phosphatase 81 U/L (38-126); NT-Pro-B-Type Natriuretic Pept 2430 pg/mL; Potassium 4.8 mmol/L (3.5-5.1)
[2023-11-29 12:48] LABS: Stomatocytes Present
--- NOTE | 2023-11-29 12:50 | XR ---
EXAMINATION TYPE: XR chest 2V DATE OF EXAM: 11/29/2023 COMPARISON: 04/17/2023 INDICATION: Difficulty breathing short of breath TECHNIQUE: Frontal and lateral views of the chest are obtained. FINDINGS: The heart size is enlarged. The pulmonary vasculature is prominent. Diffuse increased central lung markings are present. Increased lung markings at the lung bases. Diffe rential diagnosis would include atelectasis and pneumonia. Atypical pneumonia from congestive heart f ailure should be considered. Pacemaker overlies the left chest.. IMPRESSION: 1. Clinical correlation recommended for congestive heart failure. Bibasilar infiltrates are present, correlate for atelectasis, pneumonia, or atypical pulmonary edema.
[2023-11-29] MEDS ORDERED: IPRATROPIUM-ALBUTEROL 3 ML NEB INHALATION PRN (15:08)
[2023-11-29] MEDS ORDERED: NALOXONE 0.4 MG/ML 1 ML VIAL IVP PRN (15:08)
[2023-11-29] MEDS: ASPIRIN 325 MG TAB PO STA (15:53)
[2023-11-29] MEDS: FUROSEMIDE 10 MG/ML 4 ML VIAL IV SCH (15:54)
[2023-11-29] MEDS: IPRATROPIUM-ALBUTEROL 3 ML NEB INHALATION SCH (15:59)
[2023-11-29] MEDS ORDERED: NITROGLYCERIN SL TABS 0.4 MG TAB SUBLINGUAL PRN (17:37)
[2023-11-29] MEDS: CLOPIDOGREL 75 MG TAB PO SCH (18:00)
[2023-11-29] MEDS: methylPREDNISolone SOD SUCCI 125 MG/2 ML VIAL IV SCH (18:00)
[2023-11-29] MEDS: NITROGLYCERIN OINT 1 INCH/GM PACKET TOPICAL SCH (18:01)
[2023-11-29] MEDS: ASPIRIN 81 MG PO SCH (18:22)
--- NOTE | 2023-11-29 18:55 | P.CNPUL ---
History of Present Illness Consult date: 11/29/23 Reason for consult: dyspnea History of present illness: This is a 73-year-old male patient came into the emergency department because of difficulty breathing. The patient was having exertional dyspnea, and orthopnea. He was unable to lay down flat and I saw him in the emergency department sitting up. He also had increasing lower extremity edema. His pulse ox was in the mid 80s at the time of his arrival. The patient's pulse ox currently improved. Is known to have a long cardiac history in addition to COPD. He is a chronic smoker and he is still smoking few cigarettes on a daily basis. He has cut down his smoking approximately a month ago. He also has history of Severe COPD and the patient's FEV1 is in the order of 52% of predicted. Does not utilize any form of maintenance respiratory medications and is mainly using Trelegy Ellipta samples as given to him by his primary care physician and his ophthalmic assistant. He also uses albuterol nebulized treatments [id number]. Not oxygen dependent at this point in time. The patient has other comorbidities including coronary artery disease, previous bypass surgery, previous coronary stenting, ischemic cardiomyopathy and the patient has an AICD in place. Based on the most recent echocardiogram that was done on this patient on 04/19/2023, the patient has severe systolic heart failure with an ejection fraction of 20 to 25% and the patient also has grade 2 diastolic heart failure, moderate functional mitral regurgitation, severe and a dilatation, moderate RV dilatation. He also has mild pulmonary hypertension. The patient was in the hospital back in March 2023 after having some issues with ventricular tachycardia requiring discharge from his AICD and the patient was treated with amiodarone. He has been given an ICD back in 2016. Other COVID conditions include hyp ertension, hyperlipidemia and diabetes mellitus and the patient also has chronic stage III kidney disease. He has baseline GFR has been in the mid 40s. The patient is currently is having shortness of breath. He was started on IV Lasix. His chest x-ray is consistent with CHF with pulmonary edema. There is also some bibasilar atelectatic changes noted. The patient was started on IV Lasix in the emergency department. The white cell count at 7.3 with a hemoglobin 15.7 and a platelet count of 171. Normal coagulation profile. BUN is 36 with a creatinine of 1.7 and sodium levels of 140. His proBNP level is 2430. His EKG showing sinus bradycardia with a bundle branch block pattern. Is likely a right bundle branch block. His last cardiac catheterization was done on March 2023 and the patient was found to have CAD with 100% proximal LAD, 40 to 50% distal left main, 60 to 70% ostial ramus, 50% proximal circumflex and 100% RCA. He has patent DYER to LAD and the rest of the grafts are all occluded. Review of Systems CONSTITUTIONAL: Denies any recent significant weight loss or weight gain. EYES: Denies change in vision. EARS, NOSE, MOUTH, THROAT: Denies headaches, denies sore throat. CARDIOVASCULAR: Positive for AICD firings. Denies chest pain, palpitations or syncopal episodes. RESPIRATORY: Positive for shortness of breath, no cough, congestion or hem optysis. GASTROINTESTINAL: Denies change in appetite, denies abdominal pain GENITOURINARY: Denies hematuria, denies infections. MUSKULOSKELETAL: Denies pain, denies swelling. INTEGUMENTARY: Denies rash, denies eczema. NEUROLOGICAL: Denies recent memory loss, no recent seizure activity. PSYCHIATRIC: Denies anxiety, denies depression. HEMATOLOGIC/LYMPHATIC: Denies anemia, denies enlarged lymph nodes. Past Medical History Past Medical History: Coronary Artery Disease (CAD), Heart Failure, COPD, GERD/Reflux, Hyperlipidemia, Hypertension, Myocardial Infarction ([place]), Osteoarthritis (OA), Renal Disease, Sleep Apnea/CPAP/BIPAP Additional Past Medical History / Comment(s): cardiomyopathy Last Myocardial Infarction Date:: 11/28/15 History of Any Multi-Drug Resistant Organisms: MRSA Date of last positivie culture/infection: 03/21/23 MDRO Source:: Chest Past Surgical History: Coronary Bypass/CABG, Heart Catheterization With Stent, Joint Replacement Additional Past Surgical History / Comment(s): 10/04/15 Total R hip arthroplasty. 1998 triple vessel CABG, Cardiac cath with stents, RECTAL FISTULA REPAIR, KIDNEY STONE, LITHROTRIPSY, single chamber AICD 07/10/2016 Past Anesthesia/Blood Transfusion Reactions: No Reported Reaction Additional Past Anesthesia/Blood Transfusion Reaction / Comment(s): Pt does not believe he has ever received blood. Date of Last Stent Placement:: 11/28/2015 Past Psychological History: No Psychological Hx Reported Smoking Status: Current every day smoker Past Alcohol Use History: Rare Past Drug Use History: None Reported - Past Family History Father Family Medical History: Cancer Additional Family Medical History / Comment(s): skin Mother Family Medical History: COPD, Pneumonia Additional Family Medical History / Comment(s): Mother at age 92 yrs. Medications and Allergies Home Medications Medication Instructions Recorded Confirmed Type Nitroglycerin Sl Tabs [Nitrostat] 0.4 mg SUBLINGUAL Q5M PRN 11/27/15 11/29/23 History Atorvastatin [Lipitor] 10 mg PO HS 07/06/16 11/29/23 History Furosemide [Lasix] 40 mg PO BID 07/06/16 11/29/23 History Isosorbide Mononitrate [Isosorbide 30 mg PO DAILY 07/06/16 11/29/23 History Mononitrate ER] Potassium Chloride ER [K-Dur 20] 20 meq PO BID 07/06/16 11/29/23 History Clopidogrel [Plavix] 75 mg PO DAILY 03/04/17 11/29/23 History Albuterol Nebulized [Ventolin 2.5 mg INHALATION RT-Q6H PRN 04/17/23 11/29/23 History Nebulized] Aspirin EC [Ecotrin Low Dose] 81 mg PO DAILY 04/17/23 11/29/23 History Pramipexole [Mirapex] 0.5 mg PO HS 04/17/23 11/29/23 History Pregabalin [Lyrica] 200 mg PO BID 04/17/23 11/29/23 History allopurinoL [Zyloprim] 100 mg PO TID 04/17/23 11/29/23 History metFORMIN HCL [Glucophage] 1,000 mg PO BID 04/17/23 11/29/23 History predniSONE 5 mg PO DAILY 04/17/23 11/29/23 History Amiodarone [Cordarone] 400 mg PO BID #60 tablet 04/20/23 11/29/23 Rx carvediloL [Coreg] 12.5 mg PO BID 11/29/23 11/29/23 History Allergies Allergy/AdvReac Type Severity Reaction Status Date / Time No Known Allergies Allergy Verified 11/29/23 15:18 Physical Exam Vitals: Vital Signs Temp Pulse Resp BP Pulse Ox 11/29/23 16:39 97.9 F 65 20 142/69 96 11/29/23 16:12 67 11/29/23 15:59 66 11/29/23 13:20 63 20 127/80 93 L 11/29/23 12:10 64 11/29/23 12:00 60 11/29/23 11:22 53 L 20 132/68 96 11/29/23 11:16 98.4 F 97 20 132/68 95 Intake and Output 11/29/23 11/29/23 11/29/23 06:59 14:59 22:59 Other: Weight 121.109 kg GENERAL EXAM: Alert, pleasant 72-year-old male, on room air, fairly comfortable and is not currently mild degree of respiratory distress, currently on room air oxygen HEAD: Normocephalic. EYES: Normal reaction of pupils, equal size. NOSE: Clear with pink turbinates. THROAT: No erythema or exudates. NECK: No masses, no JVD. CHEST: No chest wall deformity. LUNGS: Equal air entry with coarse crackles in the lung bases bilaterally CVS: S1 and S2 normal with no audible murmur, regular rhythm. ABDOMEN: No hepatosplenomegaly, normal bowel sounds, no guarding or rigidity. SPINE: No scoliosis or deformity SKIN: No rashes CENTRAL NERVOUS SYSTEM: No focal deficits, tone is normal in all 4 extremities. EXTREMITIES: There is no peripheral edema. No clubbing, no cyanosis. Peripheral pulses are intact. Results - Laboratory Findings CBC and BMP: 11/29/23 11:40 11/29/23 11:40 ABG WBC 7.3 k/uL (3.8-10.6) 11/29/23 11:40 RBC 4.09 m/uL (4.30-5.90) L 11/29/23 11:40 Hgb 13.7 gm/dL (13.0-17.5) 11/29/23 11:40 Hct 44.1 % (39.0-53.0) 11/29/23 11:40 MCV 108.0 fL (80.0-100.0) H 11/29/23 11:40 MCH 33.6 pg (25.0-35.0) 11/29/23 11:40 MCHC 31.1 g/dL (31.0-37.0) 11/29/23 11:40 RDW 14.7 % (11.5-15.5) 11/29/23 11:40 Plt Count 171 k/uL (150-450) 11/29/23 11:40 MPV 8.0 11/29/23 11:40 Neutrophils % 83 % 11/29/23 11:40 Lymphocytes % 8 % 11/29/23 11:40 Monocytes % 6 % 11/29/23 11:40 Eosinophils % 2 % 11/29/23 11:40 Basophils % 0 % 11/29/23 11:40 Neutrophils # 6.1 k/uL (1.3-7.7) 11/29/23 11:40 Lymphocytes # 0.6 k/uL (1.0-4.8) L 11/29/23 11:40 Monocytes # 0.4 k/uL (0-1.0) 11/29/23 11:40 Eosinophils # 0.1 k/uL (0-0.7) 11/29/23 11:40 Basophils # 0.0 k/uL (0-0.2) 11/29/23 11:40 Manual Slide Review Performed 11/29/23 11:40 Hypochromasia Slight 11/29/23 11:40 Macrocytosis Marked A 11/29/23 11:40 Stomatocytes Present 11/29/23 11:40 PT 11.3 sec (10.0-12.5) 11/29/23 11:40 INR 1.0 (<1.2) 11/29/23 11:40 APTT 24.4 sec (22.0-30.0) 11/29/23 11:40 D-Dimer 0.41 mg/L FEU (<0.60) 11/29/23 11:40 Sodium 140 mmol/L (137-145) 11/29/23 11:40 Potassium 4.8 mmol/L (3.5-5.1) 11/29/23 11:40 Chloride 104 mmol/L (98-107) 11/29/23 11:40 Carbon Dioxide 32 mmol/L (22-30) H 11/29/23 11:40 Anion Gap 4 mmol/L 11/29/23 11:40 BUN 36 mg/dL (9-20) H 11/29/23 11:40 Creatinine 1.72 mg/dL (0.66-1.25) H 11/29/23 11:40 Est GFR (CKD-EPI)AfAm 45 (>60 ml/min/1.73 sqM) 11/29/23 11:40 Est GFR (CKD-EPI)NonAf 39 (>60 ml/min/1.73 sqM) 11/29/23 11:40 Glucose 119 mg/dL (74-99) H 11/29/23 11:40 Plasma Lactic Acid Carl 1.3 mmol/L (0.7-2.0) 11/29/23 11:40 Calcium 8.7 mg/dL (8.4-10.2) 11/29/23 11:40 Total Bilirubin 1.0 mg/dL (0.2-1.3) 11/29/23 11:40 AST 31 U/L (17-59) 11/29/23 11:40 ALT 28 U/L (4-49) 11/29/23 11:40 Alkaline Phosphatase 81 U/L (38-126) 11/29/23 11:40 Troponin I 0.018 ng/mL (0.000-0.034) 11/29/23 11:40 NT-Pro-B Natriuret Pep 2430 pg/mL 11/29/23 11:40 Total Protein 5.7 g/dL (6.3-8.2) L 11/29/23 11:40 Albumin 3.4 g/dL (3.5-5.0) L 11/29/23 11:40 PT/INR, D-dimer PT 11.3 sec (10.0-12.5) 11/29/23 11:40 INR 1.0 (<1.2) 11/29/23 11:40 D-Dimer 0.41 mg/L FEU (<0.60) 11/29/23 11:40 Abnormal lab findings: Abnormal Labs 11/29/23 11/29/23 11:40 11:40 RBC 4.09 L MCV 108.0 H Lymphocytes # 0.6 L Macrocytosis Marked A Carbon Dioxide 32 H BUN 36 H Creatinine 1.72 H Glucose 119 H Total Protein 5.7 L Albumin 3.4 L - Diagnostic Findings Chest x-ray: image reviewed Assessment and Plan Plan: Acute on chronic shortness of breath attributed to decompensated CHF with evidence of pulmonary edema. proBNP level is mildly elevated. The patient has exertional dyspnea and orthopnea. Cardiac rhythm is sinus. The patient's troponins are negative. proBNP level is mildly elevated. Currently on room air oxygen. Coronary artery disease with previous bypass surgery and the most recent cardiac catheterization from March 2023 showed a patent DYER to LAD and the rest of the grafts are all occluded. Systolic heart failure with an ejection fraction of 20 to 25%, consistent with ischemic cardiomyopathy History of ventricular tachycardia and the patient has an AICD placement and amiodarone COPD with a baseline FEV1 of 52% of predicted Chronic kidney disease stage III Obstructive sleep apnea Obesity with a BMI of 39.4 Hypertension Hyperlipidemia Diabetes mellitus type 2 Chronic smoker History of nephrolithiasis with previous lithotripsy Long-term steroid use and the patient has been maintained on prednisone 5 mg p.o. daily Plan Monitor oxygenation and the patient is currently on room air oxygen. Will start the patient on a combination of bronchodilators with DuoNeb updrafts and IV Solu-Medrol. No clear indication for an underlying COPD exacerbation although this may be of benefit. I would suggest diuresing this patient with Lasix 40 mg IV every 8 hours Resume home medication including aspirin and Plavix and amiodarone 4 mg p.o. twice daily and the patient is on Coreg 12.5 mg p.o. twice daily Continue Imdur 30 mg p.o. daily Monitor renal function Continue prednisone maintenance at 5 mg p.o. daily Cardiology consultation Will continue to follow and make further recommendations based on his progress.
[2023-11-29] MEDS: AMIODARONE 200 MG TAB PO SCH (21:03)
[2023-11-29] MEDS: ATORVASTATIN 10 MG TAB PO SCH (21:05)
[2023-11-29] MEDS: ISOSORBIDE MONONITRATE ER 30 MG TAB.ER.24H PO SCH (21:06)
[2023-11-29] MEDS: PRAMIPEXOLE 0.5 MG TAB PO SCH (21:06)
[2023-11-29] MEDS: PREGABALIN 100 MG CAP PO SCH (21:06)
[2023-11-29 21:56] LABS: Glucose,Whole Blood 286 mg/dL (70-110)
[2023-11-29] MEDS: carvediloL 12.5 MG TAB PO SCH (21:59)
[2023-11-30 06:03] LABS: Glucose,Whole Blood 228 mg/dL (70-110)
[2023-11-30] MEDS ORDERED: DEXTROSE 50% SYRINGE 50 ML IVP PRN ×2 (06:12)
[2023-11-30] MEDS: INSULIN ASPART (NovoLOG) 100 UNIT/ML VIAL SQ SCH (06:22)
[2023-11-30] MEDS: predniSONE 5 MG TAB PO SCH (08:46)
[2023-11-30] MEDS ORDERED: ASPIRIN 325 MG TAB PO SCH (09:00)
[2023-11-30] MEDS: LOSARTAN 25 MG TAB PO SCH (11:06)
[2023-11-30] MEDS: SPIRONOLACTONE 25 MG TAB PO SCH (11:06)
[2023-11-30 11:40] LABS: Glucose,Whole Blood 280 mg/dL (70-110)
--- NOTE | 2023-11-30 12:05 | P.PN ---
Subjective Progress Note Date: 11/30/23 This is a 73-year-old male patient came into the emergency department because of difficulty breathing. The patient was having exertional dyspnea, and orthopnea. He was unable to lay down flat and I saw him in the emergency department sitting up. He also had increasing lower extremity edema. His pulse ox was in the mid 80s at the time of his arrival. The patient's pulse ox currently improved. Is known to have a long cardiac history in addition to COPD. He is a chronic smoker and he is still smoking few cigarettes on a daily basis. He has cut down his smoking approximately a month ago. He also has history of Severe COPD and the patient's FEV1 is in the order of 52% of predicted. Does not utilize any form of maintenance respiratory medications and is mainly using Trelegy Ellipta samples as given to him by his primary care physician and his cutter plastics rolls. He also uses albuterol nebulized treatments [id number]. Not oxygen dependent at this point in time. The patient has other comorbidities including coronary artery disease, previous bypass surgery, previous coronary stenting, ischemic cardiomyopathy and the patient has an AICD in place. Based on the most recent echocardiogram that was done on this patient on 04/19/2023, the patient has severe systolic heart failure with an ejection fraction of 20 to 25% and the patient also has grade 2 diastolic heart failure, moderate functional mitral regurgitation, severe and a dilatation, moderate RV dilatation. He also has mild pulmonary hypertension. The patient was in the hospital back in March 2023 after having some issues with ventricular tachycardia requiring discharge from his AICD and the patient was treated with amiodarone. He has been given an ICD back in 2016. Other COVID conditions include hypertension, hyperlipidemia and diabetes mellitus and the patient also has chronic stage III kidney disease. He has baseline GFR has been in the mid 40s. The patient is currently is having shortness of breath. He was started on IV Lasix. His chest x-ray is consistent with CHF with pulmonary edema. There is also some bibasilar atelectatic changes noted. The patient was started on IV Lasix in the emergency department. The white cell count at 7.3 with a hemoglobin 15.7 and a platelet count of 171. Normal coagulation profile. BUN is 36 with a creatinine of 1.7 and sodium levels of 140. His proBNP level is 2430. His EKG showing sinus bradycardia with a bundle branch block pattern. Is likely a right bundle branch block. His last cardiac catheterization was done on March 2023 and the patient was found to have CAD with 100% proximal LAD, 40 to 50% distal left main, 60 to 70% ostial ramus, 50% proximal circumflex and 100% RCA. He has patent DYER to LAD and the rest of the grafts are all occluded. On today's evaluation of 11/30/2023, the patient is comfortable on 2 L of oxygen nasal cannula with a pulse ox of 93%. Afebrile. Remains on IV Lasix and the fluid balance has been negative over the past 24 hours. No chest pain. No cardiac arrhythmias. No other new complaints otherwise for now. He is receiving Lasix 40 mg IV every 8 hours. Outpatient medications have been resumed. He is also DuoNeb updrafts and IV Solu-Medrol which will be tapered off as the patient's not having any significant bronchospasm wheezing. Objective - Vital Signs Vital signs: Vital Signs Temp 97.2 F L 11/30/23 08:40 Pulse 64 11/30/23 08:40 Resp 16 11/30/23 08:40 BP 105/56 11/30/23 08:40 Pulse Ox 93 L 11/30/23 08:40 FiO2 Intake & Output 11/29/23 11/30/23 11/30/23 18:59 06:59 18:59 Intake Total 360 Output Total 590 200 Balance -590 160 Weight 121.109 kg 118.5 kg Intake: Oral 360 Output: Urine 590 200 Other: Voiding Method External Catheter External Catheter - Exam GENERAL EXAM: Alert, pleasant 72-year-old male, on room air, fairly comfortable and is not currently mild degree of respiratory distress, currently on 2 L O2 nasal cannula HEAD: Normocephalic. EYES: Normal reaction of pupils, equal size. NOSE: Clear with pink turbinates. THROAT: No erythema or exudates. NECK: No masses, no JVD. CHEST: No chest wall deformity. LUNGS: Equal air entry with coarse crackles in the lung bases bilaterally CVS: S1 and S2 normal with no audible murmur, regular rhythm. ABDOMEN: No hepatosplenomegaly, normal bowel sounds, no guarding or rigidity. SPINE: No scoliosis or deformity SKIN: No rashes CENTRAL NERVOUS SYSTEM: No focal deficits, tone is normal in all 4 extremities. EXTREMITIES: There is no peripheral edema. No clubbing, no cyanosis. Peripheral pulses are intact. - Labs CBC & Chem 7: 11/29/23 11:40 11/29/23 11:40 Labs: Abnormal Lab Results - Last 24 Hours (Table) 11/29/23 11/29/23 11/29/23 Range/Units 11:40 11:40 21:55 RBC 4.09 L (4.30-5.90) m/uL MCV 108.0 H (80.0-100.0) fL Lymphocytes # 0.6 L (1.0-4.8) k/uL Macrocytosis Marked A Carbon Dioxide 32 H (22-30) mmol/L BUN 36 H (9-20) mg/dL Creatinine 1.72 H (0.66-1.25) mg/dL Glucose 119 H (74-99) mg/dL POC Glucose (mg/dL) 286 H (70-110) mg/dL Total Protein 5.7 L (6.3-8.2) g/dL Albumin 3.4 L (3.5-5.0) g/dL 11/30/23 Range/Units 06:02 RBC (4.30-5.90) m/uL MCV (80.0-100.0) fL Lymphocytes # (1.0-4.8) k/uL Macrocytosis Carbon Dioxide (22-30) mmol/L BUN (9-20) mg/dL Creatinine (0.66-1.25) mg/dL Glucose (74-99) mg/dL POC Glucose (mg/dL) 228 H (70-110) mg/dL Total Protein (6.3-8.2) g/dL Albumin (3.5-5.0) g/dL Assessment and Plan Plan: Acute on chronic shortness of breath attributed to decompensated CHF with evidence of pulmonary edema. proBNP level is mildly elevated. The patient has exertional dyspnea and orthopnea. Cardiac rhythm is sinus. The patient's tro ponins are negative. proBNP level is mildly elevated. Currently on room air oxygen. Coronary artery disease with previous bypass surgery and the most recent cardiac catheterization from March 2023 showed a patent DYER to LAD and the rest of the grafts are all occluded. Systolic heart failure with an ejection fraction of 20 to 25%, consistent with ischemic cardiomyopathy History of ventricular tachycardia and the patient has an AICD placement and amiodarone COPD with a baseline FEV1 of 52% of predicted Chronic kidney disease stage III Obstructive sleep apnea Obesity with a BMI of 39.4 Hypertension Hyperlipidemia Diabetes mellitus type 2 Chronic smoker History of nephrolithiasis with previous lithotripsy Long-term steroid use and the patient has been maintained on prednisone 5 mg p.o. daily Plan Slightly improved compared to yesterday patient is being dosed IV Lasix Monitor oxygenation and the patient is currently on 2 L O2 nasal cannula Continue bronchodilators with DuoNeb updrafts and IV Solu-Medrol to be tapered to 40 mg every 12 hours. No clear indication for an underlying COPD exacerbation although this may be of benefit. I would suggest diuresing this patient with Lasix 40 mg IV every 8 hours Resume home medication including aspirin and Plavix and amiodarone 4 mg p.o. twice daily and the patient is on Coreg 12.5 mg p.o. twice daily Continue Imdur 30 mg p.o. daily Monitor renal function Continue prednisone maintenance at 5 mg p.o. daily Cardiology consultation Will continue to follow and make further recommendations based on his progress.
[2023-11-30 12:25] VITALS: BMI 38.5
[2023-11-30] MEDS ORDERED: ALBUTEROL NEBULIZED 2.5 MG/3 ML INHALATION PRN (12:37)
--- NOTE | 2023-11-30 12:38 | P.HPIM ---
History of Present Illness H&P Date: 11/29/23 Chief Complaint: Dyspnea Braeden is 73-year-old white male with known COPD and CHF. He presented the office today with increased shortness of breath and diaphoretic. His pulse oximetry was 82% on room air. EMS was called he was transported to the emergency room. He is now on 3 L O2. He is slightly improved. He is currently being seen in emergency room now bed 24. He indicates his symptoms been worsening the past week and a half. He had waited to get in the office and not called sooner as he thought he would improve on his own. He is a known smoker and been trying to quit. Review of Systems All systems: negative Past Medical History Past Medical History: Coronary Artery Disease (CAD), Heart Failure, COPD, GERD/Reflux, Hyperlipidemia, Hypertension, Myocardial Infarction (ND), Osteo arthritis (OA), Renal Disease, Sleep Apnea/CPAP/BIPAP Additional Past Medical History / Comment(s): cardiomyopathy Last Myocardial Infarction Date:: 11/28/15 History of Any Multi-Drug Resistant Organisms: MRSA Date of last positivie culture/infection: 03/21/23 MDRO Source:: Chest Past Surgical History: Coronary Bypass/CABG, Heart Catheterization With Stent, Joint Replacement Additional Past Surgical History / Comment(s): 10/04/15 Total R hip arthroplasty. 1997 triple vessel CABG, Cardiac cath with stents, RECTAL FISTULA REPAIR, KIDNEY STONE, LITHROTRIPSY, single chamber AICD 07/10/2016 Past Anesthesia/Blood Transfusion Reactions: No Reported Reaction Additional Past Anesthesia/Blood Transfusion Reaction / Comment(s): Pt does not believe he has ever received blood. Date of Last Stent Placement:: 11/28/2015 Past Psychological History: No Psychological Hx Reported Additional Psychological History / Comment(s): Pt lives alone. He uses a cane or walker to ambulate. He is independent. He drives. Smoking Status: Current every day smoker Past Alcohol Use History: Rare Additional Past Alcohol Use History / Comment(s): STARTED SMOKING AT AGE 19 (1977) SMOKED 1 AND 1/2 PPD, HAS QUIT SMOKING IN PAST COUPLE MONTHS Past Drug Use History: None Reported - Past Family History Father Family Medical History: Cancer Additional Family Medical History / Comment(s): skin Mother Family Medical History: COPD, Pneumonia Additional Family Medical History / Comment(s): Mother at age 92 yrs. Medications and Allergies Home Medications Medication Instructions Recorded Confirmed Type Nitroglycerin Sl Tabs [Nitrostat] 0.4 mg SUBLINGUAL Q5M PRN 11/27/15 11/29/23 History Atorvastatin [Lipitor] 10 mg PO HS 07/06/16 11/29/23 History Furosemide [Lasix] 40 mg PO BID 07/06/16 11/29/23 History Isosorbide Mononitrate [Isosorbide 30 mg PO DAILY 07/06/16 11/29/23 History Mononitrate ER] Potassium Chloride ER [K-Dur 20] 20 meq PO BID 07/06/16 11/29/23 History Clopidogrel [Plavix] 75 mg PO DAILY 03/04/17 11/29/23 History Albuterol Nebulized [Ventolin 2.5 mg INHALATION RT-Q6H PRN 04/17/23 11/29/23 Hi story Nebulized] Aspirin EC [Ecotrin Low Dose] 81 mg PO DAILY 04/17/23 11/29/23 History Pramipexole [Mirapex] 0.5 mg PO HS 04/17/23 11/29/23 History Pregabalin [Lyrica] 200 mg PO BID 04/17/23 11/29/23 History allopurinoL [Zyloprim] 100 mg PO TID 04/17/23 11/29/23 History metFORMIN HCL [Glucophage] 1,000 mg PO BID 04/17/23 11/29/23 History predniSONE 5 mg PO DAILY 04/17/23 11/29/23 History Amiodarone [Cordarone] 400 mg PO BID #60 tablet 04/20/23 11/29/23 Rx carvediloL [Coreg] 12.5 mg PO BID 11/29/23 11/29/23 History Allergies Allergy/AdvReac Type Severity Reaction Status Date / Time No Known Allergies Allergy Verified 11/29/23 15:18 Physical Exam Vitals: Vital Signs Temp Pulse Pulse Resp BP BP Pulse Ox 11/30/23 08:40 97.2 F L 64 16 105/56 93 L 11/30/23 08:19 62 16 11/30/23 08:10 63 16 93 L 11/30/23 08:00 1 L 11/30/23 03:15 98.2 F 60 20 133/66 91 L 11/29/23 23:43 97.9 F 73 24 154/76 95 11/29/23 21:45 97.6 F 69 24 159/72 92 L 11/29/23 21:10 76 18 151/81 95 11/29/23 20:34 72 11/29/23 20:18 72 11/29/23 17:41 77 18 105/64 95 11/29/23 16:39 97.9 F 65 20 142/69 96 11/29/23 16:12 67 11/29/23 15:59 66 11/29/23 13:20 63 20 127/80 93 L Intake and Output 11/29/23 11/30/23 11/30/23 22:59 06:59 14:59 Intake Total 360 Output Total 240 350 200 Balance -240 -350 160 Intake: Oral 360 Output: Urine 240 350 200 Other: Voiding Method External Catheter External Catheter External Catheter Weight 121.109 kg 118.5 kg 118.5 kg GENERAL: Obese male in minimal respiratory distress, much improved with oxygen HEAD: Atraumatic, normocephalic. EYES: Pupils equal round and reactive to light, extraocular movements intact, sclera anicteric, conjunctiva are normal. ENT:nares patent, oropharynx clear without exudates. Moist mucous membranes. NECK: Normal range of motion, supple without lymphadenopathy or JVD, no thyromegaly LUNGS: Breath sounds diminished throughout, there is no active wheezes rales or crackles at this time HEART: Regular rate and rhythm without murmurs, rubs or gallops.S1S2 Normal ABDOMEN: Soft, nontender, normoactive bowel sounds. No guarding, no rebound. No masses appreciated. EXTREMITIES: Normal range of motion, +1 pedal edema bilaterally NEUROLOGICAL: Cranial nerves II through XII grossly intact. Normal speech, normal gait. PSYCH: Normal mood, normal affect. SKIN: Warm, Dry, normal turgor, no rashes or lesions noted. Results CBC & Chem 7: 11/29/23 11:40 11/29/23 11:40 Labs: Abnormal Lab Results - Last 24 Hours (Table) 11/29/23 11/29/23 11/30/23 Range/Units 11:40 21:55 06:02 Lymphocytes # 0.6 L (1.0-4.8) k/uL POC Glucose (mg/dL) 286 H 228 H (70-110) mg/dL 11/30/23 Range/Units 11:38 Lymphocytes # (1.0-4.8) k/uL POC Glucose (mg/dL) 280 H (70-110) mg/dL Chest x-ray: report reviewed Thrombosis Risk Factor Assmnt - DVT/VTE Prophylaxis DVT/VTE Prophylaxis: Pharmacologic Prophylaxis ordered - Choose All That Apply Any of the Below Risk Factors Present?: Yes Each Factor Represents 1 point: Abnormal pulmonary function (COPD), Medical pt on bed rest, Obesity (BMI >25), Serious lung disease incl. pneumonia (< 1month), Swollen legs (current) Each Risk Factor Represents 2 Points: Age 61-74 years Other congenital or acquired thrombophilia - If yes, enter type in comment: No Thrombosis Risk Factor Assessment Total Risk Factor Score: 7 Thrombosis Risk Factor Assessment Level: High Risk Assessment and Plan (1) Acute systolic (congestive) heart failure Current Visit: Yes Status: Acute Code(s): I50.21 - ACUTE SYSTOLIC (CONGESTIVE) HEART FAILURE SNOMED Code(s): 516907626 (2) H/O myocardial infarction, greater than 8 weeks Current Visit: Yes Status: Acute Code(s): I25.2 - OLD MYOCARDIAL INFARCTION SNOMED Code(s): 3989578 (3) Cardiomyopathy Current Visit: Yes Status: Acute Code(s): I42.9 - CARDIOMYOPATHY, UNSPECIFIED SNOMED Code(s): 01988067 (4) CKD (chronic kidney disease) stage 3, GFR 30-59 ml/min Current Visit: Yes Status: Acute Code(s): N18.30 - CHRONIC KIDNEY DISEASE, STAGE 3 UNSPECIFIED SNOMED Code(s): 873315618 (5) Morbid obesity Current Visit: Yes Status: Acute Code(s): E66.01 - MORBID (SEVERE) OBESITY DUE TO EXCESS CALORIES SNOMED Code(s): 043369599 (6) Type 2 diabetes mellitus with other circulatory complications Current Visit: Yes Status: Acute Code(s): E11.59 - TYPE 2 DIABETES MELLITUS WITH OTH CIRCULATORY COMPLICATIONS SNOMED Code(s): 06939799 (7) Essential (primary) hypertension Current Visit: Yes Status: Acute Code(s): I10 - ESSENTIAL (PRIMARY) HYPERTENSION SNOMED Code(s): 56641785 (8) Hyperlipidemia, unspecified Current Visit: Yes Status: Acute Code(s): E78.5 - HYPERLIPIDEMIA, UNSPECIFIED SNOMED Code(s): 60958866 (9) Smoker Current Visit: Yes Status: Acute Code(s): F17.200 - NICOTINE DEPENDENCE, UNSPECIFIED, UNCOMPLICATED SNOMED Code(s): 32037984 (10) H/O four vessel coronary artery bypass graft Current Visit: Yes Status: Acute Code(s): Z95.1 - PRESENCE OF AORTOCORONARY BYPASS GRAFT SNOMED Code(s): 458538146 (11) Acute exacerbation of chronic obstructive pulmonary disease Current Visit: Yes Status: Acute Code(s): J44.1 - CHRONIC OBSTRUCTIVE PULMONARY DISEASE W (ACUTE) EXACERBATION SNOMED Code(s): 519133853 Plan: Patient will be admitted. Will restart his home medications. He will be diuresed with furosemide, will consult cardiology for his CHF exacerbation and pulmonology due to his significant COPD history as well. Repeat labs in a.m., he will be reevaluated next 24 hours
--- NOTE | 2023-11-30 12:45 | P.PN ---
Subjective Progress Note Date: 11/30/23 Braeden is 73-year-old white male with known COPD and CHF. He presented the office today with increased shortness of breath and diaphoretic. His pulse oximetry was 82% on room air. EMS was called he was transported to the emergency room. He is now on 3 L O2. He is slightly improved. He is currently being seen in emergency room now bed 24. He indicates his symptoms been worsening the past week and a half. He had waited to get in the office and not called sooner as he thought he would improve on his own. He is a known smoker and been trying to quit. November 30, 2023: Patient is resting much more comfortably. He is now 1 to the stepdown unit. Home medications have been reordered. Neurology has seen him, cardiology visit is pending. He feels overall improved. Less shortness of breath. He is urinating using a urinal. He denies any current chest pains pressures or shortness of breath at rest. Oxygen is at 3 L/min. He indicates last night he hallucinated but that quickly resolved. Objective - Vital Signs Vital signs: Vital Signs Temp 97.2 F L 11/30/23 08:40 Pulse 64 11/30/23 08:40 Resp 16 11/30/23 08:40 BP 105/56 11/30/23 08:40 Pulse Ox 93 L 11/30/23 08:40 FiO2 Intake & Output 11/29/23 11/30/23 11/30/23 18:59 06:59 18:59 Intake Total 360 Output Total 590 200 Balance -590 160 Weight 121.109 kg 118.5 kg 118.5 kg Intake: Oral 360 Output: Urine 590 200 Other: Voiding Method External Catheter External Catheter - Exam GENERAL: Obese male in no acute distress, on oxygen at 3 L/min NECK: Normal range of motion, supple without lymphadenopathy or JVD, no thyromegaly LUNGS: Breath sounds diminished throughout, there is no active wheezes rales or crackles at this time, aeration is improved compared to 1 day ago HEART: Regular rate and rhythm without murmurs, rubs or gallops.S1S2 Normal ABDOMEN: Soft, nontender, normoactive bowel sounds. No guarding, no rebound. No masses appreciated. EXTREMITIES: Normal range of motion, +1 pedal edema bilaterally NEUROLOGICAL: Cranial nerves II through XII grossly intact. Normal speech, normal gait. PSYCH: Normal mood, normal affect. SKIN: Warm, Dry, normal turgor, no rashes or lesions noted. - Labs CBC & Chem 7: 11/29/23 11:40 11/29/23 11:40 Labs: Abnormal Lab Results - Last 24 Hours (Table) 11/29/23 11/29/23 11/30/23 Range/Units 11:40 21:55 06:02 Lymphocytes # 0.6 L (1.0-4.8) k/uL POC Glucose (mg/dL) 286 H 228 H (70-110) mg/dL 11/30/23 Range/Units 11:38 Lymphocytes # (1.0-4.8) k/uL POC Glucose (mg/dL) 280 H (70-110) mg/dL Assessment and Plan (1) Acute systolic (congestive) heart failure Current Visit: Yes Status: Acute Code(s): I50.21 - ACUTE SYSTOLIC (CONGESTIVE) HEART FAILURE SNOMED Code(s): 083244101 (2) H/O myocardial infarction, greater than 8 weeks Current Visit: Yes Status: Acute Code(s): I25.2 - OLD MYOCARDIAL INFARCTION SNOMED Code(s): 8789931 (3) Cardiomyopathy Current Visit: Yes Status: Acute Code(s): I42.9 - CARDIOMYOPATHY, UNSPECIFIED SNOMED Code(s): 19642109 (4) CKD (chronic kidney disease) stage 3, GFR 30-59 ml/min Current Visit: Yes Status: Acute Code(s): N18.30 - CHRONIC KIDNEY DISEASE, STAGE 3 UNSPECIFIED SNOMED Code(s): 142774392 (5) Morbid obesity Current Visit: Yes Status: Acute Code(s): E66.01 - MORBID (SEVERE) OBESITY DUE TO EXCESS CALORIES SNOMED Code(s): 674168230 (6) Type 2 diabetes mellitus with other circulatory complications Current Visit: Yes Status: Acute Code(s): E11.59 - TYPE 2 DIABETES MELLITUS WITH OTH CIRCULATORY COMPLICATIONS SNOMED Code(s): 02458593 (7) Essential (primary) hypertension Current Visit: Yes Status: Acute Code(s): I10 - ESSENTIAL (PRIMARY) HYPERTENSION SNOMED Code(s): 31343683 (8) Hyperlipidemia, unspecified Current Visit: Yes Status: Acute Code(s): E78.5 - HYPERLIPIDEMIA, UNSPECIFIED SNOMED Code(s): 85327096 (9) Smoker Current Visit: Yes Status: Acute Code(s): F17.200 - NICOTINE DEPENDENCE, UNSPECIFIED, UNCOMPLICATED SNOMED Code(s): 68652564 (10) H/O four vessel coronary artery bypass graft Current Visit: Yes Status: Acute Code(s): Z95.1 - PRESENCE OF AORTOCORONARY BYPASS GRAFT SNOMED Code(s): 754945838 (11) Acute exacerbation of chronic obstructive pulmonary disease Current Visit: Yes Status: Acute Code(s): J44.1 - CHRONIC OBSTRUCTIVE PULMONARY DISEASE W (ACUTE) EXACERBATION SNOMED Code(s): 012564446 Plan: Wait on further recommendations from pulmonology and upcoming consult with cardiology, add LUIS braga, will continue anticoagulation with heparin, continue on NovoLog scale, will hold his metformin, he continues being diuresed with IV Lasix he has DuoNeb updrafts ordered, his home medications have been reordered as well. He will be reevaluated the next 24 hours
[2023-11-30] MEDS: HEPARIN SODIUM,PORCINE 5,000 UNIT/ML 1 ML VIAL SQ SCH (13:14)
[2023-11-30] MEDS: allopurinoL 100 MG TAB PO SCH (13:14)
[2023-11-30 16:22] LABS: Glucose,Whole Blood 134 mg/dL (70-110)
[2023-11-30 20:01] LABS: Glucose,Whole Blood 190 mg/dL (70-110)
[2023-11-30] MEDS: ACETAMINOPHEN TAB 325 MG TAB PO PRN (20:16)
[2023-11-30] MEDS: methylPREDNISolone SOD SUCCI 40 MG/ML 1 ML VIAL IV SCH (20:16)
[2023-11-30] MEDS: guaiFENesin 600 MG TABLET.ER PO SCH (20:16)
[2023-12-01 06:00] LABS: Glucose,Whole Blood 174 mg/dL (70-110)
[2023-12-01 11:37] LABS: Glucose,Whole Blood 187 mg/dL (70-110)
[2023-12-01 12:43] LABS: Basophils % (A) 0 %; Eosinophils % (A) 0 %; HCT 42.8 % (39.0-53.0); HGB 13.6 gm/dL (13.0-17.5); Hypochromasia Moderate; Lymphocytes # (A) 0.4 k/uL (1.0-4.8); Lymphocytes % (A) 4 %; MCH 34.9 pg (25.0-35.0); MCHC 31.8 g/dL (31.0-37.0); MCV 109.8 fL (80.0-100.0); Macrocytosis Marked; Mean Platelet Volume 9.2; Monocytes # (A) 0.7 k/uL (0-1.0); Monocytes % (A) 6 %; Neutrophils # (A) 10.5 k/uL (1.3-7.7); Neutrophils % (A) 90 %; Platelet Count 161 k/uL (150-450); RDW 15.1 % (11.5-15.5); WBC 11.7 k/uL (3.8-10.6)
[2023-12-01] MEDS: OXYMETAZOLINE 0.05% NASL SPRAY 1 SPRAY BOTTLE NASAL SCH (12:45)
[2023-12-01 12:47] LABS: African American GFR (CKD) 33 (>60 ml/min/1.73 sqM); Anion Gap 8 mmol/L; Blood Urea Nitrogen 52 mg/dL (9-20); Calcium 8.4 mg/dL (8.4-10.2); Carbon Dioxide 31 mmol/L (22-30); Chloride 97 mmol/L (98-107); Glucose 206 mg/dL (74-99); Magnesium 2.3 mg/dL (1.6-2.3); Non-African American GFR(CKD) 29 (>60 ml/min/1.73 sqM); Potassium 4.4 mmol/L (3.5-5.1); Sodium 136 mmol/L (137-145)
--- NOTE | 2023-12-01 13:31 | P.PN ---
Christina Deras is 73-year-old white male with known COPD and CHF. He presented the office today with increased shortness of breath and diaphoretic. His pulse oximetry was 82% on room air. EMS was called he was transported to the emergency room. He is now on 3 L O2. He is slightly improved. He is currently being seen in emergency room now bed 24. He indicates his symptoms been worsening the past week and a half. He had waited to get in the office and not called sooner as he thought he would improve on his own. He is a known smoker and been trying to quit. November 30, 2023: Patient is resting much more comfortably. He is now 1 to the stepdown unit. Home medications have been reordered. Pulmonology has seen him, cardiology visit is pending. He feels overall improved. Less shortness of breath. He is urinating using a urinal. He denies any current chest pains pressures or shortness of breath at rest. Oxygen is at 3 L/min. He indicates last night he hallucinated but that quickly resolved. December 01, 2023: Patient seen evaluated for acute exacerbation of his congestive heart failure. He remains in the stepdown unit. He continues on his current medications. He does report hallucinations while awake and at night. He does report that he does not sleep great in the hospital. He does have obstructive sleep apnea and uses a CPAP. But he has not received this. He remains on IV steroids along with IV Lasix. Clinically is overall improved. Oxygen requirement is now down to 2 L via nasal cannula. Labs show a slight leukocytos is with some macrocytosis noted. He has a history of EtOH. BUN 52 creatinine 2.21 GFR is 29 Objective - Vital Signs Vital signs: Vital Signs Temp 97.5 F L 12/01/23 12:00 Pulse 56 L 12/01/23 12:00 Resp 19 12/01/23 12:00 BP 116/56 12/01/23 12:00 Pulse Ox 94 L 12/01/23 12:00 FiO2 Intake & Output 11/30/23 12/01/23 12/01/23 18:59 06:59 18:59 Intake Total 981 480 Output Total 500 1050 Balance 481 -1050 480 Weight 118.5 kg 120 kg Intake: Oral 981 480 Output: Urine 500 1050 Other: Voiding Method External Catheter External Catheter External Catheter - Exam GENERAL: Obese male in no acute distress, on oxygen at 2 L/min NECK: Normal range of motion, supple without lymphadenopathy or JVD, no thyromegaly LUNGS: Breath sounds diminished throughout, there is no active wheezes rales or crackles at this time, aeration is improved compared to 1 day ago HEART: Regular rate and rhythm without murmurs, rubs or gallops.S1S2 Normal ABDOMEN: Soft, nontender, normoactive bowel sounds. No guarding, no rebound. No masses appreciated. EXTREMITIES: Normal range of motion, +1 pedal edema bilaterally NEUROLOGICAL: Cranial nerves II through XII grossly intact. Normal speech, normal gait. PSYCH: Normal mood, normal affect. SKIN: Warm, Dry, normal turgor, no rashes or lesions noted. - Labs CBC & Chem 7: 12/01/23 10:31 12/01/23 10:31 Labs: Abnormal Lab Results - Last 24 Hours (Table) 11/29/23 11/30/23 11/30/23 Range/Units 11:40 16:20 19:50 WBC (3.8-10.6) k/uL RBC (4.30-5.90) m/uL MCV (80.0-100.0) fL Macrocytosis Sodium (137-145) mmol/L Chloride (98-107) mmol/L Carbon Dioxide (22-30) mmol/L BUN (9-20) mg/dL Creatinine (0.66-1.25) mg/dL Glucose (74-99) mg/dL POC Glucose (mg/dL) 134 H 190 H (70-110) mg/dL Hemoglobin A1c 6.5 H (<=6.0) % 12/01/23 12/01/23 12/01/23 Range/Units 05:58 10:31 10:31 WBC 11.7 H (3.8-10.6) k/uL RBC 3.90 L (4.30-5.90) m/uL MCV 109.8 H (80.0-100.0) fL Macrocytosis Marked A Sodium 136 L (137-145) mmol/L Chloride 97 L (98-107) mmol/L Carbon Dioxide 31 H (22-30) mmol/L BUN 52 H (9-20) mg/dL Creatinine 2.21 H (0.66-1.25) mg/dL Glucose 206 H (74-99) mg/dL POC Glucose (mg/dL) 174 H (70-110) mg/dL Hemoglobin A1c (<=6.0) % 12/01/23 Range/Units 11:36 WBC (3.8-10.6) k/uL RBC (4.30-5.90) m/uL MCV (80.0-100.0) fL Macrocytosis Sodium (137-145) mmol/L Chloride (98-107) mmol/L Carbon Dioxide (22-30) mmol/L BUN (9-20) mg/dL Creatinine (0.66-1.25) mg/dL Glucose (74-99) mg/dL POC Glucose (mg/dL) 187 H (70-110) mg/dL Hemoglobin A1c (<=6.0) % Assessment and Plan (1) Acute systolic (congestive) heart failure Current Visit: Yes Status: Acute Code(s): I50.21 - ACUTE SYSTOLIC (CONGESTIVE) HEART FAILURE SNOMED Code(s): 812134143 (2) H/O myocardial infarction, greater than 8 weeks Current Visit: Yes Status: Acute Code(s): I25.2 - OLD MYOCARDIAL INFARCTION SNOMED Code(s): 3601168 (3) Cardiomyopathy Current Visit: Yes Status: Acute Code(s): I42.9 - CARDIOMYOPATHY, UNSPECIFIED SNOMED Code(s): 01406694 (4) CKD (chronic kidney disease) stage 3, GFR 30-59 ml/min Current Visit: Yes Status: Acute Code(s): N18.30 - CHRONIC KIDNEY DISEASE, STAGE 3 UNSPECIFIED SNOMED Code(s): 199327690 (5) Morbid obesity Current Visit: Yes Status: Acute Code(s): E66.01 - MORBID (SEVERE) OBESITY DUE TO EXCESS CALORIES SNOMED Code(s): 682637301 (6) Type 2 diabetes mellitus with other circulatory complications Current Visit: Yes Status: Acute Code(s): E11.59 - TYPE 2 DIABETES MELLITUS WITH OTH CIRCULATORY COMPLICATIONS SNOMED Code(s): 66669919 (7) Essential (primary) hypertension Current Visit: Yes Status: Acute Code(s): I10 - ESSENTIAL (PRIMARY) HYPERTENSION SNOMED Code(s): 03529510 (8) Hyperlipidemia, unspecified Current Visit: Yes Status: Acute Code(s): E78.5 - HYPERLIPIDEMIA, UNSPECIFIED SNOMED Code(s): 32160783 (9) Smoker Current Visit: Yes Status: Acute Code(s): F17.200 - NICOTINE DEPENDENCE, UNSPECIFIED, UNCOMPLICATED SNOMED Code(s): 50653916 (10) H/O four vessel coronary artery bypass graft Current Visit: Yes Status: Acute Code(s): Z95.1 - PRESENCE OF AORTOCORONARY BYPASS GRAFT SNOMED Code(s): 608371742 (11) Acute exacerbation of chronic obstructive pulmonary disease Current Visit: Yes Status: Acute Code(s): J44.1 - CHRONIC OBSTRUCTIVE PULMONARY DISEASE W (ACUTE) EXACERBATION SNOMED Code(s): 727718808 Plan: Wait on further recommendations from pulmonology and upcoming consult with cardiology, continue current medications and treatments, 2D echo in a.m., continue diuresis, continue monitoring his renal functions as a slightly elevated, PT to evaluate for treatment, obtain his CPAP for him, Seroquel at bedtime to help with the hallucinations he is experiencing, will be reevaluated in the next 24 hours by family medicine, expect he will need ECF placement
[2023-12-01] MEDS: FOLIC ACID-VIT B COMPLEX-VIT C 1 CAP PO SCH (16:25)
[2023-12-01 16:37] LABS: Glucose,Whole Blood 186 mg/dL (70-110)
--- NOTE | 2023-12-01 17:09 | P.PN ---
Subjective Progress Note Date: 12/01/23 This is a 73-year-old male patient came into the emergency department because of difficulty breathing. The patient was having exertional dyspnea, and orthopnea. He was unable to lay down flat and I saw him in the emergency department sitting up. He also had increasing lower extremity edema. His pulse ox was in the mid 80s at the time of his arrival. The patient's pulse ox currently improved. Is known to have a long cardiac history in addition to COPD. He is a chronic smoker and he is still smoking few cigarettes on a daily basis. He has cut down his smoking approximately a month ago. He also has history of Severe COPD and the patient's FEV1 is in the order of 52% of predicted. Does not utilize any form of maintenance respiratory medications and is mainly using Trelegy Ellipta samples as given to him by his primary care physician and his payroll representative. He also uses albuterol nebulized treatments [id number]. Not oxygen dependent at this point in time. The patient has other comorbidities including coronary artery disease, previous bypass surgery, previous coronary stenting, ischemic cardiomyopathy and the patient has an AICD in place. Based on the most recent echocardiogram that was done on this patient on 04/19/2023, the patient has severe systolic heart failure with an ejection fraction of 20 to 25% and the patient also has grade 2 diastolic heart failure, moderate functional mitral regurgitation, severe and a dilatation, moderate RV dilatation. He also has mild pulmonary hypertension. The patient was in the hospital back in March 2023 after having some issues with ventricular tachycardia requiring discharge from his AICD and the patient was treated with amiodarone. He has been given an ICD back in 2016. Other COVID conditions include hypertension, hyperlipidemia and diabetes mellitus and the patient also has chronic stage III kidney disease. He has baseline GFR has been in the mid 40s. The patient is currently is having shortness of breath. He was started on IV Lasix. His chest x-ray is consistent with CHF with pulmonary edema. There is also some bibasilar atelectatic changes noted. The patient was started on IV Lasix in the emergency department. The white cell count at 7.3 with a hemoglobin 15.7 and a platelet count of 171. Normal coagulation profile. BUN is 36 with a creatinine of 1.7 and sodium levels of 140. His proBNP level is 2430. His EKG showing sinus bradycardia with a bundle branch block pattern. Is likely a right bundle branch block. His last cardiac catheterization was done on March 2023 and the patient was found to have CAD with 100% proximal LAD, 40 to 50% distal left main, 60 to 70% ostial ramus, 50% proximal circumflex and 100% RCA. He has patent DYER to LAD and the rest of the grafts are all occluded. On today's evaluation of 11/30/2023, the patient is comfortable on 2 L of oxygen nasal cannula with a pulse ox of 93%. Afebrile. Remains on IV Lasix and the fluid balance has been negative over the past 24 hours. No chest pain. No cardiac arrhythmias. No other new complaints otherwise for now. He is receiving Lasix 40 mg IV every 8 hours. Outpatient medications have been resumed. He is also DuoNeb updrafts and IV Solu-Medrol which will be tapered off as the patient's not having any significant bronchospasm wheezing. On today's evaluation of 11/30/2023, the patient is feeling better compared to yesterday. Is less short of breath. He was admitted to the hospital because of worsening shortness of breath and exacerbation of his chronic CHF it is known to have coronary artery disease. Severe cardiomyopathy with EF around 20 to 25%. The patient remains on IV Lasix at a dose of 40 mg every 12 hours. Fluid balance over the past 24 hours has been -569 cc and the patient's creatinine is at 2.2 with a BUN of 52. Sodium levels at 136. Based on the rise in the creatinine, the patient's diuretic dose has been reduced. WBC count 11.7 with a hemoglobin 13.6 and a platelet count of 161. He remains on 2 L of oxygen by nasal cannula with a pulse ox of 93%. He has no other specific complaints. He remains on DuoNeb updrafts. He is also on the maintenance prednisone of 5 mg p.o. daily. IV Solu-Medrol will be discontinued. Objective - Vital Signs Vital signs: Vital Signs Temp 97.5 F L 12/01/23 08:34 Pulse 52 L 12/01/23 11:35 Resp 19 12/01/23 08:34 BP 106/52 12/01/23 08:34 Pulse Ox 93 L 12/01/23 08:34 FiO2 Intake & Output 11/30/23 12/01/23 12/01/23 18:59 06:59 18:59 Intake Total 981 240 Output Total 500 1050 Balance 481 -1050 240 Weight 118.5 kg 120 kg Intake: Oral 981 240 Output: Urine 500 1050 Other: Voiding Method External Catheter External Catheter External Catheter - Exam GENERAL EXAM: Alert, pleasant 72-year-old male, on room air, fairly comfortable and is not currently mild degree of respiratory distress, currently on 2 L O2 nasal cannula HEAD: Normocephalic. EYES: Normal reaction of pupils, equal size. NOSE: Clear with pink turbinates. THROAT: No erythema or exudates. NECK: No masses, no JVD. CHEST: No chest wall deformity. LUNGS: Equal air entry with coarse crackles in the lung bases bilaterally CVS: S1 and S2 normal with no audible murmur, regular rhythm. ABDOMEN: No hepatosplenomegaly, normal bowel sounds, no guarding or rigidity. SPINE: No scoliosis or deformity SKIN: No rashes CENTRAL NERVOUS SYSTEM: No focal deficits, tone is normal in all 4 extremities. EXTREMITIES: There is no peripheral edema. No clubbing, no cyanosis. Peripheral pulses are intact. - Labs CBC & Chem 7: 12/01/23 10:31 12/01/23 10:31 Labs: Abnormal Lab Results - Last 24 Hours (Table) 11/29/23 11/30/23 11/30/23 Range/Units 11:40 16:20 19:50 POC Glucose (mg/dL) 134 H 190 H (70-110) mg/dL Hemoglobin A1c 6.5 H (<=6.0) % 12/01/23 12/01/23 Range/Units 05:58 11:36 POC Glucose (mg/dL) 174 H 187 H (70-110) mg/dL Hemoglobin A1c (<=6.0) % Assessment and Plan Plan: Acute on chronic shortness of breath attributed to decompensated CHF with evidence of pulmonary edema. proBNP level is mildly elevated. The patient has exertional dyspnea and orthopnea. Cardiac rhythm is sinus. The patient's troponins are negative. proBNP level is mildly elevated. Currently on 2 L of O2 nasal cannula, responding to diuresis Coronary artery disease with previous bypass surgery and the most recent cardiac catheterization from March 2023 showed a patent DYER to LAD and the rest of the grafts are all occluded. Systolic heart failure with an ejection fraction of 20 to 25%, consistent with ischemic cardiomyopathy History of ventricular tachycardia and the patient has an AICD placement and amiodarone COPD with a baseline FEV1 of 52% of predicted Chronic kidney disease stage III with a component of acute kidney injury (diuresis Obstructive sleep apnea Obesity with a BMI of 39.4 Hypertension Hyperlipidemia Diabetes mellitus type 2 Chronic smoker History of nephrolithiasis with previous lithotripsy Long-term steroid use and the patient has been maintained on prednisone 5 mg p.o. daily Plan Slightly improved compared to yesterday patient is being dosed IV Lasix, Lasix dose has been reduced to 40 mg every 12 hours and there is improvement in the lower extremity edema Monitor oxygenation and the patient is currently on 2 L O2 nasal cannula Continue bronchodilators with DuoNeb updrafts Discontinue IV Solu-Medrol Resume home medication including aspirin and Plavix and amiodarone 4 mg p.o. twice daily and the patient is on Coreg 12.5 mg p.o. twice daily Continue Imdur 30 mg p.o. daily Monitor renal function Continue prednisone maintenance at 5 mg p.o. daily Cardiology consultation Will continue to follow and make further recommendations based on his progress.
--- NOTE | 2023-12-01 19:15 | P.CRDCN ---
History of Present Illness Consult date: 11/30/23 Chief complaint: Congestive heart failure History of present illness: This is a 73-year-old gentleman who is known to our service from before with a past medical history significant for coronary artery disease status post CABG with the most recent heart catheterization in 2022 showing patent DYER to LAD and the occlusion of all vein grafts as well as cardiomyopathy with the also the most recent echo from 2022 showing impaired LV function with EF around 20% with moderate mitral regurgitation secondary to cardiomyopathy and also history of v entricular tachycardia with status post AICD as well as the patient currently on amiodarone and also chronic renal failure and hypertension and dyslipidemia and diabetes and smoking and chronic obstructive pulmonary disease. The patient presented to the hospital with symptoms and signs consistent with heart failure. He presented with progressive exertional dyspnea associated with orthopnea and lower extremities edema and weight gain. No pain in the chest and no dizziness or lightheadedness and no feeling of heart racing or fluttering and no presyncope or syncope. Unfortunately he continues to smoke. He stated that he has been compliant with his medications at home including diuretic where he was receiving Lasix at 40 mg twice daily and also has been compliant with his cardiomyopathy medications. He is not quite compliant with low-sodium diet. Further investigation performed including cardiac enzymes came in to be unremarkable and NT proBNP came in to be elevated and chest x-ray showed finding consistent with heart failure. The patient was subsequently placed on IV diuretics and he was admitted to the hospital for further evaluation. The physical examination is remarkable for diminished breathing sounds bilaterally and bilateral rhonchi and regular rate and rhythm with a systolic murmur at the apical area and bilateral lower extremities edema please note that the patient was hypoxic when he presented to the emergency department Assessment Acute hypoxic respiratory failure secondary to heart failure with reduced ejection fraction with evidence of right and left failure Severe cardiomyopathy with an ejection fraction of 20% Mitral regurgitation secondary to cardiomyopathy Coronary artery disease and status post CABG as described above with patent DYER to LAD and the occlusion of all vein grafts History of sustained ventricular tachycardia status post AICD and the patient currently is on amiodarone Obstructive sleep apnea Chronic kidney disease Multiple comorbid conditions including diabetes and hypertension and dyslipidemia Smoking Plan Continue the current medical regimen including the current dose of Lasix IV Monitor the kidney function and electrolytes Low-sodium diet and weight to daily Continue to maximize medical treatment for cardiomyopathy Consider adding Aldactone to the current medical regimen Consider replacing losartan with ARNI Consider adding SGLT2 inhibitors Follow-up with the patient Past Medical History Past Medical History: Coronary Artery Disease (CAD), Heart Failure, COPD, GERD/Reflux, Hyperlipidemia, Hypertension, Myocardial Infarction (CA), Osteoarthritis (OA), Renal Disease, Sleep Apnea/CPAP/BIPAP Additional Past Medical History / Comment(s): cardiomyopathy Last Myocardial Infarction Date:: 11/28/15 History of Any Multi-Drug Resistant Organisms: MRSA Date of last positivie culture/infection: 03/21/23 MDRO Source:: Chest Past Surgical History: Coronary Bypass/CABG, Heart Catheterization With Stent, Joint Replacement Additional Past Surgical History / Comment(s): 10/04/15 Total R hip arthroplasty. 1997 triple vessel CABG, Cardiac cath with stents, RECTAL FISTULA REPAIR, KIDNEY STONE, LITHROTRIPSY, single chamber AICD 07/10/2016 Past Anesthesia/Blood Transfusion Reactions: No Reported Reaction Additional Past Anesthesia/Blood Transfusion Reaction / Comment(s): Pt does not believe he has ever received blood. Date of Last Stent Placement:: 11/28/2015 Past Psychological History: No Psychological Hx Reported Additional Psychological History / Comment(s): Pt lives alone. He uses a cane or walker to ambulate. He is independent. He drives. Smoking Status: Current every day smoker Past Alcohol Use History: Rare Additional Past Alcohol Use History / Comment(s): STARTED SMOKING AT AGE 19 (1977) SMOKED 1 AND 1/2 PPD, HAS QUIT SMOKING IN PAST COUPLE MONTHS Past Drug Use History: None Reported - Past Family History Father Family Medical History: Cancer Additional Family Medical History / Comment(s): skin Mother Family Medical History: COPD, Pneumonia Additional Family Medical History / Comment(s): Mother at age 92 yrs. Medications and Allergies Home Medications Medication Instructions Recorded Confirmed Type Nitroglycerin Sl Tabs [Nitrostat] 0.4 mg SUBLINGUAL Q5M PRN 11/27/15 11/29/23 History Atorvastatin [Lipitor] 10 mg PO HS 07/06/16 11/29/23 History Furosemide [Lasix] 40 mg PO BID 07/06/16 11/29/23 History Isosorbide Mononitrate [Isosorbide 30 mg PO DAILY 07/06/16 11/29/23 History Mononitrate ER] Potassium Chloride ER [K-Dur 20] 20 meq PO BID 07/06/16 11/29/23 History Clopidogrel [Plavix] 75 mg PO DAILY 03/04/17 11/29/23 History Albuterol Nebulized [Ventolin 2.5 mg INHALATION RT-Q6H PRN 04/17/23 11/29/23 History Nebulized] Aspirin EC [Ecotrin Low Dose] 81 mg PO DAILY 04/17/23 11/29/23 History Pramipexole [Mirapex] 0.5 mg PO HS 04/17/23 11/29/23 History Pregabalin [Lyrica] 200 mg PO BID 04/17/23 11/29/23 History allopurinoL [Zyloprim] 100 mg PO TID 04/17/23 11/29/23 History metFORMIN HCL [Glucophage] 1,000 mg PO BID 04/17/23 11/29/23 History predniSONE 5 mg PO DAILY 04/17/23 11/29/23 History Amiodarone [Cordarone] 400 mg PO BID #60 tablet 04/20/23 11/29/23 Rx carvediloL [Coreg] 12.5 mg PO BID 11/29/23 11/29/23 History Allergies Allergy/AdvReac Type Severity Reaction Status Date / Time No Known Allergies Allergy Verified 11/29/23 15:18 Physical Exam Vitals: Vital Signs Temp Pulse Pulse Resp BP Pulse Ox 12/01/23 18:37 57 L 12/01/23 18:28 55 L 12/01/23 16:33 97.4 F L 57 L 17 103/59 93 L 12/01/23 15:30 57 L 12/01/23 15:22 58 L 12/01/23 12:00 97.5 F L 56 L 19 116/56 94 L 12/01/23 11:35 52 L 12/01/23 11:23 50 L 12/01/23 08:34 97.5 F L 60 19 106/52 93 L 12/01/23 07:53 71 12/01/23 07:46 95 12/01/23 07:44 67 12/01/23 03:23 98.2 F 59 L 20 122/76 95 11/30/23 23:41 98.7 F 53 L 22 125/71 98 11/30/23 19:55 72 11/30/23 19:45 97.8 F 57 L 20 118/81 97 03/02/24 19:43 68 Intake and Output 12/01/23 12/01/23 12/01/23 06:59 14:59 22:59 Intake Total 480 240 Output Total 1050 950 Balance -1050 480 -710 Intake: Oral 480 240 Output: Urine 1050 950 Other: Voiding Method External Catheter Weight 120 kg Results 12/01/23 10:31 12/01/23 10:31 CBC 12/01/23 Range/Units 10:31 WBC 11.7 H (3.8-10.6) k/uL RBC 3.90 L (4.30-5.90) m/uL Hgb 13.6 (13.0-17.5) gm/dL Hct 42.8 (39.0-53.0) % Plt Count 161 (150-450) k/uL Comprehensive Metabolic Panel 12/01/23 Range/Units 10:31 Sodium 136 L (137-145) mmol/L Potassium 4.4 (3.5-5.1) mmol/L Chloride 97 L (98-107) mmol/L Carbon Dioxide 31 H (22-30) mmol/L BUN 52 H (9-20) mg/dL Creatinine 2.21 H (0.66-1.25) mg/dL Glucose 206 H (74-99) mg/dL Calcium 8.4 (8.4-10.2) mg/dL Current Medications Generic Name Dose Route Start Last Admin Trade Name Freq PRN Reason Stop Dose Admin Acetaminophen 650 mg 11/29/23 15:08 11/30/23 20:16 Acetaminophen Tab 325 Mg Tab PO 650 mg Q4HR PRN Administration Mild Pain or Fever > 100.5 Albuterol/Ipratropium 3 ml 11/29/23 16:00 12/01/23 18:28 Ipratropium-Albuterol 3 Ml Neb INHALATION 3 ml RT-QID MILLICENT Administration Albuterol/Ipratropium 3 ml 11/29/23 15:08 Ipratropium-Albuterol 3 Ml Neb INHALATION RT-Q2H PRN Shortness Of Breath Or Wheezing Allopurinol 100 mg 11/30/23 12:45 12/01/23 16:25 Allopurinol 100 Mg Tab PO 100 mg TID MILLICENT Administration Amiodarone HCl 400 mg 11/29/23 21:00 12/01/23 08:35 Amiodarone 200 Mg Tab PO 400 mg BID MILLICENT Administration Aspirin 81 mg 11/29/23 17:45 12/01/23 08:34 Aspirin 81 Mg PO 81 mg DAILY MILLICENT Administration Atorvastatin Calcium 10 mg 11/29/23 21:00 11/30/23 20:16 Atorvastatin 10 Mg Tab PO 10 mg HS MILLICENT Administration Carvedilol 12.5 mg 11/29/23 21:00 12/01/23 16:25 Carvedilol 12.5 Mg Tab PO 12.5 mg AC-BID MILLICENT Administration Clopidogrel Bisulfate 75 mg 11/29/23 17:45 12/01/23 08:35 Clopidogrel 75 Mg Tab PO 75 mg DAILY MILLICENT Administration Dextrose/Water 25 ml 11/30/23 06:12 Dextrose 50% Syringe 50 Ml IVP PER PROTOCOL PRN Hypoglycemia Protocol Dextrose/Water 50 ml 11/30/23 06:12 Dextrose 50% Syringe 50 Ml IVP PER PROTOCOL PRN Hypoglycemia Protocol Furosemide 40 mg 12/01/23 21:00 Furosemide 10 Mg/Ml 4 Ml Vial IV Q12HR MILLICENT Guaifenesin 600 mg 11/30/23 21:00 12/01/23 08:35 Guaifenesin 600 Mg Tablet.Er PO 600 mg Q12HR MILLICENT Administration Heparin Sodium (Porcine) 5,000 unit 11/30/23 12:45 12/01/23 08:35 Heparin Sodium,Porcine 5,000 Unit/Ml 1 Ml Vial SQ 5,000 unit Q12HR MILLICENT Administration Insulin Aspart 0 unit 11/30/23 07:30 12/01/23 16:48 Insulin Aspart (Novolog) 100 Unit/Ml Vial SQ 2 unit ACHS MILLICENT Administration Protocol Isosorbide Mononitrate 30 mg 11/29/23 17:45 12/01/23 08:35 Isosorbide Mononitrate Er 30 Mg Tab.Er.24h PO 30 mg DAILY MILLICENT Administration Losartan Potassium 25 mg 11/30/23 10:00 12/01/23 08:35 Losartan 25 Mg Tab PO 25 mg DAILY MILLICENT Administration Multivit/Ca Carb/B Cmplx/FA/Prenat 1 each 12/01/23 13:45 12/01/23 16:25 Folic Acid-Vit B Complex-Vit C 1 Cap PO 1 each DAILY MILLICENT Administration Naloxone HCl 0.2 mg 11/29/23 15:08 Naloxone 0.4 Mg/Ml 1 Ml Vial IVP Q2M PRN Opioid Reversal Nitroglycerin 0.4 mg 11/29/23 17:37 Nitroglycerin Sl Tabs 0.4 Mg Tab SUBLINGUAL Q5M PRN Chest Pain Oxymetazoline HCl 2 spray 12/01/23 12:15 12/01/23 12:45 Oxymetazoline 0.05% Nasl [place] 1 [place] Bottle NASAL 2 spray BID MILLICENT Administration Pramipexole Dihydrochloride 0.5 mg 11/29/23 21:00 11/30/23 20:15 Pramipexole 0.5 Mg Tab PO 0.5 mg HS MILLICENT Administration Prednisone 5 mg 11/30/23 09:00 12/01/23 08:36 Prednisone 5 Mg Tab PO Not Given DAILY MILLICENT Pregabalin 200 mg 11/29/23 21:00 12/01/23 08:34 Pregabalin 100 Mg Cap PO 200 mg BID MILLICENT Administration Quetiapine Fumarate 50 mg 12/01/23 21:00 Quetiapine 50 Mg Tab PO HS MILLICENT Spironolactone 25 mg 11/30/23 10:00 12/01/23 08:35 Spironolactone 25 Mg Tab PO 25 mg DAILY MILLICENT Administration Intake and Output 12/01/23 12/01/23 12/01/23 06:59 14:59 22:59 Intake Total 480 240 Output Total 1050 950 Balance -1050 480 -710 Intake: Oral 480 240 Output: Urine 1050 950 Other: Voiding Method External Catheter Weight 120 kg 12/01/23 10:31 12/01/23 10:31
--- NOTE | 2023-12-01 19:18 | P.PN ---
Subjective Progress Note Date: 12/01/23 Principal diagnosis: Heart failure This is a 73-year-old gentleman who is known to our service from before with a past medical history significant for coronary artery disease status post CABG with the most recent heart catheterization in 2022 showing patent DYER to LAD and the occlusion of all vein grafts as well as cardiomyopathy with the also the most recent echo from 2022 showing impaired LV function with EF around 20% with moderate mitral regurgitation secondary to cardiomyopathy and also history of ventricular tachycardia with status post AICD as well as the patient currently on amiodarone and also chronic renal failure and hypertension and dyslipidemia and diabetes and smoking and chronic obstructive pulmonary disease. The patient presented to the hospital with symptoms and signs consistent with heart failure. He presented with progressive exertional dyspnea associated with orthopnea and lower extremities edema and weight gain. No pain in the chest and no dizziness or lightheadedness and no feeling of heart racing or fluttering and no presyncope or syncope. Unfortunately he continues to smoke. He stated that he has been compliant with his medications at home including diuretic where he was receiving Lasix at 40 mg twice daily and also has been compliant with his cardiomyopathy medications. He is not quite compliant with low-sodium diet. Further investigation performed including cardiac enzymes came in to be unremarkable and NT proBNP came in to be elevated and chest x-ray showed finding consistent with heart failure. The patient was subsequently placed on IV diuretics and he was admitted to the hospital for further evaluation. The physi rodney examination is remarkable for diminished breathing sounds bilaterally and bilateral rhonchi and regular rate and rhythm with a systolic murmur at the apical area and bilateral lower extremities edema please note that the patient was hypoxic when he presented to the emergency department December 01, 2023 The patient was seen and evaluated this afternoon. He is feeling better. The shortness of breath has improved. The lower extremities edema has improved. He is able to walk up and around with no shortness of breath interfering with his daily activities with his kidney function is slightly worse. Blood pressure has been marginally low. I am going to decrease the dose of losartan to 12.5 mg p.o. daily from 25 mg p.o. daily. The examination is remarkable for bilateral rhonchi and bilateral lower extremities edema. Assessment Acute hypoxic respiratory failure secondary to heart failure with reduced ejection fraction with evidence of right and left failure Severe cardiomyopathy with an ejection fraction of 20% Mitral regurgitation secondary to cardiomyopathy Coronary artery disease and status post CABG as described above with patent DYER to LAD and the occlusion of all vein grafts History of sustained ventricular tachycardia status post AICD and the patient currently is on amiodarone Obstructive sleep apnea Chronic kidney disease Multiple comorbid conditions including diabetes and hypertension and dyslipidemia Smoking Plan Agree to decrease the dose of Lasix to 40 mg twice daily Monitor the kidney function and electrolytes Decrease the dose of losartan in the light of marginally low blood pressure Low-sodium diet and weight to daily Continue to maximize medical treatment for cardiomyopathy Consider adding Aldactone to the current medical regimen Consider replacing losartan with ARNI Consider adding SGLT2 inhibitors Follow-up with the patient Objective - Vital Signs Vital signs: Vital Signs Temp 97.4 F L 12/01/23 16:33 Pulse 57 L 12/01/23 18:37 Resp 17 12/01/23 16:33 BP 103/59 12/01/23 16:33 Pulse Ox 93 L 12/01/23 16:33 FiO2 Intake & Output 12/01/23 12/01/23 12/02/23 06:59 18:59 06:59 Intake Total 720 Output Total 1050 950 Balance -1050 -230 Weight 120 kg Intake: Oral 720 Output: Urine 1050 950 Other: Voiding Method External Catheter External Catheter - Labs CBC & Chem 7: 12/01/23 10:31 12/01/23 10:31 Labs: Abnormal Lab Results - Last 24 Hours (Table) 11/29/23 11/30/23 12/01/23 Range/Units 11:40 19:50 05:58 WBC (3.8-10.6) k/uL RBC (4.30-5.90) m/uL MCV (80.0-100.0) fL Neutrophils # (1.3-7.7) k/uL Lymphocytes # (1.0-4.8) k/uL Macrocytosis Sodium (137-145) mmol/L Chloride (98-107) mmol/L Carbon Dioxide (22-30) mmol/L BUN (9-20) mg/dL Creatinine (0.66-1.25) mg/dL Glucose (74-99) mg/dL POC Glucose (mg/dL) 190 H 174 H (70-110) mg/dL Hemoglobin A1c 6.5 H (<=6.0) % 12/01/23 12/01/23 12/01/23 Range/Units 10:31 10:31 11:36 WBC 11.7 H (3.8-10.6) k/uL RBC 3.90 L (4.30-5.90) m/uL MCV 109.8 H (80.0-100.0) fL Neutrophils # 10.5 H (1.3-7.7) k/uL Lymphocytes # 0.4 L (1.0-4.8) k/uL Macrocytosis Marked A Sodium 136 L (137-145) mmol/L Chloride 97 L (98-107) mmol/L Carbon Dioxide 31 H (22-30) mmol/L BUN 52 H (9-20) mg/dL Creatinine 2.21 H (0.66-1.25) mg/dL Glucose 206 H (74-99) mg/dL POC Glucose (mg/dL) 187 H (70-110) mg/dL Hemoglobin A1c (<=6.0) % 12/01/23 Range/Units 16:31 WBC (3.8-10.6) k/uL RBC (4.30-5.90) m/uL MCV (80.0-100.0) fL Neutrophils # (1.3-7.7) k/uL Lymphocytes # (1.0-4.8) k/uL Macrocytosis Sodium (137-145) mmol/L Chloride (98-107) mmol/L Carbon Dioxide (22-30) mmol/L BUN (9-20) mg/dL Creatinine (0.66-1.25) mg/dL Glucose (74-99) mg/dL POC Glucose (mg/dL) 186 H (70-110) mg/dL Hemoglobin A1c (<=6.0) %
--- NOTE | 2023-12-01 19:53 | CA ---
Transthoracic Echo Report Name: Gagan Ba Age: 73 Gender: M : 1950 Exam Date: 11/30/2023 15:22 Exam Location: [facility] Ht (in): 69 Wt (lb): 261 Ordering Physician: Chano Armstrong MD ([id number]) Attending/Referring Phys: Ground Support Equipment Mechanic Caitlin Garcia RDCS Procedure CPT: Indications: hx heart failure Cardiac Hx: Technical Quality: Contrast 1: Definity Total Dose (mL): 2 Contrast 2: Total Dose (mL): MEASUREMENTS (Male / Female) Normal Values 2D ECHO LV Diastolic Diameter PLAX 7.0 cm 4.2 - 5.9 / 3.9 - 5.3 cm LV Systolic Diameter PLAX 6.0 cm IVS Diastolic Thickness 1.0 cm 0.6 - 1.0 / 0.6 - 0.9 cm LVPW Diastolic Thickness 0.9 cm 0.6 - 1.0 / 0.6 - 0.9 cm LV Relative Wall Thickness 0.3 LVOT Diameter 2.5 cm Aortic Root Diameter 4.5 cm LA Systolic Diameter LX 5.5 cm 3.0 - 4.0 / 2.7 - 3.8 cm DOPPLER AV Peak Velocity 108.5 cm/s AV Peak Gradient 4.7 mmHg AV Mean Velocity 81.4 cm/s AV Mean Gradient 2.9 mmHg AV Velocity Time Integral 24.8 cm LVOT Peak Velocity 111.0 cm/s LVOT Peak Gradient 4.9 mmHg LVOT Velocity Time Integral 25.4 cm LVOT Stroke Volume 124.8 cm??? LVOT Stroke Volume Index 53.9 ml/m??? LVOT Cardiac Index 2493.7 cm???/min???m??? AV Area Cont Eq vti 5.0 cm??? AV Area Cont Eq pk 5.0 cm??? MR Peak Velocity 192.2 cm/s MR Peak Gradient 14.8 mmHg Mitral E Point Velocity 93.0 cm/s Mitral A Point Velocity 64.4 cm/s Mitral E to A Ratio 1.4 MV Deceleration Time 180.1 ms TR Peak Velocity 193.4 cm/s TR Peak Gradient 15.0 mmHg PV Peak Velocity 55.0 cm/s PV Peak Gradient 1.2 mmHg FINDINGS Left Ventricle Severely increased left ventricular diastolic diameter. Left ventricular ejection fraction is estimated at 30-35% Right Ventricle Right ventricle not well visualized. Right Atrium Right atrium not well visualized. Left Atrium Severely increased left atrial diameter. Mitral Valve [id number] mitral regurgitation. Aortic Valve Aortic valve not well visualized. Tricuspid Valve Mild tricuspid regurgitation. Pulmonic Valve Pulmonic valve not well visualized. Pericardium No pericardial effusion. Aorta Corrected AO measurement 3.7cm. Normal size aortic root. CONCLUSIONS Previous echo recorded on 04/19/2023. Dilated LV with severely impaired LV function and EF at 30-35% [id number] MR Previewed by: Dr. Chano Armstrong MD (Electronically Signed) Final Date: 01 December 2023 19:53
[2023-12-01 20:00] LABS: Glucose,Whole Blood 223 mg/dL (70-110)
[2023-12-01] MEDS ORDERED: FUROSEMIDE 10 MG/ML 2 ML VIAL IV SCH (21:00)
[2023-12-01] MEDS: FUROSEMIDE 10 MG/ML 4 ML VIAL IV SCH (21:31)
[2023-12-01] MEDS: QUEtiapine 50 MG TAB PO SCH (21:32)
[2023-12-01 23:45] LABS: Glucose,Whole Blood 121 mg/dL (70-110)
[2023-12-02 00:04] LABS: ABG Base Excess 8.1 mmol/L; ABG HCO3 35 mmol/L (21-25); ABG PH 7.29 (7.35-7.45); ABG PO2 80 mmHg (83-108); ABG TCO2 37 mmol/L (19-24); Allen Test Performed? Yes
[2023-12-02 00:24] LABS: ABG Oxygen Saturation 94.3 % (94-97); ABG PCO2 73 mmHg (35-45)
--- NOTE | 2023-12-02 05:47 | CT ---
EXAMINATION TYPE: CT brain wo con DATE OF EXAM: 12/02/2023 HISTORY: AMS on bipap for [address] DLP: 1212.4 mGycm. Automated Exposure Control for Dose Reduction was Utilized. TECHNIQUE: CT scan of the head is performed without contrast. COMPARISON: CT brain March 27, 2023. FINDINGS: There is no acute intracranial hemorrhage or midline shift identified. There is mild diff use ventricular and sulcal prominence redemonstrated. There is mild low-attenuation in the periventr icular white matter redemonstrated. The globes are intact and the visualized sinuses are clear. So ft tissue density consistent with cerumen is redemonstrated in the deep right external auditory canal . IMPRESSION: No acute intracranial hemorrhage or midline shift. There is mild diffuse age-related ce rebral atrophy and chronic small vessel ischemic change redemonstrated. No significant change from p rior.
[2023-12-02 06:16] LABS: Glucose,Whole Blood 112 mg/dL (70-110)
[2023-12-02 09:47] LABS: Basophils % (A) 0 %; Eosinophils % (A) 0 %; HCT 42.5 % (39.0-53.0); HGB 13.3 gm/dL (13.0-17.5); Hypochromasia Moderate; Lymphocytes # (A) 0.8 k/uL (1.0-4.8); Lymphocytes % (A) 8 %; MCH 34.3 pg (25.0-35.0); MCHC 31.3 g/dL (31.0-37.0); MCV 109.6 fL (80.0-100.0); Macrocytosis Marked; Mean Platelet Volume 8.7; Monocytes # (A) 0.6 k/uL (0-1.0); Monocytes % (A) 7 %; Neutrophils # (A) 8.1 k/uL (1.3-7.7); Neutrophils % (A) 84 %; Platelet Count 134 k/uL (150-450); RBC 3.88 m/uL (4.30-5.90); RDW 14.9 % (11.5-15.5); WBC 9.6 k/uL (3.8-10.6)
[2023-12-02 10:18] LABS: African American GFR (CKD) 31 (>60 ml/min/1.73 sqM); Anion Gap 5 mmol/L; Blood Urea Nitrogen 68 mg/dL (9-20); Calcium 8.5 mg/dL (8.4-10.2); Carbon Dioxide 35 mmol/L (22-30); Chloride 99 mmol/L (98-107); Glucose 106 mg/dL (74-99); Magnesium 2.6 mg/dL (1.6-2.3); Non-African American GFR(CKD) 27 (>60 ml/min/1.73 sqM); Potassium 4.5 mmol/L (3.5-5.1); Sodium 139 mmol/L (137-145)
[2023-12-02 11:25] LABS: ABG Base Excess 7.5 mmol/L; ABG HCO3 34 mmol/L (21-25); ABG PCO2 66 mmHg (35-45); ABG PH 7.32 (7.35-7.45); ABG PO2 70 mmHg (83-108); ABG TCO2 36 mmol/L (19-24); Allen Test Performed? Yes
[2023-12-02 11:28] LABS: ABG Oxygen Saturation 93.2 % (94-97)
[2023-12-02 11:47] LABS: Glucose,Whole Blood 88 mg/dL (70-110)
--- NOTE | 2023-12-02 14:57 | P.PN ---
Subjective HISTORY OF PRESENT ILLNESS: This is a 73-year-old gentleman who is known to our service from before with a past medical history significant for coronary artery disease status post CABG with the most recent heart catheterization in 2022 showing patent DYER to LAD and the occlusion of all vein grafts as well as cardiomyopathy with the also the most recent echo from 2022 showing impaired LV function with EF around 20% with moderate mitral regurgitation secondary to cardiomyopathy and also history of ventricular tachycardia with status post AICD as well as the patient currently on amiodarone and also chronic renal failure and hypertension and dyslipidemia and diabetes and smoking and chronic obstructive pulmonary disease. The patient presented to the hospital with symptoms and signs consistent with heart failure. He presented with progressive exertional dyspnea associated with orthopnea and lower extremities edema and weight gain. No pain in the chest and no dizziness or lightheadedness and no feeling of heart racing or fluttering and no presyncope or syncope. Unfortunately he continues to smoke. He stated that he has been compliant with his medications at home including diuretic where he was receiving Lasix at 40 mg twice daily and also has been compliant with his cardiomyopathy medications. He is not quite compliant with low-sodium diet. Further investigation performed including cardiac enzymes came in to be unremarkable and NT proBNP came in to be elevated and chest x-ray showed finding consistent with heart failure. The patient was subsequently placed on IV diuretics and he was admitted to the hospital for further evaluation. The physical examination is remarkable for diminished breathing sounds bilaterally and bilateral rhonchi and regular rate and rhythm with a systolic murmur at the apical area and bilateral lower extremities edema please note that the patient was hypoxic when he presented to the emergency department December 01, 2023 The patient was seen and evaluated this afternoon. He is feeling better. The shortness of breath has improved. The lower extremities edema has improved. He is able to walk up and around with no shortness of breath interfering with his daily activities with his kidney function is slightly worse. Blood pressure has been marginally low. I am going to decrease the dose of losartan to 12.5 mg p.o. daily from 25 mg p.o. daily. The examination is remarkable for bilateral rhonchi and bilateral lower extremities edema. 12/02/2023 Patient examined this morning at the bedside. Patient denies chest pain or pressure. He is currently laying flat in bed and does not appear to be in any acute distress. He is currently on BiPAP. He remains on IV Lasix 40 mg twice a day. Creatinine slightly worsened today at 2.36. PHYSICAL EXAM: VITAL SIGNS: Reviewed. GENERAL: Well-developed in no acute distress. NECK: Supple. No JVD or thyromegaly LUNGS: Respirations even and unlabored. Lungs diminished bilaterally HEART: Regular rate and rhythm. S1 and S2 heard. EXTREMITIES: Normal range of motion. No clubbing or cyanosis. Peripheral pulses intact. 1-2+ lower extremity edema ASSESSMENT: Acute hypoxic respiratory failure secondary to heart failure with reduced e jection fraction with evidence of right and left failure Severe cardiomyopathy with an ejection fraction of 20% Mitral regurgitation secondary to cardiomyopathy Coronary artery disease and status post CABG as described above with patent DYER to LAD and the occlusion of all vein grafts History of sustained ventricular tachycardia status post AICD and the patient currently is on amiodarone Obstructive sleep apnea Chronic kidney disease Multiple comorbid conditions including diabetes and hypertension and dyslipidemia Nicotine dependence PLAN: Continue current cardiac medications Decrease IV Lasix to 40 mg daily Daily weights, accurate intake and output, and monitoring of kidney function Hold Aldactone and losartan secondary to worsening kidney function Further recommendations pending patient course Nurse practitioner note has been reviewed by physician. Signing provider agrees with the documented findings, assessment, and plan of care documented by VALVE INSPECTOR as a scribe. Objective - Vital Signs Vital signs: Vital Signs Temp 97.7 F 12/02/23 03:59 Pulse 60 12/02/23 12:57 Resp 20 12/02/23 08:00 BP 104/51 12/02/23 08:00 Pulse Ox 92 L 12/02/23 09:46 FiO2 30 12/02/23 12:47 Intake & Output 12/01/23 12/02/23 12/02/23 18:59 06:59 18:59 Intake Total 720 0 Output Total 950 750 Balance -230 -750 0 Weight 120.5 kg Intake: Oral 720 0 Output: Urine 950 750 Other: Voiding Method External Catheter Diaper Diaper - Labs CBC & Chem 7: 12/02/23 09:12 12/02/23 09:12 Labs: Abnormal Lab Results - Last 24 Hours (Table) 12/01/23 12/01/23 12/01/23 Range/Units 16:31 19:56 23:43 RBC (4.30-5.90) m/uL MCV (80.0-100.0) fL Plt Count (150-450) k/uL Neutrophils # (1.3-7.7) k/uL Lymphocytes # (1.0-4.8) k/uL Macrocytosis ABG pH (7.35-7.45) ABG pCO2 (35-45) mmHg ABG pO2 (83-108) mmHg ABG HCO3 (21-25) mmol/L ABG Total CO2 (19-24) mmol/L ABG O2 Saturation (94-97) % Carbon Dioxide (22-30) mmol/L BUN (9-20) mg/dL Creatinine (0.66-1.25) mg/dL Glucose (74-99) mg/dL POC Glucose (mg/dL) 186 H 223 H 121 H (70-110) mg/dL Magnesium (1.6-2.3) mg/dL 12/01/23 12/02/23 12/02/23 Range/Units 23:59 06:07 09:12 RBC 3.88 L (4.30-5.90) m/uL MCV 109.6 H (80.0-100.0) fL Plt Count 134 L (150-450) k/uL Neutrophils # 8.1 H (1.3-7.7) k/uL Lymphocytes # 0.8 L (1.0-4.8) k/uL Macrocytosis Marked A ABG pH 7.29 L (7.35-7.45) ABG pCO2 73 H* (35-45) mmHg ABG pO2 80 L (83-108) mmHg ABG HCO3 35 H (21-25) mmol/L ABG Total CO2 37 H (19-24) mmol/L ABG O2 Saturation (94-97) % Carbon Dioxide (22-30) mmol/L BUN (9-20) mg/dL Creatinine (0.66-1.25) mg/dL Glucose (74-99) mg/dL POC Glucose (mg/dL) 112 H (70-110) mg/dL Magnesium (1.6-2.3) mg/dL 12/02/23 12/02/23 Range/Units 09:12 11:19 RBC (4.30-5.90) m/uL MCV (80.0-100.0) fL Plt Count (150-450) k/uL Neutrophils # (1.3-7.7) k/uL Lymphocytes # (1.0-4.8) k/uL Macrocytosis ABG pH 7.32 L (7.35-7.45) ABG pCO2 66 H (35-45) mmHg ABG pO2 70 L (83-108) mmHg ABG HCO3 34 H (21-25) mmol/L ABG Total CO2 36 H (19-24) mmol/L ABG O2 Saturation 93.2 L (94-97) % Carbon Dioxide 35 H (22-30) mmol/L BUN 68 H (9-20) mg/dL Creatinine 2.36 H (0.66-1.25) mg/dL Glucose 106 H (74-99) mg/dL POC Glucose (mg/dL) (70-110) mg/dL Magnesium 2.6 H (1.6-2.3) mg/dL
--- NOTE | 2023-12-02 15:29 | P.PN ---
Subjective Progress Note Date: 12/02/23 This is a 73-year-old male patient came into the emergency department because of difficulty breathing. The patient was having exertional dyspnea, and orthopnea. He was unable to lay down flat and I saw him in the emergency department sitting up. He also had increasing lower extremity edema. His pulse ox was in the mid 80s at the time of his arrival. The patient's pulse ox currently improved. Is known to have a long cardiac history in addition to COPD. He is a chronic smoker and he is still smoking few cigarettes on a daily basis. He has cut down his smoking approximately a month ago. He also has history of Severe COPD and the patient's FEV1 is in the order of 52% of predicted. Does not u tilize any form of maintenance respiratory medications and is mainly using Trelegy Ellipta samples as given to him by his primary care physician and his filter tender. He also uses albuterol nebulized treatments [id number]. Not oxygen dependent at this point in time. The patient has other comorbidities including coronary artery disease, previous bypass surgery, previous coronary stenting, ischemic cardiomyopathy and the patient has an AICD in place. Based on the most recent echocardiogram that was done on this patient on 04/19/2023, the patient has severe systolic heart failure with an ejection fraction of 20 to 25% and the patient also has grade 2 diastolic heart failure, moderate functional mitral regurgitation, severe and a dilatation, moderate RV dilatation. He also has mild pulmonary hypertension. The patient was in the hospital back in March 2023 after having some issues with ventricular tachycardia requiring discharge from his AICD and the patient was treated with amiodarone. He has been given an ICD back in 2016. Other COVID conditions include hypertension, hyperlipidemia and diabetes mellitus and the patient also has chronic stage III kidney disease. He has baseline GFR has been in the mid 40s. The patient is currently is having shortness of breath. He was started on IV Lasix. His chest x-ray is consistent with CHF with pulmonary edema. There is also some bibasilar atelectatic changes noted. The patient was started on IV Lasix in the emergency department. The white cell count at 7.3 with a hemoglobin 15.7 and a platelet count of 171. Normal coagulation profile. BUN is 36 with a creatinine of 1.7 and sodium levels of 140. His proBNP level is 2 430. His EKG showing sinus bradycardia with a bundle branch block pattern. Is likely a right bundle branch block. His last cardiac catheterization was done on March 2023 and the patient was found to have CAD with 100% proximal LAD, 40 to 50% distal left main, 60 to 70% ostial ramus, 50% proximal circumflex and 100% RCA. He has patent DYER to LAD and the rest of the grafts are all occluded. On today's evaluation of 11/30/2023, the patient is comfortable on 2 L of oxygen nasal cannula with a pulse ox of 93%. Afebrile. Remains on IV Lasix and the fluid balance has been negative over the past 24 hours. No chest pain. No cardiac arrhythmias. No other new complaints otherwise for now. He is receiving Lasix 40 mg IV every 8 hours. Outpatient medications have been resumed. He is also DuoNeb updrafts and IV Solu-Medrol which will be tapered off as the patient's not having any significant bronchospasm wheezing. On today's evaluation of 11/30/2023, the patient is feeling better compared to yesterday. Is less short of breath. He was admitted to the hospital because of worsening shortness of breath and exacerbation of his chronic CHF it is known to have coronary artery disease. Severe cardiomyopathy with EF around 20 to 25%. The patient remains on IV Lasix at a dose of 40 mg every 12 hours. Fluid balance over the past 24 hours has been -569 cc and the patient's creatinine is at 2.2 with a BUN of 52. Sodium levels at 136. Based on the rise in the creatinine, the patient's diuretic dose has been reduced. WBC count 11.7 with a hemoglobin 13.6 and a platelet count of 161. He remains on 2 L of oxygen by nasal cannula with a pulse ox of 93%. He has no other specific complaints. He remains on DuoNeb updrafts. He is also on the maintenance prednisone of 5 mg p.o. daily. IV Solu-Medrol will be discontinued. The patient is seen today December 02, 2023 in follow-up on the regular medical floor. He is currently laying in bed. Awake and alert. He is on BiPAP 10/5 and 30% FiO2. Still with significant abdominal and lower extremity edema. CT scan of the brain revealed no acute intracranial hemorrhage or midline shift. Arterial blood gases revealed a pO2 of 70, pCO2 66 and a pH of 7.32. White count 9.6. Hemoglobin 13.3. Platelets 134. Sodium 139. Potassium 4.5. Bicarb 35. BUN 68. Creatinine 2.36. Glucose 106. No accurate intake and output. He is receiving Lasix 40 mg IV every 12 hours. Continued on bronchodilators. Heparin for DVT prophylaxis. Objective - Vital Signs Vital signs: Vital Signs Temp 97.7 F 12/02/23 03:59 Pulse 60 12/02/23 12:57 Resp 20 12/02/23 08:00 BP 104/51 12/02/23 08:00 Pulse Ox 92 L 12/02/23 09:46 FiO2 30 12/02/23 12:47 Intake & Output 12/01/23 12/02/23 12/02/23 18:59 06:59 18:59 Intake Total 720 0 Output Total 950 750 Balance -230 -750 0 Weight 120.5 kg Intake: Oral 720 0 Output: Urine 950 750 Other: Voiding Method External Catheter Diaper Diaper - Exam GENERAL EXAM: Arousable, obese 72-year-old male, on BiPAP 10/5 and 30% FiO2. HEAD: Normocephalic. EYES: Normal reaction of pupils, equal size. NOSE: Clear with pink turbinates. THROAT: No erythema or exudates. NECK: No masses, no JVD. CHEST: No chest wall deformity. LUNGS: Equal air entry with coarse crackles in the lung bases bilaterally CVS: S1 and S2 normal with no audible murmur, regular rhythm. ABDOMEN: No hepatosplenomegaly, normal bowel sounds, no guarding or rigidity. SPINE: No scoliosis or deformity SKIN: No rashes CENTRAL NERVOUS SYSTEM: No focal deficits, tone is normal in all 4 extremities. EXTREMITIES: There is no peripheral edema. No clubbing, no cyanosis. Perip heral pulses are intact. - Labs CBC & Chem 7: 12/02/23 09:12 12/02/23 09:12 Labs: Abnormal Lab Results - Last 24 Hours (Table) 12/01/23 12/01/23 12/01/23 Range/Units 16:31 19:56 23:43 RBC (4.30-5.90) m/uL MCV (80.0-100.0) fL Plt Count (150-450) k/uL Neutrophils # (1.3-7.7) k/uL Lymphocytes # (1.0-4.8) k/uL Macrocytosis ABG pH (7.35-7.45) ABG pCO2 (35-45) mmHg ABG pO2 (83-108) mmHg ABG HCO3 (21-25) mmol/L ABG Total CO2 (19-24) mmol/L ABG O2 Saturation (94-97) % Carbon Dioxide (22-30) mmol/L BUN (9-20) mg/dL Creatinine (0.66-1.25) mg/dL Glucose (74-99) mg/dL POC Glucose (mg/dL) 186 H 223 H 121 H (70-110) mg/dL Magnesium (1.6-2.3) mg/dL 12/01/23 12/02/23 12/02/23 Range/Units 23:59 06:07 09:12 RBC 3.88 L (4.30-5.90) m/uL MCV 109.6 H (80.0-100.0) fL Plt Count 134 L (150-450) k/uL Neutrophils # 8.1 H (1.3-7.7) k/uL Lymphocytes # 0.8 L (1.0-4.8) k/uL Macrocytosis Marked A ABG pH 7.29 L (7.35-7.45) ABG pCO2 73 H* (35-45) mmHg ABG pO2 80 L (83-108) mmHg ABG HCO3 35 H (21-25) mmol/L ABG Total CO2 37 H (19-24) mmol/L ABG O2 Saturation (94-97) % Carbon Dioxide (22-30) mmol/L BUN (9-20) mg/dL Creatinine (0.66-1.25) mg/dL Glucose (74-99) mg/dL POC Glucose (mg/dL) 112 H (70-110) mg/dL Magnesium (1.6-2.3) mg/dL 12/02/23 12/02/23 Range/Units 09:12 11:19 RBC (4.30-5.90) m/uL MCV (80.0-100.0) fL Plt Count (150-450) k/uL Neutrophils # (1.3-7.7) k/uL Lymphocytes # (1.0-4.8) k/uL Macrocytosis ABG pH 7.32 L (7.35-7.45) ABG pCO2 66 H (35-45) mmHg ABG pO2 70 L (83-108) mmHg ABG HCO3 34 H (21-25) mmol/L ABG Total CO2 36 H (19-24) mmol/L ABG O2 Saturation 93.2 L (94-97) % Carbon Dioxide 35 H (22-30) mmol/L BUN 68 H (9-20) mg/dL Creatinine 2.36 H (0.66-1.25) mg/dL Glucose 106 H (74-99) mg/dL POC Glucose (mg/dL) (70-110) mg/dL Magnesium 2.6 H (1.6-2.3) mg/dL Assessment and Plan Assessment: Acute on chronic shortness of breath attributed to decompensated CHF with evidence of pulmonary edema. proBNP level is mildly elevated. proBNP level is mildly elevated. Currently on BiPAP 10/5 and 30% FiO2, responding to diuresis Coronary artery disease with previous bypass surgery and the most recent cardiac catheterization from March 2023 showed a patent DYER to LAD and the rest of the grafts are all occluded. Systolic heart failure with an ejection fraction of 20 to 25%, consistent with ischemic cardiomyopathy History of ventricular tachycardia and the patient has an AICD placement and a miodarone COPD with a baseline FEV1 of 52% of predicted Chronic kidney disease stage III with a component of acute kidney injury due to diuresis Obstructive sleep apnea Obesity with a BMI of 39.2 Hypertension Hyperlipidemia Diabetes mellitus type 2 Chronic smoker History of nephrolithiasis with previous lithotripsy Long-term steroid use and the patient has been maintained on prednisone 5 mg p.o. daily Plan: The patient was seen and evaluated Labs, ABGs and medications reviewed Increase the IPAP to 14/5 and 30% FiO2 Titrate the FiO2 as tolerated Continue bronchodilators, prednisone Overall prognosis is poor CODE STATUS to be addressed We will continue to follow I have personally seen and examined the patient, performed the documentation and the assessment and plan as written. Number of minutes spent on the visit: 10.
[2023-12-02 16:24] LABS: Glucose,Whole Blood 77 mg/dL (70-110)
[2023-12-02] MEDS: LOSARTAN 25 MG TAB PO SCH (17:53)
[2023-12-02 19:57] LABS: Glucose,Whole Blood 230 mg/dL (70-110)
[2023-12-03 06:08] LABS: Glucose,Whole Blood 137 mg/dL (70-110)
[2023-12-03] MEDS: FUROSEMIDE 10 MG/ML 4 ML VIAL IV SCH (09:07)
[2023-12-03 09:29] LABS: Basophils % (A) 0 %; Eosinophils % (A) 0 %; HCT 42.2 % (39.0-53.0); HGB 12.8 gm/dL (13.0-17.5); Hypochromasia Marked; Lymphocytes # (A) 0.7 k/uL (1.0-4.8); Lymphocytes % (A) 10 %; MCH 33.9 pg (25.0-35.0); MCHC 30.5 g/dL (31.0-37.0); MCV 111.2 fL (80.0-100.0); Mean Platelet Volume 8.7; Monocytes # (A) 0.6 k/uL (0-1.0); Monocytes % (A) 8 %; Neutrophils # (A) 5.8 k/uL (1.3-7.7); Neutrophils % (A) 81 %; Platelet Count 132 k/uL (150-450); RBC 3.79 m/uL (4.30-5.90); RDW 14.8 % (11.5-15.5); WBC 7.2 k/uL (3.8-10.6)
[2023-12-03 09:52] LABS: African American GFR (CKD) 27 (>60 ml/min/1.73 sqM); Anion Gap 2 mmol/L; Blood Urea Nitrogen 59 mg/dL (9-20); Calcium 8.1 mg/dL (8.4-10.2); Carbon Dioxide 39 mmol/L (22-30); Chloride 101 mmol/L (98-107); Glucose 117 mg/dL (74-99); Non-African American GFR(CKD) 23 (>60 ml/min/1.73 sqM); Potassium 4.1 mmol/L (3.5-5.1); Sodium 142 mmol/L (137-145)
[2023-12-03 09:56] LABS: Macrocytosis Marked
[2023-12-03 12:00] LABS: Glucose,Whole Blood 117 mg/dL (70-110)
--- NOTE | 2023-12-03 12:39 | P.NPCON ---
History of Present Illness - Reason for Consult acute renal failure - History of Present Illness Patient is a 73-year-old male with history of coronary artery disease hypertension, chronic kidney disease stage IIIB secondary to nephrosclerosis with baseline creatinine around 1.5-1.6 mg/dL. Patient is admitted to the hospital with increasing shortness of breath. Patient is being diuresed for CHF exacerbation and pulmonary edema. He also has underlying COPD. Blood pressure has been borderline with systolic around 100-104 mmHg It appears that patient had some urinary retention with 500 mL of urine obtained on straight catheterization. A Christy catheter is now in place. Serum creatinine was 1.7 on initial admission and has increased to 2.6 today. Oxygen requirements have decreased with currently at 2 L via nasal cannula. Lasix dose has been decreased as well. Review of Systems As per HPI Past Medical History Past Medical History: Coronary Artery Disease (CAD), Heart Failure, COPD, GERD/Reflux, Hyperlipidemia, Hypertension, Myocardial Infarction ([place]), Osteoarthritis (OA), Renal Disease, Sleep Apnea/CPAP/BIPAP Additional Past Medical History / Comment(s): cardiomyopathy Last Myocardial Infarction Date:: 11/28/15 History of Any Multi-Drug Resistant Organisms: MRSA Date of last positivie culture/infection: 03/21/23 MDRO Source:: Chest Past Surgical History: Coronary Bypass/CABG, Heart Catheterization With Stent, Joint Replacement Additional Past Surgical History / Comment(s): 10/04/15 Total R hip arthroplasty. 1997 triple vessel CABG, Cardiac cath with stents, RECTAL FISTULA REPAIR, KIDNEY STONE, LITHROTRIPSY, single chamber AICD 07/10/2016 Past Anesthesia/Blood Transfusion Reactions: No Reported Reaction Additional Past Anesthesia/Blood Transfusion Reaction / Comment(s): Pt does not believe he has ever received blood. Date of Last Stent Placement:: 11/28/2015 Smoking Status: Current every day smoker - Past Family History Father Family Medical History: Cancer Additional Family Medical History / Comment(s): skin Mother Family Medical History: COPD, Pneumonia Additional Family Medical History / Comment(s): Mother at age 92 yrs. Medications and Allergies Home Medications Medication Instructions Recorded Confirmed Type Nitroglycerin Sl Tabs [Nitrostat] 0.4 mg SUBLINGUAL Q5M PRN 11/27/15 11/29/23 History Atorvastatin [Lipitor] 10 mg PO HS 07/06/16 11/29/23 History Furosemide [Lasix] 40 mg PO BID 07/06/16 11/29/23 History Isosorbide Mononitrate [Isosorbide 30 mg PO DAILY 07/06/16 11/29/23 History Mononitrate ER] Potassium Chloride ER [K-Dur 20] 20 meq PO BID 07/06/16 11/29/23 History Clopidogrel [Plavix] 75 mg PO DAILY 03/04/17 11/29/23 History Albuterol Nebulized [Ventolin 2.5 mg INHALATION RT-Q6H PRN 04/17/23 11/29/23 History Nebulized] Aspirin EC [Ecotrin Low Dose] 81 mg PO DAILY 04/17/23 11/29/23 History Pramipexole [Mirapex] 0.5 mg PO HS 04/17/23 11/29/23 History Pregabalin [Lyrica] 200 mg PO BID 04/17/23 11/29/23 History allopurinoL [Zyloprim] 100 mg PO TID 04/17/23 11/29/23 History metFORMIN HCL [Glucophage] 1,000 mg PO BID 04/17/23 11/29/23 History predniSONE 5 mg PO DAILY 04/17/23 11/29/23 History Amiodarone [Cordarone] 400 mg PO BID #60 tablet 04/20/23 11/29/23 Rx carvediloL [Coreg] 12.5 mg PO BID 11/29/23 11/29/23 History Allergies Allergy/AdvReac Type Severity Reaction Status Date / Time No Known Allergies Allergy Verified 11/29/23 15:18 Physical Exam Vitals: Vital Signs Temp Pulse Pulse Resp BP Pulse Ox FiO2 12/03/23 12:06 76 12/03/23 11:55 76 12/03/23 11:50 94 L 12/03/23 08:04 80 12/03/23 08:00 98.0 F 62 20 122/60 93 L 12/03/23 07:44 84 30 12/03/23 04:00 97.8 F 87 19 141/65 97 30 12/03/23 00:00 97.9 F 57 L 21 118/56 95 30 12/02/23 23:35 30 12/02/23 20:47 70 12/02/23 20:39 68 12/02/23 20:00 98.7 F 79 19 116/56 92 L 12/02/23 16:45 68 12/02/23 16:28 64 30 12/02/23 16:00 60 123/58 91 L 12/02/23 14:00 62 20 12/02/23 12:57 60 12/02/23 12:47 64 30 Intake and Output 12/02/23 12/03/23 12/03/23 22:59 06:59 14:59 Intake Total 1020 180 Output Total 1000 700 Balance 20 -700 180 Intake: Oral 1020 180 Output: Urine 1000 700 Straight 500 Other: Voiding Method Diaper Diaper Indwelling Catheter Weight 120 kg Patient is awake, comfortable, no acute distress Examination of the heart S1 and S2 Examination of the lungs bilateral breath sounds are heard Abdomen is soft nontender, obese Examination of lower extremities shows chronic skin changes with edema 1+ 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 Acute kidney injury, cardiorenal and secondary to urine retention. Currently with indwelling Christy catheter. Patient has been diuresed and Lasix dose has been decreased. Check UA. Check ultrasound of the kidneys. Blood pressure is currently not low 2. Urine retention currently with indwelling Christy catheter 3. Acute exacerbation of CHF with reduced ejection fraction at 30-35%. 4. Volume overload 5. History of COPD 6. Coronary artery disease with ischemic cardiomyopathy and previous coronary stents. Plan: Continue current dose of IV Lasix Continue with Christy catheter Check UA Check ultrasound of the kidneys Repeat labs in a.m. Follow-up in the office for CK D management post discharge. Next Thank you for the consultation. We will continue to follow the patient with you during his hospitalization
--- NOTE | 2023-12-03 13:05 | P.PN ---
Subjective HISTORY OF PRESENT ILLNESS: This is a 73-year-old gentleman who is known to our service from before with a past medical history significant for coronary artery disease status post CABG with the most recent heart catheterization in 2022 showing patent DYER to LAD and the occlusion of all vein grafts as well as cardiomyopathy with the also the most recent echo from 2022 showing impaired LV function with EF around 20% with moderate mitral regurgitation secondary to cardiomyopathy and also history of ventricular tachycardia with status post AICD as well as the patient currently on amiodarone and also chronic renal failure and hypertension and dyslipidemia and diabetes and smoking and chronic obstructive pulmonary disease. The patient presented to the hospital with symptoms and signs consistent with heart failure. He presented with progressive exertional dyspnea associated with orthopnea and lower extremities edema and weight gain. No pain in the chest and no dizziness or lightheadedness and no feeling of heart racing or fluttering and no presyncope or syncope. Unfortunately he continues to smoke. He stated that he has been compliant with his medications at home including diuretic where he was receiving Lasix at 40 mg twice daily and also has been compliant with his cardiomyopathy medications. He is not quite compliant with low-sodium diet. Further investigation performed including cardiac enzymes came in to be unremarkable and NT proBNP came in to be elevated and chest x-ray showed finding consistent with heart failure. The patient was subsequently placed on IV diuretics and he was admitted to the hospital for further evaluation. The physical examination is remarkable for diminished breathing sounds bilaterally and bilateral rhonchi and regular rate and rhythm with a systolic murmur at the apical area and bilateral lower extremities edema please note that the patient was hypoxic when he presented to the emergency department December 01, 2023 The patient was seen and evaluated this afternoon. He is feeling better. The shortness of breath has improved. The lower extremities edema has improved. He is able to walk up and around with no shortness of breath interfering with his daily activities with his kidney function is slightly worse. Blood pressure has been marginally low. I am going to decrease the dose of losartan to 12.5 mg p.o. daily from 25 mg p.o. daily. The examination is remarkable for bilateral rhonchi and bilateral lower extremities edema. 12/02/2023 Patient examined this morning at the bedside. Patient denies chest pain or pressure. He is currently laying flat in bed and does not appear to be in any acute distress. He is currently on BiPAP. He remains on IV Lasix 40 mg twice a day. Creatinine slightly worsened today at 2.36. 12/03/2023 Patient examined this morning. Patient is sitting on the side of the bed. He denies chest pain or pressure. He reports improvement in his shortness of breath. He remains on IV Lasix 40 mg daily. Creatinine is worsened today at 2.63. Blood pressure stable with a recent reading of 122/60. PHYSICAL EXAM: VITAL SIGNS: Reviewed. GENERAL: Well-developed in no acute distress. NECK: Supple. No JVD or thyromegaly LUNGS: Respirations even and unlabored. Lungs diminished bilaterally HEART: Regular rate and rhythm. S1 and S2 heard. EXTREMITIES: Normal range of motion. No clubbing or cyanosis. Peripheral pulses intact. 1-2+ lower extremity edema ASSESSMENT: Acute hypoxic respiratory failure secondary to heart failure with reduced ejection fraction with evidence of right and left failure Severe cardiomyopathy with an ejection fraction of 20% Mitral regurgitation secondary to cardiomyopathy Coronary artery disease and status post CABG as described above with patent DYER to LAD and the occlusion of all vein grafts History of sustained ventricular tachycardia status post AICD; on amiodarone Obstructive sleep apnea Chronic kidney disease Multiple comorbid conditions including diabetes and hypertension and dyslipidemia Nicotine dependence PLAN: Continue current cardiac medications Decrease amiodarone to 100 mg daily Continue IV Lasix to 40 mg daily Daily weights, accurate intake and output, and monitoring of kidney function Aldactone and losartan placed on hold yesterday secondary to worsening kidney function Consult nephrology for evaluation Obtain repeat EKG Further recommendations pending patient course Nurse practitioner note has been reviewed by physician. Signing provider agrees with the documented findings, assessment, and plan of care documented by [employer] UT[employer] WORKER as a scribe. Objective - Vital Signs Vital signs: Vital Signs Temp 98.0 F 12/03/23 08:00 Pulse 76 12/03/23 12:06 Resp 20 12/03/23 08:00 BP 122/60 12/03/23 08:00 Pulse Ox 94 L 12/03/23 11:50 FiO2 30 12/03/23 07:44 Intake & Output 12/02/23 12/03/23 12/03/23 18:59 06:59 18:59 Intake Total 120 900 180 Output Total 1700 Balance 120 -800 180 Weight 120 kg Intake: Oral 120 900 180 Output: Urine 1700 Straight 500 Other: Voiding Method Diaper Diaper Indwelling Catheter - Labs CBC & Chem 7: 12/03/23 08:16 12/03/23 08:16 Labs: Abnormal Lab Results - Last 24 Hours (Table) 12/02/23 12/03/23 12/03/23 Range/Units 19:56 06:07 08:16 RBC 3.79 L (4.30-5.90) m/uL Hgb 12.8 L (13.0-17.5) gm/dL MCV 111.2 H (80.0-100.0) fL MCHC 30.5 L (31.0-37.0) g/dL Plt Count 132 L (150-450) k/uL Lymphocytes # 0.7 L (1.0-4.8) k/uL Macrocytosis Marked A Carbon Dioxide (22-30) mmol/L BUN (9-20) mg/dL Creatinine (0.66-1.25) mg/dL Glucose (74-99) mg/dL POC Glucose (mg/dL) 230 H 137 H (70-110) mg/dL Calcium (8.4-10.2) mg/dL 12/03/23 12/03/23 Range/Units 08:16 11:59 RBC (4.30-5.90) m/uL Hgb (13.0-17.5) gm/dL MCV (80.0-100.0) fL MCHC (31.0-37.0) g/dL Plt Count (150-450) k/uL Lymphocytes # (1.0-4.8) k/uL Macrocytosis Carbon Dioxide 39 H (22-30) mmol/L BUN 59 H (9-20) mg/dL Creatinine 2.63 H (0.66-1.25) mg/dL Glucose 117 H (74-99) mg/dL POC Glucose (mg/dL) 117 H (70-110) mg/dL Calcium 8.1 L (8.4-10.2) mg/dL
--- NOTE | 2023-12-03 14:10 | P.PN ---
Subjective Progress Note Date: 12/02/23 11/29/2023 Braeden is 73-year-old white male with known COPD and CHF. He presented the office today with increased shortness of breath and diaphoretic. His pulse oximetry was 82% on room air. EMS was called he was transported to the emergency room. He is now on 3 L O2. He is slightly improved. He is currently being seen in emergency room now bed 24. He indicates his symptoms been worsening the past week and a half. He had waited to get in the office and not called sooner as he thought he would improve on his own. He is a known smoker and been trying to quit. November 30, 2023: Patient is resting much more comfortably. He is now 1 to the stepdown unit. Home medications have been reordered. Pulmonology has seen him, cardiology visit is pending. He feels overall improved. Less shortness of b reath. He is urinating using a urinal. He denies any current chest pains pressures or shortness of breath at rest. Oxygen is at 3 L/min. He indicates last night he hallucinated but that quickly resolved. December 01, 2023: Patient seen evaluated for acute exacerbation of his congestive heart failure. He remains in the stepdown unit. He continues on his current medications. He does report hallucinations while awake and at night. He does report that he does not sleep great in the hospital. He does have obstructive sleep apnea and uses a CPAP. But he has not received this. He remains on IV steroids along with IV Lasix. Clinically is overall improved. Oxygen requirement is now down to 2 L via nasal cannula. Labs show a slight leukocytosis with some macrocytosis noted. He has a history of EtOH. 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 ABGs noted. brain CT reported no acute intracranial hemorrhage or midline shift.Maintained on BiPAP, Lasix IV push-inaccurate I&O. Afebrile, normal WBC, hemoglobin 13.3, platelets 134, sodium 139, potassium 4.5, bicarb 35. Worsening renal function, BUN 68, creatinine 2.36. Magnesium 2.6, glucose 106. Objective - Vital Signs Vital signs: Vital Signs Temp 97.7 F 12/02/23 03:59 Pulse 60 12/02/23 12:57 Resp 20 12/02/23 08:00 BP 104/51 12/02/23 08:00 Pulse Ox 92 L 12/02/23 09:46 FiO2 30 12/02/23 12:47 Intake & Output 12/01/23 12/02/23 12/02/23 18:59 06:59 18:59 Intake Total 720 0 Output Total 950 750 Balance -230 -750 0 Weight 120.5 kg Intake: Oral 720 0 Output: Urine 950 750 Other: Voiding Method External Catheter Diaper Diaper - Exam GENERAL: lying in bed, wearing BiPAP NECK: Supple, no JVD LUNGS: Equal air entry, scattered coarse crackles in bilateral bases. HEART: Regular rate and rhythm without murmurs, rubs or gallops.S1S2 Normal ABDOMEN: Soft, nontender, normoactive bowel sounds. No guarding, no rebound. No masses appreciated. EXTREMITIES: Positive lower extremity edema. NEUROLOGICAL: No focal deficits. SKIN: Warm, Dry, normal turgor, no rashes or lesions noted. - Labs CBC & Chem 7: 12/03/23 08:16 12/03/23 08:16 Labs: Abnormal Lab Results - Last 24 Hours (Table) 12/01/23 12/01/23 12/01/23 Range/Units 16:31 19:56 23:43 RBC (4.30-5.90) m/uL MCV (80.0-100.0) fL Plt Count (150-450) k/uL Neutrophils # (1.3-7.7) k/uL Lymphocytes # (1.0-4.8) k/uL Macrocytosis ABG pH (7.35-7.45) ABG pCO2 (35-45) mmHg ABG pO2 (83-108) mmHg ABG HCO3 (21-25) mmol/L ABG Total CO2 (19-24) mmol/L ABG O2 Saturation (94-97) % Carbon Dioxide (22-30) mmol/L BUN (9-20) mg/dL Creatinine (0.66-1.25) mg/dL Glucose (74-99) mg/dL POC Glucose (mg/dL) 186 H 223 H 121 H (70-110) mg/dL Magnesium (1.6-2.3) mg/dL 12/01/23 12/02/23 12/02/23 Range/Units 23:59 06:07 09:12 RBC 3.88 L (4.30-5.90) m/uL MCV 109.6 H (80.0-100.0) fL Plt Count 134 L (150-450) k/uL Neutrophils # 8.1 H (1.3-7.7) k/uL Lymphocytes # 0.8 L (1.0-4.8) k/uL Macrocytosis Marked A ABG pH 7.29 L (7.35-7.45) ABG pCO2 73 H* (35-45) mmHg ABG pO2 80 L (83-108) mmHg ABG HCO3 35 H (21-25) mmol/L ABG Total CO2 37 H (19-24) mmol/L ABG O2 Saturation (94-97) % Carbon Dioxide (22-30) mmol/L BUN (9-20) mg/dL Creatinine (0.66-1.25) mg/dL Glucose (74-99) mg/dL POC Glucose (mg/dL) 112 H (70-110) mg/dL Magnesium (1.6-2.3) mg/dL 12/02/23 12/02/23 Range/Units 09:12 11:19 RBC (4.30-5.90) m/uL MCV (80.0-100.0) fL Plt Count (150-450) k/uL Neutrophils # (1.3-7.7) k/uL Lymphocytes # (1.0-4.8) k/uL Macrocytosis ABG pH 7.32 L (7.35-7.45) ABG pCO2 66 H (35-45) mmHg ABG pO2 70 L (83-108) mmHg ABG HCO3 34 H (21-25) mmol/L ABG Total CO2 36 H (19-24) mmol/L ABG O2 Saturation 93.2 L (94-97) % Carbon Dioxide 35 H (22-30) mmol/L BUN 68 H (9-20) mg/dL Creatinine 2.36 H (0.66-1.25) mg/dL Glucose 106 H (74-99) mg/dL POC Glucose (mg/dL) (70-110) mg/dL Magnesium 2.6 H (1.6-2.3) mg/dL Assessment and Plan Assessment: (1)Anoxic encephalopathy (2) Acute systolic (congestive) heart failure, EF 20 to 25% Current Visit: Yes Status: Acute Code(s): I50.21 - ACUTE SYSTOLIC (CONGESTIVE) HEART FAILURE SNOMED Code(s): 814242778 (3) acute on chronic hypoxic and hypercapnic respiratory failure secondary to decompensated CHF, systolic dysfunction (4) H/O myocardial infarction, greater than 8 weeks Current Visit: Yes Status: Acute Code(s): I25.2 - OLD MYOCARDIAL INFARCTION SNOMED Code(s): 2478088 ( 5) History of V. tach with AICD placement (6) Cardiomyopathy, ischemic Current Visit: Yes Status: Acute Code(s): I42.9 - CARDIOMYOPATHY, UNSPECIFIED SNOMED Code(s): 74148002 (7) CKD (chronic kidney disease) stage 3, GFR 30-59 ml/min Current Visit: Yes Status: Acute Code(s): N18.30 - CHRONIC KIDNEY DISEASE, STAGE 3 UNSPECIFIED SNOMED Code(s): 979797134 (8) Morbid obesity, BMI 39 Current Visit: Yes Status: Acute Code(s): E66.01 - MORBID (SEVERE) OBESITY DUE TO EXCESS CALORIES SNOMED Code(s): 943381454 (9) Type 2 diabetes mellitus with other circulatory complications Current Visit: Yes Status: Acute Code(s): E11.59 - TYPE 2 DIABETES MELLITUS WITH OTH CIRCULATORY COMPLICATIONS SNOMED Code(s): 16682341 (10) Essential (primary) hypertension Current Visit: Yes Status: Acute Code(s): I10 - ESSENTIAL (PRIMARY) HYPERTENSION SNOMED Code(s): 44175319 11) Hyperlipidemia, unspecified Current Visit: Yes Status: Acute Code(s): E78.5 - HYPERLIPIDEMIA, UNSPECIFIED SNOMED Code(s): 49498765 (12) Smoker Current Visit: Yes Status: Acute Code(s): F17.200 - NICOTINE DEPENDENCE, UNSPECIFIED, UNCOMPLICATED SNOMED Code(s): 65995688 (13) H/O four vessel coronary artery bypass graft Current Visit: Yes Status: Acute Code(s): Z95.1 - PRESENCE OF AORTOCORONARY BYPASS GRAFT SNOMED Code(s): 863846447 (14) Acute exacerbation of chronic obstructive pulmonary disease Current Visit: Yes Status: Acute Code(s): J44.1 - CHRONIC OBSTRUCTIVE PULMONARY DISEASE W (ACUTE) EXACERBATION SNOMED Code(s): 782990513 Plan: Continue on current medication regimen ,monitoring and symptomatic treatment. Strict I&O's/CHF pathway. Aldactone, losartan placed on hold with diuretics decreased given worsening renal function. Close monitoring of renal function with repeat labs ordered for a.m. maintain nebulized bronchodilators, steroids. BiPAP management as per pulmonary. prognosis guarded given multiple complex medical issues. The impression and plan of care has been dictated as directed. : I performed a history and examination of this patient, discussed the same with the dictator. I agree with the dictator's note ,documented as a scribe. Any additional findings or plans will be noted.
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
--- NOTE | 2023-12-03 14:52 | P.PN ---
Subjective Progress Note Date: 12/03/23 This is a 73-year-old male patient came into the emergency department because of difficulty breathing. The patient was having exertional dyspnea, and orthopnea. He was unable to lay down flat and I saw him in the emergency department sitting up. He also had increasing lower extremity edema. His pulse ox was in the mid 80s at the time of his arrival. The patient's pulse ox currently improved. Is known to have a long cardiac history in addition to COPD. He is a chronic smoker and he is still smoking few cigarettes on a daily basis. He has cut down his smoking approximately a month ago. He also has history of Severe COPD and the patient's FEV1 is in the order of 52% of predicted. Does not u tilize any form of maintenance respiratory medications and is mainly using Trelegy Ellipta samples as given to him by his primary care physician and his oleomargarine maker. He also uses albuterol nebulized treatments [id number]. Not oxygen dependent at this point in time. The patient has other comorbidities including coronary artery disease, previous bypass surgery, previous coronary stenting, ischemic cardiomyopathy and the patient has an AICD in place. Based on the most recent echocardiogram that was done on this patient on 04/19/2023, the patient has severe systolic heart failure with an ejection fraction of 20 to 25% and the patient also has grade 2 diastolic heart failure, moderate functional mitral regurgitation, severe and a dilatation, moderate RV dilatation. He also has mild pulmonary hypertension. The patient was in the hospital back in March 2023 after having some issues with ventricular tachycardia requiring discharge from his AICD and the patient was treated with amiodarone. He has been given an ICD back in 2016. Other COVID conditions include hypertension, hyperlipidemia and diabetes mellitus and the patient also has chronic stage III kidney disease. He has baseline GFR has been in the mid 40s. The patient is currently is having shortness of breath. He was started on IV Lasix. His chest x-ray is consistent with CHF with pulmonary edema. There is also some bibasilar atelectatic changes noted. The patient was started on IV Lasix in the emergency department. The white cell count at 7.3 with a hemoglobin 15.7 and a platelet count of 171. Normal coagulation profile. BUN is 36 with a creatinine of 1.7 and sodium levels of 140. His proBNP level is 2 430. His EKG showing sinus bradycardia with a bundle branch block pattern. Is likely a right bundle branch block. His last cardiac catheterization was done on March 2023 and the patient was found to have CAD with 100% proximal LAD, 40 to 50% distal left main, 60 to 70% ostial ramus, 50% proximal circumflex and 100% RCA. He has patent DYER to LAD and the rest of the grafts are all occluded. On today's evaluation of 11/30/2023, the patient is comfortable on 2 L of oxygen nasal cannula with a pulse ox of 93%. Afebrile. Remains on IV Lasix and the fluid balance has been negative over the past 24 hours. No chest pain. No cardiac arrhythmias. No other new complaints otherwise for now. He is receiving Lasix 40 mg IV every 8 hours. Outpatient medications have been resumed. He is also DuoNeb updrafts and IV Solu-Medrol which will be tapered off as the patient's not having any significant bronchospasm wheezing. On today's evaluation of 11/30/2023, the patient is feeling better compared to yesterday. Is less short of breath. He was admitted to the hospital because of worsening shortness of breath and exacerbation of his chronic CHF it is known to have coronary artery disease. Severe cardiomyopathy with EF around 20 to 25%. The patient remains on IV Lasix at a dose of 40 mg every 12 hours. Fluid balance over the past 24 hours has been -569 cc and the patient's creatinine is at 2.2 with a BUN of 52. Sodium levels at 136. Based on the rise in the creatinine, the patient's diuretic dose has been reduced. WBC count 11.7 with a hemoglobin 13.6 and a platelet count of 161. He remains on 2 L of oxygen by nasal cannula with a pulse ox of 93%. He has no other specific complaints. He remains on DuoNeb updrafts. He is also on the maintenance prednisone of 5 mg p.o. daily. IV Solu-Medrol will be discontinued. The patient is seen today December 02, 2023 in follow-up on the regular medical floor. He is currently laying in bed. Awake and alert. He is on BiPAP 10/5 and 30% FiO2. Still with significant abdominal and lower extremity edema. CT scan of the brain revealed no acute intracranial hemorrhage or midline shift. Arterial blood gases revealed a pO2 of 70, pCO2 66 and a pH of 7.32. White count 9.6. Hemoglobin 13.3. Platelets 134. Sodium 139. Potassium 4.5. Bicarb 35. BUN 68. Creatinine 2.36. Glucose 106. No accurate intake and output. He is receiving Lasix 40 mg IV every 12 hours. Continued on bronchodilators. Heparin for DVT prophylaxis. The patient is seen today December 03, 2023 in follow-up on the selective care unit. He is currently resting comfortably in bed. Awake and alert in no acute distress. He is maintaining O2 saturations in the 90s on 2 L/min per nasal cannula. White count 7.2. Hemoglobin 12.88. Platelets 132. Sodium 142. Potassium 4.1. Bicarb 39. BUN 59. Creatinine 2.63. Glucose 117. He remains on bronchodilators. Continued on IV diuretics. Heparin for DVT prophylaxis. Objective - Vital Signs Vital signs: Vital Signs Temp 98.0 F 12/03/23 08:00 Pulse 76 12/03/23 12:06 Resp 20 12/03/23 08:00 BP 122/60 12/03/23 08:00 Pulse Ox 94 L 12/03/23 11:50 FiO2 30 12/03/23 07:44 Intake & Output 12/02/23 12/03/23 12/03/23 18:59 06:59 18:59 Intake Total 120 900 360 Output Total 1700 650 Balance 120 -800 -290 Weight 120 kg Intake: Oral 120 900 360 Output: Urine 1700 650 Straight 500 Other: Voiding Method Diaper Diaper Indwelling Catheter - Exam GENERAL EXAM: Awake, alert 72-year-old male, on 2 L/min per nasal cannula. HEAD: Normocephalic. EYES: Normal reaction of pupils, equal size. NOSE: Clear with pink turbinates. THROAT: No erythema or exudates. NECK: No masses, no JVD. CHEST: No chest wall deformity. LUNGS: Equal air entry with coarse crackles in the lung bases bilaterally CVS: S1 and S2 normal with no audible murmur, regular rhythm. ABDOMEN: No hepatosplenomegaly, normal bowel sounds, no guarding or rigidity. SPINE: No scoliosis or deformity SKIN: No rashes CENTRAL NERVOUS SYSTEM: No focal deficits, tone is normal in all 4 extremities. EXTREMITIES: There is no peripheral edema. No clubbing, no cyanosis. Periph eral pulses are intact. - Labs CBC & Chem 7: 12/03/23 08:16 12/03/23 08:16 Labs: Abnormal Lab Results - Last 24 Hours (Table) 12/02/23 12/03/23 12/03/23 Range/Units 19:56 06:07 08:16 RBC 3.79 L (4.30-5.90) m/uL Hgb 12.8 L (13.0-17.5) gm/dL MCV 111.2 H (80.0-100.0) fL MCHC 30.5 L (31.0-37.0) g/dL Plt Count 132 L (150-450) k/uL Lymphocytes # 0.7 L (1.0-4.8) k/uL Macrocytosis Marked A Carbon Dioxide (22-30) mmol/L BUN (9-20) mg/dL Creatinine (0.66-1.25) mg/dL Glucose (74-99) mg/dL POC Glucose (mg/dL) 230 H 137 H (70-110) mg/dL Calcium (8.4-10.2) mg/dL 12/03/23 12/03/23 Range/Units 08:16 11:59 RBC (4.30-5.90) m/uL Hgb (13.0-17.5) gm/dL MCV (80.0-100.0) fL MCHC (31.0-37.0) g/dL Plt Count (150-450) k/uL Lymphocytes # (1.0-4.8) k/uL Macrocytosis Carbon Dioxide 39 H (22-30) mmol/L BUN 59 H (9-20) mg/dL Creatinine 2.63 H (0.66-1.25) mg/dL Glucose 117 H (74-99) mg/dL POC Glucose (mg/dL) 117 H (70-110) mg/dL Calcium 8.1 L (8.4-10.2) mg/dL Assessment and Plan Assessment: Acute on chronic shortness of breath attributed to decompensated CHF with evidence of pulmonary edema. proBNP level is mildly elevated. Currently on 2 L nasal cannula, responding to diuresis Coronary artery disease with previous bypass surgery and the most recent cardiac catheterization from March 2023 showed a patent DEYR to LAD and the rest of the grafts are all occluded Systolic heart failure with an ejection fraction of 20 to 25%, consistent with ischemic cardiomyopathy History of ventricular tachycardia and the patient has an AICD placement and amiodarone COPD with a baseline FEV1 of 52% of predicted Chronic kidney disease stage III with a component of acute kidney injury due to diuresis Obstructive sleep apnea Obesity with a BMI of 39.2 Hypertension Hyperlipidemia Diabetes mellitus type 2 Chronic smoker History of nephrolithiasis with previous lithotripsy Long-term steroid use and the patient has been maintained on prednisone 5 mg p.o. daily Plan: The patient was seen and evaluated Labs and medications reviewed Improved and on 2 L nasal cannula Titrate the FiO2 as tolerated Continue the current treatment plan We will continue to follow I have personally seen and examined the patient, performed the documentation and the assessment and plan as written. Number of minutes spent on the visit: 10.
[2023-12-03 16:28] LABS: Glucose,Whole Blood 163 mg/dL (70-110)
[2023-12-03] MEDS: TAMSULOSIN 0.4 MG CAP.ER.24H PO SCH (18:16)
[2023-12-03] MEDS: FLUTICASONE 50MCG/SPRAY NASAL 16GM EA NOSTRIL SCH (18:17)
[2023-12-03 20:03] LABS: Glucose,Whole Blood 151 mg/dL (70-110)
[2023-12-04 06:23] LABS: Glucose,Whole Blood 117 mg/dL (70-110)
[2023-12-04] MEDS: AMIODARONE 200 MG TAB PO SCH (09:47)
[2023-12-04 11:31] LABS: Glucose,Whole Blood 344 mg/dL (70-110)
[2023-12-04 11:43] LABS: African American GFR (CKD) 28 (>60 ml/min/1.73 sqM); Anion Gap 2 mmol/L; Blood Urea Nitrogen 58 mg/dL (9-20); Carbon Dioxide 36 mmol/L (22-30); Chloride 99 mmol/L (98-107); Glucose 262 mg/dL (74-99); Non-African American GFR(CKD) 24 (>60 ml/min/1.73 sqM); Potassium 3.9 mmol/L (3.5-5.1); Sodium 137 mmol/L (137-145)
--- NOTE | 2023-12-04 13:28 | P.PN ---
Subjective HISTORY OF PRESENT ILLNESS: This is a 73-year-old gentleman who is known to our service from before with a past medical history significant for coronary artery disease status post CABG with the most recent heart catheterization in 2022 showing patent DYER to LAD and the occlusion of all vein grafts as well as cardiomyopathy with the also the most recent echo from 2022 showing impaired LV function with EF around 20% with moderate mitral regurgitation secondary to cardiomyopathy and also history of ventricular tachycardia with status post AICD as well as the patient currently on amiodarone and also chronic renal failure and hypertension and dyslipidemia and diabetes and smoking and chronic obstructive pulmonary disease. The patient presented to the hospital with symptoms and signs consistent with heart failure. He presented with progressive exertional dyspnea associated with orthopnea and lower extremities edema and weight gain. No pain in the chest and no dizziness or lightheadedness and no feeling of heart racing or fluttering and no presyncope or syncope. Unfortunately he continues to smoke. He stated that he has been compliant with his medications at home including diuretic where he was receiving Lasix at 40 mg twice daily and also has been compliant with his cardiomyopathy medications. He is not quite compliant with low-sodium diet. Further investigation performed including cardiac enzymes came in to be unremarkable and NT proBNP came in to be elevated and chest x-ray showed finding consistent with heart failure. The patient was subsequently placed on IV diuretics and he was admitted to the hospital for further evaluation. The physical examination is remarkable for diminished breathing sounds bilaterally and bilateral rhonchi and regular rate and rhythm with a systolic murmur at the apical area and bilateral lower extremities edema please note that the patient was hypoxic when he presented to the emergency department December 01, 2023 The patient was seen and evaluated this afternoon. He is feeling better. The shortness of breath has improved. The lower extremities edema has improved. He is able to walk up and around with no shortness of breath interfering with his daily activities with his kidney function is slightly worse. Blood pressure has been marginally low. I am going to decrease the dose of losartan to 12.5 mg p.o. daily from 25 mg p.o. daily. The examination is remarkable for bilateral rhonchi and bilateral lower extremities edema. 12/02/2023 Patient examined this morning at the bedside. Patient denies chest pain or pressure. He is currently laying flat in bed and does not appear to be in any acute distress. He is currently on BiPAP. He remains on IV Lasix 40 mg twice a day. Creatinine slightly worsened today at 2.36. 12/03/2023 Patient examined this morning. Patient is sitting on the side of the bed. He denies chest pain or pressure. He reports improvement in his shortness of breath. He remains on IV Lasix 40 mg daily. Creatinine is worsened today at 2.63. Blood pressure stable with a recent reading of 122/60. 12/04/2023 Patient examined this morning. Patient is sitting up in the chair. Patient denies chest pain or pressure. He reports mild shortness of breath. Vital signs are stable. Creatinine today remains stable at 2.54. PHYSICAL EXAM: VITAL SIGNS: Reviewed. GENERAL: Well-developed in no acute distress. NECK: Supple. No JVD or thyromegaly LUNGS: Respirations even and unlabored. Lungs diminished bilaterally HEART: Regular rate and rhythm. S1 and S2 heard. EXTREMITIES: Normal range of motion. No clubbing or cyanosis. Peripheral pulse s intact. 1-2+ lower extremity edema ASSESSMENT: Acute hypoxic respiratory failure secondary to heart failure with reduced ejection fraction with evidence of right and left failure Severe cardiomyopathy with an ejection fraction of 20% Mitral regurgitation secondary to cardiomyopathy Coronary artery disease and status post CABG as described above with patent DYER to LAD and the occlusion of all vein grafts History of sustained ventricular tachycardia status post AICD; on amiodarone Obstructive sleep apnea Chronic kidney disease Multiple comorbid conditions including diabetes and hypertension and dyslipidemia Nicotine dependence PLAN: Continue current cardiac medications Continue IV Lasix to 40 mg daily Daily weights, accurate intake and output, and monitoring of kidney function Aldactone and losartan placed on hold secondary to worsening kidney function Further recommendations pending patient course Nurse practitioner note has been reviewed by physician. Signing provider agrees with the documented findings, assessment, and plan of care documented by HEEL EMERY BUFFER as a scribe. Objective - Vital Signs Vital signs: Vital Signs Temp 97.8 F 12/04/23 12:00 Pulse 60 12/04/23 12:00 Resp 18 12/04/23 12:00 BP 120/58 12/04/23 12:00 Pulse Ox 97 12/04/23 12:00 FiO2 30 12/04/23 03:01 Intake & Output 12/03/23 12/04/23 12/04/23 18:59 06:59 18:59 Intake Total 540 360 Output Total 650 2200 Balance -110 -2200 360 Weight 118 kg Intake: Oral 540 360 Output: Urine 650 2200 Other: Voiding Method Indwelling Catheter Indwelling Catheter # Voids 1 # Bowel Movements 2 - Labs CBC & Chem 7: 12/03/23 08:16 12/04/23 11:02 Labs: Abnormal Lab Results - Last 24 Hours (Table) 12/03/23 12/03/23 12/04/23 Range/Units 16:27 19:58 06:21 Carbon Dioxide (22-30) mmol/L BUN (9-20) mg/dL Creatinine (0.66-1.25) mg/dL Glucose (74-99) mg/dL POC Glucose (mg/dL) 163 H 151 H 117 H (70-110) mg/dL Calcium (8.4-10.2) mg/dL 12/04/23 12/04/23 Range/Units 11:02 11:29 Carbon Dioxide 36 H (22-30) mmol/L BUN 58 H (9-20) mg/dL Creatinine 2.54 H (0.66-1.25) mg/dL Glucose 262 H (74-99) mg/dL POC Glucose (mg/dL) 344 H (70-110) mg/dL Calcium 8.0 L (8.4-10.2) mg/dL
--- NOTE | 2023-12-04 15:01 | P.PN ---
Subjective Progress Note Date: 12/04/23 This is a 73-year-old male patient came into the emergency department because of difficulty breathing. The patient was having exertional dyspnea, and orthopnea. He was unable to lay down flat and I saw him in the emergency department sitting up. He also had increasing lower extremity edema. His pulse ox was in the mid 80s at the time of his arrival. The patient's pulse ox currently improved. Is known to have a long cardiac history in addition to COPD. He is a chronic smoker and he is still smoking few cigarettes on a daily basis. He has cut down his smoking approximately a month ago. He also has history of Severe COPD and the patient's FEV1 is in the order of 52% of predicted. 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 He also uses albuterol nebulized treatments [id number]. Not oxygen dependent at this point in time. The patient has other comorbidities including coronary artery disease, previous bypass surgery, previous coronary stenting, ischemic cardiomyopathy and the patient has an AICD in place. Based on the most recent echocardiogram that was done on this patient on 04/19/2023, the patient has severe systolic heart failure with an ejection fraction of 20 to 25% and the patient also has grade 2 diastolic heart failure, moderate functional mitral regurgitation, severe and a dilatation, moderate RV dilatation. He also has mild pulmonary hypertension. The patient was in the hospital back in March 2023 after having some issues with ventricular tachycardia requiring discharge from his AICD and the patient was treated with amiodarone. He has been given an ICD back in 2016. Other COVID conditions include hypertension, hyperlipidemia and diabetes mellitus and the patient also has chronic stage III kidney disease. He has baseline GFR has been in the mid 40s. The patient is currently is having shortness of breath. He was started on IV Lasix. His chest x-ray is consistent with CHF with pulmonary edema. There is also some bibasilar atelectatic changes noted. The patient was started on IV Lasix in the emergency department. The white cell count at 7.3 with a hemoglobin 15.7 and a platelet count of 171. Normal coagulation profile. BUN is 36 with a creatinine of 1.7 and sodium levels of 140. His proBNP level is 2 430. His EKG showing sinus bradycardia with a bundle branch block pattern. Is likely a right bundle branch block. His last cardiac catheterization was done on March 2023 and the patient was found to have CAD with 100% proximal LAD, 40 to 50% distal left main, 60 to 70% ostial ramus, 50% proximal circumflex and 100% RCA. He has patent DYER to LAD and the rest of the grafts are all occluded. On today's evaluation of 11/30/2023, the patient is comfortable on 2 L of oxygen nasal cannula with a pulse ox of 93%. Afebrile. Remains on IV Lasix and the fluid balance has been negative over the past 24 hours. No chest pain. No cardiac arrhythmias. No other new complaints otherwise for now. He is receiving Lasix 40 mg IV every 8 hours. Outpatient medications have been resumed. He is also DuoNeb updrafts and IV Solu-Medrol which will be tapered off as the patient's not having any significant bronchospasm wheezing. On today's evaluation of 11/30/2023, the patient is feeling better compared to yesterday. Is less short of breath. He was admitted to the hospital because of worsening shortness of breath and exacerbation of his chronic CHF it is known to have coronary artery disease. Severe cardiomyopathy with EF around 20 to 25%. The patient remains on IV Lasix at a dose of 40 mg every 12 hours. Fluid balance over the past 24 hours has been -569 cc and the patient's creatinine is at 2.2 with a BUN of 52. Sodium levels at 136. Based on the rise in the creatinine, the patient's diuretic dose has been reduced. WBC count 11.7 with a hemoglobin 13.6 and a platelet count of 161. He remains on 2 L of oxygen by nasal cannula with a pulse ox of 93%. He has no other specific complaints. He remains on DuoNeb updrafts. He is also on the maintenance prednisone of 5 mg p.o. daily. IV Solu-Medrol will be discontinued. The patient is seen today December 02, 2023 in follow-up on the regular medical floor. He is currently laying in bed. Awake and alert. He is on BiPAP 10/5 and 30% FiO2. Still with significant abdominal and lower extremity edema. CT scan of the brain revealed no acute intracranial hemorrhage or midline shift. Arterial blood gases revealed a pO2 of 70, pCO2 66 and a pH of 7.32. White count 9.6. Hemoglobin 13.3. Platelets 134. Sodium 139. Potassium 4.5. Bicarb 35. BUN 68. Creatinine 2.36. Glucose 106. No accurate intake and output. He is receiving Lasix 40 mg IV every 12 hours. Continued on bronchodilators. Heparin for DVT prophylaxis. The patient is seen today December 03, 2023 in follow-up on the selective care unit. He is currently resting comfortably in bed. Awake and alert in no acute distress. He is maintaining O2 saturations in the 90s on 2 L/min per nasal cannula. White count 7.2. Hemoglobin 12.88. Platelets 132. Sodium 142. Potassium 4.1. Bicarb 39. BUN 59. Creatinine 2.63. Glucose 117. He remains on bronchodilators. Continued on IV diuretics. Heparin for DVT prophylaxis. The patient is seen today December 04, 2023 in follow-up on the selective care unit. He is currently sitting up in bed. Awake and alert in no acute distress. He is maintaining good O2 saturations in the upper 90s on 2 L/min per nasal can nula. He is afebrile. Hemodynamically stable. Sodium 137. Potassium 3.9. Bicarb 36. BUN 58. Creatinine 2.54. Glucose 262. He is continued on IV diuretics. Continued on bronchodilators. Heparin for DVT prophylaxis. Currently in a -2.3 L balance. Objective - Vital Signs Vital signs: Vital Signs Temp 97.8 F 12/04/23 12:00 Pulse 60 12/04/23 12:00 Resp 18 12/04/23 12:00 BP 120/58 12/04/23 12:00 Pulse Ox 97 12/04/23 12:00 FiO2 30 12/04/23 03:01 Intake & Output 12/03/23 12/04/23 12/04/23 18:59 06:59 18:59 Intake Total 540 360 Output Total 650 2200 Balance -110 -2200 360 Weight 118 kg Intake: Oral 540 360 Output: Urine 650 2200 Other: Voiding Method Indwelling Catheter Indwelling Catheter # Voids 1 # Bowel Movements 2 - Exam GENERAL EXAM: Awake, alert 72-year-old male, resting comfortably in bed, on 2 L/min per nasal cannula. HEAD: Normocephalic. EYES: Normal reaction of pupils, equal size. NOSE: Clear with pink turbinates. THROAT: No erythema or exudates. NECK: No masses, no JVD. CHEST: No chest wall deformity. LUNGS: Equal air entry with coarse crackles in the lung bases bilaterally CVS: S1 and S2 normal with no audible murmur, regular rhythm. ABDOMEN: No hepatosplenomegaly, normal bowel sounds, no guarding or rigidity. SPINE: No scoliosis or deformity SKIN: No rashes CENTRAL NERVOUS SYSTEM: No focal deficits, tone is normal in all 4 extremities. EXTREMITIES: There is no peripheral edema. No clubbing, no cyanosis. Peripheral pulses are intact. - Labs CBC & Chem 7: 12/03/23 08:16 12/04/23 11:02 Labs: Abnormal Lab Results - Last 24 Hours (Table) 12/03/23 12/03/23 12/04/23 Range/Units 16:27 19:58 06:21 Carbon Dioxide (22-30) mmol/L BUN (9-20) mg/dL Creatinine (0.66-1.25) mg/dL Glucose (74-99) mg/dL POC Glucose (mg/dL) 163 H 151 H 117 H (70-110) mg/dL Calcium (8.4-10.2) mg/dL 12/04/23 12/04/23 Range/Units 11:02 11:29 Carbon Dioxide 36 H (22-30) mmol/L BUN 58 H (9-20) mg/dL Creatinine 2.54 H (0.66-1.25) mg/dL Glucose 262 H (74-99) mg/dL POC Glucose (mg/dL) 344 H (70-110) mg/dL Calcium 8.0 L (8.4-10.2) mg/dL Assessment and Plan Assessment: Acute on chronic shortness of breath attributed to decompensated CHF with evidence of pulmonary edema. proBNP level is mildly elevated. Currently on 2 L nasal cannula, responding to diuresis Coronary artery disease with previous bypass surgery and the most recent cardiac catheterization from March 2023 showed a patent DYER to LAD and the rest of the grafts are all occluded Systolic heart failure with an ejection fraction of 20 to 25%, consistent with ischemic cardiomyopathy History of ventricular tachycardia and the patient has an AICD placement and amiodarone COPD with a baseline FEV1 of 52% of predicted Chronic kidney disease stage III with a component of acute kidney injury due to diuresis Obstructive sleep apnea Obesity with a BMI of 39.2 Hypertension Hyperlipidemia Diabetes mellitus type 2 Chronic smoker History of nephrolithiasis with previous lithotripsy Long-term steroid use and the patient has been maintained on prednisone 5 mg p.o. daily Plan: The patient was seen and evaluated Labs and medications reviewed Improved and on 2 L nasal cannula Titrate the FiO2 as tolerated Remains on IV diuretics Remains in a negative balance We will continue to follow I have personally seen and examined the patient, performed the documentation and the assessment and plan as written. Number of minutes spent on the visit: 10.
[2023-12-04] MEDS ORDERED: DEXTROSE 50% SYRINGE 50 ML IVP PRN ×2 (15:32)
--- NOTE | 2023-12-04 15:42 | P.PN ---
Subjective Progress Note Date: 12/04/23 11/29/2023 Braeden is 73-year-old white male with known COPD and CHF. He presented the office today with increased shortness of breath and diaphoretic. His pulse oximetry was 82% on room air. EMS was called he was transported to the emergency room. He is now on 3 L O2. He is slightly improved. He is currently being seen in emergency room now bed 24. He indicates his symptoms been worsening the past week and a half. He had waited to get in the office and not called sooner as he thought he would improve on his own. He is a known smoker and been trying to quit. November 30, 2023: Patient is resting much more comfortably. He is now 1 to the stepdown unit. Home medications have been reordered. Pulmonology has seen him, cardiology visit is pending. He feels overall improved. Less shortness of b reath. He is urinating using a urinal. He denies any current chest pains pressures or shortness of breath at rest. Oxygen is at 3 L/min. He indicates last night he hallucinated but that quickly resolved. December 01, 2023: Patient seen evaluated for acute exacerbation of his congestive heart failure. He remains in the stepdown unit. He continues on his current medications. He does report hallucinations while awake and at night. He does report that he does not sleep great in the hospital. He does have obstructive sleep apnea and uses a CPAP. But he has not received this. He remains on IV steroids along with IV Lasix. Clinically is overall improved. Oxygen requirement is now down to 2 L via nasal cannula. Labs show a slight leukocytosis with some macrocytosis noted. He has a history of EtOH. BUN 52 creatinine 2.21 GFR is 29 12/02/2023 during the fur tailor hours developed altered mental status, a -team called, received Diamox , IV push Lasix ,placed on BiPAP. ABGs noted. brain CT reported no acute intracranial hemorrhage or midline shift.Maintained on BiPAP, Lasix IV push-inaccurate I&O. Afebrile, normal WBC, hemoglobin 13.3, platelets 134, sodium 139, potassium 4.5, bicarb 35. Worsening renal function, BUN 68, creatinine 2.36. Magnesium 2.6, glucose 106. 12/03/2023 IV push Lasix decreased yesterday ,renal function continues to worsen.Nephrology consulted. BiPAP weaned off and patient currently maintaining O2 sats in the low 90s on 2 L nasal cannula. Sitting up in chair. Reports he has a BiPAP at home but does not use it related to nasal congestion. Afrin discontinued- Flonase ordered. Denies chest pain, palpitations or shortness of breath. 12/04/2023 Continues on IV diuretics, nebulized bronchodilators .Sitting up at the side of the bed, maintaining O2 sats in the high 90s on 2 L nasal cannula. Afebrile. Sodium 137, potassium 3.9, bicarb 36, BUN 58, creatinine 2.54, blood sugars in the 100s, currently 117. Hemoglobin A1c 6.5. Denies chest pain, palpitations or shortness of breath. Objective - Vital Signs Vital signs: Vital Signs Temp 97.8 F 12/04/23 12:00 Pulse 60 12/04/23 12:00 Resp 18 12/04/23 12:00 BP 120/58 12/04/23 12:00 Pulse Ox 97 12/04/23 12:00 FiO2 30 12/04/23 03:01 Intake & Output 12/03/23 12/04/23 12/04/23 18:59 06:59 18:59 Intake Total 540 360 Output Total 650 2200 Balance -110 -2200 360 Weight 118 kg Intake: Oral 540 360 Output: Urine 650 2200 Other: Voiding Method Indwelling Catheter Indwelling Catheter # Voids 1 # Bowel Movements 2 - Exam GENERAL: Sitting up at bedside, no acute distress NECK: Supple, no JVD LUNGS: Unlabored, equal air entry, coarse bibasilar crackles HEART: Regular rate and rhythm without murmurs, rubs or gallops.S1S2 Normal ABDOMEN: Soft, nontender, normoactive bowel sounds. No rigidity, no guarding. EXTREMITIES: Positive lower extremity edema. NEUROLOGICAL: No focal deficits. SKIN: Warm, Dry, normal turgor, no rashes or lesions noted. - Labs CBC & Chem 7: 12/03/23 08:16 12/04/23 11:02 Labs: Abnormal Lab Results - Last 24 Hours (Table) 12/03/23 12/03/23 12/04/23 Range/Units 16:27 19:58 06:21 Carbon Dioxide (22-30) mmol/L BUN (9-20) mg/dL Creatinine (0.66-1.25) mg/dL Glucose (74-99) mg/dL POC Glucose (mg/dL) 163 H 151 H 117 H (70-110) mg/dL Calcium (8.4-10.2) mg/dL 12/04/23 12/04/23 Range/Units 11:02 11:29 Carbon Dioxide 36 H (22-30) mmol/L BUN 58 H (9-20) mg/dL Creatinine 2.54 H (0.66-1.25) mg/dL Glucose 262 H (74-99) mg/dL POC Glucose (mg/dL) 344 H (70-110) mg/dL Calcium 8.0 L (8.4-10.2) mg/dL Assessment and Plan Assessment: (1)Anoxic encephalopathy (2) Acute systolic (congestive) heart failure, EF 20 to 25% Current Visit: Yes Status: Acute Code(s): I50.21 - ACUTE SYSTOLIC (CONGESTIVE) HEART FAILURE SNOMED Code(s): 587642083 (3) acute on chronic hypoxic and hypercapnic respiratory failure secondary to decompensated CHF, systolic dysfunction (4) H/O myocardial infarction, greater than 8 weeks Current Visit: Yes Status: Acute Code(s): I25.2 - OLD MYOCARDIAL INFARCTION SNOMED Code(s): 7242949 ( 5) History of V. tach with AICD placement (6) Cardiomyopathy, ischemic Current Visit: Yes Status: Acute Code(s): I42.9 - CARDIOMYOPATHY, UNSPECIFIED SNOMED Code(s): 81156368 (7) CKD (chronic kidney disease) stage 3, GFR 30-59 ml/min Current Visit: Yes Status: Acute Code(s): N18.30 - CHRONIC KIDNEY DISEASE, STAGE 3 UNSPECIFIED SNOMED Code(s): 999984403 (8) Morbid obesity, BMI 39 Current Visit: Yes Status: Acute Code(s): E66.01 - MORBID (SEVERE) OBESITY DUE TO EXCESS CALORIES SNOMED Code(s): 415767088 (9) Type 2 diabetes mellitus with other circulatory complications, hemoglobin A1c 6.5 Current Visit: Yes Status: Acute Code(s): E11.59 - TYPE 2 DIABETES MELLITUS WITH OTH CIRCULATORY COMPLICATIONS SNOMED Code(s): 27595181 (10) Essential (primary) hypertension Current Visit: Yes Status: Acute Code(s): I10 - ESSENTIAL (PRIMARY) HYPERTENSION SNOMED Code(s): 28653708 11) Hyperlipidemia, unspecified Current Visit: Yes Status: Acute Code(s): E78.5 - HYPERLIPIDEMIA, UNSPECIFIED SNOMED Code(s): 92224320 (12) Smoker Current Visit: Yes Status: Acute Code(s): F17.200 - NICOTINE DEPENDENCE, UNSPECIFIED, UNCOMPLICATED SNOMED Code(s): 00000609 (13) H/O four vessel coronary artery bypass graft Current Visit: Yes Status: Acute Code(s): Z95.1 - PRESENCE OF AORTOCORONARY BYPASS GRAFT SNOMED Code(s): 432116556 (14) Acute exacerbation of chronic obstructive pulmonary disease Current Visit: Yes Status: Acute Code(s): J44.1 - CHRONIC OBSTRUCTIVE PULMONARY DISEASE W (ACUTE) EXACERBATION SNOMED Code(s): 993090948 (15) urinary retention requiring Christy catheter Plan: Continue on current medication regimen ,monitoring and symptomatic treatment. Diet changed to consistent carb . Blood sugars increasing, Levemir insulin added to med regimen.continue nebulized bronchodilators, steroids. CODE STATUS discussed, patient wants to remain a full code, at this time. Patient needs subacute rehab-discussed with patient and he is in agreement with. Discussed with case management, OBRA completed. Diuretics as per cardiology. discharge planning in progress pending clearance from cardiology and pulmonary. The impression and plan of care has been dictated as directed. : I performed a history and examination of this patient, discussed the same with the dictator. I agree with the dictator's note ,documented as a scribe. Any additional findings or plans will be noted.
[2023-12-04 16:50] LABS: Glucose,Whole Blood 106 mg/dL (70-110)
[2023-12-04] MEDS: INSULIN DETEMIR (LEVEMIR) 100 UNIT/ML SYR SQ SCH (17:26)
[2023-12-04] MEDS ORDERED: INSULIN ASPART (NovoLOG) 100 UNIT/ML VIAL SQ SCH (17:30)
[2023-12-04 20:32] LABS: Glucose,Whole Blood 149 mg/dL (70-110)
--- NOTE | 2023-12-04 21:23 | P.PN ---
Subjective Patient is seen for follow-up for acute kidney injury and chronic kidney disease. No significant complaints today. Serum creatinine slightly lower at 2.5 today. 24-hour urine output documented at 2.8 L. Maintained on IV Lasix 40 mg IV daily. Objective - Vital Signs Vital signs: Vital Signs Temp 97.8 F 12/04/23 16:00 Pulse 64 12/04/23 16:44 Resp 18 12/04/23 16:00 BP 124/97 12/04/23 16:00 Pulse Ox 97 12/04/23 16:00 FiO2 30 12/04/23 03:01 Intake & Output 12/04/23 12/04/23 12/05/23 06:59 18:59 06:59 Intake Total 540 Output Total 2200 Balance -2200 540 Weight 118 kg Intake: Oral 540 Output: Urine 2200 Other: Voiding Method Indwelling Catheter # Voids 1 - Exam Patient is awake, comfortable, no acute distress Examination of the heart S1 and S2 Examination of the lungs decreased breath sounds at the bases Abdomen is soft obese Examination of lower extremities shows bilateral legs to be wrapped. Edema is noted bilaterally ETCHER HAND exam grossly intact - Labs CBC & Chem 7: 12/03/23 08:16 12/04/23 11:02 Labs: Abnormal Lab Results - Last 24 Hours (Table) 12/04/23 12/04/23 12/04/23 Range/Units 06:21 11:02 11:29 Carbon Dioxide 36 H (22-30) mmol/L BUN 58 H (9-20) mg/dL Creatinine 2.54 H (0.66-1.25) mg/dL Glucose 262 H (74-99) mg/dL POC Glucose (mg/dL) 117 H 344 H (70-110) mg/dL Calcium 8.0 L (8.4-10.2) mg/dL 12/04/23 Range/Units 20:30 Carbon Dioxide (22-30) mmol/L BUN (9-20) mg/dL Creatinine (0.66-1.25) mg/dL Glucose (74-99) mg/dL POC Glucose (mg/dL) 149 H (70-110) mg/dL Calcium (8.4-10.2) mg/dL Assessment and Plan Assessment: 1. Acute kidney injury, cardiorenal and secondary to urine retention. Currently with indwelling Christy catheter. Patient has been diuresed and Lasix dose has been decreased. Check UA. Check ultrasound of the kidneys. Blood pressure is currently not low 2. Urine retention currently with indwelling Christy catheter 3. Acute exacerbation of CHF with reduced ejection fraction at 30-35%. 4. Volume overload 5. History of COPD 6. Coronary artery disease with ischemic cardiomyopathy and previous coronary stents. Plan: Continue current dose of IV Lasix Continue with Christy catheter Check UA Check ultrasound of the kidneys Repeat labs in a.m. Follow-up in the office for CK D management post discharge. Next
[2023-12-04 23:47] LABS: ABG Base Excess 7.8 mmol/L; ABG HCO3 34 mmol/L (21-25); ABG PCO2 65 mmHg (35-45); ABG PH 7.33 (7.35-7.45); ABG PO2 66 mmHg (83-108); ABG TCO2 36 mmol/L (19-24); Allen Test Performed? Yes
[2023-12-05 06:23] LABS: Glucose,Whole Blood 133 mg/dL (70-110)
--- NOTE | 2023-12-05 08:14 | US ---
EXAMINATION TYPE: US kidneys/renal and bladder DATE OF EXAM: 12/05/2023 COMPARISON: NONE CLINICAL INDICATION: Male, 73 years old with history of radha; RADHA, no symptoms EXAM MEASUREMENTS: Right Kidney: 12.5 x 5.1 x 7.1 cm Left Kidney: 8.1 x 3.1 x 4.2 cm Right Kidney: No hydronephrosis or masses seen Left Kidney: limited views, smaller in size Bladder: wnl There is no evidence for hydronephrosis at this point in time. No nephrolithiasis is seen. No alejo s are identified. The urinary bladder is anechoic. Bilateral ureteral jets are seen. IMPRESSION: Diminutive left kidney. Otherwise unremarkable study.
[2023-12-05 09:47] LABS: African American GFR (CKD) 37 (>60 ml/min/1.73 sqM); Anion Gap 5 mmol/L; Blood Urea Nitrogen 56 mg/dL (9-20); Calcium 8.1 mg/dL (8.4-10.2); Carbon Dioxide 28 mmol/L (22-30); Chloride 105 mmol/L (98-107); Glucose 114 mg/dL (74-99); Non-African American GFR(CKD) 32 (>60 ml/min/1.73 sqM); Sodium 138 mmol/L (137-145)
[2023-12-05 09:57] LABS: Potassium 4.4 mmol/L (3.5-5.1)
[2023-12-05 11:35] LABS: Glucose,Whole Blood 166 mg/dL (70-110)
--- NOTE | 2023-12-05 12:37 | XR ---
EXAMINATION TYPE: XR chest 1V portable DATE OF EXAM: 12/05/2023 HISTORY: Shortness of breath. COMPARISON: 11/29/2023 TECHNIQUE: Single view of the chest is submitted. FINDINGS: Demonstrated are scattered senescent parenchymal change. Patchy basilar infiltrates and small effusions. The heart is stable. Hilar and mediastinal structures are within normal limits. Degenerative changes are seen of the dorsal spine. IMPRESSION: 1. Patchy basilar infiltrates and small effusions.
--- NOTE | 2023-12-05 12:43 | P.PN ---
Subjective HISTORY OF PRESENT ILLNESS: This is a 73-year-old gentleman who is known to our service from before with a past medical history significant for coronary artery disease status post CABG with the most recent heart catheterization in 2022 showing patent DYER to LAD and the occlusion of all vein grafts as well as cardiomyopathy with the also the most recent echo from 2022 showing impaired LV function with EF around 20% with moderate mitral regurgitation secondary to cardiomyopathy and also history of ventricular tachycardia with status post AICD as well as the patient currently on amiodarone and also chronic renal failure and hypertension and dyslipidemia and diabetes and smoking and chronic obstructive pulmonary disease. The patient presented to the hospital with symptoms and signs consistent with heart failure. He presented with progressive exertional dyspnea associated with orthopnea and lower extremities edema and weight gain. No pain in the chest and no dizziness or lightheadedness and no feeling of heart racing or fluttering and no presyncope or syncope. Unfortunately he continues to smoke. He stated that he has been compliant with his medications at home including diuretic where he was receiving Lasix at 40 mg twice daily and also has been compliant with his cardiomyopathy medications. He is not quite compliant with low-sodium diet. Further investigation performed including cardiac enzymes came in to be unremarkable and NT proBNP came in to be elevated and chest x-ray showed finding consistent with heart failure. The patient was subsequently placed on IV diuretics and he was admitted to the hospital for further evaluation. The physical examination is remarkable for diminished breathing sounds bilaterally and bilateral rhonchi and regular rate and rhythm with a systolic murmur at the apical area and bilateral lower extremities edema please note that the patient was hypoxic when he presented to the emergency department December 01, 2023 The patient was seen and evaluated this afternoon. He is feeling better. The shortness of breath has improved. The lower extremities edema has improved. He is able to walk up and around with no shortness of breath interfering with his daily activities with his kidney function is slightly worse. Blood pressure has been marginally low. I am going to decrease the dose of losartan to 12.5 mg p.o. daily from 25 mg p.o. daily. The examination is remarkable for bilateral rhonchi and bilateral lower extremities edema. 12/02/2023 Patient examined this morning at the bedside. Patient denies chest pain or pressure. He is currently laying flat in bed and does not appear to be in any acute distress. He is currently on BiPAP. He remains on IV Lasix 40 mg twice a day. Creatinine slightly worsened today at 2.36. 12/03/2023 Patient examined this morning. Patient is sitting on the side of the bed. He denies chest pain or pressure. He reports improvement in his shortness of breath. He remains on IV Lasix 40 mg daily. Creatinine is worsened today at 2.63. Blood pressure stable with a recent reading of 122/60. 12/04/2023 Patient examined this morning. Patient is sitting up in the chair. Patient denies chest pain or pressure. He reports mild shortness of breath. Vital signs are stable. Creatinine today remains stable at 2.54. 12/05/2023 Patient examined this morning. He is sitting on the side of the bed. He remains on IV Lasix 40 mg once a day. He is states he does not feel like he is urinating very much. Urine output documented over the last 24 hours is 500 cc. Creatinine improved today to 2.0 from 2.54 yesterday. Vital signs are stable. PHYSICAL EXAM: VITAL SIGNS: Reviewed. GENERAL: Well-developed in no acute distress. NECK: Supple. No JVD or thyromegaly LUNGS: Respirations even and unlabored. Lungs diminished bilaterally HEART: Regular rate and rhythm. S1 and S2 heard. EXTREMITIES: Normal range of motion. No clubbing or cyanosis. Peripheral pulses intact. 2+ lower extremity edema ASSESSMENT: Acute hypoxic respiratory failure secondary to heart failure with reduced ejection fraction with evidence of right and left failure Severe cardiomyopathy with an ejection fraction of 20% Mitral regurgitation secondary to cardiomyopathy Coronary artery disease and status post CABG as described above with patent DYER to LAD and the occlusion of all vein grafts History of sustained ventricular tachycardia status post AICD; on amiodarone Obstructive sleep apnea Chronic kidney disease Multiple comorbid conditions including diabetes and hypertension and dyslipidemia Nicotine dependence PLAN: Continue current cardiac medications Continue IV Lasix. Increase dosing to twice a day. Daily weights, accurate intake and output, and monitoring of kidney function Aldactone and losartan placed on hold secondary to worsening kidney function Increase activity as tolerated. Further recommendations pending patient course Nurse practitioner note has been reviewed by physician. Signing provider agrees with the documented findings, assessment, and plan of care documented by [employer] MANAGER as a scribe. Objective - Vital Signs Vital signs: Vital Signs Temp 98 F 12/05/23 11:45 Pulse 57 L 12/05/23 11:45 Resp 20 12/05/23 11:45 BP 111/55 12/05/23 11:45 Pulse Ox 92 L 12/05/23 11:45 FiO2 30 12/05/23 09:01 Intake & Output 12/04/23 12/05/23 12/05/23 18:59 06:59 18:59 Intake Total 540 Output Total 500 Balance 540 -500 Weight 118.5 kg Intake: Oral 540 Output: Urine 500 Other: Voiding Method Toilet Toilet Urinal Urinal # Voids 1 - Labs CBC & Chem 7: 12/03/23 08:16 12/05/23 08:50 Labs: Abnormal Lab Results - Last 24 Hours (Table) 12/04/23 12/04/23 12/05/23 Range/Units 20:30 23:42 06:21 ABG pH 7.33 L (7.35-7.45) ABG pCO2 65 H (35-45) mmHg ABG pO2 66 L (83-108) mmHg ABG HCO3 34 H (21-25) mmol/L ABG Total CO2 36 H (19-24) mmol/L ABG O2 Saturation 92.0 L (94-97) % BUN (9-20) mg/dL Creatinine (0.66-1.25) mg/dL Glucose (74-99) mg/dL POC Glucose (mg/dL) 149 H 133 H (70-110) mg/dL Calcium (8.4-10.2) mg/dL 12/05/23 12/05/23 Range/Units 08:50 11:34 ABG pH (7.35-7.45) ABG pCO2 (35-45) mmHg ABG pO2 (83-108) mmHg ABG HCO3 (21-25) mmol/L ABG Total CO2 (19-24) mmol/L ABG O2 Saturation (94-97) % BUN 56 H (9-20) mg/dL Creatinine 2.02 H (0.66-1.25) mg/dL Glucose 114 H (74-99) mg/dL POC Glucose (mg/dL) 166 H (70-110) mg/dL Calcium 8.1 L (8.4-10.2) mg/dL
--- NOTE | 2023-12-05 13:04 | P.PN ---
Subjective Patient is seen for follow-up for acute kidney injury and chronic kidney disease. No significant complaints today. Serum creatinine lower at 2.0 today. 24-hour urine output documented at 2.8 L. Maintained on IV Lasix 40 mg IV daily. Objective - Vital Signs Vital signs: Vital Signs Temp 98 F 12/05/23 11:45 Pulse 64 12/05/23 12:56 Resp 20 12/05/23 11:45 BP 111/55 12/05/23 11:45 Pulse Ox 92 L 12/05/23 12:47 FiO2 30 12/05/23 09:01 Intake & Output 12/04/23 12/05/23 12/05/23 18:59 06:59 18:59 Intake Total 540 Output Total 500 Balance 540 -500 Weight 118.5 kg Intake: Oral 540 Output: Urine 500 Other: Voiding Method Toilet Toilet Urinal Urinal # Voids 1 - Exam Patient is awake, comfortable, no acute distress Examination of the heart S1 and S2 Examination of the lungs decreased breath sounds at the bases Abdomen is soft obese Examination of lower extremities shows bilateral legs to be wrapped. 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 SANDER exam grossly intact - Labs CBC & Chem 7: 12/03/23 08:16 12/05/23 08:50 Labs: Abnormal Lab Results - Last 24 Hours (Table) 12/04/23 12/04/23 12/05/23 Range/Units 20:30 23:42 06:21 ABG pH 7.33 L (7.35-7.45) ABG pCO2 65 H (35-45) mmHg ABG pO2 66 L (83-108) mmHg ABG HCO3 34 H (21-25) mmol/L ABG Total CO2 36 H (19-24) mmol/L ABG O2 Saturation 92.0 L (94-97) % BUN (9-20) mg/dL Creatinine (0.66-1.25) mg/dL Glucose (74-99) mg/dL POC Glucose (mg/dL) 149 H 133 H (70-110) mg/dL Calcium (8.4-10.2) mg/dL 12/05/23 12/05/23 Range/Units 08:50 11:34 ABG pH (7.35-7.45) ABG pCO2 (35-45) mmHg ABG pO2 (83-108) mmHg ABG HCO3 (21-25) mmol/L ABG Total CO2 (19-24) mmol/L ABG O2 Saturation (94-97) % BUN 56 H (9-20) mg/dL Creatinine 2.02 H (0.66-1.25) mg/dL Glucose 114 H (74-99) mg/dL POC Glucose (mg/dL) 166 H (70-110) mg/dL Calcium 8.1 L (8.4-10.2) mg/dL Assessment and Plan Assessment: 1. Acute kidney injury, cardiorenal and secondary to urine retention. Currently with indwelling Christy catheter. Patient has been diuresed and Lasix dose has been decreased. Check UA. Ultrasound of the kidneys shows left renal atrophy at 8.1 cm. No obstructive uropathy noted. Blood pressure is currently not low 2. Urine retention currently with indwelling Christy catheter 3. Acute exacerbation of CHF with reduced ejection fraction at 30-35%. 4. Volume overload 5. History of COPD 6. Coronary artery disease with ischemic cardiomyopathy and previous coronary s tents. Plan: Continue current dose of IV Lasix Continue with Christy catheter Check UA Repeat labs in a.m. Follow-up in the office for CK D management post discharge.
--- NOTE | 2023-12-05 14:59 | P.PN ---
Subjective Progress Note Date: 12/05/23 11/29/2023 Braeden is 73-year-old white male with known COPD and CHF. He presented the office today with increased shortness of breath and diaphoretic. His pulse oximetry was 82% on room air. EMS was called he was transported to the emergency room. He is now on 3 L O2. He is slightly improved. He is currently being seen in emergency room now bed 24. He indicates his symptoms been worsening the past week and a half. He had waited to get in the office and not called sooner as he thought he would improve on his own. He is a known smoker and been trying to quit. November 30, 2023: Patient is resting much more comfortably. He is now 1 to the stepdown unit. Home medications have been reordered. Pulmonology has seen him, cardiology visit is pending. He feels overall improved. Less shortness of b reath. He is urinating using a urinal. He denies any current chest pains pressures or shortness of breath at rest. Oxygen is at 3 L/min. He indicates last night he hallucinated but that quickly resolved. December 01, 2023: Patient seen evaluated for acute exacerbation of his congestive heart failure. He remains in the stepdown unit. He continues on his current medications. He does report hallucinations while awake and at night. He does report that he does not sleep great in the hospital. He does have obstructive sleep apnea and uses a CPAP. But he has not received this. He remains on IV steroids along with IV Lasix. Clinically is overall improved. Oxygen requirement is now down to 2 L via nasal cannula. Labs show a slight leukocytosis with some macrocytosis noted. He has a history of EtOH. BUN 52 creatinine 2.21 GFR is 29 12/02/2023 during the barrel charrer helper hours developed altered mental status, a -team called, received Diamox , IV push Lasix ,placed on BiPAP. ABGs noted. brain CT reported no acute intracranial hemorrhage or midline shift.Maintained on BiPAP, Lasix IV push-inaccurate I&O. Afebrile, normal WBC, hemoglobin 13.3, platelets 134, sodium 139, potassium 4.5, bicarb 35. Worsening renal function, BUN 68, creatinine 2.36. Magnesium 2.6, glucose 106. 12/03/2023 IV push Lasix decreased yesterday ,renal function continues to worsen.Nephrology consulted. BiPAP weaned off and patient currently maintaining O2 sats in the low 90s on 2 L nasal cannula. Sitting up in chair. Reports he has a BiPAP at home but does not use it related to nasal congestion. Afrin discontinued- Flonase ordered. Denies chest pain, palpitations or shortness of breath. 12/04/2023 Continues on IV diuretics, nebulized bronchodilators .Sitting up at the side of the bed, maintaining O2 sats in the high 90s on 2 L nasal cannula. Afebrile. Sodium 137, potassium 3.9, bicarb 36, BUN 58, creatinine 2.54, blood sugars in the 100s, currently 117. Hemoglobin A1c 6.5. Denies chest pain, palpitations or shortness of breath. 12/05/2023 During the night and barrel charrer helper hours unarousable events secondary to CO2 narcosis, ABGs reported a pCO2 of 65 ,placed back on his BiPAP with significant clinical improvement. Creatinine improving , decreased to 2. Decreased urine output, 24-hour I and O reflecting urine output of 500 mL , persistent lower extremity edema with IV push Lasix increased as per cardiology. Levemir insulin initiated yesterday, blood sugars controlled. Discussed with patient that he is not safe to return home alone related to patient's fluctuating episodes of hypercapnic respiratory failure/Co2 narcosis. Patient has been accepted at [facility] subacute rehab. at discharge. Objective - Vital Signs Vital signs: Vital Signs Temp 98 F 12/05/23 11:45 Pulse 64 12/05/23 12:56 Resp 20 12/05/23 11:45 BP 111/55 12/05/23 11:45 Pulse Ox 92 L 12/05/23 12:47 FiO2 30 12/05/23 09:01 Intake & Output 12/04/23 12/05/23 12/05/23 18:59 06:59 18:59 Intake Total 540 Output Total 500 Balance 540 -500 Weight 118.5 kg Intake: Oral 540 Output: Urine 500 Other: Voiding Method Toilet Toilet Urinal Urinal # Voids 1 - Exam GENERAL: Alert and oriented x 2 ,sitting up at bedside, no acute distress NECK: Supple, no JVD LUNGS: Unlabored, equal air entry, coarse bibasilar crackles HEART: Regular rate and rhythm without murmurs, rubs or gallops.S1S2 Normal ABDOMEN: Soft, nontender, normoactive bowel sounds. No rigidity, no guarding. EXTREMITIES: 2+lower extremity edema. NEUROLOGICAL: No focal deficits. SKIN: Warm, Dry, normal turgor, no rashes or lesions noted. - Labs CBC & Chem 7: 12/03/23 08:16 12/05/23 08:50 Labs: Abnormal Lab Results - Last 24 Hours (Table) 12/04/23 12/04/23 12/05/23 Range/Units 20:30 23:42 06:21 ABG pH 7.33 L (7.35-7.45) ABG pCO2 65 H (35-45) mmHg ABG pO2 66 L (83-108) mmHg ABG HCO3 34 H (21-25) mmol/L ABG Total CO2 36 H (19-24) mmol/L ABG O2 Saturation 92.0 L (94-97) % BUN (9-20) mg/dL Creatinine (0.66-1.25) mg/dL Glucose (74-99) mg/dL POC Glucose (mg/dL) 149 H 133 H (70-110) mg/dL Calcium (8.4-10.2) mg/dL 12/05/23 12/05/23 Range/Units 08:50 11:34 ABG pH (7.35-7.45) ABG pCO2 (35-45) mmHg ABG pO2 (83-108) mmHg ABG HCO3 (21-25) mmol/L ABG Total CO2 (19-24) mmol/L ABG O2 Saturation (94-97) % BUN 56 H (9-20) mg/dL Creatinine 2.02 H (0.66-1.25) mg/dL Glucose 114 H (74-99) mg/dL POC Glucose (mg/dL) 166 H (70-110) mg/dL Calcium 8.1 L (8.4-10.2) mg/dL Assessment and Plan Assessment: (1)Anoxic hypercapnic encephalopathy secondary to CO2 narcosis (2) Acute systolic (congestive) heart failure, EF 20 to 25% Current Visit: Yes Status: Acute Code(s): I50.21 - ACUTE SYSTOLIC ( CONGESTIVE) HEART FAILURE SNOMED Code(s): 070748478 (3) acute on chronic hypoxic and hypercapnic respiratory failure secondary to decompensated CHF, systolic dysfunction (4) H/O myocardial infarction, greater than 8 weeks Current Visit: Yes Status: Acute Code(s): I25.2 - OLD MYOCARDIAL INFARCTION SNOMED Code(s): 5777057 ( 5) History of V. tach with AICD placement (6) Cardiomyopathy, ischemic Current Visit: Yes Status: Acute Code(s): I42.9 - CARDIOMYOPATHY, UNSPECIFIED SNOMED Code(s): 46029114 (7) CKD (chronic kidney disease) stage 3, GFR 30-59 ml/min Current Visit: Yes Status: Acute Code(s): N18.30 - CHRONIC KIDNEY DISEASE, STAGE 3 UNSPECIFIED SNOMED Code(s): 931117404 (8) Morbid obesity, BMI 39 Current Visit: Yes Status: Acute Code(s): E66.01 - MORBID (SEVERE) OBESITY DUE TO EXCESS CALORIES SNOMED Code(s): 465359289 (9) Type 2 diabetes mellitus with other circulatory complications, hemoglobin A1c 6.5 Current Visit: Yes Status: Acute Code(s): E11.59 - TYPE 2 DIABETES MELLITUS WITH OTH CIRCULATORY COMPLICATIONS SNOMED Code(s): 14493614 (10) Essential (primary) hypertension Current Visit: Yes Status: Acute Code(s): I10 - ESSENTIAL (PRIMARY) HYPERTENSION SNOMED Code(s): 38358942 11) Hyperlipidemia, unspecified Current Visit: Yes Status: Acute Code(s): E78.5 - HYPERLIPIDEMIA, UNSPECIFIED SNOMED Code(s): 15742095 (12) Smoker Current Visit: Yes Status: Acute Code(s): F17.200 - NICOTINE DEPENDENCE, UNSPECIFIED, UNCOMPLICATED SNOMED Code(s): 37384203 (13) H/O four vessel coronary artery bypass graft Current Visit: Yes Status: Acute Code(s): Z95.1 - PRESENCE OF AORTOCORONARY BYPASS GRAFT SNOMED Code(s): 665907341 (14) Acute exacerbation of chronic obstructive pulmonary disease Current Visit: Yes Status: Acute Code(s): J44.1 - CHRONIC OBSTRUCTIVE PULMONARY DISEASE W (ACUTE) EXACERBATION SNOMED Code(s): 672501623 (15) urinary retention requiring Christy catheter Plan: Continue on current medication regimen ,monitoring and symptomatic treatment. IV push Lasix increased, strict MIMI's and close monitoring of renal function with repeat labs ordered for a.m. close monitoring of Accu-Cheks .maintain nebulized bronchodilators, steroids. Patient requires subacute rehab. at discharge-discussed with patient and he is in agreement with. OBRA completed, accepted at [facility] once patient stabilizes. Given patient's CO2 narcosis, hypercapnic respiratory failure, hypercapnic encephalopathy, patient is not safe to return home alone and is lacking safe decision-making ability at this time. Guardianship, possibly patient's sister,discussed with case management who is deferring to APS. Prognosis guarded given patient's multiple complex medical issues. Patient requests full code. The impression and plan of care has been dictated as directed. : I performed a history and examination of this patient, discussed the same with the dictator. I agree with the dictator's note ,documented as a scribe. Any additional findings or plans will be noted.
--- NOTE | 2023-12-05 15:27 | P.PN ---
Subjective Progress Note Date: 12/05/23 This is a 73-year-old male patient came into the emergency department because of difficulty breathing. The patient was having exertional dyspnea, and orthopnea. He was unable to lay down flat and I saw him in the emergency department sitting up. He also had increasing lower extremity edema. His pulse ox was in the mid 80s at the time of his arrival. The patient's pulse ox currently improved. Is known to have a long cardiac history in addition to COPD. He is a chronic smoker and he is still smoking few cigarettes on a daily basis. He has cut down his smoking approximately a month ago. He also has history of Severe COPD and the patient's FEV1 is in the order of 52% of predicted. Does not u tilize any form of maintenance respiratory medications and is mainly using Trelegy Ellipta samples as given to him by his primary care physician and his remote sensing analyst. He also uses albuterol nebulized treatments [id number]. Not oxygen dependent at this point in time. The patient has other comorbidities including coronary artery disease, previous bypass surgery, previous coronary stenting, ischemic cardiomyopathy and the patient has an AICD in place. Based on the most recent echocardiogram that was done on this patient on 04/19/2023, the patient has severe systolic heart failure with an ejection fraction of 20 to 25% and the patient also has grade 2 diastolic heart failure, moderate functional mitral regurgitation, severe and a dilatation, moderate RV dilatation. He also has mild pulmonary hypertension. The patient was in the hospital back in March 2023 after having some issues with ventricular tachycardia requiring discharge from his AICD and the patient was treated with amiodarone. He has been given an ICD back in 2016. Other COVID conditions include hypertension, hyperlipidemia and diabetes mellitus and the patient also has chronic stage III kidney disease. He has baseline GFR has been in the mid 40s. The patient is currently is having shortness of breath. He was started on IV Lasix. His chest x-ray is consistent with CHF with pulmonary edema. There is also some bibasilar atelectatic changes noted. The patient was started on IV Lasix in the emergency department. The white cell count at 7.3 with a hemoglobin 15.7 and a platelet count of 171. Normal coagulation profile. BUN is 36 with a creatinine of 1.7 and sodium levels of 140. His proBNP level is 2 430. His EKG showing sinus bradycardia with a bundle branch block pattern. Is likely a right bundle branch block. His last cardiac catheterization was done on March 2023 and the patient was found to have CAD with 100% proximal LAD, 40 to 50% distal left main, 60 to 70% ostial ramus, 50% proximal circumflex and 100% RCA. He has patent DYER to LAD and the rest of the grafts are all occluded. On today's evaluation of 11/30/2023, the patient is comfortable on 2 L of oxygen nasal cannula with a pulse ox of 93%. Afebrile. Remains on IV Lasix and the fluid balance has been negative over the past 24 hours. No chest pain. No cardiac arrhythmias. No other new complaints otherwise for now. He is receiving Lasix 40 mg IV every 8 hours. Outpatient medications have been resumed. He is also DuoNeb updrafts and IV Solu-Medrol which will be tapered off as the patient's not having any significant bronchospasm wheezing. On today's evaluation of 11/30/2023, the patient is feeling better compared to yesterday. Is less short of breath. He was admitted to the hospital because of worsening shortness of breath and exacerbation of his chronic CHF it is known to have coronary artery disease. Severe cardiomyopathy with EF around 20 to 25%. The patient remains on IV Lasix at a dose of 40 mg every 12 hours. Fluid balance over the past 24 hours has been -569 cc and the patient's creatinine is at 2.2 with a BUN of 52. Sodium levels at 136. Based on the rise in the creatinine, the patient's diuretic dose has been reduced. WBC count 11.7 with a hemoglobin 13.6 and a platelet count of 161. He remains on 2 L of oxygen by nasal cannula with a pulse ox of 93%. He has no other specific complaints. He remains on DuoNeb updrafts. He is also on the maintenance prednisone of 5 mg p.o. daily. IV Solu-Medrol will be discontinued. The patient is seen today December 02, 2023 in follow-up on the regular medical floor. He is currently laying in bed. Awake and alert. He is on BiPAP 10/5 and 30% FiO2. Still with significant abdominal and lower extremity edema. CT scan of the brain revealed no acute intracranial hemorrhage or midline shift. Arterial blood gases revealed a pO2 of 70, pCO2 66 and a pH of 7.32. White count 9.6. Hemoglobin 13.3. Platelets 134. Sodium 139. Potassium 4.5. Bicarb 35. BUN 68. Creatinine 2.36. Glucose 106. No accurate intake and output. He is receiving Lasix 40 mg IV every 12 hours. Continued on bronchodilators. Heparin for DVT prophylaxis. The patient is seen today December 03, 2023 in follow-up on the selective care unit. He is currently resting comfortably in bed. Awake and alert in no acute distress. He is maintaining O2 saturations in the 90s on 2 L/min per nasal cannula. White count 7.2. Hemoglobin 12.88. Platelets 132. Sodium 142. Potassium 4.1. Bicarb 39. BUN 59. Creatinine 2.63. Glucose 117. He remains on bronchodilators. Continued on IV diuretics. Heparin for DVT prophylaxis. The patient is seen today December 04, 2023 in follow-up on the selective care unit. He is currently sitting up in bed. Awake and alert in no acute distress. He is maintaining good O2 saturations in the upper 90s on 2 L/min per nasal can nula. He is afebrile. Hemodynamically stable. Sodium 137. Potassium 3.9. Bicarb 36. BUN 58. Creatinine 2.54. Glucose 262. He is continued on IV diuretics. Continued on bronchodilators. Heparin for DVT prophylaxis. Currently in a -2.3 L balance. The patient is seen today December 05, 2023 in follow-up on the selective care unit. He is currently up ambulating in his room with a walker. Awake and alert in no acute distress. He did have another episode of unresponsiveness late last night . He was placed back on BiPAP. Arterial blood gases revealed a PaO2 of 66, pCO2 of 65 and a pH of 7.33. He was on Seroquel which has been discontinued. Sodium 138. Potassium 4.4. Bicarb 28. BUN 56. Creatinine 2.02. Glucose 114. Chest x-ray reveals patchy basilar infiltrates with small effusions. He is on Lasix 40 mg IVP every 12 hours. His indwelling catheter has been removed. No accurate I & O. Objective - Vital Signs Vital signs: Vital Signs Temp 98 F 12/05/23 11:45 Pulse 64 12/05/23 12:56 Resp 20 12/05/23 11:45 BP 111/55 12/05/23 11:45 Pulse Ox 92 L 12/05/23 12:47 FiO2 30 12/05/23 09:01 Intake & Output 12/04/23 12/05/23 12/05/23 18:59 06:59 18:59 Intake Total 540 598 Output Total 500 Balance 540 -500 598 Weight 118.5 kg Intake: Oral 540 598 Output: Urine 500 Other: Voiding Method Toilet Toilet Urinal Urinal # Voids 1 3 - Exam GENERAL EXAM: Currently an awake, alert 72-year-old male, ambulating with his walker, on room air. HEAD: Normocephalic. EYES: Normal reaction of pupils, equal size. NOSE: Clear with pink turbinates. THROAT: No erythema or exudates. NECK: No masses, no JVD. CHEST: No chest wall deformity. LUNGS: Equal air entry with coarse crackles in the lung bases bilaterally CVS: S1 and S2 normal with no audible murmur, regular rhythm. ABDOMEN: No hepatosplenomegaly, normal bowel sounds, no guarding or rigidity. SPINE: No scoliosis or deformity SKIN: No rashes CENTRAL NERVOUS SYSTEM: No focal deficits, tone is normal in all 4 extremities. EXTREMITIES: There is no peripheral edema. No clubbing, no cyanosis. Peripheral pulses are intact. - Labs CBC & Chem 7: 12/03/23 08:16 12/05/23 08:50 Labs: Abnormal Lab Results - Last 24 Hours (Table) 12/04/23 12/04/23 12/05/23 Range/Units 20:30 23:42 06:21 ABG pH 7.33 L (7.35-7.45) ABG pCO2 65 H (35-45) mmHg ABG pO2 66 L (83-108) mmHg ABG HCO3 34 H (21-25) mmol/L ABG Total CO2 36 H (19-24) mmol/L ABG O2 Saturation 92.0 L (94-97) % BUN (9-20) mg/dL Creatinine (0.66-1.25) mg/dL Glucose (74-99) mg/dL POC Glucose (mg/dL) 149 H 133 H (70-110) mg/dL Calcium (8.4-10.2) mg/dL 12/05/23 12/05/23 Range/Units 08:50 11:34 ABG pH (7.35-7.45) ABG pCO2 (35-45) mmHg ABG pO2 (83-108) mmHg ABG HCO3 (21-25) mmol/L ABG Total CO2 (19-24) mmol/L ABG O2 Saturation (94-97) % BUN 56 H (9-20) mg/dL Creatinine 2.02 H (0.66-1.25) mg/dL Glucose 114 H (74-99) mg/dL POC Glucose (mg/dL) 166 H (70-110) mg/dL Calcium 8.1 L (8.4-10.2) mg/dL Assessment and Plan Assessment: Acute on chronic shortness of breath attributed to decompensated CHF with evidence of pulmonary edema. proBNP level is mildly elevated. Currently on 2 L nasal cannula, responding to diuresis Coronary artery disease with previous bypass surgery and the most recent cardiac catheterization from March 2023 showed a patent DYER to LAD and the rest of the grafts are all occluded Systolic heart failure with an ejection fraction of 20 to 25%, consistent with ischemic cardiomyopathy History of ventricular tachycardia and the patient has an AICD placement and amiodarone COPD with a baseline FEV1 of 52% of predicted Chronic kidney disease stage III with a component of acute kidney injury due to diuresis Obstructive sleep apnea Obesity with a BMI of 39.2 Hypertension Hyperlipidemia Diabetes mellitus type 2 Chronic smoker History of nephrolithiasis with previous lithotripsy Long-term steroid use and the patient has been maintained on prednisone 5 mg p.o. daily Plan: The patient was seen and evaluated Chest x-ray, labs and medications reviewed Lasix increased to twice daily Continue BiPAP support as needed Avoid sedatives, narcotics We will continue to follow I have personally seen and examined the patient, performed the documentation and the assessment and plan as written. Number of minutes spent on the visit: 10.
[2023-12-05 15:51] LABS: Appearance,Urine Clear (Clear); Bilirubin,Urine Negative (Negative); Blood,Urine Small (Negative); Color,Urine Colorless; Glucose,Urine (UA) Negative (Negative); Ketones,Urine Negative (Negative); Leukocyte Esterase,Urine Negative (Negative); Mucus,Urine Rare /hpf; Nitrite,Urine Negative (Negative); Protein,Urine Negative (Negative); RBC,Urine 10 /hpf (0-5); Urobilinogen,Urine <2.0 mg/dL (<2.0); WBC,Urine 3 /hpf (0-5)
[2023-12-05 17:02] LABS: Glucose,Whole Blood 62 mg/dL (70-110)
[2023-12-05 17:28] LABS: Glucose,Whole Blood 94 mg/dL (70-110)
[2023-12-05 20:22] LABS: Glucose,Whole Blood 158 mg/dL (70-110)
[2023-12-05] MEDS: FUROSEMIDE 10 MG/ML 4 ML VIAL IV SCH (20:57)
[2023-12-06 06:11] LABS: Glucose,Whole Blood 120 mg/dL (70-110)
[2023-12-06 09:46] LABS: African American GFR (CKD) 32 (>60 ml/min/1.73 sqM); Anion Gap 5 mmol/L; Blood Urea Nitrogen 47 mg/dL (9-20); Calcium 8.5 mg/dL (8.4-10.2); Carbon Dioxide 35 mmol/L (22-30); Chloride 99 mmol/L (98-107); Glucose 168 mg/dL (74-99); Non-African American GFR(CKD) 28 (>60 ml/min/1.73 sqM); Potassium 4.9 mmol/L (3.5-5.1); Sodium 139 mmol/L (137-145)
[2023-12-06 11:25] LABS: Glucose,Whole Blood 108 mg/dL (70-110)
--- NOTE | 2023-12-06 11:45 | P.PN ---
Subjective HISTORY OF PRESENT ILLNESS: This is a 73-year-old gentleman who is known to our service from before with a past medical history significant for coronary artery disease status post CABG with the most recent heart catheterization in 2022 showing patent DYER to LAD and the occlusion of all vein grafts as well as cardiomyopathy with the also the most recent echo from 2022 showing impaired LV function with EF around 20% with moderate mitral regurgitation secondary to cardiomyopathy and also history of ventricular tachycardia with status post AICD as well as the patient currently on amiodarone and also chronic renal failure and hypertension and dyslipidemia and diabetes and smoking and chronic obstructive pulmonary disease. The patient presented to the hospital with symptoms and signs consistent with heart failure. He presented with progressive exertional dyspnea associated with orthopnea and lower extremities edema and weight gain. No pain in the chest and no dizziness or lightheadedness and no feeling of heart racing or fluttering and no presyncope or syncope. Unfortunately he continues to smoke. He stated that he has been compliant with his medications at home including diuretic where he was receiving Lasix at 40 mg twice daily and also has been compliant with his cardiomyopathy medications. He is not quite compliant with low-sodium diet. Further investigation performed including cardiac enzymes came in to be unremarkable and NT proBNP came in to be elevated and chest x-ray showed finding consistent with heart failure. The patient was subsequently placed on IV diuretics and he was admitted to the hospital for further evaluation. The physical examination is remarkable for diminished breathing sounds bilaterally and bilateral rhonchi and regular rate and rhythm with a systolic murmur at the apical area and bilateral lower extremities edema please note that the patient was hypoxic when he presented to the emergency department December 01, 2023 The patient was seen and evaluated this afternoon. He is feeling better. The shortness of breath has improved. The lower extremities edema has improved. He is able to walk up and around with no shortness of breath interfering with his daily activities with his kidney function is slightly worse. Blood pressure has been marginally low. I am going to decrease the dose of losartan to 12.5 mg p.o. daily from 25 mg p.o. daily. The examination is remarkable for bilateral rhonchi and bilateral lower extremities edema. 12/02/2023 Patient examined this morning at the bedside. Patient denies chest pain or pressure. He is currently laying flat in bed and does not appear to be in any acute distress. He is currently on BiPAP. He remains on IV Lasix 40 mg twice a day. Creatinine slightly worsened today at 2.36. 12/03/2023 Patient examined this morning. Patient is sitting on the side of the bed. He denies chest pain or pressure. He reports improvement in his shortness of breath. He remains on IV Lasix 40 mg daily. Creatinine is worsened today at 2.63. Blood pressure stable with a recent reading of 122/60. 12/04/2023 Patient examined this morning. Patient is sitting up in the chair. Patient denies chest pain or pressure. He reports mild shortness of breath. Vital signs are stable. Creatinine today remains stable at 2.54. 12/05/2023 Patient examined this morning. He is sitting on the side of the bed. He remains on IV Lasix 40 mg once a day. He is states he does not feel like he is urinating very much. Urine output documented over the last 24 hours is 500 cc. Creatinine improved today to 2.0 from 2.54 yesterday. Vital signs are stable. 12/06/2023 Patient examined this morning at the bedside. Patient showered this morning. He states he is feeling better today. His lower extremity edema is improved. Creatinine today 2.2. He denies chest pain or pressure. He reports improvement in his shortness of breath. PHYSICAL EXAM: VITAL SIGNS: Reviewed. GENERAL: Well-developed in no acute distress. NECK: Supple. No JVD or thyromegaly LUNGS: Respirations even and unlabored. Lungs diminished bilaterally HEART: Regular rate and rhythm. S1 and S2 heard. EXTREMITIES: Normal range of motion. No clubbing or cyanosis. Peripheral puls es intact. 2+ lower extremity edema ASSESSMENT: Acute hypoxic respiratory failure secondary to heart failure with reduced ejection fraction with evidence of right and left failure Severe cardiomyopathy with an ejection fraction of 20% Mitral regurgitation secondary to cardiomyopathy Coronary artery disease and status post CABG as described above with patent DYER to LAD and the occlusion of all vein grafts History of sustained ventricular tachycardia status post AICD; on amiodarone Obstructive sleep apnea Chronic kidney disease Multiple comorbid conditions including diabetes and hypertension and dyslipidemia Nicotine dependence PLAN: Discontinue IV Lasix Begin Bumex 1 mg daily Aldactone and losartan placed on hold secondary to acute kidney injury Increase activity as tolerated. Further recommendations pending patient course Nurse practitioner note has been reviewed by physician. Signing provider agrees with the documented findings, assessment, and plan of care documented by [employer] as a scribe. Objective - Vital Signs Vital signs: Vital Signs Temp 97.8 F 12/06/23 08:37 Pulse 58 L 12/06/23 08:37 Resp 16 12/06/23 08:37 BP 110/62 12/06/23 08:37 Pulse Ox 95 12/06/23 08:37 FiO2 30 12/06/23 03:38 Intake & Output 12/05/23 12/06/23 12/06/23 18:59 06:59 18:59 Intake Total 708 20 240 Output Total 900 Balance 708 -880 240 Weight 116.5 kg Intake: IV 20 Invasive Line 3 20 Oral 708 240 Output: Urine 900 Other: Voiding Method Toilet Toilet Toilet Urinal Urinal Urinal # Voids 3 2 - Labs CBC & Chem 7: 12/03/23 08:16 12/06/23 08:51 Labs: Abnormal Lab Results - Last 24 Hours (Table) 12/05/23 12/05/23 12/05/23 Range/Units 15:37 17:01 20:11 Carbon Dioxide (22-30) mmol/L BUN (9-20) mg/dL Creatinine (0.66-1.25) mg/dL Glucose (74-99) mg/dL POC Glucose (mg/dL) 62 L 158 H (70-110) mg/dL Urine Blood Small H (Negative) Urine RBC 10 H (0-5) /hpf Urine Mucus Rare H (None) /hpf 12/06/23 12/06/23 Range/Units 06:10 08:51 Carbon Dioxide 35 H (22-30) mmol/L BUN 47 H (9-20) mg/dL Creatinine 2.28 H (0.66-1.25) mg/dL Glucose 168 H (74-99) mg/dL POC Glucose (mg/dL) 120 H (70-110) mg/dL Urine Blood (Negative) Urine RBC (0-5) /hpf Urine Mucus (None) /hpf
--- NOTE | 2023-12-06 14:00 | P.PN ---
Subjective Progress Note Date: 12/06/23 Principal diagnosis: Acute on chronic hypoxic and hypercapnic respiratory failure secondary to acute on chronic systolic congestive heart failure and underlying COPD with acute exa cerbation and obstructive sleep apnea syndrome This is a 73-year-old male patient came into the emergency department because of difficulty breathing. The patient was having exertional dyspnea, and orthopnea. He was unable to lay down flat and I saw him in the emergency department sitting up. He also had increasing lower extremity edema. His pulse ox was in the mid 80s at the time of his arrival. The patient's pulse ox currently improved. Is known to have a long cardiac history in addition to COPD. He is a chronic smoker and he is still smoking few cigarettes on a daily basis. He has cut down his smoking approximately a month ago. He also has history of Severe COPD and the patient's FEV1 is in the order of 52% of predicted. Does not utilize any form of maintenance respiratory medications and is mainly using Trelegy Ellipta samples as given to him by his primary care physician and his manager client. He also uses albuterol nebulized treatments [id number]. Not oxygen dependent at this point in time. The patient has other comorbidities including coronary artery disease, previous bypass surgery, previous coronary stenting, ischemic cardiomyopathy and the patient has an AICD in place. Based on the most recent echocardiogram that was done on this patient on 04/19/2023, the patient has severe systolic heart failure with an ejection fraction of 20 to 25% and the patient also has grade 2 diastolic heart failure, moderate functional mitral regurgitation, severe and a dilatation, moderate RV dilatation. He also has mild pulmonary hypertension. The patient was in the hospital back in March 2023 after having some issues with ventricular tachycardia requiring discharge from his AICD and the patient was treated with amiodarone. He has been given an ICD back in 2016. Other COVID conditions include hypertension, hyperlipidemia and diabetes mellitus and the patient also has chronic stage III kidney disease. He has baseline GFR has been in the mid 40s. The patient is currently is having shortness of breath. He was started on IV Lasix. His chest x-ray is consistent with CHF with pulmonary edema. There is also some bibasilar atelectatic changes noted. The patient was started on IV Lasix in the emergency department. The white cell count at 7.3 with a hem oglobin 15.7 and a platelet count of 171. Normal coagulation profile. BUN is 36 with a creatinine of 1.7 and sodium levels of 140. His proBNP level is 2430. His EKG showing sinus bradycardia with a bundle branch block pattern. Is likely a right bundle branch block. His last cardiac catheterization was done on March 2023 and the patient was found to have CAD with 100% proximal LAD, 40 to 50% di stal left main, 60 to 70% ostial ramus, 50% proximal circumflex and 100% RCA. He has patent DYER to LAD and the rest of the grafts are all occluded. On today's evaluation of 11/30/2023, the patient is comfortable on 2 L of oxygen nasal cannula with a pulse ox of 93%. Afebrile. Remains on IV Lasix and the fluid balance has been negative over the past 24 hours. No chest pain. No cardiac arrhythmias. No other new complaints otherwise for now. He is receiving Lasix 40 mg IV every 8 hours. Outpatient medications have been resumed. He is also DuoNeb updrafts and IV Solu-Medrol which will be tapered off as the patient's not having any significant bronchospasm wheezing. On today's evaluation of 11/30/2023, the patient is feeling better compared to yesterday. Is less short of breath. He was admitted to the hospital because of worsening shortness of breath and exacerbation of his chronic CHF it is known to have coronary artery disease. Severe cardiomyopathy with EF around 20 to 25%. The patient remains on IV Lasix at a dose of 40 mg every 12 hours. Fluid balance over the past 24 hours has been -569 cc and the patient's creatinine is at 2.2 with a BUN of 52. Sodium levels at 136. Based on the rise in the creatinine, the patient's diuretic dose has been reduced. WBC count 11.7 with a hemoglobin 13.6 and a platelet count of 161. He remains on 2 L of oxygen by nasal cannula with a pulse ox of 93%. He has no other specific complaints. He remains on DuoNeb updrafts. He is also on the maintenance prednisone of 5 mg p.o. daily. IV Solu-Medrol will be discontinued. The patient is seen today December 02, 2023 in follow-up on the regular medical floor. He is currently laying in bed. Awake and alert. He is on BiPAP 10/5 and 30% FiO2. Still with significant abdominal and lower extremity edema. CT scan of the brain revealed no acute intracranial hemorrhage or midline shift. Arterial blood gases revealed a pO2 of 70, pCO2 66 and a pH of 7.32. White count 9.6. Hemoglobin 13.3. Platelets 134. Sodium 139. Potassium 4.5. Bicarb 35. BUN 68. Creatinine 2.36. Glucose 106. No accurate intake and output. He is receiving Lasix 40 mg IV every 12 hours. Continued on bronchodilators. Heparin for DVT prophylaxis. The patient is seen today December 03, 2023 in follow-up on the selective care unit. He is currently resting comfortably in bed. Awake and alert in no acute distress. He is maintaining O2 saturations in the 90s on 2 L/min per nasal cannula. White count 7.2. Hemoglobin 12.88. Platelets 132. Sodium 142. Potassium 4.1. Bicarb 39. BUN 59. Creatinine 2.63. Glucose 117. He remains on bronchodilators. Continued on IV diuretics. Heparin for DVT prophylaxis. The patient is seen today December 04, 2023 in follow-up on the selective care unit. He is currently sitting up in bed. Awake and alert in no acute distress. He is maintaining good O2 saturations in the upper 90s on 2 L/min per nasal cannula. He is afebrile. Hemodynamically stable. Sodium 137. Potassium 3.9. Bicarb 36. BUN 58. Creatinine 2.54. Glucose 262. He is continued on IV diuretics. Continued on bronchodilators. Heparin for DVT prophylaxis. Currently in a -2.3 L balance. The patient is seen today December 05, 2023 in follow-up on the selective care unit. He is currently up ambulating in his room with a walker. Awake and alert in no acute distress. He did have another episode of unresponsiveness late last night. He was placed back on BiPAP. Arterial blood gases revealed a PaO2 of 66, pCO2 of 65 and a pH of 7.33. He was on Seroquel which has been disc ontinued. Sodium 138. Potassium 4.4. Bicarb 28. BUN 56. Creatinine 2.02. Glucose 114. Chest x-ray reveals patchy basilar infiltrates with small effusions. He is on Lasix 40 mg IVP every 12 hours. His indwelling catheter has been removed. No accurate I & O. Patient was reevaluated today on 12/06/2023, remains on the cardiac floor, patient is doing fairly better and improving on a daily basis.Patient is today on room air with O2 sats of 95%,Basic metabolic profile is normal except for bicarb is 35 BUN is 47 creatinine 2.28 chest x-ray yesterday showed minimal bibasilar atelectasis and small pleural effusions. Patient has no symptoms to suggest active pneumonia Objective - Vital Signs Vital signs: Vital Signs Temp 97.6 F 12/06/23 12:00 Pulse 60 12/06/23 12:47 Resp 20 12/06/23 12:00 BP 107/62 12/06/23 12:00 Pulse Ox 95 12/06/23 12:00 FiO2 30 12/06/23 03:38 Intake & Output 12/05/23 12/06/23 12/06/23 18:59 06:59 18:59 Intake Total 708 20 480 Output Total 900 Balance 708 -880 480 Weight 116.5 kg Intake: IV 20 Invasive Line 3 20 Oral 708 480 Output: Urine 900 Other: Voiding Method Toilet Toilet Toilet Urinal Urinal Urinal # Voids 3 2 2 - Exam GENERAL EXAM: Reveals 73-year-old white male obese in no distress on room air HEAD: Atraumatic, normocephalic EYES: Normal reaction of pupils, equal size. NOSE: Clear with pink turbinates. THROAT: No erythema or exudates. NECK: No masses, no JVD. CHEST: No chest wall deformity. LUNGS: Diminished breath sounds at the bases no rhonchi no wheezes CVS: S1 and S2 normal with no audible murmur, regular rhythm. ABDOMEN: No hepatosplenomegaly, normal bowel sounds, no guarding or rigidity. SKIN: No rashes CENTRAL NERVOUS SYSTEM: Alert and oriented x 3 no gross focal deficit EXTREMITIES: Trace of bipedal edema no clubbing no cyanosis - Labs CBC & Chem 7: 12/03/23 08:16 12/06/23 08:51 Labs: Abnormal Lab Results - Last 24 Hours (Table) 12/05/23 12/05/23 12/05/23 Range/Units 15:37 17:01 20:11 Carbon Dioxide (22-30) mmol/L BUN (9-20) mg/dL Creatinine (0.66-1.25) mg/dL Glucose (74-99) mg/dL POC Glucose (mg/dL) 62 L 158 H (70-110) mg/dL Urine Blood Small H (Negative) Urine RBC 10 H (0-5) /hpf Urine Mucus Rare H (None) /hpf 12/06/23 12/06/23 Range/Units 06:10 08:51 Carbon Dioxide 35 H (22-30) mmol/L BUN 47 H (9-20) mg/dL Creatinine 2.28 H (0.66-1.25) mg/dL Glucose 168 H (74-99) mg/dL POC Glucose (mg/dL) 120 H (70-110) mg/dL Urine Blood (Negative) Urine RBC (0-5) /hpf Urine Mucus (None) /hpf Assessment and Plan Assessment: Impression: Acute on chronic hypoxic and hypercapnic respiratory failure, multifactorial Acute on chronic systolic congestive heart failure ejection fraction of 20 to 25% with history of ischemic cardiomyopathy History of ventricular tachycardia and previous AICD placement History of underlying COPD with FEV1 of 52% likely contributing to his shortness of breath and hypoxia as well as hypercapnia Obstructive sleep apnea syndrome another contributing factor to his hypoxia and hypercapnia Chronic kidney disease stage III Chronic smoker Obesity with BMI of 39.2 Recommendation: Continue present meds Continue BiPAP as needed patient will likely need 1 if he goes to rehab/fdc Continue bronchodilators and diuretics Will clear the patient for discharge to rehab if cleared by other consultants. Time with Patient: Less than 30
--- NOTE | 2023-12-06 15:38 | P.PN ---
Subjective Patient is seen for follow-up for acute kidney injury and chronic kidney disease. No significant complaints today. Serum creatinine at 2.2 today. Maintained on IV Lasix 40 mg IV daily. Objective - Vital Signs Vital signs: Vital Signs Temp 97.6 F 12/06/23 12:00 Pulse 60 12/06/23 12:47 Resp 20 12/06/23 12:00 BP 107/62 12/06/23 12:00 Pulse Ox 95 12/06/23 12:00 FiO2 30 12/06/23 03:38 Intake & Output 12/05/23 12/06/23 12/06/23 18:59 06:59 18:59 Intake Total 708 20 480 Output Total 900 Balance 708 -880 480 Weight 116.5 kg Intake: IV 20 Invasive Line 3 20 Oral 708 480 Output: Urine 900 Other: Voiding Method Toilet Toilet Toilet Urinal Urinal Urinal # Voids 3 2 2 - Exam Patient is awake, comfortable, no acute distress Examination of the heart S1 and S2 Examination of the lungs decreased breath sounds at the bases Abdomen is soft obese Examination of lower extremities shows bilateral legs to be wrapped. Edema is noted bilaterally, improved [employer] exam grossly intact - Labs CBC & Chem 7: 12/03/23 08:16 12/06/23 08:51 Labs: Abnormal Lab Results - Last 24 Hours (Table) 12/05/23 12/05/23 12/05/23 Range/Units 15:37 17:01 20:11 Carbon Dioxide (22-30) mmol/L BUN (9-20) mg/dL Creatinine (0.66-1.25) mg/dL Glucose (74-99) mg/dL POC Glucose (mg/dL) 62 L 158 H (70-110) mg/dL Urine Blood Small H (Negative) Urine RBC 10 H (0-5) /hpf Urine Mucus Rare H (None) /hpf 12/06/23 12/06/23 Range/Units 06:10 08:51 Carbon Dioxide 35 H (22-30) mmol/L BUN 47 H (9-20) mg/dL Creatinine 2.28 H (0.66-1.25) mg/dL Glucose 168 H (74-99) mg/dL POC Glucose (mg/dL) 120 H (70-110) mg/dL Urine Blood (Negative) Urine RBC (0-5) /hpf Urine Mucus (None) /hpf Assessment and Plan Assessment: 1. Acute kidney injury, cardiorenal and secondary to urine retention. Currently with indwelling Christy catheter. Patient has been diuresed and Lasix dose has been decreased. UA is fairly benign. Trace blood noted. Ultrasound of the kidneys shows left renal atrophy at 8.1 cm. No obstructive uropathy noted. Blood pressure is not low. 2. Urine retention currently with indwelling Christy catheter 3. Acute exacerbation of CHF with reduced ejection fraction at 30-35%. 4. Volume overload, improved 5. History of COPD 6. Coronary artery disease with ischemic cardiomyopathy and previous coronary stents. Plan: Can switch to oral diuretics Continue with Christy catheter Repeat labs in a.m. Follow-up in the office for CK D management post discharge.
[2023-12-06 16:45] LABS: Glucose,Whole Blood 165 mg/dL (70-110)
[2023-12-06 20:10] LABS: Glucose,Whole Blood 179 mg/dL (70-110)
[2023-12-07 06:19] LABS: Glucose,Whole Blood 94 mg/dL (70-110)
[2023-12-07] MEDS: BUMETANIDE 1 MG TAB PO SCH (08:43)
[2023-12-07 08:58] LABS: African American GFR (CKD) 36 (>60 ml/min/1.73 sqM); Anion Gap 7 mmol/L; Blood Urea Nitrogen 44 mg/dL (9-20); Calcium 8.6 mg/dL (8.4-10.2); Carbon Dioxide 30 mmol/L (22-30); Chloride 102 mmol/L (98-107); Glucose 89 mg/dL (74-99); Non-African American GFR(CKD) 31 (>60 ml/min/1.73 sqM); Potassium 4.3 mmol/L (3.5-5.1); Sodium 139 mmol/L (137-145)
[2023-12-07 09:09] VITALS: BP 115/54; RESP 18; TEMP 97.8
--- NOTE | 2023-12-07 10:03 | P.PN ---
Subjective Progress Note Date: 12/06/23 Principal diagnosis: Acute on chronic hypoxic and hypercapnic respiratory failure Asians currently on the cardiac floor is doing much better and improving daily patient is on room air sats around 95% O2 basic metabolic panel is normal except for bicarb chest x-ray demonstrating basilar atelectasis patient can go to the rehab unit at [facility], plan is to discharge patient to [facility] rehab tomorrow Objective - Vital Signs Vital signs: Vital Signs Temp 97.8 F 12/07/23 08:00 Pulse 65 12/07/23 09:05 Resp 18 12/07/23 08:00 BP 115/54 12/07/23 08:00 Pulse Ox 94 L 12/07/23 08:00 FiO2 30 12/07/23 04:28 Intake & Output 12/06/23 12/07/23 12/07/23 18:59 06:59 18:59 Intake Total 720 10 100 Output Total 850 Balance 720 -840 100 Weight 117 kg Intake: IV 10 Invasive Line 3 10 Oral 720 100 Output: Urine 850 Other: Voiding Method Toilet Toilet Urinal Urinal # Voids 2 1 - Exam General: [Patient awake, alert and oriented times 3. Patient in no acute distress., Morbidly obese HEENT: [PERRL. EOMI. No pharyngeal erythema or exudate.] Neck: [No adenopathy.] Cardiac: [Heart regular in rate and rhythm. No S3. No S4. No clicks, rubs. No murmur.] Lungs: [Clear to auscultation bilaterally.] Abdomen: [No mass. No organomegaly. Bowel sounds presnt and normoactive in all 4 quadrants.] Extremes: [No edema no cyanosis no claudication normal pulses] : Normal male genitalia Musculoskeletal: [No joint erythema, edema or tenderness.] Skin: [No rash.] Neurologic: [No lateralizing deficits. CN II - XII grossly intact.] Lymphatic: [No adenopathy.] - Labs CBC & Chem 7: 12/03/23 08:16 12/07/23 07:41 Labs: Abnormal Lab Results - Last 24 Hours (Table) 12/06/23 12/06/23 12/07/23 Range/Units 16:39 20:09 07:41 BUN 44 H (9-20) mg/dL Creatinine 2.09 H (0.66-1.25) mg/dL POC Glucose (mg/dL) 165 H 179 H (70-110) mg/dL Assessment and Plan (1) Acute exacerbation of chronic obstructive pulmonary disease Current Visit: Yes Status: Acute Code(s): J44.1 - CHRONIC OBSTRUCTIVE PULM ONARY DISEASE W (ACUTE) EXACERBATION SNOMED Code(s): 926280644 (2) Acute systolic (congestive) heart failure Current Visit: Yes Status: Acute Code(s): I50.21 - ACUTE SYSTOLIC ( CONGESTIVE) HEART FAILURE SNOMED Code(s): 218276142 (3) CKD (chronic kidney disease) stage 3, GFR 30-59 ml/min Current Visit: Yes Status: Acute Code(s): N18.30 - CHRONIC KIDNEY DISEASE, STAGE 3 UNSPECIFIED SNOMED Code(s): 449455741 (4) Cardiomyopathy Current Visit: Yes Status: Acute Code(s): I42.9 - CARDIOMYOPATHY, UNSPECIFIED SNOMED Code(s): 07244358 (5) Congestive heart failure Current Visit: Yes Status: Acute Code(s): I50.9 - HEART FAILURE, UNSPECIFIED SNOMED Code(s): 55194049 (6) Essential (primary) hypertension Current Visit: Yes Status: Acute Code(s): I10 - ESSENTIAL (PRIMARY) HYPERTENSION SNOMED Code(s): 65639463 (7) H/O four vessel coronary artery bypass graft Current Visit: Yes Status: Acute Code(s): Z95.1 - PRESENCE OF AORTOCORONARY BYPASS GRAFT SNOMED Code(s): 518549763 (8) H/O myocardial infarction, greater than 8 weeks Current Visit: Yes Status: Acute Code(s): I25.2 - OLD MYOCARDIAL INFARCTION SNOMED Code(s): 9865659 (9) Smoker Current Visit: Yes Status: Acute Code(s): F17.200 - NICOTINE DEPENDENCE, UNSPECIFIED, UNCOMPLICATED SNOMED Code(s): 70214379 (10) Type 2 diabetes mellitus with other circulatory complications Current Visit: Yes Status: Acute Code(s): E11.59 - TYPE 2 DIABETES MELLITUS WITH OTH CIRCULATORY COMPLICATIONS SNOMED Code(s): 74712130 Plan: Hypercapnic respiratory failure Improved Significantly since admission To be discharged to [facility] rehab Must use BiPAP Time with Patient: Greater than 30
--- NOTE | 2023-12-07 10:20 | P.DS ---
Providers Date of admission: 11/29/23 15:11 Expected date of discharge: 12/07/23 Attending physician: Vaibhav Mejía Consults: 11/29/23 15:08 Consult Physician Routine Consulting Provider: Tere Keyes Consult Reason/Comments: copd Do you want consulting provider notified?: Yes Consult Physician Routine Consulting Provider: Chano Armstrong Consult Reason/Comments: chf Do you want consulting provider notified?: Yes 12/01/23 13:31 Consult Physician Routine Consulting Provider: Chano Armstrong Consult Reason/Comments: CHF Do you want consulting provider notified?: Yes 12/03/23 10:47 Consult Physician Routine Consulting Provider: Ashanti Stinson Consult Reason/Comments: RADHA Do you want consulting provider notified?: Yes Primary care physician: Vaibhav Mejía - Discharge Diagnosis(es) (1) Acute exacerbation of chronic obstructive pulmonary disease Current Visit: Yes Status: Acute (2) Acute systolic (congestive) heart failure Current Visit: Yes Status: Acute (3) CKD (chronic kidney disease) stage 3, GFR 30-59 ml/min Current Visit: Yes Status: Acute (4) Cardiomyopathy Current Visit: Yes Status: Acute (5) Congestive heart failure Current Visit: Yes Status: Acute (6) Essential (primary) hypertension Current Visit: Yes Status: Acute (7) H/O four vessel coronary artery bypass graft Current Visit: Yes Status: Acute (8) H/O myocardial infarction, greater than 8 weeks Current Visit: Yes Status: Acute (9) Smoker Current Visit: Yes Status: Acute (10) Type 2 diabetes mellitus with other circulatory complications Current Visit: Yes Status: Acute Hospital Course: General: [Patient awake, alert and oriented times 3. Patient in no acute distress. Morbidly obese HEENT: [PERRL. EOMI. No pharyngeal erythema or exudate.] Neck: [No adenopathy.] Cardiac: [Heart regular in rate and rhythm. No S3. No S4. No clicks, rubs. No murmur.] Lungs: [Clear to auscultation bilaterally.] Abdomen: [No mass. No organomegaly. Bowel sounds presnt and normoactive in all 4 quadrants.] Extremes: [No edema no cyanosis no claudication normal pulses] : Normal male genitalia Musculoskeletal: [No joint erythema, edema or tenderness.] Skin: [No rash.] Neurologic: [No lateralizing deficits. CN II - XII grossly intact.] Lymphatic: [No adenopathy.] Patient Condition at Discharge: Fair Plan - Discharge Summary Discharge Rx Participant: No New Discharge Prescriptions: New Amiodarone [Cordarone] 100 mg PO DAILY tab Ipratropium-Albuterol Nebulize [Duoneb 0.5 mg-3 mg/3 ml Soln] 3 ml INHALATION RT-QID PRN #120 each Acetaminophen Tab [Tylenol] 650 mg PO Q4HR PRN tab PRN Reason: Mild Pain Or Fever > 100.5 Tamsulosin [Flomax] 0.4 mg PO PC-BRKFST #30 cap Continue Nitroglycerin Sl Tabs [Nitrostat] 0.4 mg SUBLINGUAL Q5M PRN PRN Reason: Chest Pain Atorvastatin [Lipitor] 10 mg PO HS Potassium Chloride ER [K-Dur 20] 20 meq PO BID Isosorbide Mononitrate [Isosorbide Mononitrate ER] 30 mg PO DAILY Furosemide [Lasix] 40 mg PO BID Clopidogrel [Plavix] 75 mg PO DAILY Albuterol Nebulized [Ventolin Nebulized] 2.5 mg INHALATION RT-Q6H PRN PRN Reason: Shortness Of Breath predniSONE 5 mg PO DAILY Pregabalin [Lyrica] 200 mg PO BID #6 cap Aspirin EC [Ecotrin Low Dose] 81 mg PO DAILY Pramipexole [Mirapex] 0.5 mg PO HS metFORMIN HCL [Glucophage] 1,000 mg PO BID allopurinoL [Zyloprim] 100 mg PO TID carvediloL [Coreg] 12.5 mg PO BID Discontinued Amiodarone [Cordarone] 400 mg PO BID #60 tablet Discharge Medication List Nitroglycerin Sl Tabs [Nitrostat] 0.4 mg SUBLINGUAL Q5M PRN 11/27/15 [History] Atorvastatin [Lipitor] 10 mg PO HS 07/06/16 [History] Furosemide [Lasix] 40 mg PO BID 07/06/16 [History] Isosorbide Mononitrate [Isosorbide Mononitrate ER] 30 mg PO DAILY 07/06/16 [History] Potassium Chloride ER [K-Dur 20] 20 meq PO BID 07/06/16 [History] Clopidogrel [Plavix] 75 mg PO DAILY 03/04/17 [History] Albuterol Nebulized [Ventolin Nebulized] 2.5 mg INHALATION RT-Q6H PRN 04/17/23 [History] Aspirin EC [Ecotrin Low Dose] 81 mg PO DAILY 04/17/23 [History] Pramipexole [Mirapex] 0.5 mg PO HS 04/17/23 [History] allopurinoL [Zyloprim] 100 mg PO TID 04/17/23 [History] metFORMIN HCL [Glucophage] 1,000 mg PO BID 04/17/23 [History] predniSONE 5 mg PO DAILY 04/17/23 [History] carvediloL [Coreg] 12.5 mg PO BID 11/29/23 [History] Acetaminophen Tab [Tylenol] 650 mg PO Q4HR PRN tab 12/05/23 [Rx] Amiodarone [Cordarone] 100 mg PO DAILY tab 12/05/23 [Rx] Ipratropium-Albuterol Nebulize [Duoneb 0.5 mg-3 mg/3 ml Soln] 3 ml INHALATION RT-QID PRN #120 each 12/05/23 [Rx] Pregabalin [Lyrica] 200 mg PO BID #6 cap 12/05/23 [Rx] Tamsulosin [Flomax] 0.4 mg PO PC-BRKFST #30 cap 12/05/23 [Rx] Follow up Appointment(s)/Referral(s): Ashanti Stinson MD [STAFF PHYSICIAN] - 1 Week Vaibhav Mejía MD [Primary Care Provider] - 1-2 days Tere Keyes MD [STAFF PHYSICIAN] - 1 Week (Sleep study) Activity/Diet/Wound Care/Special Instructions: Dry Gauze wrap to lower right extremity. Contact area on [facility] for transportation resources Mitzi with [employer] [phone] (Call when he is d/c) Discharge/Stand Alone Forms: Who Do I Call? Discharge Disposition: TRANSFER TO SNF/ECF Care Plan Goals (MU): Rehab
--- NOTE | 2023-12-07 10:48 | P.PN ---
Subjective Patient is seen in follow-up for acute kidney injury on chronic kidney disease. Renal function better. On oral Bumex. Admits to good urine output. No chest pain or shortness of breath. Vital signs are stable. General: No acute distress. HEENT: Head exam is unremarkable. LUNGS: No audible rhonchi or wheezes. HEART: Rate and Rhythm are regular. ABDOMEN: Nontender. EXTREMITITES: 2+ edema. Lower extremities wrapped. Objective - Vital Signs Vital signs: Vital Signs Temp 97.8 F 12/07/23 08:00 Pulse 65 12/07/23 09:05 Resp 18 12/07/23 08:00 BP 115/54 12/07/23 08:00 Pulse Ox 94 L 12/07/23 08:00 FiO2 30 12/07/23 04:28 Intake & Output 12/06/23 12/07/23 12/07/23 18:59 06:59 18:59 Intake Total 720 10 100 Output Total 850 Balance 720 -840 100 Weight 117 kg Intake: IV 10 Invasive Line 3 10 Oral 720 100 Output: Urine 850 Other: Voiding Method Toilet Toilet Urinal Urinal # Voids 2 1 - Labs CBC & Chem 7: 12/03/23 08:16 12/07/23 07:41 Labs: Abnormal Lab Results - Last 24 Hours (Table) 12/06/23 12/06/23 12/07/23 Range/Units 16:39 20:09 07:41 BUN 44 H (9-20) mg/dL Creatinine 2.09 H (0.66-1.25) mg/dL POC Glucose (mg/dL) 165 H 179 H (70-110) mg/dL Assessment and Plan Plan: Assessment: 1. Acute kidney injury secondary to ATN secondary to cardiorenal syndrome. No proteinuria on UA. Left kidney atrophic. No hydronephrosis noted on kidney ultrasound. Creatinine peaked at 2.6 this admission and is 2.09 today. 2. Chronic kidney disease stage IIIb with baseline creatinine 1.5-1.7 secondary to diabetic kidney disease and cardiorenal syndrome.. 3. Acute on chronic systolic CHF ejection fraction of 30 to 35% with mild to moderate mitral agitation. 4. Volume overload. Improved with diuresis. 5. Diabetes mellitus. Plan: Maintain Bumex. Add Farxiga. Add 1500 cc fluid restriction. Advised patient to maintain low-salt diet and fluid restriction of less than 50 ounces per day upon discharge. Also advised him to weigh himself closely and to notify physician if develops edema or gains more than 3 pounds in 1 week duration. Repeat BMP and magnesium level 2 to 3 days postdischarge. Follow-up patient in 1 week.
[2023-12-07 11:41] LABS: Glucose,Whole Blood 130 mg/dL (70-110)
[2023-12-07] MEDS: DAPAGLIFLOZIN PROPANEDIOL 5 MG TABLET PO SCH (12:06)
--- NOTE | 2023-12-07 13:49 | P.PN ---
Subjective Progress Note Date: 12/07/23 This is a 73-year-old male patient came into the emergency department because of difficulty breathing. The patient was having exertional dyspnea, and orthopnea. He was unable to lay down flat and I saw him in the emergency department sitting up. He also had increasing lower extremity edema. His pulse ox was in the mid 80s at the time of his arrival. The patient's pulse ox currently improved. Is known to have a long cardiac history in addition to COPD. He is a chronic smoker and he is still smoking few cigarettes on a daily basis. He has cut down his smoking approximately a month ago. He also has history of Severe COPD and the patient's FEV1 is in the order of 52% of predicted. Does not u tilize any form of maintenance respiratory medications and is mainly using Trelegy Ellipta samples as given to him by his primary care physician and his ruby rails developer. He also uses albuterol nebulized treatments [id number]. Not oxygen dependent at this point in time. The patient has other comorbidities including coronary artery disease, previous bypass surgery, previous coronary stenting, ischemic cardiomyopathy and the patient has an AICD in place. Based on the most recent echocardiogram that was done on this patient on 04/19/2023, the patient has severe systolic heart failure with an ejection fraction of 20 to 25% and the patient also has grade 2 diastolic heart failure, moderate functional mitral regurgitation, severe and a dilatation, moderate RV dilatation. He also has mild pulmonary hypertension. The patient was in the hospital back in March 2023 after having some issues with ventricular tachycardia requiring discharge from his AICD and the patient was treated with amiodarone. He has been given an ICD back in 2016. Other COVID conditions include hypertension, hyperlipidemia and diabetes mellitus and the patient also has chronic stage III kidney disease. He has baseline GFR has been in the mid 40s. The patient is currently is having shortness of breath. He was started on IV Lasix. His chest x-ray is consistent with CHF with pulmonary edema. There is also some bibasilar atelectatic changes noted. The patient was started on IV Lasix in the emergency department. The white cell count at 7.3 with a hemoglobin 15.7 and a platelet count of 171. Normal coagulation profile. BUN is 36 with a creatinine of 1.7 and sodium levels of 140. His proBNP level is 2 430. His EKG showing sinus bradycardia with a bundle branch block pattern. Is likely a right bundle branch block. His last cardiac catheterization was done on March 2023 and the patient was found to have CAD with 100% proximal LAD, 40 to 50% distal left main, 60 to 70% ostial ramus, 50% proximal circumflex and 100% RCA. He has patent DYER to LAD and the rest of the grafts are all occluded. On today's evaluation of 11/30/2023, the patient is comfortable on 2 L of oxygen nasal cannula with a pulse ox of 93%. Afebrile. Remains on IV Lasix and the fluid balance has been negative over the past 24 hours. No chest pain. No cardiac arrhythmias. No other new complaints otherwise for now. He is receiving Lasix 40 mg IV every 8 hours. Outpatient medications have been resumed. He is also DuoNeb updrafts and IV Solu-Medrol which will be tapered off as the patient's not having any significant bronchospasm wheezing. On today's evaluation of 11/30/2023, the patient is feeling better compared to yesterday. Is less short of breath. He was admitted to the hospital because of worsening shortness of breath and exacerbation of his chronic CHF it is known to have coronary artery disease. Severe cardiomyopathy with EF around 20 to 25%. The patient remains on IV Lasix at a dose of 40 mg every 12 hours. Fluid balance over the past 24 hours has been -569 cc and the patient's creatinine is at 2.2 with a BUN of 52. Sodium levels at 136. Based on the rise in the creatinine, the patient's diuretic dose has been reduced. WBC count 11.7 with a hemoglobin 13.6 and a platelet count of 161. He remains on 2 L of oxygen by nasal cannula with a pulse ox of 93%. He has no other specific complaints. He remains on DuoNeb updrafts. He is also on the maintenance prednisone of 5 mg p.o. daily. IV Solu-Medrol will be discontinued. The patient is seen today December 02, 2023 in follow-up on the regular medical floor. He is currently laying in bed. Awake and alert. He is on BiPAP 10/5 and 30% FiO2. Still with significant abdominal and lower extremity edema. CT scan of the brain revealed no acute intracranial hemorrhage or midline shift. Arterial blood gases revealed a pO2 of 70, pCO2 66 and a pH of 7.32. White count 9.6. Hemoglobin 13.3. Platelets 134. Sodium 139. Potassium 4.5. Bicarb 35. BUN 68. Creatinine 2.36. Glucose 106. No accurate intake and output. He is receiving Lasix 40 mg IV every 12 hours. Continued on bronchodilators. Heparin for DVT prophylaxis. The patient is seen today December 03, 2023 in follow-up on the selective care unit. He is currently resting comfortably in bed. Awake and alert in no acute distress. He is maintaining O2 saturations in the 90s on 2 L/min per nasal cannula. White count 7.2. Hemoglobin 12.88. Platelets 132. Sodium 142. Potassium 4.1. Bicarb 39. BUN 59. Creatinine 2.63. Glucose 117. He remains on bronchodilators. Continued on IV diuretics. Heparin for DVT prophylaxis. The patient is seen today December 04, 2023 in follow-up on the selective care unit. He is currently sitting up in bed. Awake and alert in no acute distress. He is maintaining good O2 saturations in the upper 90s on 2 L/min per nasal can nula. He is afebrile. Hemodynamically stable. Sodium 137. Potassium 3.9. Bicarb 36. BUN 58. Creatinine 2.54. Glucose 262. He is continued on IV diuretics. Continued on bronchodilators. Heparin for DVT prophylaxis. Currently in a -2.3 L balance. The patient is seen today December 05, 2023 in follow-up on the selective care unit. He is currently up ambulating in his room with a walker. Awake and alert in no acute distress. He did have another episode of unresponsiveness late last night . He was placed back on BiPAP. Arterial blood gases revealed a PaO2 of 66, pCO2 of 65 and a pH of 7.33. He was on Seroquel which has been discontinued. Sodium 138. Potassium 4.4. Bicarb 28. BUN 56. Creatinine 2.02. Glucose 114. Chest x-ray reveals patchy basilar infiltrates with small effusions. He is on Lasix 40 mg IVP every 12 hours. His indwelling catheter has been removed. No accurate I & O. The patient is seen today December 07, 2023 in follow-up on the selective care unit. He is currently sitting up in chair. Awake and alert in no acute distress. Denies any worsening shortness of breath, cough or congestion. He is maintaining good O2 saturations in the 90s on 2 L/min per nasal cannula. Sodium 139. Potassium 4.3. Bicarb 30. BUN 44. Creatinine 2.09. Glucose 89. He remains on bronchodilators, prednisone, oral diuretics. Heparin for DVT prophylaxis. Objective - Vital Signs Vital signs: Vital Signs Temp 97.8 F 12/07/23 08:00 Pulse 65 12/07/23 12:57 Resp 18 12/07/23 12:57 BP 115/54 12/07/23 08:00 Pulse Ox 94 L 12/07/23 08:00 FiO2 30 12/07/23 04:28 Intake & Output 12/06/23 12/07/23 12/07/23 18:59 06:59 18:59 Intake Total 720 10 458 Output Total 850 1100 Balance 720 -840 -642 Weight 117 kg Intake: IV 10 Invasive Line 3 10 Oral 720 458 Output: Urine 850 1100 Other: Voiding Method Toilet Toilet Urinal Urinal # Voids 2 1 - Exam GENERAL EXAM: Currently an awake, alert 72-year-old male, up in a chair, on room air. HEAD: Normocephalic. EYES: Normal reaction of pupils, equal size. NOSE: Clear with pink turbinates. THROAT: No erythema or exudates. NECK: No masses, no JVD. CHEST: No chest wall deformity. LUNGS: Equal air entry with coarse crackles in the lung bases bilaterally CVS: S1 and S2 normal with no audible murmur, regular rhythm. ABDOMEN: No hepatosplenomegaly, normal bowel sounds, no guarding or rigidity. SPINE: No scoliosis or deformity SKIN: No rashes CENTRAL NERVOUS SYSTEM: No focal deficits, tone is normal in all 4 extremities. EXTREMITIES: There is no peripheral edema. No clubbing, no cyanosis. Peripheral pulses are intact. - Labs CBC & Chem 7: 12/03/23 08:16 12/07/23 07:41 Labs: Abnormal Lab Results - Last 24 Hours (Table) 12/06/23 12/06/23 12/07/23 Range/Units 16:39 20:09 07:41 BUN 44 H (9-20) mg/dL Creatinine 2.09 H (0.66-1.25) mg/dL POC Glucose (mg/dL) 165 H 179 H (70-110) mg/dL 12/07/23 Range/Units 11:39 BUN (9-20) mg/dL Creatinine (0.66-1.25) mg/dL POC Glucose (mg/dL) 130 H (70-110) mg/dL Assessment and Plan Assessment: Acute on chronic shortness of breath attributed to decompensated CHF with evidence of pulmonary edema. proBNP level is mildly elevated. Currently on 2 L nasal cannula, responding to diuresis Coronary artery disease with previous bypass surgery and the most recent cardiac catheterization from March 2023 showed a patent DYER to LAD and the rest of the grafts are all occluded Systolic heart failure with an ejection fraction of 20 to 25%, consistent with ischemic cardiomyopathy History of ventricular tachycardia and the patient has an AICD placement and amiodarone COPD with a baseline FEV1 of 52% of predicted Chronic kidney disease stage III with a component of acute kidney injury due to diuresis Obstructive sleep apnea Obesity with a BMI of 39.2 Hypertension Hyperlipidemia Diabetes mellitus type 2 Chronic smoker History of nephrolithiasis with previous lithotripsy Long-term steroid use and the patient has been maintained on prednisone 5 mg p.o. daily Plan: The patient was seen and evaluated Labs and medications reviewed Awake and alert Stable and on 2 L nasal cannula Plan is to return to [facility] today I have personally seen and examined the patient, performed the documentation and the assessment and plan as written. Number of minutes spent on the visit: 10.
[2023-12-07 16:54] VITALS: PULSE 70
--- NOTE | 2023-12-07 17:20 | P.PN ---
Subjective Progress Note Date: 12/07/23 HISTORY OF PRESENT ILLNESS: This is a 73-year-old gentleman who is known to our service from before with a past medical history significant for coronary artery disease status post CABG with the most recent heart catheterization in 2022 showing patent DYER to LAD and the occlusion of all vein grafts as well as cardiomyopathy with the also the most recent echo from 2022 showing impaired LV function with EF around 20% with moderate mitral regurgitation secondary to cardiomyopathy and also history of ve ntricular tachycardia with status post AICD as well as the patient currently on amiodarone and also chronic renal failure and hypertension and dyslipidemia and diabetes and smoking and chronic obstructive pulmonary disease. The patient presented to the hospital with symptoms and signs consistent with heart failure. He presented with progressive exertional dyspnea associated with orthopnea and lower extremities edema and weight gain. No pain in the chest and no dizziness or lightheadedness and no feeling of heart racing or fluttering and no presyncope or syncope. Unfortunately he continues to smoke. He stated that he has been compliant with his medications at home including diuretic where he was receiving Lasix at 40 mg twice daily and also has been compliant with his cardiomyopathy medications. He is not quite compliant with low-sodium diet. Further investigation performed including cardiac enzymes came in to be unremarkable and NT proBNP came in to be elevated and chest x-ray showed finding consistent with heart failure. The patient was subsequently placed on IV diuretics and he was admitted to the hospital for further evaluation. The physical examination is remarkable for diminished breathing sounds bilaterally and bilateral rhonchi and regular rate and rhythm with a systolic murmur at the apical area and bilateral lower extremities edema please note that the patient was hypoxic when he presented to the emergency department December 01, 2023 The patient was seen and evaluated this afternoon. He is feeling better. The shortness of breath has improved. The lower extremities edema has improved. He is able to walk up and around with no shortness of breath interfering with his daily activities with his kidney function is slightly worse. Blood pressure has been marginally low. I am going to decrease the dose of losartan to 12.5 mg p.o. daily from 25 mg p.o. daily. The examination is remarkable for bilateral rhonchi and bilateral lower extremities edema. 12/02/2023 Patient examined this morning at the bedside. Patient denies chest pain or pressure. He is currently laying flat in bed and does not appear to be in any acute distress. He is currently on BiPAP. He remains on IV Lasix 40 mg twice a day. Creatinine slightly worsened today at 2.36. 12/03/2023 Patient examined this morning. Patient is sitting on the side of the bed. He denies chest pain or pressure. He reports improvement in his shortness of breath. He remains on IV Lasix 40 mg daily. Creatinine is worsened today at 2.63. Blood pressure stable with a recent reading of 122/60. 12/04/2023 Patient examined this morning. Patient is sitting up in the chair. Patient denies chest pain or pressure. He reports mild shortness of breath. Vital signs are stable. Creatinine today remains stable at 2.54. 12/05/2023 Patient examined this morning. He is sitting on the side of the bed. He remains on IV Lasix 40 mg once a day. He is states he does not feel like he is urinating very much. Urine output documented over the last 24 hours is 500 cc. Creatinine improved today to 2.0 from 2.54 yesterday. Vital signs are stable. 12/06/2023 Patient examined this morning at the bedside. Patient showered this morning. He states he is feeling better today. His lower extremity edema is improved. Creatinine today 2.2. He denies chest pain or pressure. He reports improvement in his shortness of breath. 12/07/2023 Seen and examined at bedside this a.m. Creatinine is stable. Patient is continuing to make appropriate amount of urine. Hemodynamic stable. Denies any lightheadedness dizziness PHYSICAL EXAM: VITAL SIGNS: Reviewed. GENERAL: Well-developed in no acute distress. NECK: Supple. No JVD LUNGS: Respirations even and unlabored. Lungs diminished bilaterally HEART: Regular rate and rhythm. S1 and S2 heard. EXTREMITIES: Normal range of motion. No clubbing or cyanosis. Peripheral pulses intact. 1+ lower extremity edema ASSESSMENT: Acute hypoxic respiratory failure secondary to heart failure with reduced ejection fraction with evidence of right and left failure Severe cardiomyopathy with an ejection fraction of 20% Mitral regurgitation secondary to cardiomyopathy Coronary artery disease and status post CABG as described above with patent DYER to LAD and the occlusion of all vein grafts History of sustained ventricular tachycardia status post AICD; on amiodarone Obstructive sleep apnea Chronic kidney disease Multiple comorbid conditions including diabetes and hypertension and dyslipidemia Nicotine dependence PLAN: Continue amiodarone 100 mg, for VT history Continue atorvastatin 10 mg, Coreg 12.5 mg, Plavix 75 mg, Imdur 30 mg Discharge on Bumex 1 mg, Farxiga 5 mg. Cannot do TYRELL ARB or Aldactone due to CKD Discharged to a subacute rehab. Recommend outpatient follow-up with primary commercial loan underwriter. Objective - Vital Signs Vital signs: Vital Signs Temp 97.8 F 12/07/23 08:00 Pulse 70 12/07/23 16:41 Resp 18 12/07/23 12:57 BP 115/54 12/07/23 08:00 Pulse Ox 94 L 12/07/23 08:00 FiO2 30 12/07/23 04:28 Intake & Output 12/06/23 12/07/23 12/07/23 18:59 06:59 18:59 Intake Total 720 10 458 Output Total 850 1100 Balance 720 -840 -642 Weight 117 kg Intake: IV 10 Invasive Line 3 10 Oral 720 458 Output: Urine 850 1100 Other: Voiding Method Toilet Toilet Urinal Urinal # Voids 2 1 - Labs CBC & Chem 7: 12/03/23 08:16 12/07/23 07:41 Labs: Abnormal Lab Results - Last 24 Hours (Table) 12/06/23 12/07/23 12/07/23 Range/Units 20:09 07:41 11:39 BUN 44 H (9-20) mg/dL Creatinine 2.09 H (0.66-1.25) mg/dL POC Glucose (mg/dL) 179 H 130 H (70-110) mg/dL
--- NOTE | 2023-12-11 08:12 | CDI ---
Documentation Clarification Form Date: 12/10/2023 08:25:00 PM From: Amanda Velez RN, CCDS Phone: [phone] Admit Date: 11/29/2023 03:11:00 PM Patient Name: Gagan Ba Visit Number: [id number] Discharge Date: 12/07/2023 05:58:00 PM ATTENTION: The Clinical Documentation Specialists (CDI) and [facility] Coding Staff appreciate your assistance in clarifying documentation. Please respond to the clarification below the line at the bottom and electronically sign. The CDI & [facility] Coding staff will review the response and follow-up if needed. Please note: Queries are made part of the Legal Health Record. If you have any questions, please contact the author of this message via ITS. Dr. 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 Additional clarification is requested. History/Risk Factors: Severe COPD, GERD/Reflux, Hyperlipidemia, Hypertension, Sleep Apnea/CPAP/BIPAP, Chronic everyday smoker, chronic stage III Clinical Indicators: 73-year-old male present to the emergency department with difficulty breathing. EMS reports oxygen 85% on arrival to ED, mild degree of respiratory distress. 3/4 attending progress notes: developed altered mental status, a team called, received Diamox, IV push Lasix, placed on BiPAP. Brain CT no ac process. Bicarb 35. BUN 68, creatinine 2.36. VS: 104/51 60 20 97.7 BIPAP FIO2 30% 3/4 Pulmonary progress note: He is currently lying in bed. Awake and alert. He is on BiPAP 10/5 and 30% FiO2. Arterial blood gases revealed a pO2 of 70, pCO2 66 and a pH of 7.32. Acute on chronic shortness of breath attributed to decompensated CHF with evidence of pulmonary edema. ECHO: 04/19/2023 severe systolic heart failure with an ejection fraction of 20 to 25% and the patient also has grade 2 diastolic heart failure, moderate functional mitral regurgitation, severe and a dilatation, moderate RV dilatation. Pulmonary hypertension. 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 [ ] Other, please specify [ ] Unable to determine. (Template Last Revised: November 2020) MTDD
== END 2023-12-07 17:58 | DRG 291 ==
LOC: EC 11:09 → 3SCARD 15:11
PROVIDERS: ADMIT Family Medicine; ATTEND Family Medicine
DX: I13.0 Hypertensive heart and chronic kidney disease with heart failure and stage 1 through stage 4 chronic kidney disease, or unspecified chronic kidney disease (principal); I50.43 Acute on chronic combined systolic (congestive) and diastolic (congestive) heart failure; J96.21 Acute and chronic respiratory failure with hypoxia; J96.22 Acute and chronic respiratory failure with hypercapnia; N17.0 Acute kidney failure with tubular necrosis; J44.1 Chronic obstructive pulmonary disease with (acute) exacerbation; G93.1 Anoxic brain damage, not elsewhere classified; I47.20 Ventricular tachycardia, unspecified; J98.11 Atelectasis; R44.3 Hallucinations, unspecified; E11.59 Type 2 diabetes mellitus with other circulatory complications; E66.01 Morbid (severe) obesity due to excess calories; Z68.39 Body mass index [BMI] 39.0-39.9, adult; E11.22 Type 2 diabetes mellitus with diabetic chronic kidney disease; E78.5 Hyperlipidemia, unspecified; F17.210 Nicotine dependence, cigarettes, uncomplicated; G47.33 Obstructive sleep apnea (adult) (pediatric); I25.10 Atherosclerotic heart disease of native coronary artery without angina pectoris; I25.2 Old myocardial infarction; I25.5 Ischemic cardiomyopathy; I27.20 Pulmonary hypertension, unspecified; I34.0 Nonrheumatic mitral (valve) insufficiency; I45.10 Unspecified right bundle-branch block; N18.32 Chronic kidney disease, stage 3b; R33.9 Retention of urine, unspecified; K21.9 Gastro-esophageal reflux disease without esophagitis; R00.1 Bradycardia, unspecified; I45.4 Nonspecific intraventricular block; R61 Generalized hyperhidrosis; M19.90 Unspecified osteoarthritis, unspecified site; T50.2X5A Adverse effect of carbonic-anhydrase inhibitors, benzothiadiazides and other diuretics, initial encounter; Z79.02 Long term (current) use of antithrombotics/antiplatelets; Z79.82 Long term (current) use of aspirin; Z79.52 Long term (current) use of systemic steroids; Z79.84 Long term (current) use of oral hypoglycemic drugs; Z79.899 Other long term (current) drug therapy; Z82.5 Family history of asthma and other chronic lower respiratory diseases; Z87.442 Personal history of urinary calculi; Z95.1 Presence of aortocoronary bypass graft; Z95.5 Presence of coronary angioplasty implant and graft; Z95.810 Presence of automatic (implantable) cardiac defibrillator; Z96.641 Presence of right artificial hip joint; Z60.2 Problems related to living alone; Z86.14 Personal history of Methicillin resistant Staphylococcus aureus infection; Z71.3 Dietary counseling and surveillance
CPT/HCPCS: 36415; 36600; 70450; 71045; 71046; 76770; 80048; 80053; 81001; 82805; 83036; 83605; 83735; 83880; 84484; 85025; 85379; 85610; 85730; 93005; 93306; 94640; 94660; 94760; 96374; 96375; 96376; 99285

== ENCOUNTER → 2024-03-21 | Outpatient (CLI) | payer MEDICARE, OTHER ==
[2024-03-22 06:48] LABS: Appearance,Urine Clear (Clear); Bilirubin,Urine Negative (Negative); Blood,Urine Negative (Negative); Color,Urine Yellow (Yellow); Ketones,Urine Negative (Negative); Nitrite,Urine Negative (Negative); PH, Urine 6.5; Specific Gravity,Urine 1.011 (1.001-1.030); Urobilinogen,Urine 0.2 E.U./DL
[2024-03-22 06:51] LABS: HCT 48.2 % (39.6-50.0); HGB 14.6 g/dL (13.0-17.0); MCH 32.2 pg (27.0-32.0); MCHC 30.3 g/dL (32.0-37.0); MCV 106.4 FL (80.0-97.0); Mean Platelet Volume 10.4 FL (9.5-12.2); NRBC Per 100 WBC 0 X 10*3/uL (0.00-0.01); Platelet Count 263 X 10*3/uL (140-440); RBC 4.53 X 10*6/uL (4.40-5.60); RDW 15.4 % (11.5-14.5); WBC 10.72 X 10*3/uL (4.50-10.00)
[2024-03-22 08:54] LABS: NT-Pro-B-Type Natriuretic Pept 2798 pg/mL (0-125)
[2024-03-22 08:58] LABS: ALT 32 U/L (10-49); AST 19 U/L (14-35); Albumin 3.9 g/dL (3.8-4.9); Alkaline Phosphatase 94 U/L (41-126); BUN/Creat Ratio 16.62 Ratio (12.00-20.00); Blood Urea Nitrogen 34.9 mg/dL (9.0-27.0); Calcium 9.2 mg/dL (8.7-10.3); Carbon Dioxide 32.1 mmol/L (21.6-31.8); Chloride 98 mmol/L (96-109); Chol/HDL Ratio 2.63 Ratio; Globulin 2.6 g/dL (1.6-3.3); Glucose 135 mg/dL (70-110); LDL Cholesterol,Calculated 34.5 mg/dL (0.0-131.0); Magnesium 2.2 mg/dL (1.5-2.4); Phosphorus 3.5 mg/dL (2.4-5.1); Potassium 4.6 mmol/L (3.5-5.5); Sodium 141 mmol/L (135-145); Total Bilirubin 0.5 mg/dL (0.3-1.2); Total Protein 6.5 g/dL (6.2-8.2); VLDL Calculation 19.42 mg/dL (5.00-40.00)
[2024-03-22 09:48] LABS: Urine Creatinine 51.6 mg/dL (39.0-259.0)
[2024-03-22 11:08] LABS: % Iron Saturation 18.75 (15.00-50.00); Iron 63 UG/DL (65-175); Total Iron Binding Capacity 336 UG/DL (228-460)
== END | disposition home or self-care (01) ==
LOC: LABWHC1 11:30
PROVIDERS: ATTEND Nurse Practitioner Family
DX: N18.31 Chronic kidney disease, stage 3a (principal); D63.1 Anemia in chronic kidney disease; E78.2 Mixed hyperlipidemia; N39.0 Urinary tract infection, site not specified; N25.81 Secondary hyperparathyroidism of renal origin; E55.9 Vitamin D deficiency, unspecified; M10.9 Gout, unspecified
CPT/HCPCS: 36415; 80053; 80061; 81003; 82043; 82306; 82570; 82728; 83540; 83550; 83735; 83880; 83970; 84100; 84443; 84550; 85027

== ENCOUNTER → 2024-04-08 | Outpatient (CLI) | payer MEDICARE, OTHER ==
[2024-04-08 18:29] LABS: Basophils # (A) 0.04 X 10*3/uL (0.00-0.10); Basophils % (A) 0.4 %; Eosinophils # (A) 0.65 X 10*3/uL (0.04-0.35); Eosinophils % (A) 6.1 %; HCT 47.4 % (39.6-50.0); HGB 14.9 g/dL (13.0-17.0); Lymphocytes # (A) 0.89 X 10*3/uL (0.90-5.00); Lymphocytes % (A) 8.3 %; MCH 32.5 pg (27.0-32.0); MCHC 31.4 g/dL (32.0-37.0); MCV 103.3 FL (80.0-97.0); Mean Platelet Volume 9.8 FL (9.5-12.2); Monocytes # (A) 0.73 X 10*3/uL (0.20-1.00); Monocytes % (A) 6.8 %; NRBC Per 100 WBC 0 X 10*3/uL (0.00-0.01); Neutrophils # (A) 8.36 X 10*3/uL (1.80-7.70); Neutrophils % (A) 77.9 %; Platelet Count 226 X 10*3/uL (140-440); RBC 4.59 X 10*6/uL (4.40-5.60); RDW 15.6 % (11.5-14.5); WBC 10.72 X 10*3/uL (4.50-10.00)
[2024-04-08 19:12] LABS: BUN/Creat Ratio 14.45 Ratio (12.00-20.00); Blood Urea Nitrogen 31.8 mg/dL (9.0-27.0); Carbon Dioxide 30.4 mmol/L (21.6-31.8); Chloride 98 mmol/L (96-109); Chol/HDL Ratio 3.22 Ratio; Glucose 132 mg/dL (70-110); LDL Cholesterol,Calculated 57.1 mg/dL (0.0-131.0); Potassium 4.5 mmol/L (3.5-5.5); Sodium 141 mmol/L (135-145)
[2024-04-08 19:13] LABS: ALT 32 U/L (10-49); AST 24 U/L (14-35); Albumin 3.9 g/dL (3.8-4.9); Alkaline Phosphatase 92 U/L (41-126); Calcium 9.1 mg/dL (8.7-10.3); Prostate Specific Antigen 1.44 ng/mL (0.000-6.500); Total Bilirubin 0.7 mg/dL (0.3-1.2); Total Protein 6.9 g/dL (6.2-8.2)
== END | disposition home or self-care (01) ==
LOC: LABWHC1 13:23
PROVIDERS: ATTEND Family Medicine
DX: Z00.00 Encounter for general adult medical examination without abnormal findings (principal); I13.0 Hypertensive heart and chronic kidney disease with heart failure and stage 1 through stage 4 chronic kidney disease, or unspecified chronic kidney disease; I50.22 Chronic systolic (congestive) heart failure; E11.21 Type 2 diabetes mellitus with diabetic nephropathy; E11.22 Type 2 diabetes mellitus with diabetic chronic kidney disease; E11.622 Type 2 diabetes mellitus with other skin ulcer; E78.2 Mixed hyperlipidemia; E66.01 Morbid (severe) obesity due to excess calories; L98.499 Non-pressure chronic ulcer of skin of other sites with unspecified severity; N18.32 Chronic kidney disease, stage 3b; J43.9 Emphysema, unspecified; R53.81 Other malaise; Z87.891 Personal history of nicotine dependence; Z68.36 Body mass index [BMI] 36.0-36.9, adult
CPT/HCPCS: 36415; 80053; 80061; 84153; 84443; 85025

== ENCOUNTER → 2024-06-29 | Outpatient (CLI) | payer MEDICARE, OTHER ==
[2024-06-29 18:07] LABS: Appearance,Urine Clear (Clear); Bilirubin,Urine Negative (Negative); Blood,Urine Negative (Negative); Color,Urine Yellow (Yellow); Ketones,Urine Negative (Negative); Nitrite,Urine Negative (Negative)
[2024-06-29 18:18] LABS: HCT 43.2 % (39.6-50.0); MCH 33.1 pg (27.0-32.0); MCHC 32.4 g/dL (32.0-37.0); MCV 102.1 FL (80.0-97.0); Mean Platelet Volume 9.8 FL (9.5-12.2); NRBC Per 100 WBC 0 X 10*3/uL (0.00-0.01); Platelet Count 182 X 10*3/uL (140-440); RBC 4.23 X 10*6/uL (4.40-5.60); RDW 16.4 % (11.5-14.5); WBC 8.04 X 10*3/uL (4.50-10.00)
[2024-06-29 20:38] LABS: Microalbumin Creatinine Ratio <28 mg/g Cr (0-30); Urine Creatinine 42.2 mg/dL (39.0-259.0)
[2024-06-29 20:46] LABS: % Iron Saturation 34.62 (15.00-50.00); ALT 13 U/L (10-49); AST 16 U/L (14-35); Albumin 3.4 g/dL (3.8-4.9); Albumin/Globulin Ratio 1.36 Ratio (1.60-3.17); Alkaline Phosphatase 101 U/L (41-126); BUN/Creat Ratio 11.52 Ratio (12.00-20.00); Blood Urea Nitrogen 24.2 mg/dL (9.0-27.0); Calcium 8.8 mg/dL (8.7-10.3); Carbon Dioxide 26.6 mmol/L (21.6-31.8); Chloride 102 mmol/L (96-109); Globulin 2.5 g/dL (1.6-3.3); Glucose 86 mg/dL (70-110); Iron 90 UG/DL (65-175); Magnesium 1.8 mg/dL (1.5-2.4); Phosphorus 2.8 mg/dL (2.4-5.1); Potassium 4.3 mmol/L (3.5-5.5); Sodium 140 mmol/L (135-145); Total Bilirubin 0.6 mg/dL (0.3-1.2); Total Iron Binding Capacity 260 UG/DL (228-460); Total Protein 5.9 g/dL (6.2-8.2); Uric Acid 6.7 mg/dL (3.7-8.7)
[2024-06-29 21:39] LABS: NT-Pro-B-Type Natriuretic Pept 1847 pg/mL (0-125)
== END | disposition home or self-care (01) ==
LOC: LABWHC1 13:53
PROVIDERS: ATTEND Internal Medicine Cardiovascular Disease
DX: E55.9 Vitamin D deficiency, unspecified (principal); I50.22 Chronic systolic (congestive) heart failure; N18.32 Chronic kidney disease, stage 3b; D63.1 Anemia in chronic kidney disease; N39.0 Urinary tract infection, site not specified; N25.81 Secondary hyperparathyroidism of renal origin; M10.9 Gout, unspecified; R80.9 Proteinuria, unspecified
CPT/HCPCS: 36415; 80053; 81003; 82043; 82306; 82570; 82728; 83540; 83550; 83735; 83880; 83970; 84100; 84443; 84550; 85027

== ENCOUNTER → 2024-10-30 | Outpatient (CLI) | payer MEDICARE ==
[2024-10-30 14:49] LABS: Appearance,Urine Clear (Clear); Bilirubin,Urine Negative (Negative); Blood,Urine Negative (Negative); Color,Urine Yellow (Yellow); Ketones,Urine Negative (Negative); Nitrite,Urine Negative (Negative); Specific Gravity,Urine 1.008 (1.001-1.030); Urobilinogen,Urine 0.2 E.U./DL
[2024-10-30 15:01] LABS: HCT 41.5 % (39.6-50.0); HGB 13.6 g/dL (13.0-17.0); MCH 32.8 pg (27.0-32.0); MCHC 32.8 g/dL (32.0-37.0); Mean Platelet Volume 10.4 FL (9.5-12.2); NRBC Per 100 WBC 0 X 10*3/uL (0.00-0.01); Platelet Count 233 X 10*3/uL (140-440); RBC 4.15 X 10*6/uL (4.40-5.60); RDW 14.1 % (11.5-14.5)
[2024-10-30 15:28] LABS: % Iron Saturation 18.59 (15.00-50.00); ALT 13 U/L (10-49); AST 17 U/L (14-35); Albumin 3.5 g/dL (3.8-4.9); Albumin/Globulin Ratio 1.46 Ratio (1.60-3.17); Alkaline Phosphatase 113 U/L (41-126); BUN/Creat Ratio 11.68 Ratio (12.00-20.00); Blood Urea Nitrogen 25.7 mg/dL (9.0-27.0); Calcium 8.6 mg/dL (8.7-10.3); Carbon Dioxide 28.6 mmol/L (21.6-31.8); Chloride 101 mmol/L (96-109); Chol/HDL Ratio 2.89 Ratio; Globulin 2.4 g/dL (1.6-3.3); Glucose 106 mg/dL (70-110); Iron 50 UG/DL (65-175); LDL Cholesterol,Calculated 37.1 mg/dL (0.0-131.0); Magnesium 1.9 mg/dL (1.5-2.4); Phosphorus 3.6 mg/dL (2.4-5.1); Potassium 3.6 mmol/L (3.5-5.5); Sodium 140 mmol/L (135-145); Total Bilirubin 0.3 mg/dL (0.3-1.2); Total Iron Binding Capacity 269 UG/DL (228-460); Total Protein 5.9 g/dL (6.2-8.2); Uric Acid 7.7 mg/dL (3.7-8.7)
[2024-10-30 21:39] LABS: Microalbumin Creatinine Ratio <43 mg/g Cr (0-30); Urine Creatinine 27.6 mg/dL (39.0-259.0)
== END | disposition home or self-care (01) ==
LOC: LABWHC1 08:58
PROVIDERS: ATTEND Internal Medicine Cardiovascular Disease
DX: N18.32 Chronic kidney disease, stage 3b (principal); D63.1 Anemia in chronic kidney disease; I42.7 Cardiomyopathy due to drug and external agent; I50.22 Chronic systolic (congestive) heart failure; E78.2 Mixed hyperlipidemia; N39.0 Urinary tract infection, site not specified; E55.9 Vitamin D deficiency, unspecified; N25.81 Secondary hyperparathyroidism of renal origin; M10.9 Gout, unspecified; R80.9 Proteinuria, unspecified
CPT/HCPCS: 36415; 80053; 80061; 81003; 82043; 82306; 82570; 82728; 83540; 83550; 83735; 83970; 84100; 84443; 84550; 85027

== ENCOUNTER → 2025-01-18 | Outpatient (CLI) | payer MEDICARE ==
--- NOTE | 2025-01-25 20:57 | P.PCN ---
Date of Procedure: 01/19/25 Operative Findings: Home sleep study report Date of service is 01/19/2025 Pertinent history This is a 74-year-old male patient with history of snoring witnessed apneas and chronic hypersomnia and sleepiness. The patient also has moderate COPD with an FEV1 of 52% of predicted. The patient also has coronary artery disease, previous bypass surgery, diabetes mellitus type 2, CHF, hyperlipidemia. On a separate note, the patient has a previous history of obstructive sleep apnea. This was done in an outside sleep center. The patient was given a CPAP machine and the machine is currently nonfunctional. As such, the patient is having excessive daytime sleepiness and during a recent evaluation in our office, he requested a reevaluation regarding his obstructive sleep apnea. Based on that, a home sleep study was ordered. Pertinent physical findings Body mass index is 36, weight is 230 pounds Technical description The [employer] Ap[employer] system was used to complete his home sleep study. This is a type III home sleep study. The total recording duration was 5 hours and 51 minutes. The study started at 12:39 AM and ended at 6:30 AM. There was a total of 5 hours and 39 minutes of flow monitoring and 5 hours and 40 minutes of oxygen saturation monitoring. This was an adequate study Results Respiratory analysis showed a total of 108 obstructive apneas and 336 obstructive hypopneas. The AHI was calculated to be at 78.4 consistent with severe FRANCESCA. Oxygenation analysis The patient had a baseline pulse ox of 93 % on room air oxygen. Average pulse ox during sleep was 87% and the patient's lowest pulse ox was 71%. The patient spent approximately 3 hours and 55 minutes of the sleep time below pulse ox of 89%. Cardiac summary The average heart rate was 66 with a minimum heart of 44 and a maximum heart of 87 Assessment Severe FRANCESCA with an AHI of 78.4 Severe nocturnal oxygen desaturations Obesity with a BMI of 36 Comorbidities including COPD, coronary disease, previous bypass surgery, diabetes mellitus type 2, CHF and hyperlipidemia. Plan Proceed with CPAP titration. The patient will be asked to come into the sleep center to undergo an in lab CPAP titration based on his underlying severe FRANCESCA and various morbidities as mentioned.
== END ==
LOC: 3 N SLEEP 13:37
PROVIDERS: ATTEND Internal Medicine Critical Care Medicine
DX: G47.33 Obstructive sleep apnea (adult) (pediatric) (principal); E11.9 Type 2 diabetes mellitus without complications; E66.9 Obesity, unspecified; E78.5 Hyperlipidemia, unspecified; I25.10 Atherosclerotic heart disease of native coronary artery without angina pectoris; I50.9 Heart failure, unspecified; J44.9 Chronic obstructive pulmonary disease, unspecified; Z68.36 Body mass index [BMI] 36.0-36.9, adult; Z95.1 Presence of aortocoronary bypass graft; Z99.89 Dependence on other enabling machines and devices; Z87.891 Personal history of nicotine dependence

== ENCOUNTER → 2025-03-08 | Outpatient (CLI) | payer MEDICARE ==
[2025-03-09 02:10] LABS: Appearance,Urine Clear (Clear); Bilirubin,Urine Negative (Negative); Blood,Urine Negative (Negative); Color,Urine Dark Yellow (Yellow); HCT 44.6 % (39.6-50.0); Ketones,Urine Negative (Negative); MCH 33.3 pg (27.0-32.0); MCHC 31.4 g/dL (32.0-37.0); MCV 105.9 FL (80.0-97.0); Mean Platelet Volume 11.6 FL (9.5-12.2); NRBC Per 100 WBC 0 X 10*3/uL (0.00-0.01); Nitrite,Urine Negative (Negative); Platelet Count 138 X 10*3/uL (140-440); RBC 4.21 X 10*6/uL (4.40-5.60); Specific Gravity,Urine 1.017 (1.001-1.030); WBC 8.75 X 10*3/uL (4.50-10.00)
[2025-03-09 02:21] LABS: Bacteria,Urine None Seen (None Seen)
[2025-03-09 02:50] LABS: % Iron Saturation 13.92 (15.00-50.00); ALT 15 U/L (10-49); AST 22 U/L (14-35); Albumin 3.9 g/dL (3.8-4.9); Albumin/Globulin Ratio 1.39 Ratio (1.60-3.17); Alkaline Phosphatase 111 U/L (41-126); BUN/Creat Ratio 12.55 Ratio (12.00-20.00); Blood Urea Nitrogen 27.6 mg/dL (9.0-27.0); Calcium 8.8 mg/dL (8.7-10.3); Carbon Dioxide 26.4 mmol/L (21.6-31.8); Chloride 104 mmol/L (96-109); Globulin 2.8 g/dL (1.6-3.3); Glucose 98 mg/dL (70-110); Iron 43 UG/DL (65-175); Magnesium 2.1 mg/dL (1.5-2.4); Phosphorus 2.5 mg/dL (2.4-5.1); Potassium 4.4 mmol/L (3.5-5.5); Sodium 143 mmol/L (135-145); Total Bilirubin 0.7 mg/dL (0.3-1.2); Total Iron Binding Capacity 309 UG/DL (228-460); Total Protein 6.7 g/dL (6.2-8.2); Uric Acid 6.3 mg/dL (3.7-8.7)
[2025-03-09 03:57] LABS: NT-Pro-B-Type Natriuretic Pept 2741 pg/mL (0-125)
== END | disposition home or self-care (01) ==
LOC: LABWHC1 16:08
PROVIDERS: ATTEND Nurse Practitioner Family
DX: N18.32 Chronic kidney disease, stage 3b (principal); I50.22 Chronic systolic (congestive) heart failure
CPT/HCPCS: 36415; 80053; 81001; 82043; 82306; 82570; 82728; 83540; 83550; 83735; 83880; 83970; 84100; 84443; 84550; 85027

== ENCOUNTER 2025-03-09 20:25 | Outpatient (CLI) | payer MEDICARE ==
--- NOTE | 2025-03-15 22:40 | P.PCN ---
Date of Procedure: 03/09/25 Operative Findings: CPAP titration report Date of service is 03/09/2025 Pertinent history This is a 74-year-old male patient with history of snoring witnessed apneas and chronic hypersomnia and sleepiness. The patient also has moderate COPD with an FEV1 of 52% of predicted. The patient also has coronary artery disease, previous bypass surgery, diabetes mellitus type 2, CHF, hyperlipidemia. On a separate note, the patient has a previous history of obstructive sleep apnea. This was done in an outside sleep center. The patient was given a CPAP machine and the machine is currently nonfunctional. As such, the patient is having excessive daytime sleepiness and during a recent evaluation in our office, he requested a reevaluation regarding his obstructive sleep apnea. Based on that, a home sleep study was ordered. The patient underwent a home sleep study on 01/25/2025 and the patient was found to have obstructive sleep apnea, severe with an AHI of 78.4 with significant nocturnal oxygen desaturations. Based on that, the patient was asked to come into the sleep center to undergo a CPAP titration. Pertinent physical findings Body mass index is 36, weight is 230 pounds Technical description The patient was studied using a standard complex polysomnography protocol that included recording of the Lead II EKG, Central, occipital and frontal EEG, right and left outer canthus EOG, submental EMG, right and left anterior tibialis EMG, respiratory airflow by thermocouple and or pressure/flow transducer, respiratory efforts by abdominal and thoracic PVDF belts, oxygen saturation by cable oximetry. Position by observation synchronized the PSG. Equipment used: [employer]. Stepwise CPAP titration was done to limit all obstructive respiratory events Sleep architecture The patient had a total recording duration of 368.5 minutes. The total sleep time was 321 minutes. The wake after sleep onset time was 38 minutes. The overall sleep efficiency was 87.1%. The latency to sleep onset was 8.5 minutes. The latency to REM sleep was 58 minutes. Sleep architecture was characterized by 6.7% stage I, 67.1% stage II, 0% stage III and a total of 27.4% REM sleep. The total arousal index was 8.6. CPAP titration summary The patient was started on CPAP therapy and the initial pressure was 5 cm of water and a rapid titration was done with a CPAP pressure was increased by increments of 1 to 2 cm of water and ultimately the maximum CPAP pressure utilized was 15 cm of water. Oxygen was also added at 2 L/min. Subsequently, the titration was continued utilizing BiPAP pressures of 19/15 and 20/16, 21/17, 22/18, 23/19 and 24 over 20 cm of water and oxygen was also titrated to reach 4 L along with BiPAP therapy. I carefully reviewed CPAP/BiPAP titration taking because the patient sleep stage and body position. As stated earlier, this is his case of severe obstructive sleep apnea. I noticed that there was considerable improvement in the patient's obstructive respiratory events on BiPAP therapy compared to CPAP therapy. The patient had a significant drop in the AHI and improvement in oxygenation along with O2 supplementation. The patient will be offered a VPAP auto. I suggest a wide range of BiPAP pressures and auto mode and will start the patient on the EPAP minimum of 10 and maximum pressure of 24 and a pressure support of 4. The patient will be also supplemented with oxygen to maintain a saturation above 90%. The significant nocturnal oxygen desaturation was attributed to obstructive sleep apnea and the patient also has a baseline COPD which is moderately severe. Patient has chronic hypoxemia with a pulse ox of 93% room air oxygen. Sleep continuity summary The patient had total of 46 arousals with an index of 8.6 and the respiratory arousal index was 0.7 Periodic limb movement A total of 16 periodic limb movement activity with an index of 3. In addition, there was to periodic limb movement activity with arousals with an index of 0.4 Cardiac summary Average heart rate was 71 with a minimum heart rate of 65 and a max heart of 75 Assessment Severe FRANCESCA with an AHI of 78.4, successful BiPAP therapy, improvement in oxygenation with BiPAP therapy and oxygen supplementation. Severe nocturnal oxygen desaturations, improved with BiPAP and O2 supplementation Obesity with a BMI of 36 Comorbidities including COPD, coronary disease, previous bypass surgery, diabetes mellitus type 2, CHF and hyperlipidemia. Chronic hypoxemia with a baseline pulse ox of 93% on room air oxygen Plan Proceed with BiPAP therapy and the patient will be offered a VPAP auto, starting EPAP pressure of 10 and a max pressure of 24 and a pressure support of 3. The patient will be also offered oxygen at 2 L. The patient will be off of the large size [employer] fullface mask. The patient was seen back in short-term follow-up to assess clinical response and compliancy and further adjustment will be done accordingly.
== END 2025-03-10 06:00 | disposition home or self-care (01) ==
LOC: 3 N SLEEP 20:25
PROVIDERS: ATTEND Internal Medicine Critical Care Medicine
DX: G47.33 Obstructive sleep apnea (adult) (pediatric) (principal); E66.9 Obesity, unspecified; E11.9 Type 2 diabetes mellitus without complications; E78.5 Hyperlipidemia, unspecified; I25.10 Atherosclerotic heart disease of native coronary artery without angina pectoris; I50.9 Heart failure, unspecified; J44.9 Chronic obstructive pulmonary disease, unspecified; Z95.1 Presence of aortocoronary bypass graft; Z99.89 Dependence on other enabling machines and devices; Z68.36 Body mass index [BMI] 36.0-36.9, adult; Z87.891 Personal history of nicotine dependence
CPT/HCPCS: 95811